=== PATIENT | female | born 1950 | race Caucasian/White ===

== ENCOUNTER → 2017-12-23 14:17 | Outpatient (CLI) | payer MEDICARE, OTHER, SELFPAY ==
--- NOTE | 2017-12-23 14:25 | HPBI_ITS ---
MAMMOGRAPHY - UNILATERAL SCREENING: RIGHT BREAST REASON FOR EXAM: Female, 67 years old. Routine annual screening examination (unilateral). PERTINENT HISTORY: Personal history of breast cancer. Prior left mastectomy and prior right excisional breast biopsy. TECHNIQUE: Digital unilateral breast hanna (3D mammographic acquisition) in the CC and MLO projections. 2-D mediolateral oblique (MLO) and craniocaudad (CC) views of both breasts were obtained. CAD: Full Field Digital Mammography with Computer Added Detection was performed. COMPARISON: Comparison is made with prior study dated December 11, 2016 and November 27, 2015. FINDINGS: Breast Composition: There are scattered areas of fibroglandular density. There are no dominant masses or suspicious calcifications. No other significant abnormalities are identified. There has been no significant change since the prior study. BI/UNILAT RT SCRN W/CAD IMPRESSION: Stable unilateral screening mammogram. Yearly follow-up mammogram recommended. (A) ASSESSMENT CATEGORY: BIRADS Category 1: Negative. A letter regarding these results will be sent to the patient by the facility within 30 days. Approximately 10% of breast cancers are not detected by mammography. A normal mammogram should not delay biopsy of a clinically suspicious abnormality. [id number] Electronically Signed: Lobo Chaves MD at 15:44 EST Tel [phone], Service support ,
--- NOTE | 2017-12-23 14:25 | HPBD_ITS ---
STUDY: DUAL ENERGY X-RAY ABSORPTIOMETRY / DXA REASON FOR EXAM: Female, 67 years old. The patient is postmenopausal. Loss of height. TECHNIQUE: Bone Mineral Density (BMD) measurements of lumbar spine and bilateral hips were obtained. COMPARISON: Comparison is made with prior study dated August 29, 2015. FINDINGS: Lumbar Spine (L1-L4): g/cm2 (1.107) / T-score (-0.5) / Z-score (1.2) Findings are suggestive of normal bone density with a low fracture risk. Left Femur Total: g/cm2 (1.003) / T-score (0.0) / Z-score (1.4) Left Femoral Neck: g/cm2 (0.853) / T-score (-1.3) / Z-score (0.4) Right Femur Total: g/cm2 (0.910) / T-score (-0.8) / Z-score (0.7) Right Femoral Neck: g/cm2 (0.835) / T-score (-1.5) / Z-score (0.2) The T-Scores on the most recent prior examination were: Lumbar Spine (L1-L4): There has been worsening of bone density since the previous examination. Left Femur Total: which represents an improvement of 5.8%. Right Femur Total: which represents a worsening of 2.6%. HPBD/Dexa Bone Density Study (HP) IMPRESSION: The patient is considered osteopenic as outlined below according to World [employer] Organization (WHO) criteria with a moderate fracture risk. There has been worsening of bone density since the previous examination. Reference Information: The T-score is the number of standard deviations above or below the standard which is normal for young adults at their peak bone mineral density. The World Health Organization (WHO) interprets the T-scores as follows: Above -1 Normal bone density Between -1 and -2.5 Osteopenia Equal to / or below -2.5 Osteoporosis As a practical clinical guideline, osteopenia may be graded as follows: Mild -1 through -1.5 Moderate -1.6 through -2.0 Severe -2.1 through -2.4 The Z-score is the number of standard deviations above or below age-matched controls. A Z-score of less than -1.5 would be considered abnormal. References: 1. NIH Osteoporosis and Related Bone Diseases http://www.osteo.org 2. International Society for Clinical Densitometry http://www.iscd.org 3. National Osteoporosis Foundation http://www.nof.org Electronically Signed: Lobo Chaves MD at 15:50 EST Tel [phone], Service support ,
== END ==
PROVIDERS: Family Provider Family Medicine; PCP Family Medicine; Visit Provider Family Medicine
DX: Z12.31 Encounter for screening mammogram for malignant neoplasm of breast (principal); M81.0 Age-related osteoporosis without current pathological fracture
CPT/HCPCS: 77061; 77067; 77080; G0279

== ENCOUNTER → 2018-01-08 15:43 | Outpatient (CLI) | payer MEDICARE, OTHER, SELFPAY ==
--- NOTE | 2018-01-08 15:43 | RAD_ITS ---
STUDY: X-RAY - CERVICAL SPINE REASON FOR EXAM: Female, 67 years old. Chronic neck pain TECHNIQUE: 3 view(s) of the cervical spine were obtained. COMPARISON: None FINDINGS: Normal anterior atlantoaxial articulation. Normal odontoid process. There is straightening of the normal cervical lordosis. There is multi-level endplate spondylosis. There is multi-level degenerative disc disease with multilevel disc space narrowing. The soft tissue structures are unremarkable. There is no demonstrated fracture of the cervical spine. RAD/Cerv Spine 2 or 3 Views IMPRESSION: No acute fracture or dislocation. Degenerative changes. Electronically Signed: Ruben Carlson MD at 16:07 EST , Service support ,
== END ==
PROVIDERS: Family Provider Family Medicine; PCP Family Medicine; Visit Provider Family Medicine
DX: M54.2 Cervicalgia (principal); M77.11 Lateral epicondylitis, right elbow
CPT/HCPCS: 72040; 97530

== ENCOUNTER 2018-01-12 12:30 | Outpatient (RCR) | payer MEDICARE, OTHER, SELFPAY ==
--- NOTE | 2017-11-28 14:13 | HP.PTEVAL_ITS ---
Patient's Visit Information LUIS MANUEL MAYA is a 67 year old F referred to Physical Therapy by MD SARINA Flores with a diagnosis of RIGHT ELBOW TENDONITIS. Date of Evaluation: 11/28/17 Physical Therapist: Lindsay Wolf Visit Plan Frequency: 2x /Week Duration: 4-6 Weeks Plan: RIGHT ELBOW US TO TENDER AREAS, POSTURE CORRECTION/STRENGTHENING, RIGHT ELBOW STM, CERVICAL US AND STM. RIGHT UE ROM, STRETCHING AND STRENGTHENING. 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 Disability: NO. Present symptoms: RIGHT ANTERIOR ELBOW. ELBOW LOCKS UP. PATIENT DENIES NECK, RIGHT SHOULDER, RIGHT FOREARM AND HAND SX'S. Present since: ABOUT 2 YEARS AGO. Pain Scale: WORST 8 /10, LEAST 2/10. Currently: 4/10. Commenced as a result of: NO APPARENT REASON. Symptoms at onset: SAME. Worse: RESTING ELBOW ON SOMETHING, USING HER ARM AND SLEEPING. Better: ADVIL, USING OTHER HAND TO UNLOCK ELBOW, RESTING IT. Disturbed sleep: YES. Previous history/Previous treatment: INJECTION BY DR. GABRIEL THAT HELPED FOR ABOUT A MONTH ONLY. NO SURGERY. Accidents: NO. Unexplained weight loss: NO. Imaging: RIGHT ELBOW X-RAY SHOWING ARTHRITIS RECENTLY. NO MRI. PMH: LUMBAR DDD, LEFT SHOULDER PAIN, OSTEOPOROSIS, BREAST CA 1992 AND 1997 TREATED WITH MASECTOMY AND RADIATION. HERNIA SX 3 YEARS AGO. LEFT ANKLE ARTHRITIS. LEFT KNEE MENISCUS SX. - Objective THIS PATIENT AMBULATES INDEP'LY INTO PT WITHOUT ANY GROSS DEVIATIONS NOTED. SHE HAS A LITTLE BIT OF TROUBLE LOCATING HER PAIN FOR ME STATING IT SEEMS TO BE HER WHOLE ELBOW AT TIMES AND AT NIGHT WHEN IT STARTS TO ACHE SHE HAS TO USE HER LEFT ARM TO LIFT HER RIGHT ONE. SHE IS RIGHT HAND DOMINANT. HER SITTING POSTURE IS POOR WITH FORWARD HEAD AND ROUNDED SHOULDERS. NO TORTICOLLIS. ACTIVE CORRECTION OF HER SITTING POSTURE HAS NO APPARENT EFFECT AT FIRST BUT PASSIVE POSTURE CORRECTION WITH LUMBAR SUPPORT ABOLISHES RIGHT ELBOW PAIN. CERVICAL MVMT LOSS: FELX - NIL, EXT - NAVEEN, RET - NAVEEN, PROTRACTION - NIL, REAL ROT - MOD, REAL SB - MOD. AFTER TESTING ONE REPETITION OF NECK ROM IN ALL PLANES PATIENT STARTED TO REPORT HER ARM WAS REALLY HURTING. NECK ROM TESTING ALSO PRODUCES REAL NECK PAIN AND PAIN THAT RADIATES DOWN FROM THE NECK INTO THE SHOULDER AND ALL THE WAY DOWN TO HER FOREARM. SHE HAS A LITTLE BIT OF TENDERNESS AT THE RIGHT LATERAL EPICONDYLE BUT EPICONDYLITIS TEST IS NEGATIVE AND SHE HAS GOOD RIGHT WRIST EXTENSOR STRENGTH. MMT: RIGHT SHOULDER FLEX AND ABD 4-/5, ELBOW FLEX 5/5, ELBOW EXT 5/5. LEFT SHOULDER FLEX AND ABD 4/5, ELBOW FLEX/EXT 5/5. 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 REAL UE LIGHT TOUCH SENSATION IS INTACT AND SYMMETRICAL. REAL UE ROM IS WFL BUT RIGHT SHOULER FLEX AND ABD ROM TESTING PROVOKES RIGHT NECK, SHOULDER AND ELBOW PAIN. - Goals Goal 1:: DECREASE C/O RIGHT UE PAIN Goal Time Frame: 4-6 Weeks Goal 2:: IMPROVE ADL AND SLEEP FUNCTION Goal Time Frame: 4-6 Weeks Goal 3:: INSTRUCT IN PROPHYLAXIS Goal Time Frame: 4-6 Weeks - Rehabilitation Potential Rehabilitation Potential: Fair - Anticipated Interventions Patient/Client Instruction: Educate patient on: Condition, Plan of Care, Risk Factors, Benefits of Fitness Program For the Purpose of:: To improve self management Therapeutic Exercise to Include: Strength training, Body mechanics, Postural training, Scapular Strength/Stabilization For the Purpose of:: To improve ability of physical actions for home/community/ work/leisure Manual Therapy Techniques to Include: Soft tissue mobilization Comment: NECK AND RIGHT UE For the Purpose of:: To decrease pain, To decrease swelling/inflammation, To increase ROM Cryotherapy (ice pack, ice massage): Yes Thermo therapy (hot pack): Yes Ultrasound (thermal/non thermal): Yes For the Purpose of:: To decrease pain, To decrease swelling/inflammation, To increase ROM Thank you for the opportunity to evaluate your patient. For Medicare and Medicare HMO plans, please review the plan of care and approve it. It will need to be FAXED BACK to us at [phone] for Medicare purposes. Please let me know if there are questions or concerns regarding this plan of care. Physician Signature: Date:
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
--- NOTE | 2018-01-12 13:09 | HP.PTDCSUM ---
HP - PT D/C Summary It has been my pleasure to treat LUIS MANUEL MAYA under orders from Nayla Fitzgerald MD, for the diagnosis of RIGHT ELBOW TENDONITIS for a total of 12 visit(s). Discharge Date: Please see the following information for a summary of their discharge status. - Subjective Subjective: PATIENT REPORTS SHE GOT A CALL FROM THE DOCTORS OFFICE AND WAS TOLD IT IS JUST ARTHRITIS IN HER NECK. STATES SHE WANTS AN MRI BECAUSE SHE WAS MISERABLE THIS WEEKEND TRAVELING. REPORTS THAT OVER-ALL SHE IS SO MUCH BETTER SINCE STARTING THERAPY BECAUSE SHE CAN SLEEP NOW AND GET RID OF THE PAIN WITH THE RIGHT ACTIVITY AND POSITION CHANGES WHERE SHE COULDN'T BEFORE BUT SHE WANTS TO BE ABLE TO TRAVEL, VOLUNTEER, SOCIALIZE AND GARDEN LIKE BEFORE WITHOUT THE PAIN. - Pain RIGHT ELBOW Pain Intensity (Out of 10): 0 NECK Pain Intensity (Out of 10): 0 - Overall Improvement % Improvement: 100 - Objective Objective/Function: UPON EXAM, THERE ARE NO CHANGES SINCE LAST RE-CHECK. PATIENT COMMUNICATES A GOOD UNDERSTANDING OF ALL INSTRUCTIONS GIVEN. ALTHOUGHT SHE CAN ABOLISH HER SX'S NOW WITH ACTIVITY MODIFICATIONS SHE CAN NOT TOLERATE FURTHER PROGRESSION OF POSTURAL EX'S OR MANUAL THERAPY. THE RIGHT UE SX'S ARE EASILY PROVOKED WITH THER EX AND MANUAL THERAPY. - Goals Goal 1:: DECREASE C/O RIGHT UE PAIN Goal Progress: Not Progressing Goal 2:: IMPROVE ADL AND SLEEP FUNCTION Goal Progress: Not Progressing Goal 3:: INSTRUCT IN PROPHYLAXIS Goal Progress: Not Progressing - Plan Plan: D/C DUE TO LACK OF FURTEHR PROGRESS. REFERRED PATIENT BACK TO DR. FITZGERALD FOR RE-ASSESSMENT. PATIENT IS AGREEABLE TO THIS PLAN. - D/C Information If there are questions or concerns regarding this patient's physical therapy, please feel free to call me at [phone]. Thank you for the referral of this patient. Sincerely, Lindsay Larson
== END 2018-01-12 19:00 | disposition home or self-care (01) ==
LOC: PT 12:30
PROVIDERS: Family Provider Family Medicine; PCP Family Medicine; Visit Provider Family Medicine
DX: M77.11 Lateral epicondylitis, right elbow (principal)
CPT/HCPCS: 97035; 97140; 97162; 97530

== ENCOUNTER → 2018-01-26 15:55 | Outpatient (CLI) | payer MEDICARE, OTHER, SELFPAY ==
--- NOTE | 2018-01-26 16:00 | RAD_ITS ---
STUDY: X-RAY CHEST REASON FOR EXAM: Female, 68 years old. Acute bronchitis. Cough. TECHNIQUE: Frontal and lateral views of the chest. COMPARISON: 12/09/2012. FINDINGS: The lungs are clear and expanded. There is no demonstrated pleural abnormality. Normal size heart. Normal mediastinum and stephenie. Normal visualized pulmonary arteries. Normal visualized aortic arch and descending thoracic aorta. Moderate hiatal hernia. Normal visualized thoracic spine. Normal visualized ribs, clavicles, and shoulders. There is no demonstrated abnormality of the visualized soft tissue structures of the upper abdomen. Surgical clips are seen related to the left breast. RAD/Chest PA and Lateral IMPRESSION: No acute chest disease. Moderate hiatal hernia. Electronically Signed: Ruben Carlson MD at 10:02 EST , Service support ,
== END ==
PROVIDERS: Family Provider Family Medicine; PCP Family Medicine; Visit Provider Family Medicine
DX: J20.9 Acute bronchitis, unspecified (principal)
CPT/HCPCS: 71046

== ENCOUNTER → 2018-09-01 10:00 | Outpatient (CLI) | payer MEDICARE, OTHER, SELFPAY ==
--- NOTE | 2018-09-01 10:02 | RAD_ITS ---
STUDY: X-RAY - RIGHT ELBOW REASON FOR EXAM: Female, 68 years old. Chronic pain from overuse. TECHNIQUE: 3 view(s) of the elbow. COMPARISON: November 21, 2017 FINDINGS: Normal visualized humerus, radius and ulna. Again noted is moderate arthrosis of the elbow joint with loss of articular cartilage and osteophyte formation. The soft tissue structures are unremarkable. 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 No acute pathology. Electronically Signed: Markus Ferguson MD at 13:29 EDT , Service support ,
--- NOTE | 2018-09-01 10:02 | RAD_ITS ---
STUDY: X-RAY - LEFT SHOULDER REASON FOR EXAM: Female, 68 years old. Chronic pain from overuse. TECHNIQUE: 3 view(s) of the shoulder. COMPARISON: None. FINDINGS: There is generalized osteopenia. There is mild arthrosis of the glenohumeral and acromioclavicular joints. Normal acromion. There is cystic change in the humeral head. There are clips in left axilla. Normal visualized pulmonary apex. RAD/Shoulder min 2 Views IMPRESSION: Osteopenia with mild arthrosis of the glenohumeral and acromioclavicular joints. No acute pathology. Electronically Signed: Markus Ferguson MD at 13:30 EDT , Service support ,
== END ==
PROVIDERS: Family Provider Family Medicine; PCP Family Medicine; Referring Provider Orthopaedic Surgery; Visit Provider Orthopaedic Surgery
DX: M25.512 Pain in left shoulder (principal); M25.521 Pain in right elbow
CPT/HCPCS: 73030; 73080

== ENCOUNTER 2018-09-28 12:00 | Outpatient (RCR) | payer MEDICARE, OTHER, SELFPAY ==
--- NOTE | 2018-09-08 10:57 | HP.PTEVAL_ITS ---
Patient's Visit Information LUIS MANUEL MAYA is a 68 year old F referred to Physical Therapy by Dottie Pérez DO with a diagnosis of L RTC syndrome. Date of Evaluation: 09/08/18 Physical Therapist: Shira Wolf - Visit Plan Frequency: 3x /Week Duration: 3 Weeks Plan: 3X/ week for 3 weeks for L shoulder AROM, PROM, stretching, strengthening, postural exercises with HEP and US PRN - Subjective Subjective: Pt reports that 3-4 weeks ago reached for seatbelt with L arm and it hurt down her arm. SHe got x-rays and an injection. She reports that it still aches. X-ray. Pt has had R elbow pain but she has had that for 3 years and already did PT and it did not do anything. SHe has no N&T. She has noticed a little bit of weakness and she has pain from the shoulder through elbow. Her elbow wakes her up at night even before this shoulder injury. She wakes up with shooting pain in the L shoulder at night and some times she has to pick arm up and move it with the other arm. She is R handed. She has had breast CA with masectomy on the L in 1997. - Pain L shoulder pain Pain Intensity (Out of 10): 3 L elbow pain Pain Intensity (Out of 10): 9 - Objective L shoulder: 145 flexion 115 abduction 30 degrees ER. R shoulder: Flexion/Abd WFL ER 40 degrees ER T8 IR. Palpation: Tender under the L acromion. L shld MMT: flexion 3+/5, abd 3+/5, ER/IR 4-/5. R shld MMT: flex 4- /5 and abd 4-/5, ER/IR 4/5. -HK on the L. + empty can on the L for pain and weakness - Goals Goal 1:: I HEP Goal Time Frame: 4-6 Weeks Goal 2:: Increase L shld flex/abd by 1/2 muscle grade to increase over all strength (to 4-/5) Goal Time Frame: 4-6 Weeks Goal 3:: Increase L shld flex and abld to 170 degrees elevation without pain Goal Time Frame: 4-6 Weeks - Rehabilitation Potential Rehabilitation Potential: Good - Anticipated Interventions Patient/Client Instruction: Educate patient on: Condition, Plan of Care For the Purpose of:: To decrease pain, To decrease swelling/inflammation, To increase ROM, To improve nutrient delivery to tissue, To improve muscle performance and motor function, To improve ability to perform ADL's, To increase tolerance to activity/condition/position, To improve performance and independence with ADL's Therapeutic Exercise to Include: Strength training, Postural training, Flexibilty training, Passive ROM, Active ROM, Scapular Strength/Stabilization For the Purpose of:: To decrease pain, To decrease swelling/inflammation, To improve nutrient delivery to tissue, To improve muscle performance and motor function, To improve ability to perform ADL's, To improve health of tissue, To decrease soft tissue restriction, To increase flexibility/ROM Manual Therapy Techniques to Include: Passive ROM For the Purpose of:: To increase ROM Ultrasound (thermal/non thermal): Yes For the Purpose of:: To decrease pain, To decrease swelling/inflammation, To improve nutrient delivery to tissue Thank you for the opportunity to evaluate your patient. For Medicare and Medicare HMO plans, please review the plan of care and approve it. It will need to be FAXED BACK to us at [phone] for Medicare purposes. Please let me know if there are questions or concerns regarding this plan of care. Physician Signature:___ Date:
--- NOTE | 2018-09-28 12:19 | HP.PTDCSUM_ITS ---
HP - PT D/C Summary It has been my pleasure to treat LUIS MANUEL MAYA under orders from Dottie Pérez DO, for the diagnosis of L RTC syndrome for a total of 9 visit(s). Discharge Date: 09/28/18 Please see the following information for a summary of their discharge status. - Subjective Subjective: Her L shoulder is feeling good. If she presses on it she might have a little pain but overall she is fine and back to all her activites. She can do her seatbelt etc. Pt feels that her bands are strong enough at this time and does not need any other. - Pain L shoulder pain Pain Intensity (Out of 10): 0 L elbow pain Pain Intensity (Out of 10): 0 R elbow pain Pain Intensity (Out of 10): 0 - Overall Improvement % Improvement: 95 - Objective Objective/Function: L shld AROM: 125 degrees abd, 147 degree flex, 44 degrees ER, and IR T8. L shld MMT: flex R 4/5, abd 4/5, ER and IR 4/5 on the R - Goals Goal 1:: I HEP Goal Progress: Goal Met Goal 2:: Increase L shld flex/abd by 1/2 muscle grade to increase over all stren gth (to 4-/5) Goal Progress: Goal Met Goal 3:: Increase L shld flex and abld to 170 degrees elevation without pain Goal Progress: Progressing - Plan Plan: DC PT. Pt to go back to physician for R elbow as PT was making it worse and she has 8/10 pain with it at times. - D/C Information Discharge Comments: DC PT to HEP and back to physician reassessment for her R elbow. If there are questions or concerns regarding this patient's physical therapy, please feel free to call me at [phone]. Thank you for the referral of this patient. Sincerely, Shira Wolf
== END 2018-09-28 19:00 | disposition home or self-care (01) ==
LOC: PT 12:00
PROVIDERS: Family Provider Family Medicine; PCP Family Medicine; Visit Provider Orthopaedic Surgery
DX: M75.102 Unspecified rotator cuff tear or rupture of left shoulder, not specified as traumatic (principal); M19.021 Primary osteoarthritis, right elbow
CPT/HCPCS: 97035; 97110; 97161; 97530

== ENCOUNTER → 2018-10-27 16:03 | Outpatient (CLI) | payer MEDICARE, OTHER, SELFPAY ==
--- NOTE | 2018-10-27 16:05 | MRI_ITS ---
STUDY: MRI RIGHT ELBOW REASON FOR EXAM: Medial pain for 3 years, no specific injury. TECHNIQUE: Standardized fat and water weighted pulse sequences were obtained in all 3 orthogonal planes. COMPARISON: Radiographs 09/01/2018. FINDINGS: There is mild arthrosis of the radio-capitellum articulation with small marginal osteophytes, subchondral cystic change of the capitellum and mild chondral loss of the radial head (T2 sagittal image 13). Normal radial collateral ligamentous complex. There is partial tear of the common extensor tendon (inversion recovery coronal image 12). There is arthrosis of the ulnotrochlear articulation with marginal osteophytes, subchondral cystic change and chondral thinning (T2 sagittal images 6-9). Normal ulnar collateral ligamentous complex. There is tendinosis of the common flexor tendon (inversion recovery coronal image 13) without discrete tendon tear. The cubital tunnel is normal, with a normal ulnar nerve. Normal biceps tendon and distal insertion. Normal lacertus fibrosis. Normal brachialis musculotendinous insertion. Normal triceps tendon and teno-osseous insertion. Normal olecranon process. The visualized distal humerus, proximal radius, and ulna are normal. There is a low-grade strain of the proximal flexor musculature (inversion recovery coronal images 13, 14). There is a small joint effusion (T2 axial image 17). MRI/Upper Ext Joint Only(Routine) IMPRESSION: Medial epicondylitis with tendinosis of the common flexor tendon. Partial tear of the common extensor tendon. 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 Low-grade strain of the proximal flexor musculature. Small joint effusion. Electronically Signed: Leobardo Jerez MD at 8:39 EST Tel , Service support ,
== END ==
PROVIDERS: Family Provider Family Medicine; PCP Family Medicine; Referring Provider Physician Assistant; Visit Provider Physician Assistant
DX: M25.521 Pain in right elbow (principal); M25.621 Stiffness of right elbow, not elsewhere classified
CPT/HCPCS: 73221

== ENCOUNTER → 2018-11-02 15:42 | Outpatient (CLI) | payer MEDICARE, OTHER, SELFPAY ==
--- NOTE | 2018-11-02 16:00 | RAD_ITS ---
STUDY: X-RAY - RIGHT HIP REASON FOR EXAM: Female, 68 years old. Hip pain TECHNIQUE: 2 views of the hip and a single image of the pelvis. COMPARISON: None. FINDINGS: There are mild degenerative changes of the right hip characterized by joint space narrowing and subchondral sclerosis. There are degenerative changes of the left hip noted as well. There are surgical clips projecting over the left inguinal region and lower abdomen. There are degenerative changes of the visualized lower lumbar spine. There are phleboliths present. There is a nonspecific bowel gas pattern. RAD/HIP, UNI W/ Pelvis 2-3 Views IMPRESSION: Degenerative changes. Electronically Signed: Tahs Brown MD at 8:27 EST Tel , Service support ,
--- NOTE | 2018-11-02 16:00 | RAD_ITS ---
STUDY: X-RAY - LUMBAR SPINE REASON FOR EXAM: Female, 68 years old. Chronic lower back pain. TECHNIQUE: 3 view(s) of the lumbar spine were obtained. COMPARISON: None FINDINGS: Normal lumbar lordosis. There is no substantial scoliosis. There is a normal alignment of the vertebrae. There is multilevel endplate spondylosis of the lumbar vertebrae. There is multi-level degenerative disc disease with multi-level disc space narrowing. The soft tissue structures are unremarkable. RAD/Lumbar Spine 2 or 3 Views IMPRESSION: Degenerative changes of the spine, as detailed above. Electronically Signed: Tash Brown MD at 8:24 EST Tel , Service support ,
--- OUTSIDE RECORDS SUMMARY | 2018-12-20 00:47 | XMS RPT_ITS ---
:1950 Author Organization OHIP Support Name Relationship Address Phone NELIA MAYA Unavailable [address] + [place] [address] CHELA PHILLIPNE Unavailable . + [place] [address] R Unavailable Unavailable Unavailable FRANCESCO NELIA Unavailable [address] + [place] [address] KENJI TERRI Unavailable . + [place] [address] R Unavailable Unavailable Unavailable NELIA MAYA Unavailable [address] + [place] [address] CHELA PHILLIPNE Unavailable . + [place] [address] R Unavailable Unavailable Unavailable NELIA MAYA Unavailable [address] + [place] [address] KENJI TERRI Unavailable . + [place] [address] R Unavailable Unavailable Unavailable NELIA MAYA Unavailable [address] + [place] [address] CHELA PHILILPNE Unavailable Unavailable + [place] [address] R Unavailable Unavailable Unavailable NELIA MAYA Unavailable [address] + [place] [address] KENJI TERRI Unavailable Unavailable + [place] [address] R Unavailable Unavailable Unavailable NELIA MAYA Unavailable [address] + [place] [address] KENJI TERRI Unavailable . + [place] [address] R Unavailable Unavailable Unavailable NELIA MAYA Unavailable [address] [phone] [place] [address] PHILLIP TERRI Unavailable . + [place] [address] R Unavailable Unavailable Unavailable NELIA MAYA Unavailable [address] [phone] [place] [address] PHILLIP TERRI Unavailable . + [place] [address] R Unavailable Unavailable Unavailable NELIA MAYA Unavailable [address] [phone] [place] [address] PHILLIP, TERRI Unavailable . + [place] [address] R Unavailable Unavailable Unavailable NELIA MAYA Unavailable [address] [phone] [place] [address] PHILLIPCHELANE Unavailable . + [place] [address] R Unavailable Unavailable Unavailable NELIA MAYA Unavailable [address] [phone] [place] [address] CHELA PHILLIPNE Unavailable . + [place] [address] R Unavailable Unavailable Unavailable Care Team Providers Name Role Phone Harper Kimble Attending Unavailable BasalHarper fuller Referring Unavailable Jolliff, Nayla Primary Care Unavailable Jolliff, Nayla Attending Unavailable Jolliff, Nayla Referring Unavailable Jolliff, Nayla Primary Care Unavailable Jolliff, Nayla Attending Unavailable Jolliff, Nayla S Referring Unavailable Jolliff, Nayla Primary Care Unavailable Jolliff, Nayla Attending Unavailable Jolliff, Nayla Referring Unavailable Jolliff, Nayla Primary Care Unavailable Wicho Deleon Attending Unavailable Jolliff, Nayla Referring Unavailable Jolliff, Nayla Primary Care Unavailable Nitish Voss Attending Unavailable VossNitish Referring Unavailable Jolliff, Nayla Primary Care Unavailable ChicorelliItae Attending Unavailable Jolliff, Nayla Referring Unavailable ChicorelliDottie Attending Unavailable ChicorelliDottie Referring Unavailable Jolliff, Nayla Primary Care Unavailable ChicorelliDottie Attending Unavailable Jolliff, Nyala Primary Care Unavailable WaytErnesto Attending Unavailable Jolliff, Nayla Referring Unavailable Wayt, Ernesto Attending Unavailable Wayt, Ernesto Referring Unavailable Jolliff, Nayla Primary Care Unavailable Wayt, Ernesto Attending Unavailable Jolliff, Nayla Referring Unavailable PROBLEMS PROBLEMS DATE TYPE CONDITION / CODE ATTENDING STATUS SOURCE 11/09/2018 Unknown M25.551 - Pain in Harper Kimble Active [place] right hip / Community M25.551(ICD-10) Hospital Repository 12/03/2018 Unknown M77.11 - Lateral Ernesto Levin Active [place] epicondylitis, [facility] right elbow / Hospital M77.11(ICD-10) Repository 12/03/2018 Unknown M25.521 - Pain in Ernesto Levin Active [place] right elbow / Community M25.521(ICD-10) Hospital Repository 10/08/2018 Unknown M75.102 - [facility], Active [place] Unspecified [facility] rotator cuff tear Hospital or rupture of Repository left shoulder, not specified as traumatic / M75.102(ICD-10) 09/01/2018 Unknown M25.512 - Pain in [place], Active [place] left shoulder / [facility] M25.512(ICD-10) Hospital Repository 01/26/2018 Unknown J20.9 - Acute Nitish Voss Active [place] bronchitis, [facility] unspecified / Hospital J20.9(ICD-10) Repository PROCEDURES PROCEDURES No Procedure Records FoundRESULTS RESULTS ORTHOPEDIC VISIT Observed: 12/01/2018 Status: F Source: [facility] REPORT 10:47 AM [facility] REPOSITORY [facility] [address] [place] [address] OFFICE VISIT Date of Service: 10/30/18 MR#: [id number] Acct: [id number] Name: LUIS MANUEL MAYA Jose Enrique Rep #: [id number] : 1950 Provider: KODY Levin Age/Sex: 68/F [place] [facility]: Signed Intake Intake Visit Reasons: RIGHT ELBOW Is patient in pain?: Yes Allergies acetaminophen [From Vicodin] Allergy (Verified 01/17/18 10:28) Other hydrocodone bitartrate [From Vicodin] Allergy (Verified 01/17/18 10:28) Other venlafaxine HCl [From Effexor] Allergy (Verified 01/17/18 10:28) Other Medications Docusate Sodium [Colace] 100 mg PO DAILY #20 cap 04/26/14 [Rx Confirmed 02/26/16] Ezetimibe [Zetia] 10 mg PO DAILY 04/26/14 [History Confirmed 02/26/16] Sertraline HCl [Zoloft] 100 mg PO DAILY 04/26/14 [History Confirmed 01/17/18] benzonatate 200 mg capsule 200 mg PO TID PRN #30 cap 01/17/18 [Rx Confirmed 01/17/18] calcium carbonate 500 mg calcium (1,250 mg) tablet 500 mg PO BID tab 01/17/18 [History Confirmed 01/17/18] PFSH Medical History Back pain (Acute) Hemorrhoids (Acute) History of cancer (Acute) Knee pain (Acute) Neck pain (Acute) Shoulder pain (Acute) Surgical History History of lumpectomy (Acute) History of mastectomy (Acute) Social History Smoking Status: Never smoker alcohol intake: never HPI RIGHT ELBOW: Details: LUIS MANUEL MAYA is a 68 year old F here today for MRI f/u of the right elbow. She states that her pain is greatest in extension and supination but hurts / aches all the time even at rest. Her pain is radiating into the tricep and forearm and all over the elbow. Denies numbness, tingling or other associated symptoms. She has had injections without relief and does not wish to continue that treatment, her recent MRI is here for review. Ortho Exam Right Elbow Swelling: No Contralateral Normal: Yes ROM: Yes Flexion 0-140, Extension 0, Supination 0-90 and Pronation 0-80 Test: No Valgus Stress Test, No Varus Stress Test, Yes TTP Medial Epicondyle, Yes TTP Lateral Epicondyle, No Pain w/ resist wrist ext, No Pain w/ resist wrist flex, No Thenar Atrophy, No Pain w/ resist 3rd dig ext, No Ulnar Nerve Subluxation Sensation: Radial: I, Ulnar: I, Median: I Motor: Elbow Extension: 5, Elbow Flexion: 5 ELBOW: Assessment AND Plan Problems 1. Right elbow pain M25.521 2. Lateral epicondylitis, right elbow M77.11 Plan Today in the office we reviewed patient's MRI findings of the right elbow. We discussed the anatomy and physiology of the elbow especially in relation to her MRI findings. At this time it really appears that patient has several possible causes of her pain in the elbow. She has had injections into the lateral elbow without relief and does not wish to have any more of these. We discussed findings of the common extensor tear as well as the medial epicondylitis. We also discussed the arthritis aspect noted on the MRI. At this point since injections into the lateral elbow are not helpful patient would like to try something different. I would recommend at this point that she receive an intra-articular elbow injection from in order to see if she has any pain relief from this injection as previous efforts for lateral epicondylitis have not helped her much. I would also like her to do some physical therapy for the elbow. She needs to continue to wear an elbow strap. She can also ice the elbow and use anti-inflammatories. We will see her back after she has injection into the elbow and at that time we will discuss other possible treatments which could include injections into the medial epicondyle. She can notify the office with any questions and can return sooner if she has any increasing pains, swelling, erythema, or any other changes to the elbow. All of patient's questions were answered to her satisfaction and patient agrees with plan at this time. This note was generated with [employer] dictation software. It may contain incorrect words, spelling, and punctuation that were not noted in checking the note before signing. Plan Detail Follow Up 6 Weeks Coding Level of Care Code Off vis,est,level 2 Diagnoses Right elbow pain M25.521 Lateral epicondylitis, right elbow M77.11 12/01/18 1047 <Electronically signed by Ernesto GATES> Date Ernesto GATES Cosigner Signature: Date (if applicable) CC: LUMBAR SPINE 2 OR 3 Observed: 11/02/2018 Status: F Source: [place]IAN[place] 4:00 PM [facility] REPOSITORY [facility] Imaging Services [facility] [place] [address] Lumbar Spine 2 or 3 Views MR#: [id number] Acct: [id number] Name: LUIS MANUEL MAYA Rep #: [id number] : 1950 F 68 From: Tash Brown MD PCP: Nayla Fitzgerald MD Status: REG CLI Study: Lumbar Spine 2 or 3 Views Date of Exam: 11/02/18 Exam# [id number] Ordering Dr: Harper Kimble MD STUDY: X-RAY - LUMBAR SPINE REASON FOR EXAM: Female, 68 years old. Chronic lower back pain. TECHNIQUE: 3 view(s) of the lumbar spine were obtained. COMPARISON: None FINDINGS: Normal lumbar lordosis. There is no substantial scoliosis. There is a normal alignment of the vertebrae. There is multilevel endplate spondylosis of the lumbar vertebrae. There is multi-level degenerative disc disease with multi-level disc space narrowing. The soft tissue structures are unremarkable. RAD/Lumbar Spine 2 or 3 Views IMPRESSION: Degenerative changes of the spine, as detailed above. Electronically Signed: Tash Brown MD at 8:24 EST Tel , Service support , CC: Nayla Fitzgerald MD; Harper Kimble MD Jetting Machine Operator: Signed HIP, UNI W/ PELVIS Observed: 11/02/2018 Status: F Source: [place] 2-3 VIEWS 4:00 PM [facility] REPOSITORY [facility] Imaging Services [address] [place] [address] HIP, UNI W/ Pelvis 2-3 Views MR#: [id number] Acct: [id number] Name: LUIS MANUEL MAYA Rep #: [id number] : 1950 F 68 From: Tash Brown MD PCP: Nayla Fitzgerald MD Status: REG CLI Study: HIP, UNI W/ Pelvis 2-3 Views Date of Exam: 11/02/18 Exam# [id number] Ordering Dr: Harper Kimble MD STUDY: X-RAY - RIGHT HIP REASON FOR EXAM: Female, 68 years old. Hip pain TECHNIQUE: 2 views of the hip and a single image of the pelvis. COMPARISON: None. FINDINGS: There are mild degenerative changes of the right hip characterized by joint space narrowing and subchondral sclerosis. There are degenerative changes of the left hip noted as well. There are surgical clips projecting over the left inguinal region and lower abdomen. There are degenerative changes of the visualized lower lumbar spine. There are phleboliths present. There is a nonspecific bowel gas pattern. RAD/HIP, UNI W/ Pelvis 2-3 Views IMPRESSION: Degenerative changes. Electronically Signed: Tash Brown MD at 8:27 EST Tel , Service support , CC: Nayla Fitzgerald MD; Harper Kimble MD Jetting Machine Operator: Signed UPPER EXT JOINT Observed: 10/27/2018 Status: F Source: WINK ONLY(ROUTINE) 4:05 PM [facility] REPOSITORY [facility] Imaging Services [address] [place] [address] Upper Ext Joint Only(Routine) MR#: [id number] Acct: [id number] Name: LUIS MANUEL MAYA Rep #: [id number] : 1950 F 68 From: Leobardo Jerez MD PCP: Nayla Fitzgerald MD Status: REG CLI Study: Upper Ext Joint Only(Routine) Date of Exam: 10/27/18 Exam# [id number] Ordering Dr: Ernesto Levin STUDY: MRI RIGHT ELBOW REASON FOR EXAM: Medial pain for 3 years, no specific injury. TECHNIQUE: Standardized fat and water weighted pulse sequences were obtained in all 3 orthogonal planes. COMPARISON: Radiographs 09/01/2018. FINDINGS: There is mild arthrosis of the radio-capitellum articulation with small marginal osteophytes, subchondral cystic change of the capitellum and mild chondral loss of the radial head (T2 sagittal image 13). Normal radial collateral ligamentous complex. There is partial tear of the common extensor tendon (inversion recovery coronal image 12). There is arthrosis of the ulnotrochlear articulation with marginal osteophytes, subchondral cystic change and chondral thinning (T2 sagittal images 6-9). Normal ulnar collateral ligamentous complex. There is tendinosis of the common flexor tendon (inversion recovery coronal image 13) without discrete tendon tear. The cubital tunnel is normal, with a normal ulnar nerve. Normal biceps tendon and distal insertion. Normal lacertus fibrosis. Normal brachialis musculotendinous insertion. Normal triceps tendon and teno-osseous insertion. Normal olecranon process. The visualized distal humerus, proximal radius, and ulna are normal. There is a low-grade strain of the proximal flexor musculature (inversion recovery coronal images 13, 14). There is a small joint effusion (T2 axial image 17). MRI/Upper Ext Joint Only(Routine) IMPRESSION: Medial epicondylitis with tendinosis of the common flexor tendon. Partial tear of the common extensor tendon. 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 Low-grade strain of the proximal flexor musculature. Small joint effusion. Electronically Signed: Leobardo Jerez MD at 8:39 EST Tel , Service support , CC: KODY Levin; Nayla Fitzgerald MD Jetting Machine Operator: Signed ORTHOPEDIC VISIT Observed: 10/14/2018 Status: F Source: [place] REPORT 8:42 AM [facility] Medicine [address] [place] [address] OFFICE VISIT Date of Service: 10/13/18 MR#: [id number] Acct: [id number] Name: LUIS MANUEL MAYA Rep #: [id number] : 1950 Provider: KODY Levin Age/Sex: 68/F Location[place] [facility] Status: Signed Intake Intake Visit Reasons: 6 WK FU BILATERAL ARM PAIN Allergies acetaminophen [From Vicodin] Allergy (Verified 01/17/18 10:28) Other hydrocodone bitartrate [From Vicodin] Allergy (Verified 01/17/18 10:28) Other venlafaxine HCl [From Effexor] Allergy (Verified 01/17/18 10:28) Other Medications Docusate Sodium [Colace] 100 mg PO DAILY #20 cap 04/26/14 [Rx Confirmed 02/26/16] Ezetimibe [Zetia] 10 mg PO DAILY 04/26/14 [History Confirmed 02/26/16] Sertraline HCl [Zoloft] 100 mg PO DAILY 04/26/14 [History Confirmed 01/17/18] benzonatate 200 mg capsule 200 mg PO TID PRN #30 cap 01/17/18 [Rx Confirmed 01/17/18] calcium carbonate 500 mg calcium (1,250 mg) tablet 500 mg PO BID tab 01/17/18 [History Confirmed 01/17/18] PFSH Medical History Back pain (Acute) Hemorrhoids (Acute) History of cancer (Acute) Knee pain (Acute) Neck pain (Acute) Shoulder pain (Acute) Surgical History History of lumpectomy (Acute) History of mastectomy (Acute) Social History Smoking Status: Never smoker alcohol intake: never HPI 6 WK FU BILATERAL ARM PAIN: Details: LUIS MANUEL MAYA is a 68 year old F here today for left shoulder and right elbow, she had pain relief of the left shoulder with the injection and PT but her right elbow continues to ache all the time and there were things in PT she could not complete with the right arm due to the elbow pain, all lifting was painful and anything pulling motions. Denies numbness, tingling or other associated symptoms. She does have xrays from the last visit but there are no further tests or imaging complete. Denies any injections. Ortho Exam Right Elbow Contralateral Normal: Yes ROM: Yes Flexion 0-140, Extension 0, Supination 0-90 and Pronation 0-80 Test: No Valgus Stress Test, No Varus Stress Test, Yes TTP Medial Epicondyle, No TTP Lateral Epicondyle, No Pain w/ resist wrist ext, No Pain w/ resist wrist flex, No Thenar Atrophy, No Pain w/ resist 3rd dig ext, No Ulnar Nerve Subluxation Sensation: Radial: I, Ulnar: I, Median: I Motor: Elbow Extension: 5, Elbow Flexion: 5 ELBOW: Exam today is a little different from previous exam. Today her tenderness is really localized to the medial epicondyle and adjacent medial ulnar groove. She has normal range of motion of the elbow and no pains with flexion, extension, pronation, or supination. She has maybe some minor discomfort with resisted pronation at the same time was not consistently re-created. Left Shoulder Testing: No Hawkin's, No Neer's, No Speed's, No TTP Biceps, Yes AROM-Forward Elevation 0-180, Yes AROM-External Rotation at side 0-60, No Drop Arm Internal Rotation: T12 SHOULDER: Patient has normal inspection of the left shoulder. She has normal range of motion and strength of the left shoulder at this time. She has no signs of impingement or localized tenderness. Assessment AND Plan Problems 1. Right elbow pain M25.521 Plan Today in the office patient has a normal inspection of the right elbow without any signs of generalized swelling or localized swelling. She has full range of motion of the elbow and no pains with regular motion. She has some slight inconsistent pains with resisted pronation. She does have some localized tenderness on the medial epicondyle and medial ulnar groove. She does not have any numbness or tingling or decrease in sensation of the hands. Patient has had pains in the elbow for over 3 years she states. She has had an injection which was not helpful as well as physical therapy which she states was not helpful either. At this time she does not wish to have another injection and therefore we are going to proceed with an MRI of the right elbow. 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 In the meantime patient can ice and I want her to stretch the forearm flexors which we discussed and I demonstrated for her. She is to notify the office sooner with any changes or worsening. Patient will follow-up in the office following the MRI to discuss findings. Coding Level of Care Code Off vis,est,level 3 Diagnoses Right elbow pain M25.521 10/14/18 0842 <Electronically signed by Ernesto GATES> Date Ernesto GATES Cosigner Signature: Date (if applicable) CC: PT D/C SUMMARY (1) Observed: 09/29/2018 Status: F Source: [place] 10:23 AM [facility] REPOSITORY [facility] 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 Discharge Date: 09/28/18 Please see the following information for a summary of their discharge status. - Subjective Subjective: Her L shoulder is feeling good. If she presses on it she might have a little pain but overall she is fine and back to all her activites. She can do her seatbelt etc. Pt feels that her bands are strong enough at this time and does not need any other. - Pain L shoulder pain Pain Intensity (Out of 10): 0 L elbow pain Pain Intensity (Out of 10): 0 R elbow pain Pain Intensity (Out of 10): 0 - Overall Improvement % Improvement: 95 - Objective Objective/Function: L shld AROM: 125 degrees abd, 147 degree flex, 44 degrees ER, and IR T8. L shld MMT: flex R 4/5, abd 4/5, ER and IR 4/5 on the R - Goals Goal 1:: I HEP Goal Progress: Goal Met Goal 2:: Increase L shld flex/abd by 1/2 muscle grade to increase over all strength (to 4-/5) Goal Progress: Goal Met Goal 3:: Increase L shld flex and abld to 170 degrees elevation without pain Goal Progress: Progressing - Plan Plan: DC PT. Pt to go back to physician for R elbow as PT was making it worse and she has 8/10 pain with it at times. - D/C Information Discharge Comments: DC PT to HEP and back to physician reassessment for her R elbow. If there are questions or concerns regarding this patient's physical therapy, please feel free to call me at [phone]. Thank you for the referral of this patient. Sincerely, Shira Wolf <Electronically signed by Shira Wolf MPT> 09/29/18 1023 CC: Nayla Fitzgerald MD; Dottie Pérez DO Signed INITAL EVALUATION (1) Observed: 09/08/2018 Status: F Source: WINK - PT 5:37 PM [facility] REPOSITORY [facility] [address] [place] [address] Fax REHABILITATION SERVICES INITIAL EVALUATION MR#: [id number] Acct: [id number] Name: LUIS MANUEL MAYA Rep #: [id number] : 1950 68 From: Shira [place]IV[place] Referring Dr.: Dottie Pérez DO Status: REG RCR Insurance: MEDICARE PART A B [employer] Patient's Visit Information LUIS MANUEL MAYA is a 68 year old F referred to Physical Therapy by Dottie Pérez DO with a diagnosis of L RTC syndrome. Date of Evaluation: 09/08/18 Physical Therapist: Shira Wolf - Visit Plan Frequency: 3x /Week Duration: 3 Weeks Plan: 3X/ week for 3 weeks for L shoulder AROM, PROM, stretching, strengthening, postural exercises with HEP and US PRN - Subjective Subjective: Pt reports that 3-4 weeks ago reached for seatbelt with L arm and it hurt down her arm. SHe got x-rays and an injection. She reports that it still aches. X-ray. Pt has had R elbow pain but she has had that for 3 years and already did PT and it did not do anything. SHe has no N AND T. She has noticed a little bit of weakness and she has pain from the shoulder through elbow. Her elbow wakes her up at night even before this shoulder injury. She wakes up with shooting pain in the L shoulder at night and some times she has to pick arm up and move it with the other arm. She is R handed. She has had breast CA with masectomy on the L in 1997. - Pain L shoulder pain Pain Intensity (Out of 10): 3 L elbow pain Pain Intensity (Out of 10): 9 - Objective L shoulder: 145 flexion 115 abduction 30 degrees ER. R shoulder: Flexion/Abd WFL ER 40 degrees ER T8 IR. Palpation: Tender under the L acromion. L shld MMT: flexion 3+/5, abd 3+/5, ER/IR 4-/5. R shld MMT: flex 4-/5 and abd 4-/5, ER/IR 4/5. -HK on the L. + empty can on the L for pain and weakness - Goals Goal 1:: I HEP Goal Time Frame: 4-6 Weeks Goal 2:: Increase L shld flex/abd by 1/2 muscle grade to increase over all strength (to 4-/5) Goal Time Frame: 4-6 Weeks Goal 3:: Increase L shld flex and abld to 170 degrees elevation without pain Goal Time Frame: 4-6 Weeks - Rehabilitation Potential Rehabilitation Potential: Good - Anticipated Interventions Patient/Client Instruction: Educate patient on: Condition, Plan of Care For the Purpose of:: To decrease pain, To decrease swelling/inflammation, To increase ROM, To improve nutrient delivery to tissue, To improve muscle performance and motor function, To improve ability to perform ADL's, To increase tolerance to activity/condition/position, To improve performance and independence with ADL's Therapeutic Exercise to Include: Strength training, Postural training, Flexibilty training, Passive ROM, Active ROM, Scapular Strength/Stabilization For the Purpose of:: To decrease pain, To decrease swelling/inflammation, To improve nutrient delivery to tissue, To improve muscle performance and motor function, To improve ability to perform ADL's, To improve health of tissue, To decrease soft tissue restriction, To increase flexibility/ROM Manual Therapy Techniques to Include: Passive ROM For the Purpose of:: To increase ROM Ultrasound (thermal/non thermal): Yes For the Purpose of:: To decrease pain, To decrease swelling/inflammation, To improve nutrient delivery to tissue Thank you for the opportunity to evaluate your patient. For Medicare and Medicare HMO plans, please review the plan of care and approve it. It will need to be FAXED BACK to us at [phone] for Medicare purposes. Please let me know if there are questions or concerns regarding this plan of care. Physician Signature: Date: <Electronically signed by Shira Wlof MPT> 09/08/18 1737 CC: Nayla Fitgzerald MD; Dottie Pérez DO Signed For Medicare only, by signing this I certify the plan of care. Physicians Signature Date ORTHOPEDIC VISIT Observed: 09/01/2018 Status: F Source: JASVIR REPORT 5:15 PM [facility] REPOSITORY [facility] [address] [place] [address] OFFICE VISIT Date of Service: 09/01/18 MR#: [id number] Acct: [id number] Name: LUIS MANUEL MAYA Jose Enrique Rep #: [id number] : 1950 Provider: Dottie Pérez DO Age/Sex: 68/F Location[place] [facility] [place] [place] Status: Signed Intake Intake Visit Reasons: BILAT ARMS Is patient in pain?: Yes Pain scale (1-10): 5 Allergies acetaminophen [From Vicodin] Allergy (Verified 01/17/18 10:28) Other hydrocodone bitartrate [From Vicodin] Allergy (Verified 01/17/18 10:28) Other venlafaxine HCl [From Effexor] Allergy (Verified 01/17/18 10:28) Other Medications Docusate Sodium [Colace] 100 mg PO DAILY #20 cap 04/26/14 [Rx Confirmed 02/26/16] Ezetimibe [Zetia] 10 mg PO DAILY 04/26/14 [History Confirmed 02/26/16] Sertraline HCl [Zoloft] 100 mg PO DAILY 04/26/14 [History Confirmed 01/17/18] benzonatate 200 mg capsule 200 mg PO TID PRN #30 cap 01/17/18 [Rx Confirmed 01/17/18] calcium carbonate 500 mg calcium (1,250 mg) tablet 500 mg PO BID tab 01/17/18 [History Confirmed 01/17/18] PFSH Medical History Back pain (Acute) Hemorrhoids (Acute) History of cancer (Acute) Knee pain (Acute) Neck pain (Acute) Shoulder pain (Acute) Surgical History History of lumpectomy (Acute) History of mastectomy (Acute) Social History Smoking Status: Never smoker alcohol intake: never HPI BILAT ARMS: Details: LUIS MANUEL MAYA is a 68 year old F here today referred by Dr Quintana for right elbow pain and left shoulder pain. She states her right elbow had been painful for years, she has tried PT several times with no relief. She has ctr on the right in 1974 and denies any related pain or symptoms today. Her left arm hurts as well but is associated with left shoulder motions like the seat belt, dressing and reaching out for things. Her pain in the left radiates into the biceps and forearm. Denies numbness, tingling or other associated symptoms. Her left breast was reconstructed after her mastectomy. Ortho Exam Right Elbow Swelling: No Skin/Wound: Yes CDI Contralateral Normal: No ROM: Yes Flexion 0-140, Extension 0, Supination 0-90 and Pronation 0-80 Test: No Thenar Atrophy Motor: Elbow Extension: 5, Elbow Flexion: 5, EPL: 5, FDP-2: 5, 1st Dorsal Interosseous: 5 ELBOW: negative hoffmans, painful ext and ttp radial head Left Shoulder Skin/Wound: Yes CDI Testing: Yes Hawkin's, Yes Neer's, Yes AROM-Forward Elevation 0-180, Yes AROM-External Rotation at side 0-60, Yes TTP Biceps, No Speed's, Yes empty can, No Sulcus Sign Internal Rotation: Tip of Scapula SHOULDER: crepitus, neg lift off but painful, minimal weakness in ER Office Procedures Ortho Injections Injections Yes Subacromial Injection Left Details: Obtained consent for injection. Under sterile conditions, injected the patients left subacromial injection with a 10cc cocktail of 8cc bupivacaine and 2cc kenalog. The patient tolerated the injection well without any noted complication. Patient should call our office if redness develops, pain worsens or if they have any concerns. Office Meds Kenalog Performing Provider: Dottie Pérez DO Administered by: Dottie Pérez DO on 09/01/18 10:33 Dose Route Admin Location Lot Number Expiration DateNDC Regional Sales Associate 80 mg Intra-Articularleft [id number] 10/24/19 2757-1754-77 BRISTOL MARINO l SQUIBB Assessment AND Plan 1. Rotator cuff syndrome of left shoulder M75.102 Plan xrays of right elbow show osteoarthritis, left shoulder show some ac osteoarthritis and on exam has a little bit of rotator cuff syndrome and impingement syndrome but no apparent weakness. In terms of the right elbow, patient has no radiating pain no pain with weightbearing she has pain over the elbow joint itself. It is not painful along the medial or lateral epicondyles more along the radial head. No numbness tingling fevers chills or other constitutional symptoms. May benefit from an intra-articular elbow injection but we will do a steroid injection in her left shoulder see if she improves with any therapy of her right elbow and if not the next visit we will offer her right elbow injection. All questions answered patient agreement with plan. Personally reviewed the patient's medical history, medications, surgeries and recent exams if available. X-rays were reviewed. There is no obvious fracture, dislocation, or lucency noted. Educated on the anatomy of the shoulder and etiology of her pain. On exam she has some RTC signs but decent strength, her treatment options are injection today with PT, if that fails we can order an MRI. Educated on the anatomy of the elbow and explained that she has an osteophyte noted at the radial head from an old injury or OA, denies any neck pain or radiating pain. Gave PT script for both. Follow up in 6 wks if needed or sooner if pain, swelling, numbness or associated symptoms, or concerns develop. All questions answered. Patient in agreement of plan. Orders Orders: Medications Discontinued: Kenalog (triamcinolone acetonide) Hwiqbuyc05 mg (2 mL) Intra-Articular ONCE 2 mL 0RF NS nued Reason: Office Medication has been Docu mented as given 2. Osteophyte, left elbow M25.722 3. 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 Osteoarthritis type: unspecified Additional Codes corporate communications intern.sub ([id number]) 09/01/18 1715 <Electronically signed by Dottie Pérez DO> Date Dottie Pérez DO Cosigner Signature: Date (if applicable) CC: Nalya Fitzgerald MD ELBOW MIN 3 VIEWS Observed: 09/01/2018 Status: F Source: WINK 10:02 AM [facility] REPOSITORY [facility] Imaging Services [address] [place] [address] Elbow min 3 Views MR#: [id number] Acct: [id number] Name: LUIS MANUEL MAYA Rep #: [id number] : 1950 F 68 From: Markus Ferguson MD PCP: Nayla Fitzgerald MD Status: REG CLI Study: Elbow min 3 Views Date of Exam: 09/01/18 Exam# [id number] Ordering Dr: Dottie Pérez DO STUDY: X-RAY - RIGHT ELBOW REASON FOR EXAM: Female, 68 years old. Chronic pain from overuse. TECHNIQUE: 3 view(s) of the elbow. COMPARISON: November 21, 2017 FINDINGS: Normal visualized humerus, radius and ulna. Again noted is moderate arthrosis of the elbow joint with loss of articular cartilage and osteophyte formation. The soft tissue structures are unremarkable. 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 No acute pathology. Electronically Signed: Markus Ferguson MD at 13:29 EDT , Service support , CC: Nayla Fitzgerald MD; Dottie Pérez DO Jetting Machine Operator: Signed SHOULDER MIN 2 VIEWS Observed: 09/01/2018 Status: F Source: WINK 10:02 AM [facility] REPOSITORY [facility] Imaging Services [address] [place] [address] Shoulder min 2 Views MR#: [id number] Acct: [id number] Name: LUIS MANUEL MAYA Rep #: [id number] : 1950 F 68 From: Markus Ferguson MD PCP: Nayla Fitzgerald MD Status: REG CLI Study: Shoulder min 2 Views Date of Exam: 09/01/18 Exam# [id number] Ordering Dr: Dottie Pérez DO STUDY: X-RAY - LEFT SHOULDER REASON FOR EXAM: Female, 68 years old. Chronic pain from overuse. TECHNIQUE: 3 view(s) of the shoulder. COMPARISON: None. FINDINGS: There is generalized osteopenia. There is mild arthrosis of the glenohumeral and acromioclavicular joints. Normal acromion. There is cystic change in the humeral head. There are clips in left axilla. Normal visualized pulmonary apex. RAD/Shoulder min 2 Views IMPRESSION: Osteopenia with mild arthrosis of the glenohumeral and acromioclavicular joints. No acute pathology. Electronically Signed: Markus Ferguson MD at 13:30 EDT , Service support , CC: Nayla Fitzgerald MD; Dottie Pérez DO Jetting Machine Operator: Signed CHEST PA AND LATERAL Observed: 01/26/2018 Status: F Source: WINK 3:58 PM [facility] REPOSITORY [facility] Imaging Services [address] [place] [address] Chest PA and Lateral MR#: [id number] Acct: [id number] Name: LUIS MANUEL MAYA Rep #: [id number] : 1950 F 68 From: Ruben Carlson MD PCP: Nayla Fitzgerald MD Status: REG CLI Study: Chest PA and Lateral Date of Exam: 01/26/18 Exam# [id number] Ordering Dr: Nitish Voss MD STUDY: X-RAY CHEST REASON FOR EXAM: Female, 68 years old. Acute bronchitis. Cough. TECHNIQUE: Frontal and lateral views of the chest. COMPARISON: 12/09/2012. FINDINGS: The lungs are clear and expanded. There is no demonstrated pleural abnormality. Normal size heart. Normal mediastinum and stephenie. Normal visualized pulmonary arteries. Normal visualized aortic arch and descending thoracic aorta. Moderate hiatal hernia. Normal visualized thoracic spine. Normal visualized ribs, clavicles, and shoulders. There is no demonstrated abnormality of the visualized soft tissue structures of the upper abdomen. Surgical clips are seen related to the left breast. RAD/Chest PA and Lateral IMPRESSION: No acute chest disease. Moderate hiatal hernia. Electronically Signed: Ruben Carlson MD at 10:02 EST , Service support , CC: Nayla Fitzgerald MD; Nitish Voss MD Jetting Machine Operator: Signed URGENT CARE VISIT Observed: 01/17/2018 Status: F Source: WINK REPORT 10:42 AM [facility] REPOSITORY [facility] [address] [place] [address] [address] [place] [address] OFFICE VISIT Date of Service: 01/17/18 MR#: [id number] Acct: [id number] Name: LUIS MANUEL MAYA Rep #: [id number] : 1950 Provider: KODY Deleon Age/Sex: 68/F Location: [facility] [place] Status: Signed Intake Vital Signs01/17/18 Height 5 ft 4 in 01/17/18 Weight: 191 lb 01/17/18 Body Mass Index (BMI) 32.8 Intake Visit Reasons: Cough Food Production Machine Operator Required: No Is patient in pain?: No Allergies acetaminophen [From Vicodin] Allergy (Verified 01/17/18 10:28) Other hydrocodone bitartrate [From Vicodin] Allergy (Verified 01/17/18 10:28) Other venlafaxine HCl [From Effexor] Allergy (Verified 01/17/18 10:28) Other Medications Docusate Sodium [Colace] 100 mg PO DAILY #20 cap 04/26/14 [Rx Confirmed 02/26/16] Ezetimibe [Zetia] 10 mg PO DAILY 04/26/14 [History Confirmed 02/26/16] Sertraline HCl [Zoloft] 100 mg PO DAILY 04/26/14 [History Confirmed 01/17/18] benzonatate 200 mg capsule 200 mg PO TID PRN #30 cap 01/17/18 [Rx Confirmed 01/17/18] calcium carbonate 500 mg calcium (1,250 mg) tablet 500 mg PO BID tab 01/17/18 [History Confirmed 01/17/18] prednisone 20 mg tablet 20 mg PO .COMPLEX 7 Days #10 tab 01/17/18 [Rx Confirmed 01/17/18] [facility] Medical History Back pain (Acute) Hemorrhoids (Acute) History of cancer (Acute) Knee pain (Acute) Neck pain (Acute) Shoulder pain (Acute) Surgical History History of lumpectomy (Acute) History of mastectomy (Acute) Social History Smoking Status: Never smoker alcohol intake: never HPI HPI Details: LUIS MANUEL MAYA, is a 68 F who presents to the office today for a 3 day history of worsening dry hacking cough. She also reports occasional chills and body aches and a low-grade fever. She is leaving to go out of town on 01/19/2018. ROS Const Constitutional: Positive for body ache, chills, fatigue, fever(s) and malaise Eyes Eyes: No change in vision ENT ENT: No ear pain, sore throat, nasal congestion or nasal discharge Resp Respiratory: Positive for cough and chest congestion Cardio Cardiology: No chest pain at rest or chest pain with exertion Gastro GI: No abdominal pain, diarrhea, vomiting or nausea/dyspepsia Musc Musculoskeletal: No back pain or abnormal walking Skin Skin: No rash or change in skin color Neuro Neurology: No confusion, abnormal walking or abnormal speech Psych Psychiatric: No confusion Endo Endocrine: Positive for fatigue Exam Const General: healthy appearing, no acute distress Orientation: oriented x3, oriented to person, oriented to place, oriented to time [facility] Head: normocephalic Ears: external ears normal, TM's normal bilaterally, EAC's normal Eyes General: appearance normal, both eyes and all related structures Conjunctivae: conjunctivae normal Sclera: sclerae normal Pupils: PERRL Neck Neck: no lymphadenopathy Thyroid: thyroid normal Chest Chest palpation AND inspection: normal inspection of the chest Resp Effort AND Inspection: cough, audible wheezes (faint end- expiratory in upper and middle lobes.) Cardio Rate: regular rate Rhythm: regular rhythm GI Inspection: normal to inspection Auscultation: normal bowel sounds Palpation: no hepatosplenomegaly, no splenomegaly, no masses Skin General: no pallor Rashes: no rashes Nails: no clubbing Neuro General: oriented x3, gait normal Extrem General: normal to inspection, no pedal edema, no calf tenderness, normal gait, no edema, no cyanosis, no clubbing, no calf tenderness bilaterally, no pedal edema Psych Mood: congruent mood Affect: normal affect Speech and Movement: speech and movement normal Assessment AND Plan Problems 1. Bronchitis J40 2. Acute viral syndrome B34.9 Plan Keep well-hydrated push fluids for the next 2-3 days. Continue ibuprofen for low-grade fevers. Return to the clinic if needed. Medications New: prednisone 20 mg PO 2 pills daily x 3 days, then 1 pill daily x 4 days; administer with f ood or milk 7 days Coding Level of Care Code Off vis,est,level 3 Diagnoses Bronchitis J40 Acute viral syndrome B34.9 01/17/18 1042 <Electronically signed by Wicho GATES> Date Wicho GATES Cosigner Signature: Date (if applicable) CC: PT D/C SUMMARY (1) Observed: 01/12/2018 Status: F Source: WINK 1:09 PM [facility] REPOSITORY [facility] [address] [place] [address] [address] [place], [place] [address] Fax REHABILITATION SERVICES DISCHARGE SUMMARY MR#: [id number] Acct: [id number] Name: LUIS MANUEL MAYA Rep #: [id number] : 1950 68 From: Lindsay Larson PT, Cert. MDT Referring Dr.: Nayla Fitzgerald MD Status: REG RCR Insurance: MEDICARE PART A B CO PGBA HP - PT D/C Summary It has been my pleasure to treat LUIS MANUEL MAYA under orders from Nayla Fitzgerald MD, for the diagnosis of RIGHT ELBOW TENDONITIS for a total of 12 visit(s). Discharge Date: Please see the following information for a summary of their discharge status. - Subjective Subjective: PATIENT REPORTS SHE GOT A CALL FROM THE DOCTORS OFFICE AND WAS TOLD IT IS JUST ARTHRITIS IN HER NECK. STATES SHE WANTS AN MRI BECAUSE SHE WAS MISERABLE THIS WEEKEND TRAVELING. REPORTS THAT OVER-ALL SHE IS SO MUCH BETTER SINCE STARTING THERAPY BECAUSE SHE CAN SLEEP NOW AND GET RID OF THE PAIN WITH THE RIGHT ACTIVITY AND POSITION CHANGES WHERE SHE COULDN'T BEFORE BUT SHE WANTS TO BE ABLE TO TRAVEL, VOLUNTEER, SOCIALIZE AND GARDEN LIKE BEFORE WITHOUT THE PAIN. - Pain RIGHT ELBOW Pain Intensity (Out of 10): 0 NECK Pain Intensity (Out of 10): 0 - Overall Improvement % Improvement: 100 - Objective Objective/Function: UPON EXAM, THERE ARE NO CHANGES SINCE LAST RE-CHECK. PATIENT COMMUNICATES A GOOD UNDERSTANDING OF ALL INSTRUCTIONS GIVEN. ALTHOUGHT SHE CAN ABOLISH HER SX'S NOW WITH ACTIVITY MODIFICATIONS SHE CAN NOT TOLERATE FURTHER PROGRESSION OF POSTURAL EX'S OR MANUAL THERAPY. THE RIGHT UE SX'S ARE EASILY PROVOKED WITH THER EX AND MANUAL THERAPY. - Goals Goal 1:: DECREASE C/O RIGHT UE PAIN Goal Progress: Not Progressing Goal 2:: IMPROVE ADL AND SLEEP FUNCTION Goal Progress: Not Progressing Goal 3:: INSTRUCT IN PROPHYLAXIS Goal Progress: Not Progressing - Plan Plan: D/C DUE TO LACK OF FURTEHR PROGRESS. REFERRED PATIENT BACK TO DR. FITZGERALD FOR RE-ASSESSMENT. PATIENT IS AGREEABLE TO THIS PLAN. - D/C Information If there are questions or concerns regarding this patient's physical therapy, please feel free to call me at [phone]. Thank you for the referral of this patient. Sincerely, Lindsay Larson <Electronically signed by Lindsay Larson PT, Cert. MDT> 01/12/18 1309 CC: Nayla Fitzgerald MD RICK Signed CERV SPINE 2 OR 3 Observed: 01/08/2018 Status: F Source: WINK VIEWS 3:44 PM [facility] REPOSITORY [facility] Imaging Services [address] [place] [address] Cerv Spine 2 or 3 Views MR#: [id number] Acct: [id number] Name: LUIS MANUEL MAYA Rep #: [id number] : 1950 F 67 From: Ruben Carlson MD PCP: Nayla Fitzgerald MD Status: REG CLI Study: Cerv Spine 2 or 3 Views Date of Exam: 01/08/18 Exam# [id number] Ordering Dr: Nayla Fitzgerald MD STUDY: X-RAY - CERVICAL SPINE REASON FOR EXAM: Female, 67 years old. Chronic neck pain TECHNIQUE: 3 view(s) of the cervical spine were obtained. COMPARISON: None FINDINGS: Normal anterior atlantoaxial articulation. Normal odontoid process. There is straightening of the normal cervical lordosis. There is multi-level endplate spondylosis. There is multi-level degenerative disc disease with multilevel disc space narrowing. The soft tissue structures are unremarkable. There is no demonstrated fracture of the cervical spine. RAD/Cerv Spine 2 or 3 Views IMPRESSION: No acute fracture or dislocation. Degenerative changes. Electronically Signed: Ruben Carlson MD at 16:07 EST , Service support , CC: Nayla Fitzgerald MD Jetting Machine Operator: Signed RE-EVALUATION - PT (1) Observed: 01/02/2018 Status: F Source: WINK 2:34 PM [facility] REPOSITORY [facility] [address] [place] [address]. [address] [place] [address] Fax REEVALUATION / MEDICARE RECERTIFICATION PHYSICAL THERAPY MR#: [id number] Acct: [id number] Name: LUIS MANUEL MAYA Rep #: [id number] : 1950 67 From: Lindsay Larson PT, Cert. MDT Referring Dr.: Nayla Fitzgerald MD Status: REG RCR Insurance: MEDICARE PART A B CO PG[employer] Nayla Fitzgerald MD, It has been my pleasure to treat LUIS MANUEL MAYA over the last 9 visits for RIGHT ELBOW TENDONITIS. Please see the progress note below for an update on the physical therapy plan of care! Subjective: PATIENT REPORTS SHE HAD A LOT OF STRESS DRIVING TO CLYDE DUE TO SNOW STORM BUT WAS ABLE TO POSTION HER HEAD TO RELIEVE ARM SX'S. A LITTLE ACHY IN NECK AND RIGHT UE NOW SINCE SCRUBBING BATHROOM BUT HASN'T HAD TO TAKE ANY IBUPROFEN FOR QUITE A WHILE. Objective/Function: AGAIN ABLE TO QUICKLY ABOLISH ALL SX'S IN SUPINE LYING WITH NEUTRAL SPINE. UNABLE TO TOLERATED GENTLE MANUAL TECHNIQUES OR POSTURAL STRENGTHEING WITHOUT PROVOKING RIGHT UE ACHING. HIGHLY IRRITABLE. THIS PT LEFT A MESSAGE FOR DR. FITZGERALD REGUARDING GREAT IMPROVEMENT WITH PT BUT NECK VERY SUSPECT AND TO QUESTION IF FURTHER CERVICAL TESTING MIGHT BE BENEFICIAL. PATIENT STATING SHE WANTS TO KNOW WHAT IS GOING ON IN HER NECK BECAUSE SHE IS STILL BOTHERED BY HER SX'S DAILY EVEN IF IT DOESN'T STOP HER FROM DOING THINGS AND SHE DID GET A FLARE UP A FEW WEEKS AGO THAT SHE PRETTY MUCH HAD TO STAY IN BED TO GET THROUGH. Plan Plan: CONT PER POC. Goals Goal 1:: DECREASE C/O RIGHT UE PAIN Goal Time Frame: 4-6 Weeks Goal Progress: Progressing Goal 2:: IMPROVE ADL AND SLEEP FUNCTION Goal Time Frame: 4-6 Weeks Goal Progress: Progressing Goal 3:: INSTRUCT IN PROPHYLAXIS Goal Time Frame: 4-6 Weeks Goal Progress: Progressing Anticipated Interventions Patient/Client Instruction: Educate patient on: Condition, Plan of Care, Risk Factors, Benefits of Fitness Program For the Purpose of:: To improve self management Therapeutic Exercise to Include: Strength training, Body mechanics, Postural training, Scapular Strength/Stabilization For the Purpose of:: To improve ability of physical actions for home/community/work/leisure Manual Therapy Techniques to Include: Soft tissue mobilization Comment: NECK AND RIGHT UE For the Purpose of:: To decrease pain, To decrease swelling/inflammation, To increase ROM Cryotherapy (ice pack, ice massage): Yes Thermo therapy (hot pack): Yes Ultrasound (thermal/non thermal): Yes For the Purpose of:: To decrease pain, To decrease swelling/inflammation, To increase ROM Please do not hesitate to contact me at [phone] by phone or if you have questions or concerns regarding this new plan of care! Sincerely, Lindsay Larson <Electronically signed by Lindsay Larson PT, Cert. MDT> 01/02/18 1699 CC: Nayla Fitzgerald MD RICK Signed For Medicare only, by signing this I certify the plan of care. Physicians Signature Date UNILAT RT SCRN Observed: 12/23/2017 Status: F Source: JASVIR W/CAD 2:26 PM [facility] REPOSITORY [facility] Imaging Services [address] [place] [address] UNILAT RT SCRN W/CAD MR#: [id number] Acct: [id number] Name: LUIS MANUEL MAYA Rep #: [id number] : 1950 F 67 From: Lobo Chaves MD PCP: Nayla Fitzgerald MD Status: REG CLI Study: UNILAT RT SCRN W/CAD Date of Exam: 12/23/17 Exam# [id number] Ordering Dr: Nayla Fitzgerald MD MAMMOGRAPHY - UNILATERAL SCREENING: RIGHT BREAST REASON FOR EXAM: Female, 67 years old. Routine annual screening examination (unilateral). PERTINENT HISTORY: Personal history of breast cancer. Prior left mastectomy and prior right excisional breast biopsy. TECHNIQUE: Digital unilateral breast hanna (3D mammographic acquisition) in the CC and MLO projections. 2-D mediolateral oblique (MLO) and craniocaudad (CC) views of both breasts were obtained. CAD: Full Field Digital Mammography with Computer Added Detection was performed. COMPARISON: Comparison is made with prior study dated December 11, 2016 and November 27, 2015. FINDINGS: Breast Composition: There are scattered areas of fibroglandular density. There are no dominant masses or suspicious calcifications. No other significant abnormalities are identified. There has been no significant change since the prior study. HPBI/UNILAT RT SCRN W/CAD IMPRESSION: Stable unilateral screening mammogram. Yearly follow-up mammogram recommended. (A) ASSESSMENT CATEGORY: BIRADS Category 1: Negative. A letter regarding these results will be sent to the patient by the facility within 30 days. Approximately 10% of breast cancers are not detected by mammography. A normal mammogram should not delay biopsy of a clinically suspicious abnormality. [id number] Electronically Signed: Lobo Chaves MD at 15:44 EST Tel [phone], Service support , CC: Nayla Fitzgerald MD Jetting Machine Operator: Signed DEXA BONE DENSITY Observed: 12/23/2017 Status: F Source: WINK STUDY () 2:26 PM [facility] REPOSITORY [facility] Imaging Services [address] [place] [address] Dexa Bone Density Study () MR#: [id number] Acct: [id number] Name: LUIS MANUEL MAYA Rep #: [id number] : 1950 F 67 From: Lobo Chaves MD PCP: Nayla Fitzgerald MD Status: REG CLI Study: Dexa Bone Density Study () Date of Exam: 12/23/17 Exam# [id number] Ordering Dr: Nayla Fitzgerald MD STUDY: DUAL ENERGY X-RAY ABSORPTIOMETRY / DXA REASON FOR EXAM: Female, 67 years old. The patient is postmenopausal. Loss of height. TECHNIQUE: Bone Mineral Density (BMD) measurements of lumbar spine and bilateral hips were obtained. COMPARISON: Comparison is made with prior study dated August 29, 2015. FINDINGS: Lumbar Spine (L1-L4): g/cm2 (1.107) / T-score (-0.5) / Z-score (1.2) Findings are suggestive of normal bone density with a low fracture risk. Left Femur Total: g/cm2 (1.003) / T-score (0.0) / Z-score (1.4) Left Femoral Neck: g/cm2 (0.853) / T-score (-1.3) / Z- score (0.4) Right Femur Total: g/cm2 (0.910) / T-score (-0.8) / Z- score (0.7) Right Femoral Neck: g/cm2 (0.835) / T-score (-1.5) / Z-score (0.2) The T-Scores on the most recent prior examination were: Lumbar Spine (L1-L4): There has been worsening of bone density since the previous examination. Left Femur Total: which represents an improvement of 5.8%. Right Femur Total: which represents a worsening of 2.6%. HPBD/Dexa Bone Density Study (HP) IMPRESSION: The patient is considered osteopenic as outlined below according to World [employer] Organization (WHO) criteria with a moderate fracture risk. There has been worsening of bone density since the previous examination. Reference Information: The T-score is the number of standard deviations above or below the standard which is normal for young adults at their peak bone mineral density. The World Health Organization (WHO) interprets the T-scores as follows: Above -1 Normal bone density Between -1 and -2.5 Osteopenia Equal to / or below -2.5 Osteoporosis As a practical clinical guideline, osteopenia may be graded as follows: Mild -1 through -1.5 Moderate -1.6 through -2.0 Severe -2.1 through -2.4 The Z-score is the number of standard deviations above or below age-matched controls. A Z-score of less than -1.5 would be considered abnormal. References: 1. NIH Osteoporosis and Related Bone Diseases http://www.osteo.org 2. International Society for Clinical Densitometry http://www.iscd.org 3. National Osteoporosis Foundation http://www.nof.org Electronically Signed: Lobo Chaves MD at 15:50 EST Tel [phone], Service support , CC: Nayla Fitzgerald MD Jetting Machine Operator: Signed ALLERGIES ALLERGIES DATE TYPE / CODE NAME / CODE REACTION SEVERITY SOURCE 01/17/2018 Drug hydrocodone Other Unknown Jasvir Allergy/416 bitartrate/[id number] [facility] [id number]([facility] 555(RXNO) [facility] ED CT) Repository 01/17/2018 Drug venlafaxine Other Unknown [place] Allergy/416 HCl/[id number](RXN [facility] 366389[facility] 01/17/2018 Drug acetaminophen/F006 Other Unknown [place] Allergy/416 143199(RXNORM) [facility] 786569([facility] ED [facility]) Repository ENCOUNTERS ENCOUNTERS ADMIT/DISCHARGE ACCOUNT ADMITTING ENCOUNTER LOCATION SOURCE NUMBER CLASS 11/02/2018 [id number] Ambulatory [place] Jasvir 0 [facility] ing:RAD Repository 10/30/2018/ [id number] Ambulatory BMSBuilding:B Jasvir 8 7 [place] Repository 10/27/2018 [id number] Ambulatory [place] Jasvir 3 [facility] ing:MRI Repository 10/13/2018/ [id number] Ambulatory BMSBuilding:B [place] 8 5 [place] Repository 09/28/2018/ [id number] Ambulatory Jasvir Jasvir 8 0 [facility] ing:PT Repository 09/01/2018 [id number] Ambulatory Jasvir [place] 6 [facility] ing:HPRAD Repository 09/01/2018/ [id number] Ambulatory BMSBuilding:B Jasvir 8 8 [facility] Repository 01/26/2018 [id number] Ambulatory Jasvir Jasvir 8 [facility] ing:RAD Repository 01/17/2018/ [id number] Ambulatory BMSBuilding:B [place] [address] [facility] Repository 01/12/2018/ [id number] Ambulatory [place] 8 6 [facility] ing:PT Repository 01/08/2018 [id number] Ambulatory Jasvir [place] 0 [facility] ing:RAD.FUTUR Repository E 12/23/2017 [id number] Ambulatory Jasvir Jasvir 4 [facility] ing:BD Repository PAYERS PAYERS ENCOUNTER GUARANTOR PAYER SUBSCRIBER SOURCE 11/02/2018 NELIA Veloz Primary LUIS MANUEL O Jasvir [id number] Insurance[facility] [id number] Number: Repository [address]Wza: 330 [id number] [phone] () Date:2018-11-02 11/02/2018 Secondary NELIA L Jasvir Insurance:[facility]: [facility] [id number] Hospital Number: Repository [id number] Date:5712-00-57[address] [address]VQ: 11/02/2018 Tertiary NOT GIVENUNK [place] Insurance:SELF PAY [facility] Hospital Number: Effective Repository Date:2018-11-02 10/30/2018 NELIA Veloz Primary LUIS MANUEL O [place] [id number] Insurance:[facility]ARE [facility] [id number] Number: Repository [address]Gvp: 330 [id number] [phone] () Date:2018-10-21 10/30/2018 Secondary NELIA Veloz Jasvir Insurance:[facility]: [facility] [id number] Hospital Number: Repository [id number] Date:7093-41-28HI [address] [address]PM: 10/30/2018 Tertiary NOT GIVENUNK Jasvir Insurance:SELF PAY [facility] Hospital Number: Effective Repository Date:2018-10-30 10/27/2018 NELIA Veloz Primary LUIS MANUEL O Jasvir [id number] Insurance:[facility]ARE [facility] [id number] Number: Repository [id number]: 330 [id number] [phone] () Date:2018-10-20 10/27/2018 Secondary NELIA Veloz [place] [facility] [id number] Hospital Number: Repository [id number] Date:7064-49-53LP [address], [place] [address]NN: 10/27/2018 Tertiary NOT GIVENUNK Jasvir Insurance:SELF PAY [facility] Number: Effective Repository Date:2018-10-20 10/13/2018 NELIA Veloz Primary LUIS MANUEL O Jasvir [id number] Insurance:MEDICARE [facility] [id number] [place] Number: Repository [id number]: 330 [id number] [phone] () Date:2018-09-01 10/13/2018 Secondary NELIA L Jasvir Insurance:[facility] [id number] Hospital Number: Repository [id number] Date:7477-43-13CR [address] [address]FU: 10/13/2018 Tertiary NOT GIVENUNK Jasvir Insurance:SELF PAY [facility] Number: Effective Repository Date:2018-10-13 09/28/2018 NELIA Veloz Primary LUIS MANUEL O [place] [id number] Insurance:MEDICARE [facility]ERDOB[facility] [id number][facility] [place] Number: Repository [id number]: 330 [id number] [phone] () Date:2018-09-01 09/28/2018 Secondary NELIA L [place] Insurance:[facility] [id number] Hospital Number: Repository [id number] Date:1284-59-05KC [address], [place] [address]FI: 09/28/2018 Tertiary NOT GIVENUNK Jasvir Insurance:SELF PAY [facility] Number: Effective Repository Date:2018-09-01 09/01/2018 NELIA Veloz Primary LUIS MANUEL [id number] Insurance:MEDICARE FARERDOB: Community [place] PART A [facility] [id number]'s Hospital [place] Number: Repository [address]Njs: 330 [id number] [phone] () Date:2018-09-01 09/01/2018 Secondary NELIA L [place] Insurance:[facility] Hospital[facility] [id number] Hospital Number: Repository [id number] Date:5737-04-64ZP [address] [address]KB: 09/01/2018 Tertiary NOT GIVENUNK Jasvir Insurance:SELF PAY [facility] Number: Effective Repository Date:2018-09-01 09/01/2018 NELIA Veloz Primary LUIS MANUEL [id number] Insurance:[facility] Community [place] PART A [facility] [id number]'s [facility] [place] Number: Repository [id number]: 330 [id number] [phone] () Date:2018-08-18 09/01/2018 Secondary NELIA L Jasvir [facility] [id number] Hospital Number: Repository [id number] Date:6246-51-79KN [address] [address]SI: 09/01/2018 Tertiary NOT GIVENUNK Jasvir Insurance:SELF PAY [facility] Hospital Number: Effective Repository Date:2018-09-01 01/26/2018 NELIA Veloz Primary LUIS MANUEL [id number] Insurance:[facility]ARE [facility] Community [place] PART A [facility] [id number]'s Hospital [place] Number: Repository [address]Ksx: 330 [id number] [phone] (HP) Date:2018-01-26 01/26/2018 Secondary NELIA Veloz Jasvir Insurance:S ABELERDOB: [facility] FOR LIFEPolicy [id number] Hospital Number: Repository [id number] Date:9381-83-05LT [address] [address]FS: 01/26/2018 Tertiary NOT GIVENUNK [place] Insurance:SELF PAY [facility] Hospital Number: Effective Repository Date:2018-01-26 01/17/2018 NELIA Veloz Primary LUIS MANUEL [id number] Insurance:MEDICARE FARERDOB: Community [place] PART A [facility] [id number] Number: Repository [address]Rsa: 330 [id number] [phone] () Date:2018-01-17 01/17/2018 Secondary NELIA Veloz [place] Insurance:S ABELERDOB: [facility] FOR LIFEPolicy [id number] Hospital Number: Repository [id number] Date:7529-36-81IQ [address], [place] [address]TR: 01/17/2018 Tertiary NOT GIVENUNK [place] Insurance:SELF PAY [facility] Hospital Number: Effective Repository Date:2018-01-17 01/12/2018 NELIA Veloz Primary LUIS MANUEL Tay [id number] Insurance:MEDICARE FARERDOB: Community [place] PART A olic [id number] Number: Repository [id number]: 330 [id number] [phone] () Date:2012-12-25 01/12/2018 Secondary NELIA Veloz [place]asvir [place] [facility] Community PGBAPolicy Number: [id number] Hospital [id number] Repository Date:5760-75-93OBREMRF F [facility] [address] [address]BJ: 01/12/2018 Tertiary NOT GIVENUNK [place] Insurance:SELF PAY [facility] Number: Effective Repository Date:2017-11-25 01/08/2018 NELIA Veloz Primary LUIS MANUEL [id number] Insurance:MEDICARE FARERDOB: Community [place] PART A olicy [id number] Number: Repository [id number]: 330 [id number] [phone] () Date:2018-01-07 01/08/2018 Secondary NELIA L Jasvir Insurance:WPS FARERDOB: Community FOR LIFEPolicy [id number] Hospital Number: Repository [id number] Date:2593-39-42NG [address] [place] [address]VD: 01/08/2018 Tertiary NOT GIVENUNK [place] Insurance:SELF PAY [facility] Hospital Number: Effective Repository Date:2018-01-08 12/23/2017 NELIA Veloz Primary LUIS MANUEL [id number] Insurance:MEDICARE FARERDOB: Community [place] PART A olic [id number]'s [facility] [place] Number: Repository [id number]: 330 [id number] [phone] () Date:2017-11-25 12/23/2017 Secondary NELIA L Jasvir [place] FARERDOB: Community PGBAPolicy Number: [id number] Hospital [id number] Repository Date:7432-63-86JAPXJGF [facility] [address] [address]ZZ: 12/23/2017 Tertiary NOT GIVENUNK Jasvir Insurance:SELF PAY [facility] Number: Effective Repository Date:2017-11-25
== END ==
PROVIDERS: Family Provider Family Medicine; PCP Family Medicine; Referring Provider Anesthesiology Pain Medicine; Visit Provider Anesthesiology Pain Medicine
DX: M25.551 Pain in right hip (principal); M54.5 Low back pain
CPT/HCPCS: 72100; 73502

== ENCOUNTER → 2019-01-15 11:52 | Outpatient (CLI) | payer MEDICARE, OTHER, SELFPAY ==
--- NOTE | 2019-01-15 12:01 | BI_ITS ---
MAMMOGRAPHY - UNILATERAL DIAGNOSTIC: RIGHT BREAST REASON FOR EXAM: Female, 69 years old. Prior left lumpectomy and excisional right breast biopsy. PERTINENT HISTORY: Personal history of breast cancer. TECHNIQUE: Digital unilateral breast hanna (3D mammographic acquisition) in the CC and MLO projections. 2-D mediolateral oblique (MLO) and craniocaudad (CC) views of both breasts were obtained. CAD: Full Field Digital Mammography with Computer Added Detection was performed. COMPARISON: Comparison is made with prior examination dated December 23, 2017 and December 11, 2016. FINDINGS: Breast Composition: There are scattered areas of fibroglandular density. There are no dominant masses or suspicious calcifications. No other significant abnormalities are identified. There has been no significant change since the prior study. BI/UNILAT RT SCRN W/CAD IMPRESSION: Stable unilateral diagnostic mammogram. One year follow-up mammogram recommended. (A) ASSESSMENT CATEGORY: BIRADS Category 1: Negative. A letter regarding these results will be sent to the patient by the facility within 30 days. Approximately 10% of breast cancers are not detected by mammography. A normal mammogram should not delay biopsy of a clinically suspicious abnormality. Electronically Signed: Lobo Chaves MD at 14:19 EST , Service support ,
--- NOTE | 2019-01-15 12:50 | MRI_ITS ---
STUDY: MRI LEFT ANKLE WITHOUT CONTRAST REASON FOR EXAM: Lateral ankle lump/pain for one year, no specific injury. TECHNIQUE: Standardized fat and water weighted pulse sequences were obtained in all 3 orthogonal planes. COMPARISON: Radiographs of the left foot 09/12/2014. FINDINGS: There is prominence of the subcutaneous fat at the lateral aspect of the ankle corresponding to the skin marker (T1 axial images 16-18) suggestive of a superficial nonencapsulated lipoma. There is a small lobulated ganglion cyst posterior to the posterior talofibular ligament (T2 axial images 14, 15) measuring 0.6 x 1.1 cm (AP x transverse). There is a small ganglion cyst dorsal to the distal talus (inversion recovery sagittal images 12, 13) measuring 0.5 cm in AP dimension. Normal posterior tibialis tendon. Normal flexor digitorum longus tendon. Normal flexor hallucis longus tendon. Normal peroneus longus and brevis tendons. Normal tibialis anterior tendon. Normal extensor hallucis longus tendon. Normal extensor digitorum longus tendons. Normal Achilles tendon and teno-osseous insertion. Normal plantar fascia. Normal plantar calcaneal tubercles. Normal intrinsic muscles of the rearfoot. Normal distal tibiofibular syndesmotic ligamentous complex. Normal lateral ligamentous complex. Normal subtalar ligaments and sinus tarsi. Normal deltoid ligamentous complexes. Normal plantar calcaneonavicular (spring) ligament. Normal tibiotalar articulation. Normal talar dome. Normal subtalar articulations. Normal talonavicular articulation. Normal calcaneocuboid articulation. There is arthrosis of the navicular-cuneiform articulations with chondral thinning and subchondral cystic change (inversion recovery sagittal images 5-11). There is mild arthrosis of the fourth tarsometatarsal joint with mild chondral thinning and subchondral cystic change of the distal cuboid (inversion recovery series 11 image 17). MRI/Lower Ext Joint Only (Routine) IMPRESSION: Prominence of the subcutaneous fat at the lateral aspect the ankle corresponding to the skin marker suggestive of a superficial nonencapsulated lipoma. 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 Small ganglion cyst posterior to the posterior talofibular ligament. Small ganglion cyst dorsal to the distal talus. Electronically Signed: Leobardo Jerez MD at 9:54 EST Tel , Service support ,
== END ==
PROVIDERS: Family Provider Family Medicine; PCP Family Medicine; Referring Provider Podiatrist; Visit Provider Podiatrist
DX: M25.579 Pain in unspecified ankle and joints of unspecified foot (principal); Z12.31 Encounter for screening mammogram for malignant neoplasm of breast; Z85.3 Personal history of malignant neoplasm of breast
CPT/HCPCS: 73721; 77061; 77067; G0279

== ENCOUNTER → 2019-02-11 12:45 | Outpatient (CLI) | payer MEDICARE, OTHER, SELFPAY ==
--- NOTE | 2019-02-11 12:47 | VDLE_ITS ---
Reason For Study: venous insufficiency RIGHT LEFT CFV is compressible, spontaneous, phasic, CFV is compressible, spontaneous, phasic, competent and demonstrates normal competent, and demonstrates normal augmentation. augmentation. FV is compressible, spontaneous, phasic, FV is compressible, spontaneous, phasic, competent and demonstrates normal competent and demonstrates normal augmentation. augmentation. POP V is compressible, spontaneous, phasic, POP V is compressible, spontaneous, phasic, competent and demonstrates normal competent and demonstrates normal augmentation. augmentation. T/P Trunk is compressible. T/P Trunk is compressible. PTV is compressible. PTV is compressible. RT PerV is compressible. LT PerV is compressible. S-F Junction is competent. S-F Junction is competent. GSV is competent. GSV is incompetent throughout for greater SSV is competent. than .5 seconds. GSV measures .491 x .472 cm. Procedure SSV is competent. Exam performed in department. The exam was diagnostic. Interpretation Summary Deep veins of the lower extremities are bilaterally patent and compressible segmentally. There is no evidence of deep vein thrombosis on either side. Valvular competence appears intact within the proximal deep venous systems bilaterally. The greater saphenous veins appear bilaterally patent and compressible segmentally. Sapheno-femoral junctions are bilaterally competent . The right greater saphenous vein appears segmentally competent. The left greater saphenous vein appears segmentally incompetent. Small saphenous veins are patent and competent bilaterally. Ordering Physician: Sanjay Waldrop Performed By: Terence Blake RVT
== END ==
PROVIDERS: Family Provider Family Medicine; PCP Family Medicine; Referring Provider Podiatrist; Visit Provider Podiatrist
DX: M79.605 Pain in left leg (principal); I87.2 Venous insufficiency (chronic) (peripheral); I82.402 Acute embolism and thrombosis of unspecified deep veins of left lower extremity
CPT/HCPCS: 93970

== ENCOUNTER 2019-04-14 09:30 | Outpatient (RCR) | payer MEDICARE, OTHER, SELFPAY ==
--- NOTE | 2019-03-31 15:30 | HP.PTEVAL_ITS ---
Patient's Visit Information LUIS MANUEL MAYA is a 69 year old F referred to Physical Therapy by Harper Kimble MD with a diagnosis of BACK AND LEG PAIN. Date of Evaluation: 03/31/19 Physical Therapist: Bin Mcgill PT, Cert MDT, OCS - Visit Plan Frequency: 3x /Week Duration: 3 Weeks Plan: INTERVENTIONS US/ESTIM/CP LATERAL HIP GREATER TROCNANTER,MANUAL THERAPY STM/STICK I TBAND,FLEXION,ROM HIP,PROGRESS TO STRENGTHENING - Subjective Findings: This 69 y/o female presentsto physical therapy with back and leg pain. Patient has had lateral hip to knee. Patient has had symptoms for 2 years which has progessively worse . Seen pain management for 2 epidural injections which didn'd help. Denies parathesia/tingling,otherwise ache in anterior thigh. Aggravating factors night, laying on hip,sitting. Alleviating factors walking,standing,bending. Patient coughing/sneezing -. Patient bowel/bladder good. Symptoms affects ADLS' and housworls tasks. Patient had x-rays -. Patient condition affects QOL. Patient had problems with left leg with artery did dopular and MRI. SOCAIL: . VOCACTION: retired - Pain Right Lower Extremity Pain Intensity (Out of 10): 4 Pain Intensity Range: 10 Comment: lateral hip - Objective POSTURE: mild foward posture. GAIT: ambulates with normal ricco. NEURO: denies parathesia/tingling,reflexes L3-4,L4-5,L5-S1 1/3. PALAPTION: very tender greater tronchentric ,I- T BAND. AROM: hip WNL. FLEXABLITY: hams min tight,piriformis min tight. MMT: quads/hams 4/5,hip flexion 4/5,hip abd 4- /5,ankle 4/5. LUMBAR ROM : flexion WFL,extension WFL,side glides WFL - Special Tests L/S Slump test left side: Negative L/S Slump test right side: Negative L/S Left Straight Leg Raise: Negative L/S Right Straight Leg Raise: Negative Lumbar Standing: Flexion - Mechanical Response: No effect Lumbar Standing: Flexion - Symptoms During Testing: No effect Lumbar Standing: Flexion - Symptoms After Testing: No effect Lumbar Standing: Extension - Mechanical Response: No effect Lumbar Standing: Extension - Symptoms During Testing: No effect Lumbar Standing: Extension - Symptoms After Testing: No effect Lumbar Standing: Right Side Glides - Mechanical Response: No effect Lumbar Standing: Right Side [place] - Symptoms During Testing: No effect Lumbar Standing: Right Side [place] - Symptoms After Testing: No effect Lumbar Standing: Left Side [place] - Mechanical Response: No effect Lumbar Standing: Left Side [place] - Symptoms During Testing: No effect Lumbar Standing: Left Side [place] - Symptoms After Testing: No effect Lumbar Lying: Flexion - Mechanical Response: No effect Lumbar Lying: Flexion - Symptoms During Testing: No effect Lumbar Lying: Flexion - Symptoms After Testing: No effect Lumbar Lying: Extension - Mechanical Response: No effect Lumbar Lying: Extension - Symptoms During Testing: No effect Lumbar Lying: Extension - Symptoms After Testing: No effect - Goals Goal 1:: Patient to be Independant with HEP Goal Time Frame: 4-6 Weeks Goal 2:: Patient to decrease tenderness lateral right hip in morder to sleep. Goal 3:: Patient decrease hip lateral hip by 50% or greater to improve function. Goal Time Frame: 4-6 Weeks Goal 4:: Patient improve back disablity score to 5 points to improve function. Goal Time Frame: 4-6 Weeks - Rehabilitation Potential Physical Therapy Diagnosis: This patient apears to have greater troncanter bursitus and I- T pain very tender,affects sleeping on right hip,lumbar ROM no effect . Rehabilitation Potential: Good - Anticipated Interventions Patient/Client Instruction: Educate patient on: Condition For the Purpose of:: To decrease pain, To increase ROM, To improve muscle performance and motor function, To improve ability to perform ADL's, To increase tolerance to activity/condition/position, To improve ability of physical actions for home/community/work/leisure, To improve health of tissue, To decrease soft tissue restriction, To increase flexibility/ROM, To reduce risk of recurrence Therapeutic Exercise to Include: Strength training, Flexibilty training, Passive ROM, Active ROM Comment: HIP For the Purpose of:: To decrease pain, To increase ROM, To improve nutrient delivery to tissue, To increase oxygenation perfusion, To increase tolerance to activity/condition/position, To improve ability of physical actions for home/community/work/leisure, To improve health of tissue, To decrease soft tissue restriction, To increase flexibility/ROM, To improve ability to perform tasks related to life management Manual Therapy Techniques to Include: Soft tissue mobilization Comment: STICK For the Purpose of:: To decrease pain, To decrease swelling/inflammation, To improve nutrient delivery to tissue, To increase oxygenation perfusion, To improve health of tissue, To decrease soft tissue restriction TENS: Yes IF ES: Yes Cryotherapy (ice pack, ice massage): Yes Thermo therapy (hot pack): Yes Ultrasound (thermal/non thermal): Yes For the Purpose of:: To decrease pain, To decrease swelling/inflammation, To increase ROM, To improve health of tissue, To decrease soft tissue restriction Thank you for the opportunity to evaluate your patient. For Medicare and Medicare HMO plans, please review the plan of care and approve it. It will need to be FAXED BACK to us at [phone] for Medicare purposes. For Medicare only, by signing this I certify the plan of care. Please let me know if there are questions or concerns regarding this plan of care. Physician Signature: Date:
--- NOTE | 2019-04-14 09:59 | HP.PTDCSUM ---
HP - PT D/C Summary It has been my pleasure to treat LUIS MANUEL MAYA under orders from Harper Kimble MD, for the diagnosis of BACK AND LEG PAIN for a total of 8 visit(s). Discharge Date: 04/14/19 Please see the following information for a summary of their discharge status. - Subjective Subjective: Doing alot better overall.. I know how to manage symptoms - Pain Right Lower Extremity Pain Intensity (Out of 10): 3 - Overall Improvement % Improvement: 80 - Objective Objective/Function: POSTURE: WFL. PALAPTION:I -T BAND. AROM: WFL. MMT: 4/5 HIP. IT BAND WFL - Goals Goal 1:: Patient to be Independant with HEP Goal Progress: Goal Met Goal 2:: Patient to decrease tenderness lateral right hip in morder to sleep. Goal Progress: Goal Met Goal 3:: Patient decrease hip lateral hip by 50% or greater to improve function. Goal Progress: Goal Met Goal 4:: Patient improve back disablity score to 5 points to improve function. Goal Progress: Goal Met - Plan Plan: D/C TO HEP - D/C Information Discharge Comments: HEP If there are questions or concerns regarding this patient's physical therapy, please feel free to call me at [phone]. Thank you for the referral of this patient. Sincerely, Bin Mcgill PT, Cert MDT, OCS
== END 2019-04-14 19:00 | disposition home or self-care (01) ==
LOC: PT 09:30
PROVIDERS: Family Provider Family Medicine; PCP Family Medicine; Referring Provider Anesthesiology Pain Medicine; Visit Provider Anesthesiology Pain Medicine
DX: M54.9 Dorsalgia, unspecified (principal); M79.606 Pain in leg, unspecified
CPT/HCPCS: 97035; 97140; 97162; 97530

== ENCOUNTER → 2019-07-05 08:46 | Outpatient (CLI) | payer MEDICARE, OTHER, SELFPAY ==
--- NOTE | 2019-07-05 08:48 | VDLE_ITS ---
Reason For Study: Varicose veins Procedure LEFT Exam performed in department. CFV is compressible, spontaneous, phasic, Patient was scanned in supine position competent, and demonstrates normal during reflux assessment. augmentation. FV is compressible, spontaneous, phasic, competent and demonstrates normal augmentation. POP V is compressible, spontaneous, phasic, competent and demonstrates normal augmentation. T/P Trunk is compressible. PTV is compressible. LT PerV is compressible. SFJ is competent and measures 0.63 x 0.64 cm. GSV above knee is occluded s/p glue ablation. GSV below knee is INCOMPETENT for greater than 0.5 seconds and measures 0.23 x 0.23 cm. SSV at junction is competent and measures 0.21 x 0.21 cm. Interpretation Summary 1. no DVT left leg nd succesful GSV evlt. Ordering Physician: Chay Hawk Referring Physician: Nayla Fitzgerald M.D. Performed By: Nimisha White RVT
== END ==
PROVIDERS: Family Provider Family Medicine; PCP Family Medicine; Referring Provider Surgery Vascular Surgery; Visit Provider Surgery Vascular Surgery
DX: I83.893 Varicose veins of bilateral lower extremities with other complications (principal)
CPT/HCPCS: 93971

== ENCOUNTER → 2019-08-16 | Outpatient (CLI) | payer MEDICARE, OTHER, SELFPAY ==
--- NOTE | 2019-08-16 09:05 | VDLE_ITS ---
Reason For Study: Varicose Veins Procedure LEFT Exam performed in department. CFV is compressible, spontaneous, phasic, competent, and demonstrates normal augmentation. FV is compressible, spontaneous, phasic, competent and demonstrates normal augmentation. POP V is compressible, spontaneous, phasic, competent and demonstrates normal augmentation. T/P Trunk is compressible. PTV is compressible. LT PerV is compressible. SFJ is competent and measures 0.55 x 0.64 cm. GSV is occluded throughout s/p EVLA. SSV at junction is competent and measures 0.15 x 0.17 cm. Interpretation Summary 1. Left no DVT 2. Successful laser ablation. Ordering Physician: Chay Hawk Referring Physician: Nayla Fitzgerald M.D. Performed By: Nimisha White RVT
== END | disposition home or self-care (01) ==
LOC: CVS 09:03
PROVIDERS: Family Provider Family Medicine; PCP Family Medicine; Referring Provider Surgery Vascular Surgery; Visit Provider Surgery Vascular Surgery
DX: I83.893 Varicose veins of bilateral lower extremities with other complications (principal)
CPT/HCPCS: 93970

== ENCOUNTER → 2020-01-27 | Outpatient (CLI) | payer MEDICARE, OTHER, SELFPAY ==
--- NOTE | 2020-01-27 09:03 | BI_ITS ---
MAMMOGRAPHY - UNILATERAL SCREENING: RIGHT BREAST REASON FOR EXAM: Female, 70 years old. Routine annual screening examination (unilateral). PERTINENT HISTORY: Personal history of breast cancer. Prior left mastectomy with a TRAM flap reconstruction. TECHNIQUE: Digital unilateral breast yennifer (3D mammographic acquisition) in the CC and MLO projections. 2-D mediolateral oblique (MLO) and craniocaudad (CC) views of both breasts were obtained. CAD: Full Field Digital Mammography with Computer Added Detection was performed. COMPARISON: Comparison is made with prior examination dated January 15, 2019 and December 23, 2017. FINDINGS: Breast Composition: There are scattered areas of fibroglandular density. There are no dominant masses or suspicious calcifications. No other significant abnormalities are identified. There has been no significant change since the prior study. BI/SCREEN MAMM (CAD) W/YENNIFER UNI R IMPRESSION: Stable unilateral screening mammogram. Yearly follow-up mammogram recommended. (A) ASSESSMENT CATEGORY: BIRADS Category 1: Negative. A letter regarding these results will be sent to the patient by the facility within 30 days. Approximately 10% of breast cancers are not detected by mammography. A normal mammogram should not delay biopsy of a clinically suspicious abnormality. [id number] Electronically Signed: Lobo Chaves, at 12:11 EST , Service support ,
--- NOTE | 2020-01-27 09:05 | BD_ITS ---
STUDY: DUAL ENERGY X-RAY ABSORPTIOMETRY / DXA REASON FOR EXAM: Female, 70 years old. Age of surgical gosia- 41. Pat is 62.75 and quot; a loss of 1.25 and quot; per pat. Takes a multi-vit. Exercises moderately. Mother and sister have osteo. Has been on fosamax for 3 years now. TECHNIQUE: Bone Mineral Density (BMD) measurements of lumbar spine and bilateral hips were obtained. COMPARISON: Comparison is made with prior study dated December 23, 2017. FINDINGS: Lumbar Spine (L1-L4): g/cm2 (1.117) / T-score (-0.4) / Z-score (1.3) Findings are suggestive of normal bone density with a low fracture risk. Left Femur Total: g/cm2 (0.949) / T-score (-0.5) / Z-score (1.1) Left Femoral Neck: g/cm2 (0.817) / T-score (-1.6) / Z-score (0.2) Right Femur Total: g/cm2 (0.924) / T-score (-0.7) / Z-score (0.9) Right Femoral Neck: g/cm2 (0.813) / T-score (-1.6) / Z-score (0.2) The T-Scores on the most recent prior examination were: Lumbar Spine (L1-L4): There has been improvement of bone density since the previous examination. Left Femur Total: which represents a worsening of 5.4%. Right Femur Total: which represents an improvement of 1.5%. BD/Dexa Bone Density Study IMPRESSION: The patient is considered osteopenic as outlined below according to World [employer] Organization (WHO) criteria with a moderate fracture risk. There has been improvement of bone density since the previous examination. Reference Information: The T-score is the number of standard deviations above or below the standard which is normal for young adults at their peak bone mineral density. The World Health Organization (WHO) interprets the T-scores as follows: Above -1 Normal bone density Between -1 and -2.5 Osteopenia Equal to / or below -2.5 Osteoporosis As a practical clinical guideline, osteopenia may be graded as follows: Mild -1 through -1.5 Moderate -1.6 through -2.0 Severe -2.1 through -2.4 The Z-score is the number of standard deviations above or below age-matched controls. A Z-score of less than -1.5 would be considered abnormal. References: 1. NIH Osteoporosis and Related Bone Diseases http://www.osteo.org 2. International Society for Clinical Densitometry http://www.iscd.org 3. National Osteoporosis Foundation http://www.nof.org Electronically Signed: Lobo Chaves, at 11:09 EST , Service support ,
== END | disposition home or self-care (01) ==
LOC: OPBD 09:00
PROVIDERS: PCP Family Medicine; Referring Provider Family Medicine; Visit Provider Family Medicine
DX: N95.9 Unspecified menopausal and perimenopausal disorder (principal); Z12.31 Encounter for screening mammogram for malignant neoplasm of breast; Z85.3 Personal history of malignant neoplasm of breast
CPT/HCPCS: 77063; 77067; 77080

== ENCOUNTER → 2020-01-28 | Outpatient (CLI) | payer MEDICARE, OTHER, SELFPAY ==
[2020-01-28 10:03] LABS: AST(SGOT) 15 U/L (15-37); Alanine Aminotransfer ALT/SGPT 18 U/L (13-56); Cholesterol 190 mg/dL (200); High Density Lipoprotein 38 mg/dL; Triglycerides 143 mg/dL; Very Low Density Lipoprotein 29 mg/dL (5-40)
[2020-01-28 11:04] LABS: Vitamin B12 380 pg/mL (211-911)
== END | disposition home or self-care (01) ==
LOC: LAB 07:46
PROVIDERS: PCP Family Medicine; Referring Provider Family Medicine; Visit Provider Family Medicine
DX: E78.5 Hyperlipidemia, unspecified (principal); F32.9 Major depressive disorder, single episode, unspecified
CPT/HCPCS: 36415; 80061; 82607; 84450; 84460

== ENCOUNTER → 2020-08-30 | Outpatient (CLI) | payer MEDICARE, OTHER, SELFPAY ==
--- NOTE | 2020-09-04 17:54 | STRESSREP ---
Stress Test Report Date: 08/30/2020 Procedure: Exercise tolerance test/imaging study Indications: Chest pain Consent: Per the patient Procedure: The patient exercised on a Lamine protocol for 3 minutes and 59 seconds achieving a peak heart rate of 157 bpm (106% predicted maximal heart rate) with a peak blood pressure 200/80 mmHg and a peak MET capacity of 5.7 METs. The baseline ECG demonstrated sinus rhythm. The peak exercise ECG demonstrated upsloping ST depressions in the inferior and lateral leads which is nonspecific. Patient also had occasional PVCs sometimes in the form of couplets during peak exercise and in the recovery. EKG during recovery revealed no significant ischemic ST-T changes. [There were no significant cardiac dysrhythmias pretest, during exercise, or recovery]. The functional capacity was considered decreased for age. There was [no complaint of chest discomfort during exercise or recovery]. The examination was discontinued secondary to leg discomfort and shortness of breath. Impression: 1. Technically adequate (percent predicted maximal heart rate greater than 85%) exercise tolerance test 2. Stress test is negative for exercise-induced EKG changes of ischemia 3. The test test is negative for exercise-induced chest pain 4. Functional capacity is decreased for age 5. Nuclear images pending Myocardial perfusion imaging study: Technique: The patient was injected with 11 mCi of technetium 99m Cardiolite and subsequently rest SPECT Cardiolite nuclear imaging was obtained in the horizontal long, vertical long, and short axis views. The patient exercised on a Lamine protocol. Please see above for details. The patient was injected with 34.3 mCi of technetium 99m Cardiolite and subsequently stress SPECT Cardiolite nuclear imaging was obtained in the horizontal long, vertical long, and short axis views. A gated Cardiolite study at peak stress was obtained. Interpretation: Rest and stress SPECT Cardiolite nuclear imaging status post realignment, normalization, and attenuation correction, demonstrates overall normal myocardial radioisotope uptake. The gated Cardiolite study demonstrates no significant regional wall motion abnormalities. The reported LVEF is greater than 70%. Impression: 1. There is no evidence of significant ischemia or infarction. 2. The gated Cardiolite study reports an LVEF of greater than 70%. This note was generated with [employer] software. It may contain incorrect words, spelling, and punctuation that were not noted in checking the note before signing.
== END | disposition home or self-care (01) ==
LOC: CVS 06:36
PROVIDERS: PCP Family Medicine; Referring Provider Family Medicine; Visit Provider Family Medicine
DX: R07.9 Chest pain, unspecified (principal)
CPT/HCPCS: 78452; 93017; A9500; A4216

== ENCOUNTER → 2020-11-21 16:52 | Outpatient (CLI) | payer MEDICARE, OTHER, SELFPAY ==
--- NOTE | 2020-11-21 16:58 | CT_ITS ---
STUDY: CT BRAIN WITHOUT CONTRAST REASON FOR EXAM: Female, 70 years old. HIT HEAD X 1 MONTH. NOW HAVING HEADACHES RADIATION DOSAGE (If Supplied By Facility): CTDIvol = ( 60.81 ) mGy, DLP = ( 998.67 ) mGycm TECHNIQUE: Transaxial CT imaging of the brain was performed without administration of intravenous contrast material. Individualized dose optimization techniques were used for this CT. COMPARISON: 04/26/2014 FINDINGS: Normal soft tissue structures. Normal calvarium. There is mild cerebral atrophy with widening of the extra-axial spaces and ventricular dilatation. There are areas of decreased attenuation within the white matter tracts of the supratentorial brain, consistent with microvascular disease changes. Normal basal ganglia and thalami. Normal brainstem. Normal cerebellum. There is no intracranial hemorrhage. There are no findings of an acute ischemic infarction. Normal visualized paranasal sinuses. CT/Brain/Head without Contrast IMPRESSION: Chronic involutional changes of the brain. Electronically Signed: Jackson Roa MD at 17:12 EST Tel , Service support ,
== END ==
PROVIDERS: PCP Family Medicine; Referring Provider Family Medicine; Visit Provider Family Medicine
DX: S09.90XA Unspecified injury of head, initial encounter (principal)
CPT/HCPCS: 70450

== ENCOUNTER 2021-01-29 09:00 | Outpatient (RCR) | payer MEDICARE, OTHER, SELFPAY ==
--- NOTE | 2021-01-15 11:29 | HP.OTEVAL ---
Patient's Visit Information LUIS MANUEL MAYA is a 71 year old F, referred to Occupational Therapy by Dr. Dottie Pérez DO, with a diagnosis of Right elbow OA and epicondylitis. Date of Evaluation: 01/15/21 Occupational Therapist: Yoselin Pollack, CIARAR/Roselia, CHT - Subjective This 71 year old female was seen for OT eval with dx of right elbow OA and right elbow epicondylitis. Pt was scheduled for 01/08/21 but rescheduled for today 01/15/[address] Pérez 01/16/21. pt states she has had elbow discomfort for about 4 years. pt states she had two shots in her elbow with her pain mtg Dr. pt states she went to ortho. and they rec'd RA dr and OT services. Pt states her dr. at the arthritis clinic did not feel they could help her- so she is opting for ortho to assist with her pain and comfort to gain her ind. with ADLs and IADLs. pt states she enjoys reading, and gardening. 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 States she does all the house work, cooking, yard work and driving as her is lossing his vision. 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 with ADL and IADLs Goal:: pt will demo full elbow ext/flex without report of pain greater than 1/10 by d/c Goal:: pt will report the ability to sleep through the night with elbow padding to prevent elbow flex while sleeping in 3 weeks. Goal:: pt will demo understanding of joint protection for OA- and medial and lateral epic. precautions to limit stress on elbow during ADls and IADLs by d/c - Rehabilitation General Assessment: pt demo with trigger points on right medial/lateral points of elbow- pt has pain with prolonged elbow flex and this limits her ind. with ADls and IADLs at this time. Pt would benefit from skilled OT services 1-2x week for 4 weeks - to ed. pt on joint protection, protection and support of medial/lateral componets of the elbow- initiate isometric of shoulder and eccentric ex of wrist/forearm. Rehabilitation Potential: Good - Anticipated Interventions A/AAROM/PROM, Strengthening, Triggerpoint Release, Modalities, Orthoses, Joint Protection/Energy Conservation, Ergonomic Education - Visit Plan Frequency: 1-2x /Week Duration: 6 Weeks TEXT: Thank you for the opportunity to evaluate your patient. For Medicare and Medicare HMO plans, please review the plan of care and approve it. It will need to be FAXED BACK to us at [phone] for Medicare purposes. Please let me know if there are questions or concerns regarding this plan of care. Physician Signature: Date:
--- NOTE | 2021-05-02 11:58 | HP.OTDCSUM ---
It has been my pleasure to treat LUIS MANUEL MAYA under orders from Dr. Dottie Pérez, , for the diagnosis of Right elbow OA and epicondylitis for a total of 3 visit(s). Please see the following information for a summary of their discharge status. Objective/Function: pt demo full elbow ROM pt given HEP for isometric shoulder and elbow-. pt given information on joining the [employer] program-. pt to try HEP for 4 weeks and if pt does not have issue will D/C from OT Patient Goals: Decrease Pain, Decrease Swelling/Stiffness, Use Hand/Wrist/Arm Normally Again, Sleep Better, Be More Independent in ADLS Goal:: pt will demo a increase in right [facility] strength to 25# or greater to increase pts ind. with ADL and IADLs Goal:: pt will demo full elbow ext/flex without report of pain greater than 1/10 by d/c Goal:: pt will report the ability to sleep through the night with elbow padding to prevent elbow flex while sleeping in 3 weeks. Goal:: pt will demo understanding of joint protection for OA- and medial and lateral epic. precautions to limit stress on elbow during ADls and IADLs by d/c Plan: pt given HEP for isometric shoulder and elbow-. pt given information on joining the [employer] program-. pt to try HEP for 4 weeks and if pt does not have issue will D/C from OT If there are questions or concerns regarding this patient's occupational therapy, please fell free to call me at [phone]. Thank you for the referral of this patient. Sincerely, Yoselin Pollack, OTR/L, CHT
== END 2021-01-29 19:00 | disposition home or self-care (01) ==
LOC: OT 09:00
PROVIDERS: PCP Family Medicine; Referring Provider Orthopaedic Surgery; Visit Provider Orthopaedic Surgery
DX: M19.021 Primary osteoarthritis, right elbow (principal)
CPT/HCPCS: 97035; 97140; 97166; 97530

== ENCOUNTER → 2021-02-06 13:10 | Outpatient (CLI) | payer MEDICARE, OTHER, SELFPAY ==
[2021-01-16 10:08] VITALS: BMI 31.7
--- NOTE | 2021-02-06 13:15 | BI_ITS ---
MAMMOGRAPHY - UNILATERAL SCREENING: RIGHT BREAST REASON FOR EXAM: Female, 71 years old. Routine annual screening examination (unilateral). PERTINENT HISTORY: Personal history of breast cancer. Prior left mastectomy. Remote right excisional breast biopsy. TECHNIQUE: Digital unilateral breast yennifer (3D mammographic acquisition) in the CC and MLO projections. 2-D mediolateral oblique (MLO) and craniocaudad (CC) views of both breasts were obtained. CAD: Full Field Digital Mammography with Computer Added Detection was performed. COMPARISON: Comparison is made with prior examination dated 01/27/2020 and 01/15/2019. FINDINGS: Breast Composition: There are scattered areas of fibroglandular density. There are no dominant masses or suspicious calcifications. No other significant abnormalities are identified. There has been no significant change since the prior study. BI/SCREEN MAMM (CAD) W/YENNIFER UNI R IMPRESSION: Stable unilateral screening mammogram. Yearly follow-up mammogram recommended. (A) ASSESSMENT CATEGORY: BIRADS Category 1: Negative. A letter regarding these results will be sent to the patient by the facility within 30 days. Approximately 10% of breast cancers are not detected by mammography. A normal mammogram should not delay biopsy of a clinically suspicious abnormality. [id number] Electronically Signed: Lobo Chaves MD at 14:18 EDT , Service support ,
== END ==
PROVIDERS: PCP Family Medicine; Referring Provider Family Medicine; Visit Provider Family Medicine
DX: Z12.31 Encounter for screening mammogram for malignant neoplasm of breast (principal)
CPT/HCPCS: 77063; 77067

== ENCOUNTER → 2021-06-28 17:46 | Outpatient (CLI) | payer MEDICARE, OTHER, SELFPAY ==
[2021-04-27 14:06] VITALS: BMI 31.7
--- NOTE | 2021-06-28 18:15 | MRI_ITS ---
STUDY: MRI LEFT ANKLE WITHOUT CONTRAST REASON FOR EXAM: Female, 71 years old. LEFT ankle sprain, OA TECHNIQUE: Standardized fat and water weighted pulse sequences were obtained in all 3 orthogonal planes. COMPARISON: Left ankle x-ray dated APRIL 27, 2021 FINDINGS: Mild degenerative narrowing, intraosseous cystic change, and spurring in the navicular cuneiform articulation as well as the second and third TMT articulations. Mild degenerative changes also present at the talonavicular articulation dorsally. Diffuse reactive/degenerative edema is present across the navicular bone. A tiny ankle joint effusion is present. No visualized fracture or osteochondral defect. Normal subcutis adipose space. Normal posterior tibialis tendon. Normal flexor digitorum longus tendon. Normal flexor hallucis longus tendon. Normal peroneus longus and brevis tendons. Normal tibialis anterior tendon. Normal extensor hallucis longus tendon. Normal extensor digitorum longus tendons. Normal Achilles tendon and teno-osseous insertion. Normal plantar fascia. Normal plantar calcaneal tubercles. Normal intrinsic muscles of the rearfoot. Normal distal tibiofibular syndesmotic ligamentous complex. Normal lateral ligamentous complex. Normal subtalar ligaments and sinus tarsi. Normal deltoid ligamentous complexes. Normal plantar calcaneonavicular (spring) ligament. Normal tibiotalar articulation. Normal talar dome. Normal subtalar articulations. Normal calcaneocuboid articulation. MRI/Lower Ext Joint Only (Routine) IMPRESSION: 1. Mild degenerative narrowing, intraosseous cystic change, and spurring in the navicular cuneiform articulation as well as the second and third TMT articulations. 2. Mild degenerative changes also present at the talonavicular articulation dorsally. 3. Diffuse reactive/degenerative edema is present across the navicular bone. 4. A tiny ankle joint effusion is present. 5. No visualized fracture or osteochondral defect. Electronically Signed: Chi Serrano MD at 22:31 EDT , Service support ,
== END ==
PROVIDERS: PCP Family Medicine; Referring Provider Podiatrist; Visit Provider Podiatrist
DX: M19.072 Primary osteoarthritis, left ankle and foot (principal); S93.402A Sprain of unspecified ligament of left ankle, initial encounter
CPT/HCPCS: 73721

== ENCOUNTER → 2021-07-27 11:00 | Outpatient (CLI) | payer MEDICARE, OTHER, SELFPAY ==
[2021-07-27 15:25] LABS: Cholesterol 191 mg/dL (200); High Density Lipoprotein 43 mg/dL; T4 Total, Thyroxin 8.7 ug/dL (4.8-13.9); Thyroid Stim Hormone (TSH) 2.15 uIU/mL (0.358-3.74); Triglycerides 177 mg/dL; Very Low Density Lipoprotein 35 mg/dL (5-40)
== END ==
PROVIDERS: PCP Family Medicine; Referring Provider Family Medicine; Visit Provider Family Medicine
DX: E78.5 Hyperlipidemia, unspecified (principal); R22.1 Localized swelling, mass and lump, neck
CPT/HCPCS: 36415; 80061; 84436; 84443

== ENCOUNTER → 2021-08-03 12:24 | Outpatient (CLI) | payer MEDICARE, OTHER, SELFPAY ==
--- NOTE | 2021-08-03 12:26 | US_ITS ---
STUDY: THYROID ULTRASOUND REASON FOR EXAM: Female, 71 years old. Dysphagia TECHNIQUE: Ultrasound evaluation of the thyroid was performed with real-time and static jones-scale imaging. COMPARISON: None. FINDINGS: RIGHT LOBE: The right lobe of the thyroid gland measures 4.6 x 2.0 x 1.2 cm. There is a homogeneous echotexture. There is a solid 0.5 cm nodule LEFT LOBE: The left lobe of the thyroid gland measures 4.6 x 1.7 x 1.8 cm. There is a homogeneous echotexture. There is a 1.6 x 1.1 x 1.1 cm solid nodule in the upper pole and a 0.5 x 0.4 x 0.3 cm cyst in the lower pole. ISTHMUS: The isthmus measures 4 mm. The regional lymph nodes are normal. US/Thyroid IMPRESSION: Bilateral solid thyroid nodules. Since there are no previous studies available for comparison, and sonography cannot distinguish between benign and aggressive nodules, further evaluation with thyroid uptake study is recommended. If a nodule should demonstrate suspicious uptake characteristics, biopsy would be recommended. If not, six-month follow-up ultrasound would be recommended to ensure stability Electronically Signed: Taj Delgado MD at 13:35 EDT , Service support ,
== END ==
PROVIDERS: PCP Family Medicine; Visit Provider Family Medicine
DX: R22.1 Localized swelling, mass and lump, neck (principal)
CPT/HCPCS: 76536

== ENCOUNTER → 2021-08-22 09:43 | Outpatient (CLI) | payer MEDICARE, OTHER, SELFPAY ==
--- NOTE | 2021-08-22 09:45 | NM_ITS ---
CLINICAL: 71-year-old female with reported history of thyroid nodularity. I-123 THYROID UPTAKE and SCAN COMPARISON: Thyroid ultrasound report 08/03/2021 FINDINGS: The patient was administered a 300 uCi I-123 capsule by mouth. The 4-hour I-123 radioactive iodine thyroidal uptake was calculated to be 15.6 % (normal 5 to 25 %). The 24-hour I-123 radioactive iodine thyroidal uptake was calculated to be 39.8 % (normal 5 to 40 %). The I-123 thyroid scan demonstrates homogeneous radiopharmaceutical concentration throughout both lobes of a U-shaped thyroid gland. There are no colloidal parenchymal hypofunctioning-cold nodules noted in either lobe of the thyroid gland. NM/Thyroid Uptake Single or Mult IMPRESSION: 1. NORMAL 4- and UPPER LIMITS OF NORMAL 24-hour I-123 radioactive iodine thyroidal uptakes. Correlation with in vitro thyroid function studies may be of benefit if not previously obtained. 2. 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 No hypofunctioning nodules are encountered on inspection of the thyroid parenchyma. Electronically Signed: Jackson Louise DO at 22:26 EDT Tel , Service support ,
== END ==
PROVIDERS: PCP Family Medicine; Referring Provider Family Medicine; Visit Provider Family Medicine
DX: R22.1 Localized swelling, mass and lump, neck (principal)
CPT/HCPCS: 78012; A9516

== ENCOUNTER 2022-02-07 16:52 | Outpatient (CLI) | payer MEDICARE, OTHER, SELFPAY ==
--- NOTE | 2022-02-07 16:56 | CT_ITS ---
INDICATION: right anterior neck mass EXAMINATION: CT NECK WITH CONTRAST - CT Soft Tissue Neck W/ Contrast Injection TECHNIQUE: Helically acquired images were obtained of the neck following IV contrast. A radiation dose optimization technique was used for this scan. IV Contrast dosage and agent: 100 mL of ISOVUE 300 COMPARISON: Thyroid ultrasound from 08/03/2021 FINDINGS: NASOPHARYNX: Unremarkable. SUPRAHYOID NECK: Unremarkable oropharynx, oral cavity, parapharyngeal space, and retropharyngeal space. INFRAHYOID NECK: Unremarkable larynx, hypopharynx, and supraglottis. THYROID: There is a 1.4 cm left thyroid nodule which corresponds with the nodule seen on prior ultrasound from 08/03/2021. Otherwise, the thyroid gland is unremarkable. SALIVARY GLANDS: Unremarkable. LYMPH NODES: No cervical or supraclavicular lymphadenopathy. VASCULAR STRUCTURES: Unremarkable. VISUALIZED PORTIONS OF THE ORBITS, PARANASAL SINUSES, MASTOID AIR CELLS AND SKULL BASE: Unremarkable. SOFT TISSUES: There is a BB in the right lower anterolateral neck marking area of clinical concern. There is no underlying mass or abnormal enhancement. There are no masses, abnormal enhancement, or fluid collections throughout the neck soft tissues. BONES: Limited assessment of fine osseous detail due to contrast enhanced protocol. Multilevel degenerative changes of the cervical spine. No destructive osseous lesions. THORACIC INLET: Clear lung apices. CT/Soft Tissue Neck WITH Contrast IMPRESSION: 1. No masses, abnormal enhancement, or fluid collections. 2. 1.4 cm left thyroid nodule corresponding to the nodule seen on prior ultrasound from 08/03/2021. Follow-up per recommendation from prior ultrasound recommended. Electronically Signed: Juni Ferris, at 8:30 EDT ,
== END 2022-02-07 23:59 | disposition home or self-care (01) ==
LOC: CT 16:55
PROVIDERS: PCP Family Medicine; Referring Provider Family Medicine; Visit Provider Family Medicine
DX: R22.1 Localized swelling, mass and lump, neck (principal)
CPT/HCPCS: 70491; Q9967; A4216

== ENCOUNTER 2022-02-21 12:38 | Outpatient (CLI) | payer MEDICARE, OTHER, SELFPAY ==
--- NOTE | 2022-02-21 12:40 | BI_ITS ---
MAMMOGRAPHY - UNILATERAL SCREENING: RIGHT BREAST REASON FOR EXAM: Female, 72 years old. Routine annual screening examination (unilateral). PERTINENT HISTORY: Personal history of breast cancer. Prior left mastectomy. Remote right excisional breast biopsy. TECHNIQUE: Digital unilateral breast yennifer (3D mammographic acquisition) in the CC and MLO projections. 2-D mediolateral oblique (MLO) and craniocaudad (CC) views of both breasts were obtained. CAD: Full Field Digital Mammography with Computer Added Detection was performed. COMPARISON: Comparison is made with prior study dated 02/06/2021 and 01/27/2020. FINDINGS: Breast Composition: There are scattered areas of fibroglandular density. There are no dominant masses or suspicious calcifications. No other significant abnormalities are identified. There has been no significant change since the prior study. BI/SCREEN MAMM (CAD) W/YENNIFER UNI R IMPRESSION: Stable unilateral screening mammogram. Yearly follow-up mammogram recommended. (A) ASSESSMENT CATEGORY: BIRADS Category 1: Negative. A letter regarding these results will be sent to the patient by the facility within 30 days. Approximately 10% of breast cancers are not detected by mammography. A normal mammogram should not delay biopsy of a clinically suspicious abnormality. [id number] Electronically Signed: Lobo Chaves MD at 14:10 EDT ,
--- NOTE | 2022-02-21 12:44 | BD_ITS ---
STUDY: DUAL ENERGY X-RAY ABSORPTIOMETRY / DXA REASON FOR EXAM: Female, 72 years old. [id number]. The patient is postmenopausal. TECHNIQUE: Bone Mineral Density (BMD) measurements of lumbar spine and bilateral hips were obtained. COMPARISON: Comparison is made with prior study dated 01/27/2020 and 12/23/2017. FINDINGS: Lumbar Spine (L1-L4): g/cm2 (0.996) / T-score (0.2) / Z-score (2.4) Findings are suggestive of normal bone density with a low fracture risk. Left Femur Total: g/cm2 (0.826) / T-score (-1.0) / Z-score (0.8) Left Femoral Neck: g/cm2 (0.706) / T-score (-1.3) / Z-score (0.7) Right Femur Total: g/cm2 (0.817) / T-score (-1.0) / Z-score (0.7) Right Femoral Neck: g/cm2 (0.673) / T-score (-1.6) / Z-score (0.4) The T-Scores on the most recent prior examination were: Lumbar Spine (L1-L4): There has been improvement of bone density since the previous examination. Left Femur Total: which represents a worsening of 6.7%. Right Femur Total: which represents a worsening of 5%. BD/Dexa Bone Density Study IMPRESSION: The patient is considered osteopenic as outlined below according to World [employer] Organization (WHO) criteria with a moderate fracture risk. There has been worsening of bone density since the previous examination. Reference Information: The T-score is the number of standard deviations above or below the standard which is normal for young adults at their peak bone mineral density. The World Health Organization (WHO) interprets the T-scores as follows: Above -1 Normal bone density Between -1 and -2.5 Osteopenia Equal to / or below -2.5 Osteoporosis As a practical clinical guideline, osteopenia may be graded as follows: Mild -1 through -1.5 Moderate -1.6 through -2.0 Severe -2.1 through -2.4 The Z-score is the number of standard deviations above or below age-matched controls. A Z-score of less than -1.5 would be considered abnormal. References: 1. NIH Osteoporosis and Related Bone Diseases www osteo.org 2. International Society for Clinical Densitometry www iscd.org 3. National Osteoporosis Foundation www nof.org Electronically Signed: Lobo Chaves MD at 10:35 EDT ,
== END 2022-02-21 23:59 | disposition home or self-care (01) ==
LOC: OPBD 12:39
PROVIDERS: PCP Family Medicine; Visit Provider Family Medicine
DX: Z12.31 Encounter for screening mammogram for malignant neoplasm of breast (principal); Z78.0 Asymptomatic menopausal state; N95.9 Unspecified menopausal and perimenopausal disorder
CPT/HCPCS: 77063; 77067; 77080

== ENCOUNTER 2022-09-25 15:30 | Outpatient (RCR) | payer MEDICARE, OTHER, SELFPAY ==
--- NOTE | 2022-08-27 13:47 | HP.PTEVAL ---
Patient's Visit Information LUIS MANUEL MAYA is a 72 year old F referred to Physical Therapy by FABRICIO Lopez with a diagnosis of unilateral primary OA R knee. Date of Evaluation: 08/27/22 Physical Therapist: CHARLINE Johnson - Visit Plan Frequency: 2x /Week Duration: 2 Months Plan: 2X/ week for 8 weeks for R knee AROM - Subjective Pt woke up 2 weeks ago and her knee was painful and could not walk or bend it. She went in to the Dr and the x-rays showed arthritis. She said it was severe arthritis. They gave her a brace and it helps her out a lot and she can not go without it. It hurts up and down the stairs and has to go one at a time. Getting in and out of the car hurts. Walking increases her pain and she has to go slow and use her brace. Getting in bed she can not put any pressure on her knee. She is taking meloxicam and only been on it for 2 weeks and no improvement yet. She has not been doing any exercises. She ices 4X a day and it helps. It aches a lot just sitting here or pressure from the chair on the back of the knee. Pt reports that her knee hurts on the lateral side on the R. - Pain R knee pain Pain Intensity (Out of 10): 8 - Objective Gait: walks with a R knee brace on with decrease stance time on the R LE and decrease knee flexion. R knee AROM: -1 degree from full extension, R knee flex 103. L knee AROM: full extension ROM, L knee flex 120. Sit to stand: increase pain and needs to use her arms to get herself up to standing and then pulls leg back underneath her. LE MMT: R hip flex 8.5# and L hip flex 11.4#. R knee 15.1 and L knee ext 22.6#. R knee flex 8.6# and L knee flex 12#. R hip abd 5.9# and L hip abd 12.2#. Bridge: full AROM. Girth measurements: R 46 joint line and L 46.2 - Balance/Special Test Scores Lower Extremity Functional Score: 28 - Goals Goal 1:: I HEP Goal Time Frame: 6-8 Weeks Goal 2:: Be able to walk with less of an antalgic gait. Goal Time Frame: 6-8 Weeks Goal 3:: Increase R knee strength (At the time of the eval: R hip flex 8.5# and L hip flex 11.4#. R knee 15.1 and L knee ext 22.6#. R knee flex 8.6# and L knee flex 12#. R hip abd 5.9# and L hip abd 12.2#) Goal Time Frame: 6-8 Weeks Goal 4:: Increase R knee AROM to equal that of the L (at time of the eval L knee AROM 0-120) Goal Time Frame: 6-8 Weeks Goal 5:: Decrease R knee pain to 3/10 or less with gait and ADL's Goal Time Frame: 6-8 Weeks - Rehabilitation Potential Rehabilitation Potential: Good - Anticipated Interventions Patient/Client Instruction: Educate patient on: Condition, Plan of Care For the Purpose of:: To decrease pain, To increase ROM, To improve nutrient delivery to tissue, To improve muscle performance and motor function, To improve ability to perform ADL's, To increase tolerance to activity/condition/position, To improve performance and independence with ADL's, To decrease level of supervision to perform tasks, To improve ability of physical actions for home/community/work/leisure, To improve gait and locomotor functions, To improve health of tissue, To decrease soft tissue restriction, To increase flexibility/ROM Therapeutic Exercise to Include: Strength training, Balance training, Flexibilty training, Gait and locomotor training, Neuromotor development, Passive ROM, Active ROM For the Purpose of:: To decrease pain, To decrease swelling/inflammation, To increase ROM, To improve nutrient delivery to tissue, To improve muscle performance and motor function, To improve ability to perform ADL's, To increase tolerance to activity/condition/position, To improve performance and independence with ADL's, To decrease level of supervision to perform tasks, To improve ability of physical actions for home/community/work/leisure, To improve gait and locomotor functions, To improve health of tissue, To decrease soft tissue restriction, To increase flexibility/ROM Functional Training to Include: Gait training For the Purpose of:: To improve gait and locomotor functions IF ES: Yes Cryotherapy (ice pack, ice massage): Yes Ultrasound (thermal/non thermal): Yes For the Purpose of:: To decrease pain, To decrease swelling/inflammation, To increase ROM, To improve nutrient delivery to tissue Thank you for the opportunity to evaluate your patient. For Medicare and Medicare HMO plans, please review the plan of care and approve it. It will need to be FAXED BACK to us at [phone] for Medicare purposes. For Medicare only, by signing this I certify the plan of care. Please let me know if there are questions or concerns regarding this plan of care. Physician Signature: Date:
--- NOTE | 2022-09-25 16:23 | HP.PTDCSUM ---
It has been my pleasure to treat LUIS MANUEL MAYA referred by FABRICIO Lopez, with the diagnosis of unilateral primary OA R knee for a total of 9 visit(s). Discharge Date: 09/25/22 Please see the following information for a summary of their discharge status. Subjective: Pt reports that she woke up this morning ok but by the time she walks down the stairs and does a few things she is in pain again. She is still wearing her brace. When she sits with her leg in extension it locks up on her. Her R knee also still keeps giving out on her. She does her exercises and it gives temp relief. It is hard to get off the toilet, drive, and go up and down the stairs. Pt reports that all the things that she wants to do, she can't do and wants to go back to the Dr. R knee pain Pain Intensity (Out of 10): 5 % Improvement: 50 Objective/Function: R hip flex 13.7# and L hip flex 14.9#. R knee ext 16.4# and L knee ext 22.6#. R knee flex 15# and L knee flex 14.6#. R hip abd 5.9# and L hip abd 12.2#). R knee AROM -1 to 120 degrees R knee flex Goal 1:: I HEP Goal Progress: Goal Met Goal 2:: Be able to walk with less of an antalgic gait. Goal Progress: Progressing Goal 3:: Increase R knee strength (At the time of the eval: R hip flex 8.5# and L hip flex 11.4#. R knee 15.1 and L knee ext 22.6#. R knee flex 8.6# and L knee flex 12#. R hip abd 5.9# and L hip abd 12.2#) Goal Progress: Goal Met Goal 4:: Increase R knee AROM to equal that of the L (at time of the eval L knee AROM 0-120) Goal Progress: Goal Met Goal 5:: Decrease R knee pain to 3/10 or less with gait and ADL's Goal Progress: Not Progressing Plan: DC PT to HEP and back to Dr. Pt's ROM has improved as well as strength but her pain and function has not improved to acceptable limits. Discharge Comments: DC PT to HEP If there are questions or concerns regarding this patient's physical therapy, please feel free to call me at [phone]. Thank you for the referral of this patient. Sincerely, Shira Wolf, MPT Balance/Gait/Functional tests - Balance/Special Test Scores Lower Extremity Functional Score: 35
== END 2022-09-25 19:00 | disposition home or self-care (01) ==
LOC: PT 15:30
PROVIDERS: PCP Family Medicine; Referring Provider Nurse Practitioner; Visit Provider Nurse Practitioner
DX: M17.11 Unilateral primary osteoarthritis, right knee (principal)
CPT/HCPCS: 97110; 97161; 97530

== ENCOUNTER → 2022-11-04 | Outpatient (CLI) | payer MEDICARE, OTHER, SELFPAY ==
[2022-11-04 13:25] LABS: AST(SGOT) 13 U/L (15-37); Alanine Aminotransfer ALT/SGPT 18 U/L (13-56); Cholesterol 196 mg/dL (200); High Density Lipoprotein 50 mg/dL; Triglycerides 114 mg/dL; Very Low Density Lipoprotein 23 mg/dL (5-40)
== END | disposition home or self-care (01) ==
PROVIDERS: PCP Family Medicine; Referring Provider Family Medicine; Visit Provider Family Medicine
DX: E78.5 Hyperlipidemia, unspecified (principal)
CPT/HCPCS: 36415; 80061; 84450; 84460

== ENCOUNTER → 2022-12-16 | Outpatient (CLI) | payer MEDICARE, OTHER, SELFPAY ==
--- NOTE | 2022-12-16 14:20 | MRI_ITS ---
STUDY: MRI RIGHT KNEE REASON FOR EXAM: Female, 72 years old. Pain. TECHNIQUE: Standardized fat and water weighted pulse sequences were obtained in all 3 orthogonal planes. COMPARISON: None. FINDINGS: There is partial tear of the posterior horn of the medial meniscus adjacent to the meniscal root, series 7 image 12/32. There is diffuse, less than 50% thickness articular cartilage loss of the medial femorotibial compartment. There is mild osteoarthritic spur formation of the medial knee compartment. Normal medial collateral ligamentous complex (MCL). Normal distal semimembranosus, gracilis and semitendinosus tendons. There is lateral meniscus tear of the anterior horn and body, series 7 images 15/32 through 20/32. There is diffuse, greater than 50% thickness articular cartilage loss of the lateral femorotibial compartment. There is mild osteoarthritic spur formation of the lateral knee compartment. There is reactive marrow edema of the lateral femoral condyle and tibial plateau. Normal proximal tibiofibular articulation. Normal lateral collateral (fibular) ligament. There is moderate tenosynovitis of the popliteus tendon sheath with moderate synovial fluid. Normal biceps femoris tendon. Normal anterior cruciate ligament (ACL). Normal posterior cruciate ligament (PCL). Normal congruent patellofemoral articulation. Normal hyaline cartilage of the patellofemoral compartment. Normal medial and lateral patellar retinaculum. Normal quadriceps tendon. Normal patellar tendon. Normal Hoffa''s fat pad. There is a moderate volume joint effusion. The soft tissues are unremarkable. The otherwise visualized osseous structures are unremarkable. MRI/Lower Ext Joint Only (Routine) IMPRESSION: Medial meniscus tear. Lateral meniscus tear. Degenerative change. Stress or insufficiency fractures of the lateral femoral condyle and tibial plateau. Joint effusion. Electronically Signed: Roshan Funes MD at 19:46 EST ,
== END | disposition home or self-care (01) ==
PROVIDERS: PCP Family Medicine; Referring Provider Physician Assistant; Visit Provider Physician Assistant
DX: M23.91 Unspecified internal derangement of right knee (principal)
CPT/HCPCS: 73721

== ENCOUNTER 2023-02-04 05:58 | Day surgery (SDC) | payer MEDICARE, OTHER, SELFPAY ==
[2023-02-04] VITALS (8 sets, daily range): BP systolic 127–175; BP diastolic 68–109; PULSE 82–91; RESP 16–18; TEMP 36.4–37.1; O2SAT 94–100; BMI 31.0
[2023-02-04] MEDS: Lactated Ringers 1,000 ML 15 ML IV (06:44)
--- NOTE | 2023-02-04 07:08 | PCM.HP.BLA ---
History and Physical Date of Admission: 02/04/23 [facility] [facility] [address] [place] [address] OFFICE VISIT Date of Service:? 12/25/22 MR#: [id number] Acct: [id number] Name:LUIS MANUEL CLEARY Rep #: [id number] : 1950 ? ? Provider: Dr. Raj Clay, DO Age/Sex:? 72/F ? ? Location: [facility] Status: Signed Intake Intake Visit Reasons:?RIGHT KNEE Allergies acetaminophen [From Vicodin] Allergy (Verified 11/14/22 14:45) Otherhydrocodone bitartrate [From Vicodin] Allergy (Verified 11/14/22 14:45) Othervenlafaxine HCl [From Effexor] Allergy (Verified 11/14/22 14:45) Other Medications ezetimibe 10 mg tablet 10 mg PO DAILY 04/26/14 [History Confirmed 12/25/22] sertraline 100 mg tablet 100 mg PO DAILY 04/26/14 [History Confirmed 12/25/22] alendronate 70 mg tablet 70 mg PO QWEEK 01/16/21 [History Confirmed 12/25/22] meloxicam 15 mg tablet 15 mg PO DAILY pain #30 tabs 08/19/22 [Rx Confirmed 12/25/22] PFSH Medical History? Back pain Hemorrhoids History of cancer Knee pain Localized osteoarthritis of right knee Neck pain Shoulder pain SOB (shortness of breath) Umbilical hernia Surgical History? History of lumpectomy History of mastectomy Social History? Smoking Status:? Never smoker alcohol intake:? never HPI RIGHT KNEE Details: Parts of this documentation were recorded by a scribe, this documentation accurately reflects the service provided and the decisions made by me, Dr. Raj Clay, DO 12/25/22 0826. LUIS MANUEL MAYA is a 72 year old F here today for? right knee pain. F/U after going over MRI with Ernesto Levin. She states that she has had this pain for about 4 months. She was icing and using Tylenol at home and then completed PT without relief. She states that she has pain over the posterior lateral knee and medial knee pain. She states that the knee wants to give out on her and she doesn't trust her knee. She did have a steroid injection which was helpful for 2 weeks then the pain returned. Scared that the knee will give out and this is affecting her qualitity of life. Ortho Exam General General: Yes no acute distress Neurologic: Yes alert and Yes oriented x3 Psychologic: Yes reasonable and appropriate Right Knee Skin/Wound: No erythema, No ecchymosis and No swelling Homans Sign: No Knee ROM: No ROM-Extension -20 to 0 (lacking 18) and No ROM-Flexion 0-140 (95) Examination: Yes Med jt line tenderness, Yes Lat jt line tenderness, Yes Radha's Test and No TTP Pes Anserine Stability: NML: Anterior Drawer, NML: Posterior Drawer, NML: Valgus 30 and NML: Varus 30 Patella Translation: 1 KNEE: no pitting edema positive medial and lateral drew Left Knee Patella Translation: 1 Head: Normocephalic Atraumatic Chest: symmetrical rise, non-labored breathing, no audible wheeze Abdomen: no guarding, non-rigid Supplemental Info 12/16/2022 MRI right knee: Partial tear posterior horn medial meniscus adjacent to the root.? Diffuse less than 50% cartilage loss medial compartment with spur formation, lateral meniscus tear of the anterior horn and body diffuse greater than 50% cartilage loss of the lateral compartment.? Reactive marrow edema lateral femoral condyle and lateral tibial plateau, moderate joint effusion degenerative appearance to ACL 08/19/2022 x-ray right knee: Mild medial joint space narrowing and bone spurs lateral tilt and subluxation of the patella with mild arthrosis of the lateral patellofemoral compartment Coding Level of Care Code Off vis,est,level 3 Diagnoses Localized osteoarthritis of right knee? M17.11 Tear of medial meniscus of right knee, current? S83.241A Tear of lateral meniscus of right knee? S83.281A Assessment and Plan Assessment and Plan (1) Localized osteoarthritis of right knee: ?Status:?Acute (2) Tear of medial meniscus of right knee, current: ?Status:?Acute (3) Tear of lateral meniscus of right knee: ?Status:?Acute Plan Patient educated that she has medial and lateral meniscus tearing and she also has arthritis of the right knee greater the 50% cartilage loss of the lateral compartment. Treatment options are right knee arthroscopy for partial meniscectomy but she could still have pain from the arthritis after the scope or the other surgical intervention would be a right TKA. Other non-surgical treatment options are do nothing or PT or bracing or steroid injection. Reviewed the pre-operative plans with the patient. Risks and benefits of the procedure were fully explained, including but not limited to infection, neurovascular injury, continued pain, arthritis, stiffness, need for further surgery, re-injury, DVT, PE, general risks of anesthesia, and loss of limb or life. The patient understands all the risks and does wish to proceed with written consent for a right knee arthroscopy partial medial and partial lateral meniscectomy, chondroplasty, surgery as indicated. She understands that there is a good chance she will have continued pain d/t the arthritis after the knee scope and if so we can trial lubricant injections and further bracing.? Follow up 2 weeks post op or sooner if pain, swelling, numbness or associated symptoms, or concerns develop.? All questions answered. Patient in agreement of plan. 12/25/22 1402 <Electronically signed by Raj Clay DO> Date Raj Clay DO I have examined the patient and the H&P has been reviewed. There are no clinical changes since date of exam.
[2023-02-04] MEDS: Cefazolin 2 GM in 0.9% Normal Saline 100 ML IV (07:47)
[2023-02-04] MEDS: MethylPREDNISolone Acetate 80 MG/ML Vial (07:47)
[2023-02-04] MEDS: Epinephrine (1 mg/ml) 1 MG/ML VIAL (07:50)
[2023-02-04] MEDS: Lidocaine 1% /Epi 1:100 (20ml) 20 ML Vial (07:53)
--- NOTE | 2023-02-04 08:12 | OP.PCM_ITS ---
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 Risk benefits and alternatives of the procedure were reviewed including risk of bleeding infection nerve artery tissue damage need for further surgery continued pain and expected postoperative course. Procedure: The patient was met in the preoperative holding area. The operative extremity was identified by both patient and physician and family and marked. Patient was brought back to the operating room on a wheeled cart and transferred to the operating table in the supine position. Anesthesia was started. A well- padded tourniquet was placed on the operative extremity. A lower extremity leg taylor was secured to the operative extremity. The contralateral extremity was well-padded and the end of the bed was flexed to 90 degrees. The patient was prepped and draped in the usual sterile fashion. A timeout was called to ensure the proper patient, procedure, and extremity were being contemplated. 0.5% Marcaine with epinephrine was injected into the planned incisional areas under the skin only. An Esmarch was used to exsanguinate the extremity and the tourniquet was inflated. An 11 blade scalpel was used to make a stab incision in the anterior lateral portal. The arthroscope was inserted into the intercondylar notch and inflow and outflow tubes were attached. Arthroscopic visualization began. The medial compartment was entered. An 18-gauge spinal needle was used to establish the placement for anterior medial portal. An 11 blade scalpel was used to make a stab incision. Blunt probe was inserted followed by a meniscal probe. There is noted to be degenerative changes of the medial meniscus and some partial tearing of the posterior horn and root of the medial meniscus which was debrided with a shaver the medial compartment did have grade 3 diffuse chondromalacia no loose bodies the ACL was found to be intact. The lateral compartment was entered complex tearing of the anterior horn and body of the lateral meniscus extensively full-thickness. With the use of arthroscopic biting instruments and kristin and ArthroCare wand a partial lateral meniscectomy was performed. There was also noted to be grade 3 appr oaching grade IV chondromalacia throughout the lateral compartment with areas of grade 4 of the lateral femoral condyle the arthroscope was switched to the medial portal to complete the procedure. The medial and lateral gutters were inspected and were free of loose bodies. The patellofemoral joint was inspected and was free of cartilage pathology. There was good patellar tracking. The knee was thoroughly irrigated and drained. An intra-articular injection with 5 cc 0.5% Marcaine plain and 40 mg of Depo-Medrol was injected intra-articularly. The arthroscope was removed the portals were closed with 3-0 nylon arthroscopic stitches. Followed by Xeroform 4 x 4's ABDs web roll and an Mukul wrap. The tourniquet was let down and the drapes were removed. All counts were correct. The patient was brought back to the PACU in stable condition.
--- NOTE | 2023-02-04 08:15 | DCINST_ITS ---
Discharge Instructions Diet Discharge Diet: No restrictions Dressing / Incision Call your doctor if you observe: Shortness of breath and Chest pain Additional Dressing/Incision Instructions:: Ice and elevate next 72 hours .keep dressing on clean and dry for 48 hours then may remove begin showering daily but do not submerge in tub or pool. After shower may apply Band-Aids . Encourage knee range of motion weightbearing as tolerated, use crutches until confident in knee then may discontinue. No strenuous activity. When not ambulating keep iced and elevated next 72 hours. Do not mix pain medication with recreational drugs or alcohol only take as prescribed can be addictive and abusive, call with any questions or concerns. Follow Up Care Please Follow Up With: Raj Clay DO When: 2 weeks Test Results: Test results from this visit will be discussed in further detail at your follow- up appointment, if applicable. Discharge Plan Admission Primary Reason for Your Visit: Right knee arthroscopy Attending Provider: Raj Clay Primary Care Provider: Nayla Fitzgerald Discharge Orders/Prescriptions Prescriptions: New oxycodone 5 mg tablet 5 - 10 mg PO Q4H PRN (Reason: pain) 4 Days Qty: 25 0RF Rx Instructions: Only take as needed can be addictive constipating and can make you dizzy. No Action alendronate 70 mg tablet 70 mg PO MO sertraline 100 MG tablet 100 mg PO QHS ezetimibe 10 MG tablet 10 mg PO QHS biotin 500 mcg Capsule 1 mg PO DAILY cholecalciferol (vitamin D3) [Vitamin D3] 25 mcg (1,000 unit) Capsule 25 mcg PO DAILY Taniya-C 1,000-200 mg Tablet Extended Release 1 tab PO DAILY Probiotic 3 billion cell Capsule 3,000 mmu cells PO DAILY Rx Instructions: administer with a meal Referrals / Follow Up: Nayla Fitzgerald MD [Primary Care Provider] - Disposition Disposition (needs filled in before D/C Order can be placed): Home, Self Care
--- NOTE | 2023-02-04 08:45 | PCM.OP.BLANK ---
Operative Report Insert postop knee scope Insert postop knee scope Insert postop knee Insert postop knee
--- NOTE | 2023-02-04 10:19 | SUR.PHASEII ---
PT REFUSED CRUTCHES, PT HAS A WALKER AND WILL USE THAT INSTEAD.
== END 2023-02-04 10:20 | disposition home or self-care (01) ==
LOC: SDC 05:59 → AC 05:59
PROVIDERS: PCP Family Medicine; Visit Provider Orthopaedic Surgery
PROC: (CPT 29870; principal; 2023-02-04 07:10)
DX: S83.271A Complex tear of lateral meniscus, current injury, right knee, initial encounter (principal); S83.241A Other tear of medial meniscus, current injury, right knee, initial encounter; X58.XXXA Exposure to other specified factors, initial encounter; M17.11 Unilateral primary osteoarthritis, right knee; Z79.1 Long term (current) use of non-steroidal anti-inflammatories (NSAID)
CPT/HCPCS: 29880; 01400; J7120; J2405

== ENCOUNTER → 2023-02-25 | Outpatient (CLI) | payer MEDICARE, OTHER, SELFPAY ==
--- NOTE | 2023-02-25 11:57 | BI_ITS ---
MAMMOGRAPHY - UNILATERAL SCREENING: RIGHT BREAST REASON FOR EXAM: Female, 73 years old. Routine annual screening examination (unilateral). PERTINENT HISTORY: Personal history of breast cancer. Prior left mastectomy. Remote right excisional breast biopsy. TECHNIQUE: Digital unilateral breast yennifer (3D mammographic acquisition) in the CC and MLO projections. 2-D mediolateral oblique (MLO) and craniocaudad (CC) views of both breasts were obtained. CAD: Full Field Digital Mammography with Computer Added Detection was performed. COMPARISON: Comparison is made with prior examination February 21, 2022 and February 06, 2021. FINDINGS: Breast Composition: There are scattered areas of fibroglandular density. There are no dominant masses or suspicious calcifications. No other significant abnormalities are identified. There has been no significant change since the prior study. BI/SCREEN MAMM (CAD) W/YENNIFER UNI R IMPRESSION: Stable unilateral screening mammogram. Yearly follow-up mammogram recommended. (A) ASSESSMENT CATEGORY: BIRADS Category 1: Negative. A letter regarding these results will be sent to the patient by the facility within 30 days. Approximately 10% of breast cancers are not detected by mammography. A normal mammogram should not delay biopsy of a clinically suspicious abnormality. [id number] Electronically Signed: Lobo Chaves MD at 12:33 EDT ,
== END | disposition home or self-care (01) ==
LOC: OPBI 11:55
PROVIDERS: PCP Family Medicine; Referring Provider Family Medicine; Visit Provider Family Medicine
DX: Z12.31 Encounter for screening mammogram for malignant neoplasm of breast (principal)
CPT/HCPCS: 77063; 77067

== ENCOUNTER → 2023-05-05 | Outpatient (CLI) | payer MEDICARE, OTHER, SELFPAY ==
[2023-05-05 12:27] LABS: Erythrocyte Sedimentation Rate 13 mm/hr (0-30)
[2023-05-05 12:31] LABS: Absolute Lymphocyte Count 1.37 X10^3/uL (0.83-4.51); Absolute Neutrophil Count 2.7 X10^3/uL (2.0-7.7); Basophil# 0.04 X10^3/uL; Basophil% 0.8 % (0-1); Eosinophil# 0.07 X10^3/uL; Eosinophils% 1.5 % (0-5); Hematocrit 42.3 % (37-47); Hemoglobin 13.6 g/dL (12.0-15.0); Lymphocyte # 1.37 X10^3/ul (0.83-4.51); Lymphocyte % 29.1 % (19-41); Mean Corp Hgb Conc 32.2 g/dL (32-36); Mean Corpuscular Volume 90.2 fL (81-99); Mean Platelet Vol. 10.4 fl (6.2-12.0); Monocyte# 0.52 X10^3/uL; NRBC Flagged by Analyzer 0 % (0-5); Neutrophil % 57.4 % (47-70); Platelet Count 211 K/mm3 (150-450); RBC Distribution Width CV 14.1 % (11.6-14.6); RBC Distribution Width SD 46.4 fl (35.1-43.9); Red Blood Count 4.69 M/mm3 (4.2-5.4); White Blood Count 4.7 K/mm3 (4.4-11.0)
[2023-05-05 13:02] LABS: ALB/GLOB Ratio 0.9 RATIO (0.9-2.4); AST(SGOT) 20 U/L (15-37); Alanine Aminotransfer ALT/SGPT 22 U/L (13-56); Albumin, Serum 3.3 g/dL (3.2-5.0); Alkaline Phosphatase 65 U/L (45-117); Anion Gap 4 (5-15); BUN 17 mg/dL (7-18); BUN/Creat Ratio 18.8 RATIO (10-20); Calcium,Total 8.7 mg/dL (8.5-10.1); Chloride 112 mmol/L (98-107); EST Glomerular Filtration Rate 64 mL/min (>60); Est Glom Filt Rate - Afr Amer 78 mL/min (>60); Globulin 3.8 g/dL (2.2-4.2); Glucose 107 mg/dL (74-106); Potassium 3.6 mmol/L (3.5-5.1); Protein, Total 7.1 g/dL (6.4-8.2); Sodium Level 143 mmol/L (136-145); Thyroid Stim Hormone (TSH) 1.71 uIU/mL (0.358-3.74)
== END | disposition home or self-care (01) ==
LOC: MTLAB 09:49
PROVIDERS: PCP Family Medicine; Referring Provider Family Medicine; Visit Provider Family Medicine
DX: R53.81 Other malaise (principal); R53.83 Other fatigue
CPT/HCPCS: 36415; 80053; 84443; 85025; 85652

== ENCOUNTER 2023-06-24 07:40 | Day surgery (SDC) | payer MEDICARE, OTHER, SELFPAY ==
[2023-06-24] VITALS (7 sets, daily range): BP systolic 80–136; BP diastolic 42–81; PULSE 80–108; RESP 16–18; TEMP 36.2–37.1; O2SAT 94–97; BMI 30.8
--- NOTE | 2023-06-24 07:51 | HP.PCM_ITS ---
History and Physical Date of Admission: 06/24/23 Visit Reasons: POSITIVE COLOGUARD Chief Complaint: positivie cologuard Is patient in pain?: No Allergies hydrocodone bitartrate [From Vicodin] Allergy (Verified 06/06/23 09:30) HEAD IN A VICEvenlafaxine HCl [From Effexor] Allergy (Verified 06/06/23 09:30) DIFFICULTY BREATHINGopsite tape Allergy (Mild, Uncoded 06/06/23 09:30) Rash Medications ezetimibe 10 mg tablet 10 mg PO QHS 04/26/14 [History Confirmed 06/06/23] sertraline 100 mg tablet 100 mg PO QHS 04/26/14 [History Confirmed 06/06/23] alendronate 70 mg tablet 70 mg PO MO 01/16/21 [History Confirmed 06/06/23] ascorbate calcium-bioflavonoid ER 1,000 mg-200 mg tab,extended release 1 tab PO DAILY 01/28/23 [History Confirmed 06/06/23] biotin 500 mcg capsule 1 mg PO DAILY 01/28/23 [History Confirmed 06/06/23] cholecalciferol (vitamin D3) 25 mcg (1,000 unit) capsule (Vitamin D3) 25 mcg PO DAILY 01/28/23 [History Confirmed 06/06/23] lactobacillus combination no.4 3 billion cell capsule (Probiotic) 3,000 mmu cells PO DAILY 01/28/23 [History Confirmed 06/06/23] oxycodone 5 mg tablet 5 - 10 mg (1 - 2 x 5 mg) PO Q4H PRN pain 4 days #25 tabs 02/04/23 [Rx Confirmed 06/06/23] meloxicam 15 mg tablet 15 mg PO DAILY pain #30 tabs 06/05/23 [Rx Confirmed 06/06/23] PFSH Medical History Anemia Arthritis Back pain Bladder disease Cancer Depression Hemorrhoids History of cancer History of edema History of pain when walking History of stress test Knee pain Localized osteoarthritis of right knee Non-smoker Shoulder pain Wears glasses Surgical History History of lumpectomy History of mastectomy History of root canal procedure Hx of appendectomy Hx of breast reconstruction Hx of colonoscopy Hx of umbilical hernia repair Social History Smoking Status: Never smoker alcohol intake: never HPI HPI HPI: 73-year-old female is being referred by Dr. Nayla Fitzgerald for surgical consultation regarding a positive Cologuard test of May 09, 2023. A written copy of my surgical consult recommendations will be returned to her. As of May 05, 2023 white blood cell count was 4.7 with a hemoglobin of 13.6 and hematocrit of 42.3 with a platelet count of 211,000. BUN is 17 and creatinine 0.9. Recently she was walking her dog causing a injury to the right knee with a fall. She states she is following up with orthopedics. Last colonoscopy was 2012. She denies any personal history of colon polyps. However she does say that she has her younger sister had colon cancer. She has not noticed any bright red blood per rectum or melena. No abdominal pain. She denies any previous history of peptic ulcer disease. No unexpected weight loss. She is not on any anticoagulants. She thinks she does have some hemorrhoidal disease. ROS General General: Yes fatigue and breast cancer; No weight change, appetite, colon cancer or weakness HEENT HEENT: No difficulty swallowing, eye injury, eye surgery, swollen glands or hoarseness Endo Endocrine: No thyroid disease, diabetes mellitus, thyroid cancer, Hair loss, heat intolerance or cold intolerance Skin Skin: No rash or changing moles Musc Musculoskeletal: Yes back problems and arthritis; No rheumatoid arthritis, gout or joint pain Cardio Cardiovascular: No murmur, pacemaker, heart disease, atrial fibrillation, high blood pressure, heart attack, heart stent, palpitations, shortness of breat with exertion or chest pain Psych Psychiatric: Yes depression and anxiety; No hearing voices Resp Respiratory: No shortness of breath, Yes sleep apnea, No cough, No COPD, No ast hma, No emphysema and No wheezing Gastro Gastrointestinal: No abdominal pain, No nausea or vomiting, No diarrhea, No constipation, No blood in stool, No acid reflux, Yes hemorrhoids, No ulcers, No gallbladder problem and No black,tarry stools Ric Hematologic: No blood thinners, No blood disorders, No bleeding, No anemia and No blood clots Neuro Neurologic: No system reviewed and no additional complaints, except as documented, No as per HPI, No abnormal gait, No abnormal hearing, No abnormal movements, No abnormal speech, No behavioral changes, No burning sensations, No confusion, No convulsions, No disequilibrium, No dizziness, No localized weakness, No frequent falls, No headache(s), No lack of coordination, No loss of vision, No memory loss, No numbness, No other visual disturbances, No radicular pain, No restless legs, No sensory deficit, No syncope, No tingling, No tremor(s), No weakness and No other Exam Const General: cooperative, comfortable and no acute distress Nutritional Appearance: overweight HENMT Head: normal to inspection Eyes General: appearance normal, both eyes and all related structures Neck Neck: normal visual inspection Chest Chest palpation & inspection: normal inspection of the chest Resp Effort & Inspection: normal respiratory effort Auscultation: clear to auscultation bilaterally Cardio Rate: regular rate Rhythm: regular rhythm GI Inspection: normal to inspection Palpation: soft and no hepatosplenomegaly Musc Cervical Spine: normal cervical lordosis Skin General: no rashes or lesions noted Neuro General: patient alert, patient awake and patient oriented x3 Extrem Other: Knee brace on the right knee. Minimal none pitting swelling bilateral extremities. Psych Appearance: grossly normal Assessment and Plan Assessment and Plan (1) Positive colorectal cancer screening using Cologuard test: Status: Acute Plan: Patient with a direct family member sister who had colon cancer. Cologuard positive. Previous colonoscopy 2012. I propose for her a combined esophagogastroduodenoscopy with possible biopsy and colonoscopy with possible biopsy or polypectomy as indicated. She is aware of the technique, benefit, risk, alternatives. She has had an opportunity to ask and have questions answered. We will schedule and proceed at her discretion. I appreciate the opportunity of assisting with her surgical care. Copy: Dr. Nayla Wilde M.D., F.A.C.S. I have examined the patient and the H&P has been reviewed. There are no clinical changes since date of exam. Jose Roberto Wilde M.D., F.A.C.S.
[2023-06-24] MEDS: Lactated Ringers 1,000 ML 15 ML IV (08:01)
--- NOTE | 2023-06-24 08:45 | EGD_PTH ---
PATIENT: LUIS MANUEL MAYA LOC: EN U#:[id number] AGE/SX: 73/F ROOM: RE06/24/[address]: Dr. Jose Roberto Wilde MD : 1950 BED: DIS: 06/24/2023 SPEC #: [id number] RECD: 06/24/23 13:34 STATUS: IRVIN GUTIERREZ #: [id number] KYLIE: 06/24/23 08:[address]: Jose Roberto Wilde DEPT: SURGICAL PATHOLOGY RECD BY: Radha Raymond ENTERED: 06/25/23 09:22 SP TYPE: EGD BIOPSY OT DR: Dr. Nayla Fitzgerald MD Tissues: A - Gastric mucous membrane B - Gastric mucous membrane C - Esophagus, NOS Procedures: Special Stain Group II Surgery Specimen Level IV Alcian Blue/PAS (control) HEADER OPERATION: Colonoscopy, EGD, biopsy PRE-OP DIAGNOSIS: Positive Cologuard test TISSUE SUBMITTED: A - Antrum biopsy for histo and H. pylori, B - Gastric body polyp biopsy, C - Distal esophagus biopsy MICROSCOPIC DIAGNOSIS A. Gastric antrum, biopsy: Mild chronic gastritis. See comment. B. Gastric body polyp, biopsy: Consistent with fundic gland polyp. C. Distal esophagus, biopsy: Gastroesophageal junctional mucosa with mild chronic inflammation. Focal changes of reflux. No evidence of goblet cell metaplasia. See comment. AM:dayo 06/26/2023 COMMENT A. The results of immunohistochemistry for Helicobacter pylori will be reported separately ([id number]). C. Alcian blue/PAS stain with matched control supports the above diagnosis. MICROSCOPIC DESCRIPTION Slides are reviewed. GROSS DESCRIPTION A - Received in fixative is one container labeled with the patient's name and designated gastric antrum. The specimen consists of one irregular fragment of light casiano soft tissue that measures 0.5 x 0.3 x 0.1 cm. The specimen is totally submitted in one cassette. B - Received in fixative is one container labeled with the patient's name and designated gastric body. The specimen consists of one irregular fragment of light casiano soft tissue that measures 0.5 x 0.5 x 0.1 cm. The specimen is totally submitted in one cassette. C - Received in fixative is one container labeled with the patient's name and designated distal esophagus. The specimen consists of one irregular fragment of light casiano soft tissue that measures 0.5 x 0.3 x 0.1 cm. The specimen is totally submitted in one cassette. / AM:dayo 06/25/2023 TC:3 CPT: 74547 x3, 88192
--- NOTE | 2023-06-24 08:45 | IMM_PTH ---
PATIENT: LUIS MANUEL MAYA LOC: EN U#:[id number] AGE/SX: 73/F ROOM: RE06/24/[address]: Dr. Jose Roberto Wilde MD : 1950 BED: DIS: 06/24/2023 SPEC #: [id number] RECD: 06/25/23 10:22 STATUS: IRVIN RESandrita #: [id number] KYLIE: 06/24/23 08:[address]: Jose Roberto Wilde DEPT: IMMUNOHISTOCHEMISTRY RECD BY: Elli Knox ENTERED: 06/25/23 10:23 SP TYPE: IMMUNO OTHR DR: Dr. Nayla Fitzgerald MD Tissues: A - Stomach, NOS Procedures: H Pylori (initial) PHYSICIAN & INSTITUTION [place] [id number] SPECIMEN INFORMATION: Tissue Source: A - Antrum Clinical Info: Positive Cologuard test Specimen Number: [id number] CPT code: 22257 METHODOLOGY: Deparaffinized sections of prefer/formalin-fixed tissue or PAP/DQ stained slides are incubated with monoclonal/polyclonal antibodies/oligonucleotide probes. Localization is made via biotin free immunoperoxidase method. Appropriate controls are performed and reacted as expected. Results on target cell population are indicated in the following table: RESULTS: ANTIBODY / CLONE RESULT Block A H Pylori (polyclonal) negative These tests were developed and their performance characteristics determined by [facility]. They may not have been cleared or approved by the U.S. Food and Drug Administration. The FDA has determined that such clearance or approval is not necessary. The above immunohistochemical/dualISH markers are ordered and reviewed by the Pathologist. INTERPRETATION: A. Antrum, biopsy: Negative for Helicobacter pylori organisms. AM:dayo 06/26/2023
--- NOTE | 2023-06-24 10:54 | OP.EGD_ITS ---
Patient Name: Maddie Colon Procedure Date: 06/24/2023 9:39 AM Date of : 1950 Age: 73 Procedure: Upper GI endoscopy Indications: Cologuard positive Providers: Jose Roberto Wilde MD Medicines: See the Anesthesia note for documentation of the administered medications Complications: No immediate complications. Procedure: Pre-Anesthesia Assessment: - Prior to the procedure, a History and Physical was performed, and patient medications and allergies were reviewed. The patient's tolerance of previous anesthesia was also reviewed. The risks and benefits of the procedure and the sedation options and risks were discussed with the patient. All questions were answered, and informed consent was obtained. Prior Anticoagulants: The patient has taken no previous anticoagulant or antiplatelet agents. ASA Grade Assessment: II - A patient with mild systemic disease. After reviewing the risks and benefits, the patient was deemed in satisfactory condition to undergo the procedure. After obtaining informed consent, the endoscope was passed under direct vision. Throughout the procedure, the patient's blood pressure, pulse, and oxygen saturations were monitored continuously. The Colonoscope was introduced through the mouth, and advanced to the second part of duodenum. The upper GI endoscopy was performed with moderate difficulty due to abnormal anatomy. The patient tolerated the procedure well. Scope In: 10:25:31 AM Scope Out: 10:33:41 AM Total Procedure Duration Time 0 hours 8 minutes 10 seconds Findings: Esophagitis with no bleeding was found 34 cm from the incisors. Biopsies were taken with a cold forceps for histology. A large hiatal hernia was present. Multiple sessile polyps with no bleeding and no stigmata of recent bleeding were found in the gastric body. The polyp was removed with a cold biopsy forceps. Resection and retrieval were complete. A medium-sized, submucosal mass with no bleeding and no stigmata of recent bleeding was found in the gastric body. Diffuse mild inflammation characterized by erythema was found in the gastric antrum. Biopsies were taken with a cold forceps for histology. Coffee ground fluid was found in the stomach. The examined duodenum was normal. Impression: - Reflux esophagitis. Biopsied. - Large hiatal hernia. - Multiple gastric polyps. Resected and retrieved. 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 - Acute chronic gastritis. Biopsied. - Coffee ground gastric fluid. - Normal examined duodenum. Recommendation: - Discharge patient to home. - Resume previous diet. - Continue present medications. - Return to my office in 1 week. Large hiatal hernia with coffee-ground material likely the source of the positive Cologuard. Submucosal mass of undetermined etiology. Easily a third of the stomach significant in the chest. This item would be mid stomach but is being drawn up toward the hiatal hernia. Procedure Code(s): --- Professional --- 42772, Esophagogastroduodenoscopy, flexible, transoral; with biopsy, single or multiple Diagnosis Code(s): --- Professional --- K21.0, Gastro-esophageal reflux disease with esophagitis K44.9, Diaphragmatic hernia without obstruction or gangrene K31.7, Polyp of stomach and duodenum D49.0, Neoplasm of unspecified behavior of digestive system K29.00, Acute gastritis without bleeding K29.50, Unspecified chronic gastritis without bleeding CPT copyright 2017 [employer]. All rights reserved. The codes documented in this report are preliminary and upon professional fee coder review may be revised to meet current compliance requirements. Jose Roberto Wilde MD 06/24/2023 10:54:03 AM This report has been signed electronically. Number of Addenda: 0 Note Initiated On: 06/24/2023 9:39 AM
--- NOTE | 2023-06-24 10:54 | OP.CCLET_ITS ---
06/24/2023 Nayla Fitzgerald [address] [place] [address] Re : Upper GI endoscopy procedure for Maddie [facility] Dear Dr. Fitzgerald This procedure was performed on Saturday, June 24, 2023. My impressions and recommendations are as follows: Impressions : - Reflux esophagitis. Biopsied. - Large hiatal hernia. - Multiple gastric polyps. Resected and retrieved. 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 - Acute chronic gastritis. Biopsied. - Coffee ground gastric fluid. - Normal examined duodenum. Recommendations : - Discharge patient to home. - Resume previous diet. - Continue present medications. - Return to my office in 1 week. Large hiatal hernia with coffee-ground material likely the source of the positive Cologuard. Submucosal mass of undetermined etiology. Easily a third of the stomach significant in the chest. This item would be mid stomach but is being drawn up toward the hiatal hernia. My findings are described in the full procedure note, which is enclosed. If I can be of further assistance, please feel free to contact me at Doctor phone number(s): Work: . Sincerely, Jose Roberto Wilde MD 06/24/2023 10:54:03 AM This report has been signed electronically.
--- NOTE | 2023-06-24 10:59 | OP.CCLET_ITS ---
06/24/2023 Nayla Fitzgerald [address] [place] [address] Re : Colonoscopy procedure for [facility] Dear Dr. Fitzgerald This procedure was performed on Saturday, June 24, 2023. My impressions and recommendations are as follows: Impressions : - Non-thrombosed external hemorrhoids, non-thrombosed internal hemorrhoids and internal hemorrhoids that prolapse with straining, but require manual replacement into the anal canal (Grade III) found on digital rectal exam. - Diverticulosis in the sigmoid colon and in the descending colon. - The examination was otherwise normal. - No specimens collected. Recommendations : - Discharge patient to home. - Resume previous diet. - Continue present medications. - Repeat colonoscopy in 10 years for screening purposes. My findings are described in the full procedure note, which is enclosed. If I can be of further assistance, please feel free to contact me at Doctor phone number(s): Work: . Sincerely, Jose Roberto Wilde MD 06/24/2023 10:58:36 AM This report has been signed electronically.
--- NOTE | 2023-06-24 10:59 | OP.COLON_ITS ---
Patient Name: Maddie Colon Procedure Date: 06/24/2023 10:33 AM Date of : 1950 Age: 73 Procedure: Colonoscopy Indications: Cologuard positive Providers: Jose Roberto Wilde MD Medicines: See the Anesthesia note for documentation of the administered medications Patient Profile: Last Colonoscopy: 2012. Complications: No immediate complications. Procedure: Pre-Anesthesia Assessment: - Prior to the procedure, a History and Physical was performed, and patient medications and allergies were reviewed. The patient's tolerance of previous anesthesia was also reviewed. The risks and benefits of the procedure and the sedation options and risks were discussed with the patient. All questions were answered, and informed consent was obtained. Prior Anticoagulants: The patient has taken no previous anticoagulant or antiplatelet agents. ASA Grade Assessment: II - A patient with mild systemic disease. After reviewing the risks and benefits, the patient was deemed in satisfactory condition to undergo the procedure. After I obtained informed consent, the scope was passed under direct vision. Throughout the procedure, the patient's blood pressure, pulse, and oxygen saturations were monitored continuously. The Colonoscope was introduced through the anus and advanced to the cecum, identified by appendiceal orifice and ileocecal valve. The colonoscopy was performed without difficulty. The patient tolerated the procedure well. The quality of the bowel preparation was good. The ileocecal valve was photographed. Scope In: 10:34:51 AM Scope Withdrawal Time 0 hours 6 minutes 10 seconds Scope Out: 10:44:35 AM Total Procedure Duration Time 0 hours 9 minutes 44 seconds Findings: The digital rectal exam findings include non-thrombosed external hemorrhoids, non-thrombosed internal hemorrhoids and internal hemorrhoids that prolapse with straining, but require manual replacement into the anal canal (Grade III). Multiple diverticula were found in the sigmoid colon and descending colon. The exam was otherwise without abnormality. Impression: - Non-thrombosed external hemorrhoids, non-thrombosed internal hemorrhoids and internal hemorrhoids that prolapse with straining, but require manual replacement into the anal canal (Grade III) found on digital rectal exam. - Diverticulosis in the sigmoid colon and in the descending colon. - The examination was otherwise normal. - No specimens collected. Recommendation: - Discharge patient to home. - Resume previous diet. - Continue present medications. - Repeat colonoscopy in 10 years for screening purposes. Procedure Code(s): --- Professional --- 59490, Colonoscopy, flexible; diagnostic, including collection of specimen(s) by brushing or washing, when performed (separate procedure) Diagnosis Code(s): --- Professional --- K64.2, Third degree hemorrhoids K64.4, Residual hemorrhoidal skin tags K57.30, Diverticulosis of large intestine without perforation or abscess without bleeding CPT copyright 2017 [employer]. All rights reserved. The codes documented in this report are preliminary and upon trade show coordinator review may be revised to meet current compliance requirements. Jose Roberto Wilde MD 06/24/2023 10:58:36 AM This report has been signed electronically. Number of Addenda: 0 Note Initiated On: 06/24/2023 10:33 AM
--- NOTE | 2023-06-24 11:27 | NURSING ---
patient order for catscan by dr. matos. will begin drinking po contrast. daughter at side and given update on patient's plan of care.
--- NOTE | 2023-06-24 14:00 | CT_ITS ---
STUDY: CT Abdomen And Pelvis W/ Contrast Injection 06/24/2023 2:41 PM REASON FOR EXAM: Female, 73 years old. Abdominal pain GASTRIC WALL TUMOR Individualized dose optimization techniques were used for this CT. COMPARISON: None. TECHNIQUE: CT Abdomen And Pelvis W/ Contrast Injection Oral and amp; IV Gastrografin and amp; 100mL Isovue-300 FINDINGS: There are atherosclerotic calcifications of visualized coronary arteries. The visualized portions of the heart are within normal limits. Normal liver. Normal gallbladder and extrahepatic biliary system. Normal spleen. Normal pancreas. Normal bilateral adrenal glands. No acute findings of the right kidney. No acute findings of the left kidney. There is a large hiatal hernia composed mostly of the stomach. Focal wall thickening of the antrum of stomach. This can suggest a gastritis. Normal small intestine. There are multiple colonic diverticula consistent with diverticulosis. There is non-visualization of the appendix. There are calcifications of the abdominal aorta. This is consistent for atherosclerotic disease. There is NO abdominal aortic aneurysm. Vascular workup can be obtained based on clinical correlation. Normal inferior vena cava. Subcentimeter mesenteric lymph nodes. Normal urinary bladder. There is absence of the uterus consistent with a prior hysterectomy. Normal abdominal wall. Normal osseous structures. CT/Abdomen/Pelvis WITH Contrast IMPRESSION: (NOT LISTED IN ORDER OF SIGNIFICANCE) There is a large hiatal hernia composed mostly of the stomach. Focal wall thickening of the antrum of stomach. This can suggest a gastritis or the patients know gastric wall tumor. There is a portion of the stomach that is off the field of view and cannot be evaluated. There are multiple colonic diverticula consistent with diverticulosis. Other findings as above. Electronically Signed: Davi Mcintosh MD at 14:46 EDT ,
--- NOTE | 2023-06-24 14:06 | SUR.PHASEII ---
patient ordered for catscan; drank contrast without any issues and up to catscan
[2023-06-24 14:17] LABS: CREATININE FINGERSTICK < 0.9 mg/dL (0.55-1.02); EGFR FINGERSTICK > 60.0000 mL/min (>60)
== END 2023-06-24 14:30 | disposition home or self-care (01) ==
LOC: EN 07:42 → AC 07:44
PROVIDERS: PCP Family Medicine; Referring Provider Family Medicine; Visit Provider Surgery
PROC: 0DJD8ZZ Inspection of Lower Intestinal Tract, Via Natural or Artificial Opening Endoscopic (ICD-10-PCS; CPT 45378; principal; 2023-06-24 08:40)
DX: Z12.11 Encounter for screening for malignant neoplasm of colon (principal); K57.30 Diverticulosis of large intestine without perforation or abscess without bleeding; K21.00 Gastro-esophageal reflux disease with esophagitis, without bleeding; K64.4 Residual hemorrhoidal skin tags; K44.9 Diaphragmatic hernia without obstruction or gangrene; Z80.0 Family history of malignant neoplasm of digestive organs; K31.7 Polyp of stomach and duodenum; K29.00 Acute gastritis without bleeding; K64.2 Third degree hemorrhoids; D49.0 Neoplasm of unspecified behavior of digestive system; K29.50 Unspecified chronic gastritis without bleeding
CPT/HCPCS: 43239; 45378; 74177; 88305; 88313; 88342; J7120; Q9967; A4216; J2405

== ENCOUNTER → 2023-07-08 | Outpatient (CLI) | payer MEDICARE, OTHER, SELFPAY ==
--- NOTE | 2023-07-08 16:34 | CT_ITS ---
EXAM: CT CHEST AND ABDOMEN WITH INTRAVENOUS CONTRAST CLINICAL INDICATION: stomach and hiatal hernia TECHNIQUE: Helically acquired images were obtained of the chest and abdomen with intravenous contrast. This CT exam was performed using one or more of the following dose reduction techniques: automated exposure control, adjustment of the mA and/or kV according to patient size, and/or use of iterative reconstruction technique. CONTRAST: IV 100mL Isovue-370 RADIATION DOSE: CTDIvol = 17.41 mGy, DLP = 1054.46 mGy-cm. COMPARISON: Abdomen and pelvis CT June 24, 2023 showing a large hiatal hernia. FINDINGS: CHEST: LUNGS AND PLEURAL SPACES: There is a left lower lobe nodule of 7.5 mm x 7.4 mm x 7 mm with slightly irregular margins, at least one slightly spiculated margin. This abuts the major fissure but has mildly irregular shape, nonspecific. Also medial right lower lobe nodule of 4.2 mm x 6 mm x 6 mm. Another subtle posterior right upper lobe nodule measuring 4.4 mm x 6 mm x 4.4 mm. No confluent infiltrates or effusions. No pneumothorax. HEART: Mild calcification in left anterior descending coronary artery. No intracardiac filling defect. Left ventricular wall and septal hypertrophy and mildly prominent left atrium. Heart size is normal. No pericardial effusion. MEDIASTINUM: Large hiatal hernia but it is minimally distended with gas, not obviously obstructed. There is minimal gas in the esophagus. No obvious gastric mass, it is not well distended. There is an adjacent lymph node between the hiatal hernia and the aorta measuring 8 mm x 1 cm, nonspecific. THYROID: Unremarkable. No thyroid lesions. Left para-aortic lymph node of 9 mm x 1.7 cm, similar to recent prior exam. ABDOMEN: LIVER: Hepatomegaly, versus prominent Nomi''s lobe, the right lobe is 19.4 cm craniocaudal. GALLBLADDER AND BILE DUCTS: Tiny presumed stone gallbladder, also seen retrospectively on prior exam. No significant gallbladder distention or inflammation. No intra- or extrahepatic biliary ductal dilation. PANCREAS: Unremarkable. No focal cystic or solid mass. SPLEEN: Unremarkable. Normal size without focal cystic or solid mass. ADRENALS: Unremarkable. No nodules. KIDNEYS AND URETERS: Unremarkable. Normal renal size and position. No hydronephrosis. STOMACH AND BOWEL: Large hiatal hernia. Incomplete distention of the stomach. Apparent at least partial volvulus, configuration suggests that the greater curvature is superior. Fat density 2.9 cm x 1.7 cm structure within or along the posterior dependent wall of the antrum may be due to intramural lipoma or intraluminal contents. INTRAPERITONEAL SPACE: Unremarkable. No ascites or other fluid collection. No free air. CHEST and ABDOMEN: BONES/JOINTS: Multilevel degenerative spine changes, marked disc space narrowing and endplate sclerosis and mild spondylosis at L2-3 through L5-S1. No evidence of a significant degree of spinal stenosis. No suspicious lytic or blastic abnormality. SOFT TISSUES: Unremarkable. No discrete abdominal wall hernia. VASCULATURE: Mildly ectatic infrarenal aorta, maximum diameter roughly 2.5 cm. No evidence of PE or aortic aneurysm or dissection. LYMPH NODES: Mild mesenteric adenopathy, uncertain chronicity. CT/CT Chest AND Abd W/ Contrast IMPRESSION: 1. At least 3 pulmonary nodules. 7.5 mm left lower lobe nodule. 6 mm right lower lobe nodule. 6 mm right upper lobe pulmonary nodule. These are not included on the recent CT of the abdomen and pelvis June 24, 2023 or on prior exams provided. Correlate with any older exams available and with any known primary malignancy. RECOMMENDATIONS: Fleischner Society Guidelines (MacMahon, et al. Radiology 2017; 284(1):228-43) suggest the following. For low-risk patients recommend follow-up chest CT at 3-6 months. If unchanged consider an additional follow-up CT at 18-24 months. For high-risk patients initial follow-up chest CT at 3-6 months and if unchanged, 18-24 months. 2. Cholelithiasis. 3. Large hiatal hernia. No evidence of significant gastric obstruction but there is suspicion of least partial volvulus with the greater curvature superiorly positioned. Ovoid dependent fat density structure at the posterior dependent gastric antrum, this area was not included on prior exam. Uncertain whether this is in the lumen or in the wall. Consider endoscopy if it is thought to be indicated. An upper GI fluoroscopic study, or possibly repeat exam with oral contrast distending the stomach could be considered if thought to be indicated. 4. Question of mild wall thickening of some of the jejunal loops, not convincing. 5. Stable mildly prominent left periaortic retroperitoneal lymph node. Electronically Signed: Anette Morel MD at 6:53 EDT ,
== END | disposition home or self-care (01) ==
LOC: CT 16:33
PROVIDERS: PCP Family Medicine; Referring Provider Surgery; Visit Provider Surgery
DX: R93.5 Abnormal findings on diagnostic imaging of other abdominal regions, including retroperitoneum (principal)
CPT/HCPCS: 71260; 74160; Q9967; A4216

== ENCOUNTER → 2023-10-29 | Outpatient (CLI) | payer MEDICARE, OTHER, SELFPAY ==
--- NOTE | 2023-10-29 10:24 | STE_ITS ---
Reason For Study: Pre-Op; Dyspnea Stress Results Protocol: Dobutamine Stress Echo Maximum Predicted HR: 145 bpm Target HR: 123 bpm % Maximum Predicted HR: 92 % DurationHeart Rate Stage (mm:ss) (bpm) BP Comment Baseline 76 156/89No Chest Pain DSE 10 MCG 4:00 100 139/74No Chest Pain DSE 20 MCG 2:59 134 105/67No Chest Pain; Slight Headache Recovery 92 141/78No Chest Pain Stress Duration: 6:59 mm:ss Maximum Stress HR: 134 bpm METS: 1 Baseline Echocardiogram Findings The left ventricular ejection fraction is 70 %. Moderate to severe LV concentric hypertrophy. Normal systolic function. Stress Echo Wall motion Data Resting WM Intermediate WM Stress WM Resting Wall Motion Wall Motion Int. Wall Motion Stress No regional wall motion All segments Hyperkinetic. All segments Hyperkinetic. abnormalities noted. EKG Data Sinus rhythm with nonspecific ST changes. Nondiagnostic stress ECG secondary to baseline abnormalities. Doppler Measurements & Calculations TR max aby: 228.2 cm/sec TR max P.8 mmHg ECHO/Stress Test Echo w/o Contrast Interpretation Summary The left ventricular ejection fraction is 70 %. Moderate to severe LV concentric hypertrophy Nondiagnostic stress ECG secondary to baseline abnormalities. Normal hyperdynamic response to dobutamine infusion at low and peak doses. No dobutamine stress echo evidence of ischemia. Ordering Physician: Amirah Preston Referring Physician: Amirah Preston Performed By: Marianne Craft, SILVIA, RVT
== END | disposition home or self-care (01) ==
LOC: CVS 10:22
PROVIDERS: PCP Family Medicine
DX: R06.09 Other forms of dyspnea (principal); K44.9 Diaphragmatic hernia without obstruction or gangrene
CPT/HCPCS: 93017; 93350; J7040; A4216

== ENCOUNTER 2023-11-20 09:07 | Emergency (ER) | payer MEDICARE, OTHER, SELFPAY ==
[2023-11-20 09:08] VITALS: BP 147/100; PULSE 100; RESP 14; TEMP 36.8; O2SAT 100; BMI 29.8
--- NOTE | 2023-11-20 09:21 | CT_ITS ---
EXAM: CT ABDOMEN AND PELVIS WITH INTRAVENOUS CONTRAST CLINICAL INDICATION: post Ronen pain TECHNIQUE: Helically acquired images were obtained of the abdomen and pelvis with intravenous contrast. This CT exam was performed using one or more of the following dose reduction techniques: automated exposure control, adjustment of the mA and/or kV according to patient size, and/or use of iterative reconstruction technique. CONTRAST: IV 100mL Isovue-300 COMPARISON: PET CT scan 08/05/2023, CT Abdomen Pelvis dated 07/08/2023 FINDINGS: LOWER THORAX: Interval fundoplication with reduction of the large hiatal hernia. ABDOMEN: LIVER: Normal. Homogeneous. No focal mass. PANCREAS: Normal. No focal cystic or solid mass. SPLEEN: Normal. Normal size without focal cystic or solid mass. ADRENALS: Normal. No nodules. KIDNEYS AND URETERS: Normal. Normal renal size and position. No hydronephrosis. STOMACH AND BOWEL: Diverticulosis of the colon noted without evidence of acute diverticulitis. PELVIS: APPENDIX: Surgical clips at the base of the cecum consistent with appendectomy. BLADDER: Normal. REPRODUCTIVE: Uterus is absent. ABDOMEN and PELVIS: INTRAPERITONEAL SPACE: Normal. No ascites or other fluid collection. No free air. BONES/JOINTS: Prominent degenerative changes are noted within the spine. SOFT TISSUES: Edematous changes of the subcutaneous tissues noted consistent with recent laparoscopic surgery. No discrete abdominal or pelvic wall hernia. VASCULATURE: Aorta is quite tortuous and mildly ectatic. LYMPH NODES: Normal. No enlarged lymph nodes. CT/Abdomen/Pelvis W IV Cont ONLY IMPRESSION: 1. Satisfactory postoperative changes of laparoscopic fundoplication. 2. Diverticulosis coli. Electronically Signed: Mauri Moser MD at 11:22 EST ,
--- NOTE | 2023-11-20 09:23 | EX.ED.DYSGE1 ---
HPI History of Present Illness Chief Complaint: Nausea/Vomiting Informant: patient and family Narrative Narrative: Patient's presents with some abdominal pain and intermittent nausea. This patient had a Ronen fundoplication 13 days ago at [facility]. She was told that two thirds of her stomach was up in her chest cavity. They also found a tumor on the stomach and did a wedge resection. 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 She was drinking fluids in the hospital but no bowel movement. She went home. With prune juice and MiraLAX she was moving her bowels. She was drinking fluids and then has been slowly increasing her diet. Yesterday morning she had oatmeal. After that she got some nausea and almost vomited. She was told that she should not vomit after the surgery but she was also not given any antiemetics at discharge. She had gone to the emergency department yesterday but decided to go home as she improved and the wait was long. This morning she had part of a banana, peanut butter and Gatorade and is doing well. But she still occasionally gets soreness in her abdomen especially if she is up walking for a while. She was referred in here for evaluation and possible imaging. She has never had any fever at any time. She is not short of breath and not having chest pain. When she takes a deep breath she can feel discomfort in her abdomen though. [facility] Medical History Anemia Arthritis Back pain Bladder disease Breast cancer Cancer Depression Hemorrhoids History of cancer History of edema History of pain when walking History of stress test Knee pain Localized osteoarthritis of right knee Non-smoker Shoulder pain Wears glasses Home Medications ezetimibe 10 mg tablet 10 mg PO QHS 04/26/14 [History Last Taken 02/03/23] sertraline 100 mg tablet 100 mg PO QHS 04/26/14 [History Last Taken 02/03/23] alendronate 70 mg tablet 70 mg PO MO 01/16/21 [History Last Taken 02/03/23] ascorbate calcium-bioflavonoid ER 1,000 mg-200 mg tab,extended release 1 tab PO DAILY 01/28/23 [History Last Taken 02/03/23] biotin 500 mcg capsule 1 mg PO DAILY 01/28/23 [History Last Taken 02/03/23] cholecalciferol (vitamin D3) 25 mcg (1,000 unit) capsule (Vitamin D3) 25 mcg PO DAILY 01/28/23 [History Last Taken 02/03/23] lactobacillus combination no.4 3 billion cell capsule (Probiotic) 3,000 mmu cells PO DAILY 01/28/23 [History Last Taken 02/03/23] meloxicam 15 mg tablet 15 mg PO DAILY pain #30 tabs 06/05/23 [Rx Last Taken Unknown] ondansetron 4 mg disintegrating tablet 4 mg PO Q8H PRN PRN Nausea #10 tabs 11/20/23 [Rx Last Taken Unknown] Allergy/AdvReac Type Severity Reaction Status Date / Time adhesive tape Allergy Rash Verified 11/20/23 09:08 hydrocodone bitartrate Allergy HEAD IN A Verified 11/20/23 09:08 [From Vicodin] VICE venlafaxine HCl Allergy DIFFICULTY Verified 11/20/23 09:08 [From Effexor] BREATHING Surgical History History of lateral meniscus repair of right knee History of lumpectomy History of mastectomy History of root canal procedure Hx of appendectomy Hx of breast reconstruction Hx of colonoscopy Hx of umbilical hernia repair Social History Smoking Status: Never smoker alcohol intake: never ROS ROS ED ROS Narrative A complete review of systems was performed and is negative except as documented in the history of present illness. Some specific details below. Constitutional: No recent fevers or chills at any time. ENT: No difficulty swallowing. No swelling. No pain. Also see history of present illness. CV: No chest pain or palpitations. Respiratory: No dyspnea. No hemoptysis. No difficulty taking breaths. GI: Please see history of present illness. : No frequency dysuria or hematuria. Musculoskeletal: No recent trauma. No pains. Skin: No rash. Nondiaphoretic. Neuro: No weakness or numbness. Endocrine: No polyuria or polydipsia. EXAM Physical Exam Narrative Exam Narrative: CONSTITUTIONAL: Patient is nontoxic in appearance. The patient looks comfortable. HEENT: No notable trauma. Mucous membranes still look moist. No sinus tenderness. No indication of pain with swallowing. EYES: No conjunctival injection. No proptosis. CARDIOVASCULAR: Regular rate. Regular rhythm. No notable murmur. No JVD. RESPIRATORY: No respiratory distress. Breathing is unlabored. No wheezes. No rhonchi. No rales. No pain with a deep breath. GASTROINTESTINAL: Not distended. Bowel sounds are normal. Her multiple port sites are all very well-healed. They still have glue over them. None of them are red or tender. None are swollen. No herniation there. Her abdomen really is not tender. Overall it is a relatively benign exam especially since she is 13 days post surgery. GENITOURINARY: No tenderness over the bladder. No CVA tenderness. MUSCULOSKELETAL: Atraumatic. NEUROLOGICAL: Patient is alert and appropriate. No focal deficit noted. SKIN: No noted rashes. No diaphoresis. No icterus. PSYCHIATRIC: Patient is calm. Mood is appropriate. Const Vital Signs: 11/20/23 09:08 Temperature 98.2 F Temperature Source Temporal Pulse Rate 100 Respiratory Rate 14 Blood Pressure 147/100 H Blood Pressure Mean 115 Pulse Ox 100 Oxygen Delivery Method Room Air MDM MDM MDM Narrative Medical decision making narrative: My independent interpretation of her CT scan of her abdomen with contrast shows no acute process final reading is satisfactory postoperative change. They do note diverticulosis but no diverticulitis. Patient CBC is overall normal. Patient's electrolytes show no marked abnormalities. Glucose is minimally up at 130. Patient's liver function test are normal. Patient is rechecked. She is comfortable. She has an appointment for follow-up on Friday. I will have our radiology department push her images through so they can look at these. We will get her home with prescription for Zofran if she ends up needing that. Lab Data Attestation: I reviewed the patient's lab results. Labs: Laboratory Results - last 24 hr 11/20/23 10:00 WBC 5.6 RBC 5.25 Hgb 14.9 Hct 46.2 MCV 88.0 MCH 28.4 MCHC 32.3 RDW Std Deviation 44.4 H RDW Coeff of Meri 13.9 Plt Count 278 MPV 10.4 Immature Gran % (Auto) 0.400 Neut % (Auto) 58.0 Lymph % (Auto) 27.0 [place] % (Auto) 9.4 Eos % (Auto) 3.4 Baso % (Auto) 1.8 H Absolute Neuts (auto) 3.2 Absolute Lymphs (auto) 1.50 Nucleated RBC % 0 Sodium 142 Potassium 3.8 Chloride 108 H Carbon Dioxide 29.0 Anion Gap 5 BUN 10 Creatinine 0.92 Estim Creat Clear Calc 45.62 Est GFR (MDRD) Af Amer 77 Est GFR (MDRD) Non-Af 63 BUN/Creatinine Ratio 10.9 Glucose 130 H Calcium 9.6 Total Bilirubin 0.40 AST 15 ALT 16 Alkaline Phosphatase 68 Total Protein 7.7 Albumin 3.3 Globulin 4.4 H Albumin/Globulin Ratio 0.8 L Radiography Diagnostic Testing: Clinical Impression(s) from Imaging Studies Abdomen/Pelvis CT 11/20/23 09:21 IMPRESSION: 1. Satisfactory postoperative changes of laparoscopic fundoplication. 2. Diverticulosis coli. Electronically Signed: Mauri Moser MD at 11:22 EST , Discharge Plan Triage Chief Complaint: Nausea/Vomiting ED Provider: Jigar Willis Dx/Rx/DC Orders Clinical Impression: History of Ronen fundoplication, Postoperative abdominal pain, Nausea Instructions: ED Abdominal Pain Unkn Cause Fem Prescriptions: New ondansetron [ondansetron] 4 mg tablet,disintegrating 4 mg PO Q8H PRN PRN (Reason: Nausea) Qty: 10 0RF No Action alendronate 70 mg tablet 70 mg PO MO meloxicam 15 mg tablet 15 mg PO DAILY Qty: 30 0RF sertraline 100 MG tablet 100 mg PO QHS ezetimibe 10 MG tablet 10 mg PO QHS biotin 500 mcg Capsule 1 mg PO DAILY cholecalciferol (vitamin D3) [Vitamin D3] 25 mcg (1,000 unit) Capsule 25 mcg PO DAILY Taniya-C 1,000-200 mg Tablet Extended Release 1 tab PO DAILY Probiotic 3 billion cell Capsule 3,000 mmu cells PO DAILY Rx Instructions: administer with a meal Primary Care Provider: Nayla Fitzgerald Referrals: Nayla Fitzgerald MD [Primary Care Provider] - Activity Restrictions/Additional Instructions: Follow-up with your surgeon as scheduled on Friday Disposition Disposition: Home, Self Care
--- OUTSIDE RECORDS SUMMARY | 2023-11-20 09:45 | XMS RPT_ITS | CCD ---
Author Name Unknown Address [address] [place] [address] Organization [facility] Care Team Providers Care Junior Net Developer Name Role Phone Unavailable Primary Care Provider Unavailsue López MD, Nayla Strange Primary Care Provider NAYLA LÓPEZ Primary Care Unavailable SELF, SELF Referring Unavailable VELIA DIAMOND Attending Unavailable RENE, NAYLA S Primary Care Unavailable VELIA DIAMOND Attending Unavailable VELIA DIAMOND Referring Unavailable VELIA DIAMOND Referring Unavailable RENE, NAYLA S Primary Care Unavailable VELIA DIAMOND Attending Unavailable VELIA DIAMOND Admitting Unavailable JOLLIFF, NAYLA S Primary Care Unavailable JOLLIFF, NAYLA S Referring Unavailable VELIA DIAMOND Attending Unavailable RENE, NAYLA S Primary Care Unavailable SELF, SELF Referring Unavailable VELIA DIAMOND Attending Unavailable Allergies Allergy Classification Reported Allergen(s) Allergy Type Date of Onset Reaction(s) Facility (3 sources) Acetaminophen Drug Allergy 3 [facility] (4 sources) HYDROcodone Drug Allergy 3 [facility] (4 sources) venlafaxine Drug Allergy 3 Shortness of Breath [facility] (4 sources) Wound Dressing Adhesive Propensity to adverse reactions to drug 3 [facility] (3 sources) Erythromycin Drug Allergy 3 [facility] Medications Current Medications Medication Drug Class(es) Dates Sig (Normalized) Sig (Original) alendronic acid 70 mg oral tablet (4 sources) Bisphosphonate alendronate 70 M G tablet Take 1 tablet by mouth every 7 days. 0 Active ALPRAZolam 0.25 mg oral tablet (1 source) Benzodiazepine take 1 tablet by mouth once ALPRAZolam 0.25 MG tablet Take 1 tablet by mouth. Per pt report 0 Active docusate sodium 100 mg oral capsule (2 sources) Start: 11-07-2023 End: 11-09-2023 take 1 capsule by mouth twice daily Docusate 100 MG capsule Take 1 capsule by mouth 2 times daily. 0 11/08/2023 Active meloxicam 15 mg oral tablet (4 sources) Nonsteroidal Anti-inflammatory Drug take 0.5 tablet by mouth once daily Meloxicam 15 MG tablet Take 0.5 tablets by mouth daily. 0 Active sennosides, detention 17.2 mg oral tablet (2 sources) Start: 11-08-2023 take 1 tablet by mouth every twelve hours Senna 17.2 MG tablet Take 1 tablet by mouth every 12 hours. 0 11/08/2023 Active Completed/Discontinued Medications Medication Drug Class(es) Dates Sig (Normalized) Sig (Original) acetaminophen 325 mg oral tablet (2 sources) Start: 11-07-2023 End: 11-09-2023 take 1 tablet by mouth every six hours 650 mg, Oral, EVERY 6 HOURS NON-STANDARD, First dose on Fri11/07/23 at 1700, Until Discontinued Maximum dose of acetaminophen is 4000 mg from all sources in 24 hours. Post-op/Post-Proc Problems Active Problems Problem Classification Problem Date Documented Date Episodic/Chronic Abdominal hernia (9 sources) Gastroesophageal reflux disease with hiatal hernia; Translations: [Diaphragmatic hernia without obstruction or gangrene] Onset: 10-23-2023 08-25-2023 Episodic Administrative/socia l admission (2 sources) Patient encounter status; Translations: [Counseling, unspecified] Onset: 10-23-2023 Resolved: 11-09-2023 11-09-2023 Episodic Anxiety disorders (2 sources) Anxiety; Translations: [Anxiety disorder, unspecified] Onset: 11-08-2023 11-09-2023 Chronic Cancer of breast (1 source) History of malignant neoplasm of breast; Translations: [Personal history of malignant neoplasm of breast] Onset: 10-23-2023 11-08-2023 Episodic Disorders of lipid metabolism (2 sources) Hyperlipidemia; Translations: [Hyperlipidemia, unspecified] Onset: 10-23-2023 11-09-2023 Chronic Esophageal disorders (3 sources) Gastroesophageal reflux disease without esophagitis; Translations: [Gastro-esophageal reflux disease without esophagitis] Onset: 10-13-2023 10-13-2023 Chronic Gastritis and duodenitis (8 sources) Bile-induced gastritis; Translations: [Other gastritis without bleeding] Onset: 09-30-2023 09-30-2023 Episodic Mood disorders (2 sources) Depressive disorder; Translations: [Depression] Onset: 10-23-2023 11-09-2023 Chronic Nonspecific chest pain (1 source) Chest pain; Translations: [Other chest pain] 08-25-2023 Episodic Osteoarthritis (2 sources) Arthritis; Translations: [Unspecified osteoarthritis, unspecified site] Onset: 10-23-2023 11-09-2023 Chronic Osteoporosis (1 source) Osteoporosis; Translations: [Age-related osteoporosis without current pathological fracture] Onset: 10-23-2023 11-08-2023 Chronic Other circulatory disease (2 sources) Elevated blood-pressure reading without diagnosis of hypertension; Translations: [Elevated blood-pressure reading, without diagnosis of hypertension] Onset: 11-08-2023 11-09-2023 Episodic Other disorders of stomach and duodenum (2 sources) Mass of stomach; Translations: [Other diseases of stomach and duodenum] Onset: 11-07-2023 11-09-2023 Episodic Other lower respiratory disease (2 sources) Multiple nodules of lung; Translations: [Other nonspecific abnormal finding of lung field] Onset: 10-23-2023 11-09-2023 Episodic Other nervous system disorders (3 sources) Acute postoperative pain; Translations: [Other acute postprocedural pain] Onset: 10-23-2023 11-09-2023 Episodic Other nervous system disorders (2 sources) Other acute postprocedural pain; Translations: [Other acute postprocedural pain] Onset: 11-07-2023 Episodic Other nutritional; endocrine; and metabolic disorders (5 sources) Obese class I; Translations: [Obesity, unspecified] Onset: 09-30-2023 09-30-2023 Chronic Residual codes; unclassified (2 sources) At risk of deep vein thrombosis; Translations: [Other specified personal risk factors, not elsewhere classified] Onset: 10-23-2023 Resolved: 11-09-2023 11-09-2023 Episodic Residual codes; unclassified (2 sources) Other specified health status; Translations: [Other specified health status] Onset: 10-23-2023 Episodic Past or Other Problems Problem Classification Problem Date Documented Date Episodic/Chronic Mood disorders (4 sources) Mood disorders Onset: 09-30-2023 09-30-2023 Other nervous system disorders (1 source) Postoperative pain ; Translations: [Other acute postprocedural pain] Onset: 11-07-2023 Resolved: 11-08-2023 11-08-2023 Episodic Results Test Name Value Interpretation Reference Range Facil ity Vital Signs Date Time Vital Sign Value Performing Clinician Faci lity 11-09-2023 07:45-0500 Body temperature 98.4 [degF] Velia Diamond MD Work Phone: [facility] 11-09-2023 07:45-0500 Diastolic blood pressure 68 mm[Hg] Velia Diamond MD Work Phone: [facility] 11-09-2023 07:45-0500 Heart rate 102 /min Velia Diamond MD Work Phone: [facility] 11-09-2023 07:45-0500 Respiratory rate 20 /min Velia Diamond MD Work Phone: [facility] 11-09-2023 07:45-0500 SaO2% (BldA) [Mass fraction] 91 % Velia Diamond MD Work Phone: [facility] 11-09-2023 07:45-0500 Systolic blood pressure 153 mm[Hg] Velia Diamond MD Work Phone: [facility] 11-09-2023 03:26-0500 Body mass index (BMI) [Ratio] 31.22 kg/m2 Velia Diamond MD Work Phone: [facility] 11-09-2023 03:26-0500 Body weight 82.51 kg Velia Diamond MD Work Phone: [facility] 10-13-2023 09:20-0500 Body height 162.6 cm Velia Diamond MD Work Phone: [facility] 10-13-2023 09:20-0500 Diastolic blood pressure 91 mm[Hg] Velia Diamond MD Work Phone: [facility] 10-13-2023 09:20-0500 Heart rate 88 /min Velia Diamond MD Work Phone: [facility] 10-13-2023 09:20-0500 SaO2% (BldA) [Mass fraction] 96 % Velia Diamond MD Work Phone: [facility] 10-13-2023 09:20-0500 Systolic blood pressure 175 mm[Hg] Velia Diamond MD Work Phone: [facility] 09-30-2023 09:45-0500 Body height 162.6 cm Velia Diamond MD Work Phone: [facility] 09-30-2023 09:45-0500 Body mass index (BMI) [Ratio] 30.85 kg/m2 Velia Diamond MD Work Phone: [facility] 09-30-2023 09:45-0500 Body temperature 98.2 [degF] Velia Diamond MD Work Phone: [facility] 09-30-2023 09:45-0500 Body weight 81.51 kg Velia Diamond MD Work Phone: [facility] 09-30-2023 09:45-0500 Diastolic blood pressure 103 mm[Hg] Velia Diamond MD Work Phone: [facility] Encounters Encounter Date Encounter Type Care Provider Facility Start: 11-07-2023 End: 11-09-2023 Evaluation and management of inpatient VELIA Kelley:KETAN Start: 11-07-2023 End: 11-09-2023 Evaluation and management of inpatient Velia Diamond MD Work Phone: [phone] Procedures Date Procedure Procedure Detail Performing Clinician Start: 11-09-2023 Radiologic exam ches t single view Felisha Roselia Clyde ZARATEN-COTTON PICKER Work Phone: Start: 11-09-2023 Assay of magnesium Gabr ielle G Luis PAC Work Phone: Start: 11-09-2023 CBC AND ELECTRONIC DIFF Karen G Luis PAC Work Phone: Start: 11-09-2023 Complete blood count with white cell differential, automated Karen G Luis PAC Work Phone: Start: 11-08-2023 Radiologic exam ches t single view Karen G Luis PAC Work Phone: Start: 11-08-2023 ABORH TYPE RECONFIRMATION Reese Galloway MD Work Phone: Start: 11-08-2023 Assay of magnesium Gabr ielle G Luis PAC Work Phone: Start: 11-08-2023 CBC AND ELECTRONIC DIFF Karen G Luis PAC Work Phone: Start: 11-08-2023 Complete blood count with white cell differential, automated Karen G Luis PAC Work Phone: Start: 11-07-2023 Radiologic exam ches t single view Karen G Luis PAC Work Phone: Start: 11-07-2023 CONTINUOUS CARDIAC MONITORING STRIP Other Other Start: 11-07-2023 End: 11-07-2023 Antibody screen Velia Diamond MD Work Phone: Plan of Treatment Date Care Activity Detail Author Start: 05-09-2032 DTaP/Tdap/Td Vaccines (3 - Td or Tdap) DTaP/Tdap/Td Vaccines (3 - Td or Tdap) [facility] Start: 05-09-2032 Tetanus vaccination TETANUS [facility] Start: 06-24-2024 Screening for malignant neoplasm of colon COLORECTAL CANCER SCREENING DISCUSSION [facility] Start: 11-25-2023 End: 11-25-2023 Patient encounter procedure 11/25/2023 12:15 PM EST Office Visit Division of Thoracic Surgery at [facility] [address] [place] [address] Vleia Diamond MD [address] [place] [address] Division of Thoracic Surgery at [facility] Start: 11-08-2023 End: 11-07-2024 XR Chest PA and Lateral XR CHEST PA AND LATERAL 2 VIEWS Imaging Routine Paraesophageal hernia Expected: 11/08/2023, Expires: 11/07/[address] [facility] Immunizations Immunization Date Immunization Notes Care Provider Fa cility 09-16-2022 influenza, seasonal, injectable Caryl Augustin MD MPH Work Phone: [facility] Work Phone: 09-16-2022 influenza virus vacc ine, unspecified formulation Caryl Augustin MD MPH Work Phone: [facility] Work Phone: 05-09-2022 tetanus toxoid, redu leann diphtheria toxoid, and acellular pertussis vaccine, adsorbed Caryl Augustin MD MPH Work Phone: [facility] Work Phone: 04-24-2022 tetanus toxoid, redu leann diphtheria toxoid, and acellular pertussis vaccine, adsorbed Caryl Augustin MD MPH Work Phone: [facility] 10-04-2021 influenza, seasonal, injectable, preservative free Caryl Augustin MD MPH Work Phone: [facility] Work Phone: 09-08-2020 influenza, injectabl e, quadrivalent, preservative free Caryl Augustin MD MPH Work Phone: [facility] Work Phone: 09-03-2019 pneumococcal polysaccharide vaccine, 23 valgallito Augustin MD MPH Work Phone: [facility] Work Phone: 09-25-2018 influenza, injectabl e, quadrivalent, contains preservative Caryl Augustin MD MPH Work Phone: [facility] Work Phone: 09-24-2017 influenza, seasonal, injectable Caryl Augustin MD MPH Work Phone: [facility] Work Phone: 11-15-2015 influenza, seasonal, injectable Caryl Augustin MD MPH Work Phone: [facility] Work Phone: 11-15-2015 pneumococcal conjuga te vaccine, 13 valgallito Augustin MD MPH Work Phone: [facility] Work Phone: 10-18-2014 influenza, seasonal, injectable, preservative free Caryl Augustin MD MPH Work Phone: [facility] Work Phone: 11-26-2010 hepatitis B vaccine, adult dosage Caryl Augustin MD MPH Work Phone: [facility] Work Phone: 07-20-2010 hepatitis B vaccine, adult dosage Caryl Augustin MD MPH Work Phone: [facility] Work Phone: 05-09-2010 hepatitis B vaccine, adult dosage Caryl Augustin MD MPH Work Phone: [facility] Work Phone: Payers Date Payer Category Payer [employer] ([employer] and others) [id number] 2023 Medicare MEDICARE MEDICAR E A AND B [id number] 2023-Present [address] [place] [address] [id number] 2023 Medicare [id number] 2023 [employer] ( and others) [id number] 1948 Unknown [id number] 1948 Unknown [id number] 1948 Unknown [id number] 1948 Unknown [id number] 1950 Unknown [id number] Social History Date Type Detail [facility] Work Phone: Start: 1950 Sex Assigned At Not on file [facility] Work Phone: Start: 09-30-2023 End: 10-13-2023 Gender identity Not on file [facility] Work Phone: Start: 09-28-2023 Tobacco smoking stat [facility] Never smoked tobacco [facility] Start: 09-28-2023 Tobacco use and exposure Smokeless tobacco non-user [facility] Start: 09-30-2023 End: 10-13-2023 Alcohol intake Lifetime non-drinker (finding) [facility] Start: 09-30-2023 End: 10-13-2023 History of Social function [facility] Adolescent depressio n screening assessment 5 [facility] Clinical Notes 08-25-2023 to 11-09-2023 Plan of Care - Stacy Mares RN - 11/09/2023 11:17 AM ESTPlan of Care - Stacy Mares RN - 11/09/2023 11:17 AM ESTNursing Notes - Renay Eldridge RN - 11/08/2023 10:31 AM ESTDischarge Instructions Note Date & Type Note Facility 11-09-2023 Plan of care note Patient is being discharged home. All discharge paperwork( AVS & prescriptions) were reviewed with the patient by Stacy RN. The patient and family denied questions/concerns. All personal belongings are with patient and family. Peripheral IV removed. Patient left unit via wheelchair without incident. Problem: Patient Care Overview Goal: Plan of Care Review Outcome: Adequate for Discharge Goal: Individualization & Mutuality Outcome: Adequate for Discharge Goal: Discharge Needs Assessment Outcome: Adequate for Discharge Goal: Interdisciplinary Rounds/Family Conf Outcome: Adequate for Discharge [facility] 11-09-2023 Miscellaneous Notes Patient is being discharged home. All discharge paperwork( AVS & prescriptions) were reviewed with the patient by Stacy TEMPLETON. The patient and family denied questions/concerns. All personal belongings are with patient and family. Peripheral IV removed. Patient left unit via wheelchair without incident. Problem: Patient Care Overview Goal: Plan of Care Review Outcome: Adequate for Discharge Goal: Individualization & Mutuality Outcome: Adequate for Discharge Goal: Discharge Needs Assessment Outcome: Adequate for Discharge Goal: Interdisciplinary Rounds/Family Conf Outcome: Adequate for Discharge 11/08/23 1029 Referral Information Arrived From clinic Final Discharge Planning Discharge Disposition Home Services at Discharge Outpatient clinical services (ie: lab draws, transfusions, injectables) CM/SW AVS Portion Completed Yes Name For Handoff Dr. Diamond Phone For Handoff See Care Team Plan Plan Plan for patient to be discharged to home today Patient/Family In Agreement With Plan yes Ketan Inpatient PCRM Discharge Note Patient discussed in medical rounds for discharge to home today. PCRM met with the patient/family/spouse to discuss final discharge plan. Services for Discharge Patient will be discharged with OP follow up Consults with Final Discharge Recommendations N/A Lines/Tubes/Drains/Wounds/Supplies Patient will not discharge home with any lines. Medications No barriers anticipated in obtaining discharge medications. No prior authorizations anticipated. Reconciliation of medications to be completed by the medical team. No issues with medications. Durable Medical Equipment N/A Choice Was Patient Choice Provided: N/A Transportation Transportation will be provided by her family. Education Discharge education provided by the medical team and updated in the After Visit Summary. Follow Up(s) Any follow up requested by the medical team arranged. Appointments in the After Visit Summary. What's Next What's Next NOV 25 2023 Established Patient Visit with Velia Diamond MD Friday 12:15 PM Division of Thoracic Surgery at [facility] [address] [address] Follow up with Imaging Jesse Friday arrive for your walk in chest x-ray 30 min before your appt with Dr. Diamond [address] [id number] Was Ambulatory PCRM added to the Care Team? No- Handoff criteria not met Was a handoff made to an Ambulatory PCRM? No The PCRM has updated the patient's nurse regarding the final discharge plan. Risk of Readmission: 4.1 Category Reference: Low: 0% - 5% Medium - Low: 5.1% - 10% Medium - High: 10.1% - 16% High: 16.1% - 100% Readmission Risk Interventions Documented: Yes No other discharge needs have been identified at this time. This plan was developed in collaboration with the patient and caregiver/preferred decision maker. Patient and family are in agreement with final discharge plan. Please refer to AVS and medical record for additional information. Patient instructed to call with questions. PCRM will continue to follow with medical team for any additional discharge planning needs. Kecia OMALLEY,RN,PCRM [phone] If any changes to this individualized plan of care during evening and weekend hours and assistance is needed, please page the parts consultant PCRM at [phone]. 11/08/23 1022 Referral Information Arrived From home or self-care Readmission Information Was patient readmitted within 30 Days? No Information Source Information Source patient Outpatient Providers Outpatient Providers Updated In [facility] Yes Contact Information Supercharger Mechanic/SW Added to Care Team Yes This Extras Casting Director is Primary Supercharger Mechanic/SW No Supercharger Mechanic Name Mahogany Prajapati Supercharger Mechanic's Phone Number [phone] Social Work Contact Name See Care Team Living Environment Lives With grandchild(akanksha);spouse (Patient lives with her and granddaughter) Living Arrangements house (Ranch style home with 2 [address]) Provides Primary Care For no one Primary Care Provided By self Support System Immediate family Able to Return to Prior Arrangements no Functional Status Patient's Functional Status Prior To This Admission? Independent Are There Status Changes This Admission? No Changes Observed Since Admission? No Changes Observed Concerns With Patient Being Able To Care For Themselves At Discharge? Has Assistance (Friend, Family, Skilled Provider) Who Is Patient's Primary Contact For Discharge Planning, Education And Care For Discharge? Patient's family Can Support Person Meet The Care Needs Of The Patient? Yes Employment/Financial Employed? Retired Employment/Financial Concerns no Source Of Income social security Financial Concerns none Insurance Medical Insurance Verified Yes Prescription Coverage Yes Pharmacy updated in [facility] Yes Initial Discharge Planning Home Care Services (DRAW HAND) No Home Therapies (DRAW HAND) None DME (DRAW HAND) None Medical Supplies (DRAW HAND) None Patient Goal for Discharge Return home with assistance from family and friends Anticipated discharge disposition Home Anticipated Services at Discharge Outpatient follow up;Outpatient clinical services (ie: lab draws, transfusions, injectables) Anticipated Changes Related to Illness none Current Discharge Risk high risk diagnoses (i.e., CHF, Stroke, DM, chronic pain, abdominal pain, nausea and vomiting) Transportation Available family or friend will provide Discharge Planning Comments Patient will plan on returning home at discharge Home Care Services (DRAW HAND) Additional Home Care Services (DRAW HAND) no Assessment/Concerns to be Addressed Concerns To Be Addressed no discharge needs identified;denies needs/concerns at this time PCRM Initial Assessment Met with Maddie to complete the initial assessment. Explained role and function of PCRM in multidisciplinary team. Contact number provided for questions. Demographic information reviewed with patient/family and confirmed as correct. Reason for Admission: Paraesophageal hernia Estimated length of stay: Patient will plan on discharging today Advanced directives Patient has Advanced Directives on file Lines/Drains/Tubes Patient has peripheral lines in place. Initial PCR Discharge Planning Patient will plan on returning home at discharge. Final plan will be determined closer to discharge, pending therapy and medical team recommendations. Patient/family verbalized understanding and agreement with the plan of care. Patient/family have no questions at this time. PCR will continue to follow patient with multidisciplinary team for ongoing assessment of needs and for discharge planning. Medical team updated. Kecia OMALLEY RN,[facility] [phone] Thoracic Surgery Operative Report Date: 11/07/2023 Preoperative Diagnosis: Paraesophageal Hernia Gastric tumor Postoperative Diagnosis: 1. Paraesophageal Hernia 2. Gastric tumor Procedures Performed: 1. Esophagogastroduodenoscopy 2. Robotic-assisted Laparoscopic Paraesophageal Hernia Repair 3. Laparoscopic Ronen Fundoplication 4. Gastric wedge resection Intraoperative Findings: - Extensive intraperitoneal adhesions from a prior TRAM flap and ventral hernia repair. - Large type III paraesophageal hernia - Intramural nodule in the body of the stomach at the lesser curvature wedged, resulted lipoma on frozen pathology. Surgeon: Velia Diamond M.D. Assistants: Jhoana Jules MD; Karen Smith PA-C Anesthesia Type: General Anesthesia. Estimated Blood Loss: Minimal. Specimens: 1. Gastric wedge 2. Hernia Sac Drains: None. Complications: None. Disposition: The patient tolerated the operation well. She was extubated and transported the postanesthesia care unit in stable condition. Indication for the procedure: Ms. Colon is a 73 year old woman who presented with post prandial chest pressure and was found to have a large type III paraesophageal hernia. She was also found to have an ill-defined gastric intramural nodule on endoscopy. She presents today for hernia repair and fundoplication as well as resection of the gastric tumor. Risks and benefits were discussed with the patient, who agreed to proceed. Description of the operation: Ms. Colon was brought to the [facility] main operating room. The patient was transported to the operating room bed. She received 2 g of IV Ancef for antimicrobial prophylaxis. Compression boots were placed the lower extremities for DVT prophylaxis. The patient was intubated with a single-lumen endotracheal tube by the anesthesia team and general anesthesia was initiated. The abdomen was prepped and draped in the standard sterile surgical fashion. After a timeout, we then placed a 12 mm left supraumbilical incision. The anterior fascia was incised and Veress needle was used to establish pneumoperitoneum. A 12mm airseal port was introduced. We wee unable to gain access due to omental adhesions. Therefore a 8 mm visiport was placed in the left upper quadrant and a 5 mm port lateral using the 5 mm laparoscope. The first 30 minutes were spent taking down the peritoneal adhesions to the abdominal wall using the ligasure. A large hiatal hernia was identified. We then placed a four 8 mm robotic ports bilaterally in the upper abdomen. The liver retractor was placed under direct vision. We began the operation by reducing stomach into the abdominal cavity using atraumatic graspers. The stomach was partly stuck in the large hiatal hernia cavity due to adhesions. We then reduced the hernia sac and started circumferentially dissecting the sac from the mediastinum, bluntly, and by dividing bridging bands. Once the hernia sac was dissected off the right and left justin, leaving a peritoneal on the justin intact. The fundus was mobilized around the greater curvature. The short gastrics were divided using the Vessel sealer. The left justin was dissected and the herna sac . Once the hernia sac was completely dissected, it was then excised from the edge of the gastroesophageal junction. The hernia sac was removed from the 12 mm airseal port and sent for permanent histology.The mediastinal esophagus was then mobilized to allow for tension free intraabdominal position of the stomach approximately 3 cm of intra-abdominal esophagus. We then excised the hernia sac with the bipolar cautery. We turned our attention to the gastric tumor, the gastroscope was introduced. The tumor was intramural and located in the gastric body along the lesser curvature. The tumor extent was marked by external compression and correlated to the endoscopy visualization. We then divided the vasculature from the area of the tumor at the lesser curvature with a vessel sealer. The left and right gastric arteries with proximal and distal arcade were preserved. We then performed a gastric wedge resection incorporating the tumor using three serial applications of the black load stapler. The staple line was well vascularized and bleeding. A running 2-0 Strattifix suture was used to imbricate the staple line for hemostasis. The attention was turned back to the hiatal hernia defect, which measures aroximately 7 cm in width. The defect was repaired by approximating the right and left justin posteriorly using a total six #0 silk sutures. Sutures were tied intracorporeally. Attention was pain not to narrow the hiatus. A 58 Jordanian bougie was then placed in the esophagus. The fundus was wrapped posterior to the esophagus and gastroesophageal junction. A 360 degree fundoplication was performed and secured with four interrupted 2-0 silk sutures. The middle two sutures incorporated the esophagus. An endoscopy was performed to inspect the esophageal mucosa. The esophageal mucosa was intact and there was no evidence of mucosal injury. The gastroscope was easily advanced through the GE junction without difficulty. The gastric mucosa within the fundus, body, and antrum were within normal limits. The pylorus was patent and the first portion of the duodenum was within normal limits. The gastroscope was then removed. We then checked for hemostasis and there was no evidence of bleeding. The Andrea-Harinder laparoscopic port closure device was used to place a #0 Vicryl sutures to close the 12 mm incisions. The pneumoperitoneum was evacuated. The 5 mm endoscopic incision was closed with running 2-0 Vicryl sutures. The subcutaneous layers were closed with with a running 2-0 Vicryl suture. Dermabond was applied. The sponge and instrument counts were correct x2. I was present for the entire procedure and participated in the entire procedure. The patient was extubated and transported to the post anesthesia care unit. There were no intraoperative complications Velia Diamond MD 1145 - Patient arrives in [facility] PACU from OR via gurney with side rails up x2 with HOB >30 degrees, accompanied by Anesthesiologist: Amanda Rea MD Carpenter Assistant Assisting: Sheri Delacruz MD Student Anesthesiologist Payloader Machine Operator: Nazario Valle. Patient placed on monitors, VSS. Report received from anesthesia. Patient assessed, see assessment. Patient to go med-surg per team. No labs, CXR ordered to be done in PACU. Okay to give Dilaudid with allergy per anesthesia team. 1307 - Paged ADRIÁN Smith to please clear CXR. 1317 - CXR cleared per Luis SAMPSON. 1407 - Updated family via phone. 1410 - MD Álvaro at bedside. Will sign patient out. Okay to remove a line per MD and per thoracic team. 163 - Patient's daughter at the bedside. 2027 - Report called and given to YOKASTA Armijo. All questions/concerns answered and addressed. 2029 - [facility] Patient transported via gurney with side rails up x2 with HOB>30 degrees to room 1827 by this RN and Porfirio, [id number] ARMOR CREWMAN. Family called to patient's bedside. documented in this encounter [facility] 11-08-2023 Nurse Note 11/08/23 1029 Referral Information Arrived From clinic Final Discharge Planning Discharge Disposition Home Services at Discharge Outpatient clinical services (ie: lab draws, transfusions, injectables) CM/SW AVS Portion Completed Yes Name For Handoff Dr. Diamond Phone For Handoff See Care Team Plan Plan Plan for patient to be discharged to home today Patient/Family In Agreement With Plan yes [facility] Inpatient PCRM Discharge Note Patient discussed in medical rounds for discharge to home today. PCRM met with the patient/family/spouse to discuss final discharge plan. Services for Discharge Patient will be discharged with OP follow up Consults with Final Discharge Recommendations N/A Lines/Tubes/Drains/Wounds/Supplies Patient will not discharge home with any lines. Medications No barriers anticipated in obtaining discharge medications. No prior authorizations anticipated. Reconciliation of medications to be completed by the medical team. No issues with medications. Durable Medical Equipment N/A Choice Was Patient Choice Provided: N/A Transportation Transportation will be provided by her family. Education Discharge education provided by the medical team and updated in the After Visit Summary. Follow Up(s) Any follow up requested by the medical team arranged. Appointments in the After Visit Summary. What's Next What's Next NOV 25 2023 Established Patient Visit with Velia Diamond MD Friday 12:15 PM Division of Thoracic Surgery at [facility] [address] Floor [facility] [address] Follow up with Imaging Friday arrive for your walk in chest x-ray 30 min before your appt with Dr. Diamond [address] [facility] 2nd Floor [facility] [address] Was Ambulatory PCRM added to the Care Team? No- Handoff criteria not met Was a handoff made to an Ambulatory PCRM? No The PCRM has updated the patient's nurse regarding the final discharge plan. Risk of Readmission: 4.1 Category Reference: Low: 0% - 5% Medium - Low: 5.1% - 10% Medium - High: 10.1% - 16% High: 16.1% - 100% Readmission Risk Interventions Documented: Yes No other discharge needs have been identified at this time. This plan was developed in collaboration with the patient and caregiver/preferred decision maker. Patient and family are in agreement with final discharge plan. Please refer to AVS and medical record for additional information. Patient instructed to call with questions. PCRM will continue to follow with medical team for any additional discharge planning needs. Kecia OMALLEY,RN,PCR [phone] If any changes to this individualized plan of care during evening and weekend hours and assistance is needed, please page the parts consultant PCRM at [phone]. [facility] 11-08-2023 Nurse Note 11/08/23 1022 Referral Information Arrived From home or self-care Readmission Information Was patient readmitted within 30 Days? No Information Source Information Source patient Outpatient Providers Outpatient Providers Updated In [facility] Yes Contact Information Supercharger Mechanic/SW Added to Care Team Yes This Extras Casting Director is Primary Supercharger Mechanic/SW No Supercharger Mechanic Name Mahogany VarelaSharda Supercharger Mechanic's Phone Number [phone] Social Work Contact Name See Care Team Living Environment Lives With grandchild(akanksha);spouse (Patient lives with her and granddaughter) Living Arrangements house (Ranch style home with 2 [address]AB[address]) Provides Primary Care For no one Primary Care Provided By self Support System Immediate family Able to Return to Prior Arrangements no Functional Status Patient's Functional Status Prior To This Admission? Independent Are There Status Changes This Admission? No Changes Observed Since Admission? No Changes Observed Concerns With Patient Being Able To Care For Themselves At Discharge? Has Assistance (Friend, Family, Skilled Provider) Who Is Patient's Primary Contact For Discharge Planning, Education And Care For Discharge? Patient's family Can Support Person Meet The Care Needs Of The Patient? Yes Employment/Financial Employed? Retired Employment/Financial Concerns no Source Of Income social security Financial Concerns none Insurance Medical Insurance Verified Yes Prescription Coverage Yes Pharmacy updated in [facility]HIS Yes Initial Discharge Planning Home Care Services (DRAW HAND) No Home Therapies (DRAW HAND) None DME (DRAW HAND) None Medical Supplies (DRAW HAND) None Patient Goal for Discharge Return home with assistance from family and friends Anticipated discharge disposition Home Anticipated Services at Discharge Outpatient follow up;Outpatient clinical services (ie: lab draws, transfusions, injectables) Anticipated Changes Related to Illness none Current Discharge Risk high risk diagnoses (i.e., CHF, Stroke, DM, chronic pain, abdominal pain, nausea and vomiting) Transportation Available family or friend will provide Discharge Planning Comments Patient will plan on returning home at discharge Home Care Services (DRAW HAND) Additional Home Care Services (DRAW HAND) no Assessment/Concerns to be Addressed Concerns To Be Addressed no discharge needs identified;denies needs/concerns at this time PCRM Initial Assessment Met with Maddie to complete the initial assessment. Explained role and function of PCRM in multidisciplinary team. Contact number provided for questions. Demographic information reviewed with patient/family and confirmed as correct. Reason for Admission: Paraesophageal hernia Estimated length of stay: Patient will plan on discharging today Advanced directives Patient has Advanced Directives on file Lines/Drains/Tubes Patient has peripheral lines in place. Initial [facility] Discharge Planning Patient will plan on returning home at discharge. Final plan will be determined closer to discharge, pending therapy and medical team recommendations. Patient/family verbalized understanding and agreement with the plan of care. Patient/family have no questions at this time. PCRM will continue to follow patient with multidisciplinary team for ongoing assessment of needs and for discharge planning. Medical team updated. Kecia OMALLEYRN,[facility] [phone] [facility] 11-07-2023 Hospital Discharge instructions Mahogany Butler RN - 11/07/2023 2:33 PM EST Images from the original note were not included. Your Supercharger Mechanic (PCRM) has arranged your appointments for follow up based on your preference of where you would like to continue your care. If you are unable to attend appointments that have been arranged for you, it is your responsibility to call to reschedule at least 48 hours prior to the appointment date. Your After Visit Summary (AVS) has provided you with instructions for your discharge. It is your responsibility to ask questions if you have any. Please contact your medical care team at the numbers listed if you should have any additional questions. IMPORTANT: Automated Post Discharge Call Patient Information As part of your care, we will call you at the primary number we have on file, the day after you are discharged at 9:30 a.m. to check on you. Please expect a two-minute automated telephone call from the hospital. This call will come from [phone]. If you are unable to answer or do not receive the automated call, please call [phone] to complete this important evaluation. By answering the phone evaluation, a [facility] nurse will be notified if you have any questions or concerns and call you back. If you have an immediate medical need call your doctor s office, or if you have a medical emergency call 911. Mahogany Aldridge APRN-COTTON PICKER - 11/07/2023 2:33 PM EST -Stop taking any supplements or vitamins until seen in the office Medication Administration -Soften or crush tablets and mix in liquid before taking for easier swallowing -Do not crush tablets that have a warning that states: DO NOT CRUSH PAIN MEDICATION: -A prescription for pain medicine will be sent home with you. Do not drive while taking prescription pain medicine. Eat when taking pain medicines to avoid nausea. Watch for constipation. Eat plenty of fruits, vegetables, juices, and drink 6 to 8 glasses of water each day. -Take a stool softener twice a day as long as you remain on pain medicine. If you do not have a bowel movement within 5 days of your surgery, please take milk of magnesia. If you do not have a bowel movement within 12 hours of milk of magnesia, call the office. -you can take acetaminophen (Tylenol) and ibuprofen (Advil, Motrin) in addition to your prescription pain medication if you have no other contraindications to those medications. Use these medications to help you need less narcotic pain medication. -you can start to wean yourself off the narcotic pain medication as soon as you feel comfortable by taking a smaller dose and/or increasing the number of hours in between doses. E Butler RN - 11/07/2023 2:33 PM EST ACTIVITY: - No driving until you are seen in the office for your post operative visit - Do not lift anything heavier than 5 lbs for 6 weeks - No strenuous activity for 6 weeks. - Numbness and tingling in the chest on the surgical side is normal. This may take 6 to 12 months to improve. ANA Villagomez - 11/08/2023 9:03 AM EST FULL LIQUID DIET FOR 5 DAYS THEN ADVANCE TO SOFT DIET UNTIL SEEN YOU SEE DR DIAMOND IN THE OFFICE E Butler RN - 11/07/2023 2:33 PM EST CALL THE DOCTOR IF YOU EXPERIENCE: UNRELIEVED PAIN: - Increased or unrelieved pain SIGNS OF WOUND INFECTION: - Increase in pain in or around wound. - Change in the amount of drainage. - Change in the color of drainage. - Change in the odor of drainage. - Warmth in the tissues around the wound. - Red streaks on the skin near the wound. - Fever (temperature greater than 101.5 degrees F) - Incision separates or opens up CHEST PAIN OR RESPIRATORY CHANGES: - Chest pain or shortness of breath - Shortness of breath that gets worse - Cough that gets worse - Coughing up blood FEVER/CHILLS/FLU-LIKE SYMPTOMS: Temperature greater than 101.5 degrees F and/or chills. - Signs of cold or flu. NAUSEA OR VOMITING -Inability to take fluids for greater than 24 hours. SIGNS OF DEEP VEIN THROMBOSIS (DVT): DVT = Deep Vein Thrombus, or Blood Clot -Any Tender, Swollen, or Reddened Areas From Your Groin To Your Heels -Numbness or Tingling In Groin or Calf -The Skin on Your Leg Looks Pale or Blue Or It Feels Cold To Touch -Numbness or Tingling In Groin or Calf -Any Shortness of Breath -Chest Pain -Fever or Chills Thoracic Surgery Contact Information: Clinical questions, 24 hours a day, 7 days a week: [phone] Outpatient Supercharger Mechanic: Mihir Ruiz [phone] Outpatient Virtual Classroom Manager: Gosia oGmez [phone] Inpatient Supercharger Mechanic: Mahogany Butler [phone] Inpatient Virtual Classroom Manager: Lyla Briones [phone] ANA Hanna - 11/07/2023 2:33 PM EST YOU MAY SHOWER NO TUB BATHS: -Do not take tub bath, go swimming or use a hot tub until instructed by your doctor. INCISION CARE: -Please clean it daily with mild soap and water. -Keep it dry and open to air -Notify us of any increasing redness, pus-like discharge or seperation of the incision. -Do not let the shower stream hit the incision directly. - Numbness and tingling in the chest on the surgical side is normal. This may take 6 to 12 months to improve. The following attachments cannot be sent through Care Everywhere.Incentive Spirometer ([facility]) (Egyptian)Pain Post-Surgery: Acute (Egyptian)Full Liquid Diet After Esophagectomy (Benjamin Steward) (Egyptian)Soft Diet After Esophagectomy (Benjamin Steward) (Egyptian)documented in this encounter [facility] 11-07-2023 Surgery Postoperative evaluation and management note Thoracic Surgery Operative Report Date: 11/07/2023 Preoperative Diagnosis: Paraesophageal Hernia Gastric tumor Postoperative Diagnosis: 1. Paraesophageal Hernia 2. Gastric tumor Procedures Performed: 1. Esophagogastroduodenoscopy 2. Robotic-assisted Laparoscopic Paraesophageal Hernia Repair 3. Laparoscopic Ronen Fundoplication 4. Gastric wedge resection Intraoperative Findings: - Extensive intraperitoneal adhesions from a prior TRAM flap and ventral hernia repair. - Large type III paraesophageal hernia - Intramural nodule in the body of the stomach at the lesser curvature wedged, resulted lipoma on frozen pathology. Surgeon: Velia Diamond M.D. Assistants: Jhoana Jules MD; Karen Smith PA-C Anesthesia Type: General Anesthesia. Estimated Blood Loss: Minimal. Specimens: 1. Gastric wedge 2. Hernia Sac Drains: None. Complications: None. Disposition: The patient tolerated the operation well. She was extubated and transported the postanesthesia care unit in stable condition. Indication for the procedure: Ms. Colon is a 73 year old woman who presented with post prandial chest pressure and was found to have a large type III paraesophageal hernia. She was also found to have an ill-defined gastric intramural nodule on endoscopy. She presents today for hernia repair and fundoplication as well as resection of the gastric tumor. Risks and benefits were discussed with the patient, who agreed to proceed. Description of the operation: Ms. Colon was brought to the [facility] main operating room. The patient was transported to the operating room bed. She received 2 g of IV Ancef for antimicrobial prophylaxis. Compression boots were placed the lower extremities for DVT prophylaxis. The patient was intubated with a single-lumen endotracheal tube by the anesthesia team and general anesthesia was initiated. The abdomen was prepped and draped in the standard sterile surgical fashion. After a timeout, we then placed a 12 mm left supraumbilical incision. The anterior fascia was incised and Veress needle was used to establish pneumoperitoneum. A 12mm airseal port was introduced. We wee unable to gain access due to omental adhesions. Therefore a 8 mm visiport was placed in the left upper quadrant and a 5 mm port lateral using the 5 mm laparoscope. The first 30 minutes were spent taking down the peritoneal adhesions to the abdominal wall using the ligasure. A large hiatal hernia was identified. We then placed a four 8 mm robotic ports bilaterally in the upper abdomen. The liver retractor was placed under direct vision. We began the operation by reducing stomach into the abdominal cavity using atraumatic graspers. The stomach was partly stuck in the large hiatal hernia cavity due to adhesions. We then reduced the hernia sac and started circumferentially dissecting the sac from the mediastinum, bluntly, and by dividing bridging bands. Once the hernia sac was dissected off the right and left justin, leaving a peritoneal on the justin intact. The fundus was mobilized around the greater curvature. The short gastrics were divided using the Vessel sealer. The left justin was dissected and the herna sac . Once the hernia sac was completely dissected, it was then excised from the edge of the gastroesophageal junction. The hernia sac was removed from the 12 mm airseal port and sent for permanent histology.The mediastinal esophagus was then mobilized to allow for tension free intraabdominal position of the stomach approximately 3 cm of intra-abdominal esophagus. We then excised the hernia sac with the bipolar cautery. We turned our attention to the gastric tumor, the gastroscope was introduced. The tumor was intramural and located in the gastric body along the lesser curvature. The tumor extent was marked by external compression and correlated to the endoscopy visualization. We then divided the vasculature from the area of the tumor at the lesser curvature with a vessel sealer. The left and right gastric arteries with proximal and distal arcade were preserved. We then performed a gastric wedge resection incorporating the tumor using three serial applications of the black load stapler. The staple line was well vascularized and bleeding. A running 2-0 Strattifix suture was used to imbricate the staple line for hemostasis. The attention was turned back to the hiatal hernia defect, which measures aroximately 7 cm in width. The defect was repaired by approximating the right and left justin posteriorly using a total six #0 silk sutures. Sutures were tied intracorporeally. Attention was pain not to narrow the hiatus. A 58 Jordanian bougie was then placed in the esophagus. The fundus was wrapped posterior to the esophagus and gastroesophageal junction. A 360 degree fundoplication was performed and secured with four interrupted 2-0 silk sutures. The middle two sutures incorporated the esophagus. An endoscopy was performed to inspect the esophageal mucosa. The esophageal mucosa was intact and there was no evidence of mucosal injury. The gastroscope was easily advanced through the GE junction without difficulty. The gastric mucosa within the fundus, body, and antrum were within normal limits. The pylorus was patent and the first portion of the duodenum was within normal limits. The gastroscope was then removed. We then checked for hemostasis and there was no evidence of bleeding. The Andrea-Harinder laparoscopic port closure device was used to place a #0 Vicryl sutures to close the 12 mm incisions. The pneumoperitoneum was evacuated. The 5 mm endoscopic incision was closed with running 2-0 Vicryl sutures. The subcutaneous layers were closed with with a running 2-0 Vicryl suture. Dermabond was applied. The sponge and instrument counts were correct x2. I was present for the entire procedure and participated in the entire procedure. The patient was extubated and transported to the post anesthesia care unit. There were no intraoperative complications Velia Diamond MD [facility] Work Phone: 11-07-2023 Nurse Note 1145 - [facility] with side rails up x2 with HOB >30 degrees, accompanied by Anesthesiologist: Amanda Rea MD Carpenter Assistant Assisting: Sheri Delacruz MD Student Anesthesiologist Payloader Machine Operator: Nazario Valle. Patient placed on monitors, VSS. Report received from anesthesia. Patient assessed, see assessment. Patient to go med-surg per team. No labs, CXR ordered to be done in PACU. Okay to give Dilaudid with allergy per anesthesia team. 1307 - Paged ADRIÁN Smith to please clear CXR. 1317 - CXR cleared per Luis SAMPSON. 1407 - Updated family via phone. 1410 - MD Álvaro at bedside. Will sign patient out. Okay to remove a line per MD and per thoracic team. 1633 - Patient's daughter at the bedside. 2027 - Report called and given to YOKASTA Armijo. All questions/concerns answered and addressed. 2029 - [facility] Patient transported via gurney with side rails up x2 with HOB>30 degrees to room 1827 by this RN and Porfirio, [id number] ARMOR CREWMAN. Family called to patient's bedside. [facility] 11-07-2023 Nurse Surgical operation note Patient denies hx of chemo and had radiation 1997. Patient denies metal or foreign objects in body. Patient denies hx of seizure or stroke. [facility] 11-07-2023 Nurse Note Patient denies hx of chemo and had radiation 1997. Patient denies metal or foreign objects in body. Patient denies hx of seizure or stroke. documented in this encounter [facility] 10-13-2023 History of Present illness Narrative Procedure explained and all questions answered. Verbal Consent Obtained followed by verbal time out. After confirmation of potential allergies, a topical analgesic of 2% Lidocaine gel was used to numb the nares followed by trans-nasal insertion of a High Resolution Manometry Catheter. Pressure bands of both the UES and LES were observed on the color contour. Patient instructed to take a deep breath to verify placement of catheter; diaphragmatic pinch noted on inspiration. Patient was assisted to supine position and catheter stabilization by taping to the nares. Patient was encouraged to relax while acclimating to the catheter for approximately 5 minutes. A 30 second baseline pressure was obtained to identify the UES and LES followed by a series of wet swallows both supine and upright, using 5 ml of room temperature normal saline and three rapid swallow episodes to assess esophageal motility and bolus transit. At the conclusion of the procedure the catheter was removed.Patient tolerated the procedure well. documented in this encounter [facility] 09-30-2023 History of Present illness Narrative Ms. Maddie Colon is a 73-year-old female with history of breast cancer who presents for evaluation of a large paraesophageal hernia. The patient had problems with vomiting and regurgitation, had adjusted her diet resulting in weight loss but improvement of her symptoms. She was found to have a large type [address]nia on her CT scan, did an endoscopy that also showed some coffee-ground material in the stomach and had a positive occult stool test that is likely a result of the hernia. She on the endoscopy was also found to have a submucosal nodule or lesion, but on review of her scan, there is no anatomic correlation within her stomach that could represent a fold. Overall, she is a good candidate for surgical repair of the symptomatic type 3 paraesophageal hernia. We discussed the risks and benefits of a laparoscopic robotic-assisted approach and fundoplication. Requested manometry prior to surgery and a stress test will be reviewed that was completed earlier this year but was reportedly negative. All questions were answered, and the patient signed the informed consent in the office today. (DOC:[id number]) Patient provided with pre-operative educational bag consisting of CHG soap, incentive spirometer, and patient education. Discharge folder provided consisting of use of CHG, how to use incentive spirometer, pain management, and managing opioid induced constipation. Patient verbalized understanding and denies any further questions. JOCScreening Do you experience shortness of breath walking two flights of stairs? yes Do you have trouble breathing when you lie flat? no Have you had a heart attack, blood clot, stroke, or cardiac stent in the past 3 months? no Do you have a pacemaker or implantable defibrillator? no a. If not, has one been recommended? no Are you diabetic? no a. If so, is your blood sugar over 300 three or more days per week? no b. Have you had your A1C checked? no c. If so, is it over 8? no Have you previously had anesthesia? yes a. If so, were you told that there was trouble placing a breathing tube? no Yes to any of the above questions? Yes: [facility] [place] Required No: [facility] Approved documented in this encounter [facility] 09-30-2023 History and physical note History and Physical Patient: Maddie Colon Date: 09/30/2023 9:44 AM Attending Physician: Velia Diamond MD Chief Complaint: No chief complaint on file. HPI: Maddie Colon is a 73 y.o. female with a PMH of left modified radical mastectomy with TRAM flap, laparoscopic appendectomy, and a left inguinal hernia repair. She was referred to undergo a colonoscopy and EGD in the setting of a positive Cologuard. Her tests were largely unremarkable except for a large hiatal hernia thought to be attributing to her test for which she was referred to be assessed. She reports some GI upset and discomfort that stopped 6 months ago. She reported it would get worse with some foods and when she adjusted her diet, her symptoms resolved. She does report weight loss over the past few months but partially attributes it to changing her diet to avoid her GI symptoms. She did report having a burger last week and felt like something was against her chest. CT scan showed a large hiatal hernia and 3 subcentimetric pulmonary nodules (7.5 mm left lower lobe, medial right lower lobe nodle [id number] and posterior tight upper lobe nodule measure 4.4x6x4.4mm. They were non-FDG avid on PET scan done on 08/05/13 EGD from 06/24/23 confirmed the large hiatal hernia seen on CT. There was also reflux esophagitis that was biopsied along multiple gastric polyps. She has a submucosal mass of undetermined etiology in the gastric body. She also had coffee-ground material which are attributed to be the cause of her positive Cologuard. Her Hpyori was negative. To note, she had a colonoscopy done on 06/24/23 that showed diverticulosis in the sigmoid colon and in the descending colon and external hemorrhoids but otherwise unremarkable,. Past Medical/Surgical History Past Medical History: Diagnosis Date Anemia Arthritis Cancer of breast Depression History of abdominal hernia Hyperlipidemia Lateral meniscus tear Lung nodules Mass of stomach Past Surgical History: Procedure Laterality Date APPENDECTOMY BREAST LUMPECTOMY COLONOSCOPY DIAGNOSTIC HERNIA REPAIR MASTECTOMY MENISCECTOMY Right RECONSTRUCTION BREAST Oncology History No history exists. She is not on home oxygen She does not have a history of stroke. She does not have any residual deficits. Family History No family history on file. Social History Social History Tobacco Use Smoking status: Never Smokeless tobacco: Never Substance Use Topics Alcohol use: Never She does not have a history of daily use of narcotics for >30 days prior to this visit Medications Current Outpatient Medications Medication Sig alendronate 70 MG tablet Take 1 tablet by mouth every 7 days. Bioflavonoid Products (BUBBA-C PO) Take by mouth daily. Biotin 1 MG capsule Take by mouth daily. Ezetimibe 10 MG tablet Take 1 tablet by mouth daily. Meloxicam 15 MG tablet Take 0.5 tablets by mouth daily. oxyCODONE 5 MG tablet Take 1-2 tablets by mouth every 4 hours as needed. Sertraline 100 MG tablet Take 1 tablet by mouth daily. VITAMIN D, CHOLECALCIFEROL, PO Take by mouth. She is not on chronic immunosuppressive therapy/corticosteroids >10 days at the time of this visit She is not on chronic anticoagulation >10 days at the time of this visit Allergies/Immunizations Allergies: Venlafaxine, Acetaminophen, Hydrocodone, and Wound dressing adhesive Immunizations: Immunization History Administered Date(s) Administered [id number] COVID-19 monovalent vaccine, mRNA, Moderna, 50 mcg/0.25 mL booster 11/29/2020, 12/27/2020, 11/07/2021 Review of Systems At the time of the visit patient reports no symptoms. All other systems queried and are negative. OBJECTIVE: Physical Exam There were no vitals taken for this visit. on 09/30/23 Constitutional: she is alert, oriented, well-developed, well-nourished, and in no acute distress. HEENT: Oropharynx is clear and moist. Extraocular motions are normal. Neck: Neck supple. No tracheal deviation present. No thyromegaly present. Cardiovascular: Normal rate and regular rhythm. No murmur heard. Pulmonary/Chest: Breathing non-labored. Lung sounds normal without wheezes or rales. She exhibits no crepitus. Abdomen: Abdomen soft, non-tender, non-distended. Bowel sounds present in all four quadrants. Musculoskeletal: She exhibits no edema. Lymphadenopathy: She has no cervical adenopathy. Neurological: She is alert and oriented. Skin: No rash noted. Imaging/Procedures/Results Review: Personal review completed of: CT chest and an abdomen with contrast (07/08/23) EXAM: CT CHEST AND ABDOMEN WITH INTRAVENOUS CONTRAST CLINICAL INDICATION: stomach and hiatal hernia TECHNIQUE: Helically acquired images were obtained of the chest and abdomen with intravenous contrast. This CT exam was performed using one or more of the following dose reduction techniques: automated exposure control, adjustment of the mA and/or kV according to patient size, and/or use of iterative reconstruction technique. CONTRAST: IV 100mL Isovue-370 RADIATION DOSE: CTDIvol = 17.41 mGy, DLP = 1054.46 mGy-cm. COMPARISON: Abdomen and pelvis CT June 24, 2023 showing a large hiatal hernia. FINDINGS: CHEST: LUNGS AND PLEURAL SPACES: There is a left lower lobe nodule of 7.5 mm x 7.4 mm x 7 mm with slightly irregular margins, at least one slightly spiculated margin. This abuts the major fissure but has mildly irregular shape, nonspecific. Also medial right lower lobe nodule of 4.2 mm x 6 mm x 6 mm. Another subtle posterior right upper lobe nodule measuring 4.4 mm x 6 mm x 4.4 mm. No confluent infiltrates or effusions. No pneumothorax. HEART: Mild calcification in left anterior descending coronary artery. No intracardiac filling defect. Left ventricular wall and septal hypertrophy and mildly prominent left atrium. Heart size is normal. No pericardial effusion. MEDIASTINUM: Large hiatal hernia but it is minimally distended with gas, not obviously obstructed. There is minimal gas in the esophagus. No obvious gastric mass, it is not well distended. There is an adjacent lymph node between the hiatal hernia and the aorta measuring 8 mm x 1 cm, nonspecific. THYROID: Unremarkable. No thyroid lesions. Left para-aortic lymph node of 9 mm x 1.7 cm, similar to recent prior exam. ABDOMEN: LIVER: Hepatomegaly, versus prominent Nomi''s lobe, the right lobe is 19.4 cm craniocaudal. GALLBLADDER AND BILE DUCTS: Tiny presumed stone gallbladder, also seen retrospectively on prior exam. No significant gallbladder distention or inflammation. No intra- or extrahepatic biliary ductal dilation. PANCREAS: Unremarkable. No focal cystic or solid mass. SPLEEN: Unremarkable. Normal size without focal cystic or solid mass. ADRENALS: Unremarkable. No nodules. KIDNEYS AND URETERS: Unremarkable. Normal renal size and position. No hydronephrosis. STOMACH AND BOWEL: Large hiatal hernia. Incomplete distention of the stomach. Apparent at least partial volvulus, configuration suggests that the greater curvature is superior. Fat density 2.9 cm x 1.7 cm structure within or along the posterior dependent wall of the antrum may be due to intramural lipoma or intraluminal contents. INTRAPERITONEAL SPACE: Unremarkable. No ascites or other fluid collection. No free air. CHEST and ABDOMEN: BONES/JOINTS: Multilevel degenerative spine changes, marked disc space narrowing and endplate sclerosis and mild spondylosis at L2-3 through L5-S1. No evidence of a significant degree of spinal stenosis. No suspicious lytic or blastic abnormality. SOFT TISSUES: Unremarkable. No discrete abdominal wall hernia. VASCULATURE: Mildly ectatic infrarenal aorta, maximum diameter roughly 2.5 cm. No evidence of PE or aortic aneurysm or dissection. LYMPH NODES: Mild mesenteric adenopathy, uncertain chronicity. CT/CT Chest AND Abd W/ Contrast IMPRESSION: 1. At least 3 pulmonary nodules. 7.5 mm left lower lobe nodule. 6 mm right lower lobe nodule. 6 mm right upper lobe pulmonary nodule. These are not included on the recent CT of the abdomen and pelvis June 24, 2023 or on prior exams provided. Correlate with any older exams available and with any known primary malignancy. RECOMMENDATIONS: Fleischner Society Guidelines (MacMahon, et al. Radiology 2017; 284(1):228-43) suggest the following. For low-risk patients recommend follow-up chest CT at 3-6 months. If unchanged consider an additional follow-up CT at 18-24 months. For high-risk patients initial follow-up chest CT at 3-6 months and if unchanged, 18-24 months. 2. Cholelithiasis. 3. Large hiatal hernia. No evidence of significant gastric obstruction but there is suspicion of least partial volvulus with the greater curvature superiorly positioned. Ovoid dependent fat density structure at the posterior dependent gastric antrum, this area was not included on prior exam. Uncertain whether this is in the lumen or in the wall. Consider endoscopy if it is thought to be indicated. An upper GI fluoroscopic stud (more content not included)... ASSESSMENT/PLAN: Maddie Colon is a 73 y.o. female with an incidentally found hiatal hernia found on an EGD in the setting of a positive Cologuard workup (colonoscopy was negative). In the EGD report she is also noted to have a submucosal mass that is not seen on CT and was not biopsied at the time. She appears to be symptomatic but manages her symptoms with dietary modifications. Plan is for a robotic hiatal hernia repair. Prior to that, she will need a manometry. Her subcentimetric pulmonary nodules will require only repeat follow-up but no interventions at this time. The patient was seen and plan of care was discussed with Velia Diamond MD. Alvaro Panda MD #[id number] Associated attestation - Velia Diamond MD - 10/13/2023 1:27 PM EST Thoracic Surgery Attending I saw and independently examined the patient. I agree with the history of present illness, past medical history, family history, social history, medication list, and allergies as listed. Independent review of labs and radiographs, as well as review medical records, confirm the findings noted below, I agree with the assessment and plan as noted below. I have reviewed the note and made edits as neccessary. Please see the separate progress note for my impression. The plan was developed mutually at the time of the clinic visit. The resident and I have spoken with the patient and provided written and verbal instructions for the patient. The residents note has been reviewed and I agree with the assessment and plan. Follow-up arrangements were made prior to the patient being discharged from the clinic. Velia Diamond MD [facility] 09-30-2023 History and physical note History and Physical Patient: Maddie Colon Date: 09/30/2023 9:44 AM Attending Physician: Velia Diamond MD Chief Complaint: No chief complaint on file. HPI: Maddie Colon is a 73 y.o. female with a PMH of left modified radical mastectomy with TRAM flap, laparoscopic appendectomy, and a left inguinal hernia repair. She was referred to undergo a colonoscopy and EGD in the setting of a positive Cologuard. Her tests were largely unremarkable except for a large hiatal hernia thought to be attributing to her test for which she was referred to be assessed. She reports some GI upset and discomfort that stopped 6 months ago. She reported it would get worse with some foods and when she adjusted her diet, her symptoms resolved. She does report weight loss over the past few months but partially attributes it to changing her diet to avoid her GI symptoms. She did report having a burger last week and felt like something was against her chest. CT scan showed a large hiatal hernia and 3 subcentimetric pulmonary nodules (7.5 mm left lower lobe, medial right lower lobe nodle 4.6u0d7ko and posterior tight upper lobe nodule measure 4.4x6x4.4mm. They were non-FDG avid on PET scan done on 08/05/13 EGD from 06/24/23 confirmed the large hiatal hernia seen on CT. There was also reflux esophagitis that was biopsied along multiple gastric polyps. She has a submucosal mass of undetermined etiology in the gastric body. She also had coffee-ground material which are attributed to be the cause of her positive Cologuard. Her Hpyori was negative. To note, she had a colonoscopy done on 06/24/23 that showed diverticulosis in the sigmoid colon and in the descending colon and external hemorrhoids but otherwise unremarkable,. Past Medical/Surgical History Past Medical History: Diagnosis Date Anemia Arthritis Cancer of breast Depression History of abdominal hernia Hyperlipidemia Lateral meniscus tear Lung nodules Mass of stomach Past Surgical History: Procedure Laterality Date APPENDECTOMY BREAST LUMPECTOMY COLONOSCOPY DIAGNOSTIC HERNIA REPAIR MASTECTOMY MENISCECTOMY Right RECONSTRUCTION BREAST Oncology History No history exists. She is not on home oxygen She does not have a history of stroke. She does not have any residual deficits. Family History No family history on file. Social History Social History Tobacco Use Smoking status: Never Smokeless tobacco: Never Substance Use Topics Alcohol use: Never She does not have a history of daily use of narcotics for >30 days prior to this visit Medications Current Outpatient Medications Medication Sig alendronate 70 MG tablet Take 1 tablet by mouth every 7 days. Bioflavonoid Products (BUBBA-C PO) Take by mouth daily. Biotin 1 MG capsule Take by mouth daily. Ezetimibe 10 MG tablet Take 1 tablet by mouth daily. Meloxicam 15 MG tablet Take 0.5 tablets by mouth daily. oxyCODONE 5 MG tablet Take 1-2 tablets by mouth every 4 hours as needed. Sertraline 100 MG tablet Take 1 tablet by mouth daily. VITAMIN D, CHOLECALCIFEROL, PO Take by mouth. She is not on chronic immunosuppressive therapy/corticosteroids >10 days at the time of this visit She is not on chronic anticoagulation >10 days at the time of this visit Allergies/Immunizations Allergies: Venlafaxine, Acetaminophen, Hydrocodone, and Wound dressing adhesive Immunizations: Immunization History Administered Date(s) Administered [id number] COVID-19 monovalent vaccine, mRNA, Moderna, 50 mcg/0.25 mL booster 11/29/2020, 12/27/2020, 11/07/2021 Review of Systems At the time of the visit patient reports no symptoms. All other systems queried and are negative. OBJECTIVE: Physical Exam There were no vitals taken for this visit. on 09/30/23 Constitutional: she is alert, oriented, well-developed, well-nourished, and in no acute distress. HEENT: Oropharynx is clear and moist. Extraocular motions are normal. Neck: Neck supple. No tracheal deviation present. No thyromegaly present. Cardiovascular: Normal rate and regular rhythm. No murmur heard. Pulmonary/Chest: Breathing non-labored. Lung sounds normal without wheezes or rales. She exhibits no crepitus. Abdomen: Abdomen soft, non-tender, non-distended. Bowel sounds present in all four quadrants. Musculoskeletal: She exhibits no edema. Lymphadenopathy: She has no cervical adenopathy. Neurological: She is alert and oriented. Skin: No rash noted. Imaging/Procedures/Results Review: Personal review completed of: CT chest and an abdomen with contrast (07/08/23) EXAM: CT CHEST AND ABDOMEN WITH INTRAVENOUS CONTRAST CLINICAL INDICATION: stomach and hiatal hernia TECHNIQUE: Helically acquired images were obtained of the chest and abdomen with intravenous contrast. This CT exam was performed using one or more of the following dose reduction techniques: automated exposure control, adjustment of the mA and/or kV according to patient size, and/or use of iterative reconstruction technique. CONTRAST: IV 100mL Isovue-370 RADIATION DOSE: CTDIvol = 17.41 mGy, DLP = 1054.46 mGy-cm. COMPARISON: Abdomen and pelvis CT June 24, 2023 showing a large hiatal hernia. FINDINGS: CHEST: LUNGS AND PLEURAL SPACES: There is a left lower lobe nodule of 7.5 mm x 7.4 mm x 7 mm with slightly irregular margins, at least one slightly spiculated margin. This abuts the major fissure but has mildly irregular shape, nonspecific. Also medial right lower lobe nodule of 4.2 mm x 6 mm x 6 mm. Another subtle posterior right upper lobe nodule measuring 4.4 mm x 6 mm x 4.4 mm. No confluent infiltrates or effusions. No pneumothorax. HEART: Mild calcification in left anterior descending coronary artery. No intracardiac filling defect. Left ventricular wall and septal hypertrophy and mildly prominent left atrium. Heart size is normal. No pericardial effusion. MEDIASTINUM: Large hiatal hernia but it is minimally distended with gas, not obviously obstructed. There is minimal gas in the esophagus. No obvious gastric mass, it is not well distended. There is an adjacent lymph node between the hiatal hernia and the aorta measuring 8 mm x 1 cm, nonspecific. THYROID: Unremarkable. No thyroid lesions. Left para-aortic lymph node of 9 mm x 1.7 cm, similar to recent prior exam. ABDOMEN: LIVER: Hepatomegaly, versus prominent Nomi''s lobe, the right lobe is 19.4 cm craniocaudal. GALLBLADDER AND BILE DUCTS: Tiny presumed stone gallbladder, also seen retrospectively on prior exam. No significant gallbladder distention or inflammation. No intra- or extrahepatic biliary ductal dilation. PANCREAS: Unremarkable. No focal cystic or solid mass. SPLEEN: Unremarkable. Normal size without focal cystic or solid mass. ADRENALS: Unremarkable. No nodules. KIDNEYS AND URETERS: Unremarkable. Normal renal size and position. No hydronephrosis. STOMACH AND BOWEL: Large hiatal hernia. Incomplete distention of the stomach. Apparent at least partial volvulus, configuration suggests that the greater curvature is superior. Fat density 2.9 cm x 1.7 cm structure within or along the posterior dependent wall of the antrum may be due to intramural lipoma or intraluminal contents. INTRAPERITONEAL SPACE: Unremarkable. No ascites or other fluid collection. No free air. CHEST and ABDOMEN: BONES/JOINTS: Multilevel degenerative spine changes, marked disc space narrowing and endplate sclerosis and mild spondylosis at L2-3 through L5-S1. No evidence of a significant degree of spinal stenosis. No suspicious lytic or blastic abnormality. SOFT TISSUES: Unremarkable. No discrete abdominal wall hernia. VASCULATURE: Mildly ectatic infrarenal aorta, maximum diameter roughly 2.5 cm. No evidence of PE or aortic aneurysm or dissection. LYMPH NODES: Mild mesenteric adenopathy, uncertain chronicity. CT/CT Chest AND Abd W/ Contrast IMPRESSION: 1. At least 3 pulmonary nodules. 7.5 mm left lower lobe nodule. 6 mm right lower lobe nodule. 6 mm right upper lobe pulmonary nodule. These are not included on the recent CT of the abdomen and pelvis June 24, 2023 or on prior exams provided. Correlate with any older exams available and with any known primary malignancy. RECOMMENDATIONS: Fleischner Society Guidelines (MacMahon, et al. Radiology 2017; 284(1):228-43) suggest the following. For low-risk patients recommend follow-up chest CT at 3-6 months. If unchanged consider an additional follow-up CT at 18-24 months. For high-risk patients initial follow-up chest CT at 3-6 months and if unchanged, 18-24 months. 2. Cholelithiasis. 3. Large hiatal hernia. No evidence of significant gastric obstruction but there is suspicion of least partial volvulus with the greater curvature superiorly positioned. Ovoid dependent fat density structure at the posterior dependent gastric antrum, this area was not included on prior exam. Uncertain whether this is in the lumen or in the wall. Consider endoscopy if it is thought to be indicated. An upper GI fluoroscopic stud (more content not included)... ASSESSMENT/PLAN: Maddie Colon is a 73 y.o. female with an incidentally found hiatal hernia found on an EGD in the setting of a positive Cologuard workup (colonoscopy was negative). In the EGD report she is also noted to have a submucosal mass that is not seen on CT and was not biopsied at the time. She appears to be symptomatic but manages her symptoms with dietary modifications. Plan is for a robotic hiatal hernia repair. Prior to that, she will need a manometry. Her subcentimetric pulmonary nodules will require only repeat follow-up but no interventions at this time. The patient was seen and plan of care was discussed with Velia Diamond MD. Alvaro Panda MD #[id number] Associated attestation - Velia Diamond MD - 10/13/2023 1:27 PM EST Thoracic Surgery Attending I saw and independently examined the patient. I agree with the history of present illness, past medical history, family history, social history, medication list, and allergies as listed. Independent review of labs and radiographs, as well as review medical records, confirm the findings noted below, I agree with the assessment and plan as noted below. I have reviewed the note and made edits as neccessary. Please see the separate progress note for my impression. The plan was developed mutually at the time of the clinic visit. The resident and I have spoken with the patient and provided written and verbal instructions for the patient. The residents note has been reviewed and I agree with the assessment and plan. Follow-up arrangements were made prior to the patient being discharged from the clinic. Velia Diamond MD documented in this encounter [facility] 09-30-2023 Instructions Savannah Du RN - 09/30/2023 10:00 AM EST Patient Medication Instructions: Here is a list of your current medications we have on file: Current Outpatient Medications Medication Sig alendronate 70 MG tablet Take 1 tablet by mouth every 7 days. Bioflavonoid Products (BUBBA-C PO) Take by mouth daily. Biotin 1 MG capsule Take by mouth daily. Ezetimibe 10 MG tablet Take 1 tablet by mouth daily. Meloxicam 15 MG tablet Take 0.5 tablets by mouth daily. Multiple Vitamin (MULTIVITAMIN ADULT PO) Take by mouth. Probiotic Product (PROBIOTIC PO) Take by mouth. Sertraline 100 MG tablet Take 1 tablet by mouth daily. VITAMIN D, CHOLECALCIFEROL, PO Take by mouth. oxyCODONE 5 MG tablet Take 1-2 tablets by mouth every 4 hours as needed. (Patient not taking: Reported on 09/30/2023) -STOP taking ALL vitamins and herbal medications (including fish oil, [place]-3, garlic, glucosamine-chondroitin, gingko, ginseng, tumeric, multivitamins) 2 weeks before surgery. -STOP taking NSAIDS (including but not limited to ibuprofen, Advil, Motrin, naproxen, Aleve) 7 days before surgery. -STOP taking Ozempic, Wegovy, or Mounjaro 7 days before surgery. -STOP taking blood thinners dabigatran (Pradaxa) or prasugrel (Effient) 7 days before surgery. -STOP taking blood thinners clopidogrel (Plavix), ticagrelor (Brilinta), or warfarin (Coumadin) 5 days before surgery. -STOP taking blood thinners apixaban (Eliquis) or rivaroxaban (Xarelto) 3 days before surgery. -STOP taking dapagliflozin (Farxiga), empagliflozin (Jardiance), Ozempic, or Trulicity 3 days before surgery. -STOP taking metformin, lisinopril, losartan, valsartan, amlodipine two days before surgery. Do not take any of your other medications on the morning of surgery. -If you use inhalers, it is ok to use them as prescribed the morning of surgery. The following attachments cannot be sent through Care Everywhere.Esophageal Manometry ([facility]) (E[place]ian)documented in this encounter [facility] 08-25-2023 History of Present illness Narrative Subjective Date: 08/21/2023 Time: 10:32 AM Name: Maddie Colon This is a 73 y.o. female with a hiatal hernia. She had a scope 6 weeks ago but did not have any pain or anything. Has not had an endoscope for [address] Adkins did upper and lower scopes. She has a history of breast cancer. She notes very limited heartburn or reflux. If bad uses something carbonated. No regurg, no dysphagia, lots of pain in chest and thinks having a heart attack. Then feels some nausea and chest pain and pressure that is relieved with carbonation. She is eating smaller meals. Never has n/v. Feels like a lot of saliva. No abd pain. Moves bowels normally. No bloating. Scope done in [place]. Never had an esophagram. She has not seen a electrical and instrument engineer. Had a stress test 6 months ago that was normal Recently had PET scan. Cut out greasy and spicy foods She notes some ongoing weight loss and has lost 7 lbs in past 6 weeks Had knee surgery, breast surgery with mastectomy and reconstruction Pmh: breast cancer, chest pain PMH: Breast CA PSH: Knee surgery, breast surgery Family history: sister with colon cancer, no history of hernias FAMILY HISTORY: Colon cancer SOCIAL HISTORY: Denies alcohol and tobacco MEDICATIONS: Prior to Admission Medications: Medication Documentation Review Audit Prior to Admission medications have not yet been reviewed Zoloft 100, zetia 10, phosamax 10 mg ALLERGIES: Erythromycin and effoxor REVIEW OF SYSTEMS: GENERAL: Negative for malaise, significant weight loss and fever HEAD: Negative for headache, swelling. NECK: Negative for lumps, goiter, pain and significant neck swelling RESPIRATORY: Negative for cough, wheezing or shortness of breath. CARDIOVASCULAR: Negative for chest pain, leg swelling or palpitations. GI: Negative for abdominal discomfort, blood in stools or black stools or change in bowel habits : No history of dysuria, frequency or incontinence MUSCULOSKELETAL: Negative for joint pain or swelling, back pain or muscle pain. SKIN: Negative for lesions, rash, and itching. PSYCH: Negative for sleep disturbance, mood disorder and recent psychosocial stressors. ENDOCRINE: Negative for cold or heat intolerance, polyuria, polydipsia and goiter. Objective PHYSICAL EXAM: There were no vitals taken for this visit. General appearance: obese, NAD Neuro: AOx3 Head: EOMI; no swelling or lesions of scalp or face ENT: no lumps or lymphadenopathy, thyroid normal to palpation; oropharynx clear, no swelling or erythema Skin: warm, no erythema or rashes Lungs: clear to percussion and auscultation Heart: regular rhythm and S1, S2 normal Abdomen: soft, non-tender, no masses, no organomegaly Extremities: Normal exam of the extremities. No swelling or pain. Psych: no hurried speech, no flight of ideas, normal affect Prior studies: CT chest with large hiatal hiatal hernia, suggestion of submucosal lipoma in gastric wall near the antrum Egd with submucosal mass and large hiatal hernia IMPRESSION: Maddie Colon is a 73 y.o. female with a bmi of 31 and comes in with symptoms of chest pressure and new hiatal hernia diagnosed on recent endoscopy.. Cardiac workup normal. Notes from prior studies reviewed. We will need to get the disk for her CT and also get the egd pictures. I will do an esophagram. We will get the esophagram and have her send the films on disk. We will get a manometry study. We will do at . Will have her follow up after the studies. She has ongoing weight loss and we will need to intervene sooner rather than later. We discussed HH repair with partial fundoplication at length. She understands the risks and benefits of the procedure. We reviewed the procedeure and recovery. All quesitons were answered. We will have one more visit before surgeyr and will have cardiac clearance. Assessment/Plan PLAN: Get the esophagram Bring the esophagram and ct on a disk Get the manometry We will plan for surgery We will get cardiac/medical clearance at home. Use a protein drink daily to keep your nutrition up. 45 minutes were spent with patient including history, physical exam, and education. documented in this encounter [facility] Work Phone: 08-25-2023 Miscellaneous Notes Addended by: GABE PIERRE on: 08/25/2023 11:35 AM Modules accepted: Orders documented in this encounter [facility] Work Phone: 08-25-2023 Note Addended by: GABE PIERRE on: 08/25/2023 11:35 AM Modules accepted: Orders [facility] Work Phone: documented in this encounter [facility] Work Phone: Evaluation note* Diagnosis Hiatal hernia Diaphragmatic hernia without mention of obstruction or gangrene Reflux gastritis Other specified gastritis without mention of hemorrhage Gastritis without bleeding, unspecified chronicity, unspecified gastritis type Hiatal hernia Diaphragmatic hernia without mention of obstruction or gangrene [facility] Diagnosis Hiatal hernia- Primary Diaphragmatic hernia without mention of obstruction or gangrene Gastritis without bleeding, unspecified chronicity, unspecified gastritis type Reflux gastritis Other specified gastritis without mention of hemorrhage Hiatal hernia Diaphragmatic hernia without mention of obstruction or gangrene [facility] Diagnosis Gastroesophageal reflux disease without esophagitis- Primary Esophageal reflux Hiatal hernia Diaphragmatic hernia without mention of obstruction or gangrene [facility] Diagnosis Paraesophageal hernia- Primary Diaphragmatic hernia without mention of obstruction or gangrene Paraesophageal hernia Diaphragmatic hernia without mention of obstruction or gangrene Hiatal hernia Diaphragmatic hernia without mention of obstruction or gangrene Acute post-operative pain Acute post-operative pain Health education/counseling Counseling NOS At moderate risk for deep venous thrombosis Arthritis Arthropathy, unspecified, site unspecified Depression Depressive disorder, not elsewhere classified Obesity (BMI 30.0-34.9) Obesity, unspecified Hyperlipidemia Other and unspecified hyperlipidemia Pulmonary nodules Other nonspecific abnormal finding of lung field Gastric nodule Other specified disorder of stomach and duodenum Elevated BP without diagnosis of hypertension Anxiety Anxiety state, unspecified [facility] Unlisted Procedure Code (Routine) - New Request Specialty Diagnoses / Procedures Referred By Contac t Referred To Contact Procedures PLATELET MONITORING PER PROTOCOL Karen Smith, PAC [address] [place] [address] Referral ID Status Reason Start Date Expiration Date V isits Requested Visits Authorized [id number] New Request 11/07/2023 12/01/2024 1 1 * Unlisted Procedure Code (Routine) - New Request Specialty Diagnoses / Procedures Referred By Contac t Referred To Contact Procedures DVT/VTE RISK ASSESSMENT Karen Smith, PAC [address] [place] [address] Referral ID Status Reason Start Date Expiration Date V isits Requested Visits Authorized [id number] New Request 11/07/2023 12/01/[address] [facility] Reason for Referral Specialty Diagnoses / Procedures Referred By Contact Referred To Contact Gastroenterology Diagnoses Hiatal hernia with GERD Procedures EGD WY ESOPHAGOGASTRODUODENOSCOPY TRANSORAL DIAGNOSTIC WY EGD TRANSORAL BIOPSY SINGLE/[place] [address] [facility] [address] Referral ID Status Reason Start Date Expiration Date V isits Requested Visits Authorized [id number] Pending Review 08/25/2023 02/21/2024 1 1 Specialty Diagnoses / Procedures Referred By Contac t Referred To Contact Radiology Diagnoses Hiatal hernia with GERD [place] [id number] [address] [facility] [place] [address] Referral ID Status Reason Start Date Expiration Date Visits Requested Visits Authorized [id number] Pending Review Perform Procedure 08/25/2023 02/21/2024 1 1 Specialty Diagnoses / Procedures Referred By Contac t Referred To Contact Diagnoses Hiatal hernia Procedures MANOMETRY ESOPHAGEAL WY ESOPHAGEAL MOTILITY STUDY W/INTERP&RPT Velia Diamond MD [address] [place] [address] Referral ID Status Reason Start Date Expiration Date V isits Requested Visits Authorized [id number] Pending Review 09/30/2023 10/24/2024 1 1 Advance Directives No Advanced Directives Records FoundDocuments on File Type Date Recorded Patient Environmental Protection Officer Expl anation HealthCare Power of Pipe Supervisor 09/10/2023 Documents on File Type Date Recorded Patient Environmental Protection Officer Expl anation HealthCare Power of Pipe Supervisor 09/10/2023 Latest Code Status on File Code Status Date Activated Date Inactivated Comments Full Code 11/07/2023 9:12 PM Code Status History Code Status Date Activated Date Inactivated Comments Full Code 11/07/2023 6:03 AM 11/07/2023 8:53 PM Summary Purpose Family History No Family History Records Found Additional Source Comments Reason for Visit (unrecogniz ed section and content) Reason Comments New Patient No pain. SOB with mo derate exertion. A dry cough at night. Specialty Diagnoses / Procedures Referred By Contac t Referred To Contact Diagnoses Hiatal hernia Procedures MANOMETRY ESOPHAGEAL WY ESOPHAGEAL MOTILITY STUDY W/INTERP&RPT Velia Diamond MD [address] [place] [address] Referral ID Status Reason Start Date Expiration Date V isits Requested Visits Authorized [id number] Pending Review 09/30/2023 10/24/2024 1 1 Specialty Diagnoses / Procedures Referred By Alma shepherd Referred To Contact Diagnoses Hiatal hernia Hiatal hernia [K44.9] Procedures WY LAP, REPAIR PARAESOPHAGEAL HERNIA, INCL FUNDOPLASTY W/ MESH WY ESOPHAGOGASTRODUODENOSCOPY TRANSORAL DIAGNOSTIC REPAIR HERNIA PARAESOPHAGEAL ROBOTIC W/ MESH EGD DIAGNOSTIC Velia Diamond MD [address] [place] [address] [facility] [address] [place] [address] Referral ID Status Reason Start Date Expiration Date Visits Re quested Visits Authorized [id number] 1 1 Care Teams (unrecognized sec tion and content) Junior Net Developer Relationship Specialty Start Date End Date Nayla López MD [address] [place] [phone] PCP - General Family Medicine 09/30/23 Junior Net Developer Relationship Specialty Start Date End Date Nayla López MD [address] [place] [phone] PCP - General Family Medicine 09/30/23 Junior Net Developer Relationship Specialty Start Date End Date Nayla López MD [address] [place] [phone] PCP - General Family Medicine 09/30/23 Scheduled Active and Recently Administ ered Medications (unrecognized section and content) Continuous Medication Order 11/07/2023 11/08/2023 11/09/2023 dextrose 5% and sodium chloride 0.45% 1,000 ml with potassium chloride 20 mEq premix IV solution (CANCELED) Intravenous, at 75 mL/hr, CONTINUOUS, Starting on Fri11/07/23 at 1230, Until 11/08/23 at 0816, May convert to saline well when patient is tolerating oral diet., Post-op/Post-Proc 1415 ($$New Bag$$ - Provider: Rebekah Lopez RN)1606 (Paused - Provider: Aleksander Castillo RN)1618 (Restarted - Provider: Aleksander Castillo RN)1757 (Paused - Provider: Aleksander Castillo RN)1800 (Restarted - Provider: Aleksander Castillo RN)2317 (Stopped - Provider: Aleksander Castillo RN) 0441 ($$New Bag$$ - Provider: Aleksander Castillo RN)0442 (Rate/Dose Verify - Provider: Aleksander Castillo RN)0534 (Rate/Dose Verify - Provider: Aleksander Castillo RN)0833 (Stopped - Provider: Leticia Vasquez RN) Lactated ringers IV solution (CANCELED) Intravenous, at 75 mL/hr, CONTINUOUS, Starting on Fri11/07/23 at 0615, Until Fri11/07/23 at 2053, Pre-op/Pre-Proc 0639 ($$New Bag$$ - Provider: Cassie Artis RN)0917 (Stopped - Provider: Sheri Delacruz MD) PRN Medication Order 11/07/2023 11/08/2023 11/09/2023 Biotene Dry Mouth lozenge 1 lozenge 1 lozenge, Mouth/Throat, NEEDED, Starting on Fri11/07/23 at 2112, Until Fri11/09/23 at 1330, Dry Mouth 2240 (Given - Provider: Aleksander Castillo RN) 0658 (Given - Provider: Aleksander Castillo RN) BUPivacaine-EPINEPHrin e (MARCAINE;SENSORCAINE W/ EPI) 0.25% -[id number] injection (CANCELED) NEEDED, Starting on Fri11/07/23 at 0830, Until Fri11/07/23 at 1139, Intra-op/Intra-Proc 0830 (Given - Provider: Velia Diamond MD)0850 (Given - Provider: Velia Diamond MD) hydrALAZINE (APRESOLINE) injection 5 mg 5 mg, Intravenous, EVERY 6 HOURS NEEDED, Starting on 11/08/23 at 2016, Until 11/09/23 at 1330, SBP > 160 mmHg 0015 (Given - Provider: Aleksander Castillo RN)0608 (Given - Provider: Aleksander Castillo RN) HYDROmorphone (DILAUDID) injection 0.5 mg (CANCELED) 0.5 mg, Intravenous, EVERY 10 MINUTES NEEDED, 8 doses, Starting on Fri11/07/23 at 1127, Until Fri11/07/23 at 2053, Moderate Pain, Severe Pain, May give a total of 4mg in PACU., Recovery 1154 (Given - Provider: Rebekah Lopez RN)1210 (Given - Provider: Rebekah Lopez RN)1234 (Given - Provider: Rebekah Lopez RN)1329 (Given - Provider: Rebekah Lopez RN) hydrOXYzine HCl (ATARAX) tablet 25 mg 25 mg, Oral, 3 TIMES DAILY NEEDED, Starting on 11/08/23 at 2025, Until Fri11/09/23 at 1330, Anxiety 2040 (Given - Provider: Aleksander Castillo RN) Ondansetron 4mg/2ml (ZOFRAN) injection 4 mg 4 mg, Intravenous, EVERY 6 HOURS NEEDED, Starting on 11/08/23 at 1048, Until Fri11/09/23 at 1330, Nausea / Vomiting 1054 (Given - Provider: Leticia Vasquez RN) Prochlorperazine (COMPAZINE) injection 5 mg (COMPLETED) 5 mg, Intravenous, EVERY 1 HOUR NEEDED, 2 doses, Starting on Fri11/07/23 at 1127, Until Discontinued, Nausea / Vomiting, FIRST Line antiemetic, Do not administer within 6 hours of intra-operative dose. For IV route: dilute dose with 10mL normal saline and give by slow IV push at a rate of 5mg/min. Maximum of 40mg/day., Recovery 1313 (Given - Provider: Rebekah Lopez RN)1614 (Given - Provider: Carmen Ortega RN) traMADol (ULTRAM) tablet 50 mg (CANCELED) 50 mg, Oral, EVERY 6 HOURS NEEDED, Starting on Fri11/07/23 at 2111, Until 11/08/23 at 0902, Moderate Pain, Severe Pain, Post-op/Post-Proc 2148 (Given - Provider: Aleksander Castillo, RN) 0353 (Given - Provider: Aleksander Castillo RN) traMADol (ULTRAM) tablet 50 mg 50 mg, Oral, EVERY 4 HOURS NEEDED, Starting on 11/08/23 at 0915, Until 11/09/23 at 1330, Moderate Pain, Severe Pain, Post-op/Post-Proc 1015 (Given - Provider: Leticia Vasquez RN) INFORMATION SOURCE (unrecogn ized section and content) FOR RECORDS PERTAINING TO PATIENTS WHO ARE OR HAVE BEEN ENROLLED IN A CHEMICAL DEPENDENCY/SUBSTANCEABUSE PROGRAM, SOME INFORMATION MAY BE OMITTED. This clinical summary was aggregated from multiple sources. Caution should be exercised in using it in the provision of clinical care. This summary normalizes information from multiple sources, and as a consequence, information in this document may materially change the coding, format and clinical context of patient data. In addition, data may be omitted in some cases. CLINICAL DECISIONS SHOULD BE BASED ON THE PRIMARY CLINICAL RECORDS. [employer] provides no warranty or guarantee of the accuracy or completeness of information in this document.
[2023-11-20] MEDS: 0.9% Normal Saline (1000mL) 500 ML 1000 ML IV (09:46)
[2023-11-20] MEDS: Ondansetron 4 MG/2 ML Vial IV (09:47)
[2023-11-20 10:10] LABS: Absolute Neutrophil Count 3.2 X10^3/uL (2.0-7.7); Basophil% 1.8 % (0-1); Eosinophil# 0.19 X10^3/uL; Eosinophils% 3.4 % (0-5); Hematocrit 46.2 % (37-47); Hemoglobin 14.9 g/dL (12.0-15.0); Mean Corp Hgb Conc 32.3 g/dL (32-36); Mean Corpuscular Hgb 28.4 pg (27.0-32.0); Mean Platelet Vol. 10.4 fl (6.2-12.0); Monocyte# 0.52 X10^3/uL; Monocyte% 9.4 % (0-10); NRBC Flagged by Analyzer 0 % (0-5); Neutrophil # 3.23 X10^3/uL (2.7-7.7); Platelet Count 278 K/mm3 (150-450); RBC Distribution Width CV 13.9 % (11.6-14.6); RBC Distribution Width SD 44.4 fl (35.1-43.9); Red Blood Count 5.25 M/mm3 (4.2-5.4); White Blood Count 5.6 K/mm3 (4.4-11.0)
[2023-11-20 10:25] LABS: ALB/GLOB Ratio 0.8 RATIO (0.9-2.4); AST(SGOT) 15 U/L (15-37); Alanine Aminotransfer ALT/SGPT 16 U/L (13-56); Albumin, Serum 3.3 g/dL (3.2-5.0); Alkaline Phosphatase 68 U/L (45-117); Anion Gap 5 (5-15); BUN 10 mg/dL (7-18); BUN/Creat Ratio 10.9 RATIO (10-20); Calcium,Total 9.6 mg/dL (8.5-10.1); Chloride 108 mmol/L (98-107); Creatinine, Serum 0.92 mg/dL (0.55-1.02); EST Glomerular Filtration Rate 63 mL/min (>60); Est Glom Filt Rate - Afr Amer 77 mL/min (>60); Estimated Creatinine Clearance 45.62 ml/min; Globulin 4.4 g/dL (2.2-4.2); Glucose 130 mg/dL (74-106); Potassium 3.8 mmol/L (3.5-5.1); Protein, Total 7.7 g/dL (6.4-8.2); Sodium Level 142 mmol/L (136-145)
== END 2023-11-20 11:52 | disposition home or self-care (01) ==
PROVIDERS: Emergency Provider Emergency Medicine; PCP Family Medicine; Visit Provider Emergency Medicine
DX: G89.18 Other acute postprocedural pain (principal); Z98.890 Other specified postprocedural states; R11.2 Nausea with vomiting, unspecified; K57.90 Diverticulosis of intestine, part unspecified, without perforation or abscess without bleeding; R10.9 Unspecified abdominal pain
CPT/HCPCS: 74177; 80053; 85025; 96361; 96374; 99283; J7030; Q9967; A4216; J2405

== ENCOUNTER → 2024-02-27 | Outpatient (CLI) | payer MEDICARE, OTHER, SELFPAY ==
--- NOTE | 2024-02-27 13:02 | BI_ITS ---
MAMMOGRAPHY - UNILATERAL SCREENING: RIGHT BREAST REASON FOR EXAM: Female, 74 years old. Routine annual screening examination (unilateral). PERTINENT HISTORY: Personal history of breast cancer. Prior left mastectomy. TECHNIQUE: Digital unilateral breast yennifer (3D mammographic acquisition) in the CC and MLO projections. 2-D mediolateral oblique (MLO) and craniocaudad (CC) views of both breasts were obtained. CAD: Full Field Digital Mammography with Computer Added Detection was performed. COMPARISON: Comparison is made with prior study dated February 25, 2023 and February 21, 2022. FINDINGS: Breast Composition: There are scattered areas of fibroglandular density. There are no dominant masses or suspicious calcifications. No other significant abnormalities are identified. There has been no significant change since the prior study. BI/SCREEN MAMM (CAD) W/YENNIFER UNI R IMPRESSION: Stable unilateral screening mammogram. Yearly follow-up mammogram recommended. (A) ASSESSMENT CATEGORY: BIRADS Category 1: Negative. A letter regarding these results will be sent to the patient by the facility within 30 days. Approximately 10% of breast cancers are not detected by mammography. A normal mammogram should not delay biopsy of a clinically suspicious abnormality. [id number] Electronically Signed: Lobo Chaves MD at 14:03 EDT ,
== END | disposition home or self-care (01) ==
LOC: OPBI 13:02
PROVIDERS: PCP Family Medicine; Referring Provider Family Medicine; Visit Provider Family Medicine
DX: Z12.31 Encounter for screening mammogram for malignant neoplasm of breast (principal); Z85.3 Personal history of malignant neoplasm of breast
CPT/HCPCS: 77063; 77067

== ENCOUNTER → 2024-03-19 | Outpatient (CLI) | payer MEDICARE, OTHER, SELFPAY ==
[2024-03-19 15:20] LABS: Absolute Neutrophil Count 2.8 X10^3/uL (2.0-7.7); Basophil# 0.04 X10^3/uL; Basophil% 0.8 % (0-1); Eosinophil# 0.09 X10^3/uL; Eosinophils% 1.7 % (0-5); Hematocrit 40.6 % (37-47); Hemoglobin 13.5 g/dL (12.0-15.0); Lymphocyte % 34.2 % (19-41); Mean Corp Hgb Conc 33.3 g/dL (32-36); Mean Corpuscular Hgb 29.5 pg (27.0-32.0); Mean Corpuscular Volume 88.6 fL (81-99); Mean Platelet Vol. 10.8 fl (6.2-12.0); Monocyte# 0.52 X10^3/uL; Monocyte% 9.9 % (0-10); NRBC Flagged by Analyzer 0 % (0-5); Neutrophil # 2.81 X10^3/uL (2.7-7.7); Neutrophil % 53.4 % (47-70); Platelet Count 202 K/mm3 (150-450); RBC Distribution Width CV 14.1 % (11.6-14.6); RBC Distribution Width SD 45.4 fl (35.1-43.9); Red Blood Count 4.58 M/mm3 (4.2-5.4); White Blood Count 5.3 K/mm3 (4.4-11.0)
[2024-03-19 15:51] LABS: AST(SGOT) 15 U/L (15-37); Alanine Aminotransfer ALT/SGPT 16 U/L (13-56); Albumin, Serum 3.5 g/dL (3.2-5.0); Alkaline Phosphatase 62 U/L (45-117); Anion Gap 4 (5-15); BUN 24 mg/dL (7-18); BUN/Creat Ratio 26.1 RATIO (10-20); Calcium,Total 9.5 mg/dL (8.5-10.1); Chloride 110 mmol/L (98-107); Creatinine, Serum 0.92 mg/dL (0.55-1.02); EST Glomerular Filtration Rate 63 mL/min (>60); Est Glom Filt Rate - Afr Amer 76 mL/min (>60); Globulin 3.5 g/dL (2.2-4.2); Glucose 103 mg/dL (74-106); Potassium 3.8 mmol/L (3.5-5.1); Sodium Level 141 mmol/L (136-145); Thyroid Stim Hormone (TSH) 1.02 uIU/mL (0.358-3.74)
[2024-03-19 16:14] LABS: Erythrocyte Sedimentation Rate 11 mm/hr (0-30)
== END | disposition home or self-care (01) ==
LOC: MFPLAB 14:24
PROVIDERS: PCP Family Medicine; Visit Provider Family Medicine
DX: R53.81 Other malaise (principal)
CPT/HCPCS: 36415; 80053; 84443; 85025; 85652

== ENCOUNTER → 2024-04-30 | Outpatient (CLI) | payer MEDICARE, OTHER, SELFPAY | END | disposition home or self-care (01) | LOC: PSN 13:42 | PROVIDERS: PCP Family Medicine; Referring Provider Internal Medicine Cardiovascular Disease; Visit Provider Internal Medicine Cardiovascular Disease | DX: R00.2 Palpitations (principal) | CPT/HCPCS: 93225; 93226 ==

== ENCOUNTER → 2024-06-03 | Outpatient (CLI) | payer MEDICARE, OTHER, SELFPAY | END | disposition home or self-care (01) | LOC: PSN 10:49 | PROVIDERS: PCP Family Medicine; Referring Provider Internal Medicine Cardiovascular Disease; Visit Provider Internal Medicine Cardiovascular Disease | DX: I47.10 Supraventricular tachycardia, unspecified (principal) | CPT/HCPCS: 93225; 93226 ==

== ENCOUNTER → 2024-07-08 | Outpatient (CLI) | payer MEDICARE, OTHER, SELFPAY ==
[2024-07-08 12:32] LABS: AST(SGOT) 12 U/L (15-37); Alanine Aminotransfer ALT/SGPT 19 U/L (13-56); Cholesterol 158 mg/dL (200); High Density Lipoprotein 46 mg/dL; Magnesium 2.2 mg/dL (1.6-2.6); Triglycerides 100 mg/dL; Very Low Density Lipoprotein 20 mg/dL (5-40)
== END | disposition home or self-care (01) ==
LOC: LAB 10:59
PROVIDERS: PCP Family Medicine; Referring Provider Family Medicine; Visit Provider Family Medicine
DX: K21.9 Gastro-esophageal reflux disease without esophagitis (principal); E78.5 Hyperlipidemia, unspecified
CPT/HCPCS: 36415; 80061; 83735; 84450; 84460

== ENCOUNTER → 2024-08-09 | Outpatient (CLI) | payer MEDICARE, OTHER, SELFPAY ==
--- NOTE | 2024-08-09 08:10 | CT_ITS ---
EXAM: CT CHEST WITH INTRAVENOUS CONTRAST CLINICAL INDICATION: Long-term lung nodule. History of breast carcinoma. TECHNIQUE: Helically acquired images were obtained of the chest with intravenous contrast. This CT exam was performed using one or more of the following dose reduction techniques: automated exposure control, adjustment of the mA and/or kV according to patient size, and/or use of iterative reconstruction technique. CONTRAST: IV 100mL Isovue-370 RADIATION DOSE: CTDIvol = 29.16 mGy, DLP = 352.81 mGy-cm COMPARISON: CT chest and abdomen with contrast 07/08/2023. FINDINGS: LUNGS AND PLEURAL SPACES: Noncalcified and indeterminate subpleural nodule in the superior segment of the left lower lobe abutting the posterior aspect the major fissure measures 0.9 cm in the axial projection, previously 0.8 cm. In the coronal projection, the pulmonary nodule measures 0.8 cm, previously 0.75 cm. In the sagittal section, the nodule measures 0.8 cm, previously 0.70 cm. 6 mm noncalcified and indeterminate pulmonary nodule in the medial aspect of the posterior segment of the right lower lobe (series 4, images 68; series 602, image 74; series 601, image 147). This was previously 5 mm. No pneumothorax. HEART: Cardiomegaly. Prominent calcified plaques along the LAD branch of the left coronary artery. Normal pericardium. MEDIASTINUM: Unremarkable. No mediastinal or hilar adenopathy. Esophagus is unremarkable. No hiatal hernia. THYROID: Unremarkable. No thyroid lesions. BONES/JOINTS: Mild old central compression fracture with minimal anterior wedging of the upper T12 vertebral body. This was present previously and is unchanged. No suspicious lytic or blastic lesions. VASCULATURE: Noncalcified plaques along the descending thoracic aorta. No thoracic aortic aneurysm or dissection. Less than optimal contrast enhancement of the pulmonary arteries. No suspicious pulmonary thromboemboli. No obvious central pulmonary embolism although this study was not performed with the pulmonary embolism protocol. CT/Chest WITH Contrast IMPRESSION: 1. Noncalcified and indeterminate subpleural nodule in the superior segment of the left lower lobe abutting the major fissure measures 9 mm, previously 8 mm. This pulmonary nodule was not FDG avid on whole-body PET CT fusion scan of 11/12/2023. Considering the history of breast carcinoma and 1 mm increase in size, follow-up whole-body PET CT CT scan will be very helpful for further evaluation. 2. Noncalcified and indeterminate pulmonary nodule in the medial aspect of the posterior segment of the right lower lobe measures 6 mm, previously 5 mm. This was not FDG avid on PET/CT fusion scan of 04/04/2023. Follow-up PET/CT fusion scan will be very helpful. 3. No other suspicious pulmonary nodules or infiltrates. Electronically Signed: Reyes Templeton MD at 8:58 EDT ,
[2024-08-09 08:50] LABS: CREATININE FINGERSTICK < 1.0 mg/dL (0.55-1.02); EGFR FINGERSTICK > 60.0000 mL/min (>60)
== END | disposition home or self-care (01) ==
LOC: CT 08:08
PROVIDERS: PCP Family Medicine; Referring Provider Internal Medicine Medical Oncology; Visit Provider Internal Medicine Medical Oncology
DX: Z01.812 Encounter for preprocedural laboratory examination (principal); I10 Essential (primary) hypertension; R91.1 Solitary pulmonary nodule; Z85.3 Personal history of malignant neoplasm of breast
CPT/HCPCS: 71260; Q9967

== ENCOUNTER → 2024-11-10 | Outpatient (CLI) | payer MEDICARE, OTHER, SELFPAY ==
[2024-11-10 14:51] LABS: Anion Gap 4 (5-15); BUN 21 mg/dL (7-18); BUN/Creat Ratio 23.2 RATIO (10-20); Calcium,Total 9.5 mg/dL (8.5-10.1); Chloride 108 mmol/L (98-107); EST Glomerular Filtration Rate 64 mL/min (>60); Est Glom Filt Rate - Afr Amer 78 mL/min (>60); Glucose 120 mg/dL (74-106); Potassium 3.6 mmol/L (3.5-5.1); Sodium Level 141 mmol/L (136-145)
[2024-11-10 21:04] LABS: BNP,B-Type NATRIURETIC PEPTIDE 505.3 pg/mL (0-100)
== END | disposition home or self-care (01) ==
LOC: LAB 13:51
PROVIDERS: PCP Family Medicine; Referring Provider Nurse Practitioner Family; Visit Provider Nurse Practitioner Family
DX: R06.09 Other forms of dyspnea (principal); R00.2 Palpitations
CPT/HCPCS: 36415; 80048; 83880

== ENCOUNTER 2025-01-26 15:30 | Outpatient (RCR) | payer MEDICARE, OTHER, SELFPAY ==
--- NOTE | 2024-12-23 16:23 | HP.PTEVAL ---
Patient's Visit Information Visit Information Visit Information: LUIS MANUEL MAYA is a 74 year old F referred to Physical Therapy by Dr. Raj Clay DO with a diagnosis of R knee OA. Date of Evaluation: 12/23/24 Physical Therapist: Lucho Beltran, DPT, OCS, CSCS Visit Plan Frequency: 2x /Week Duration: 4-6 Weeks Plan: 2x/week for 4-6 weeks for 1. MH and rollout and stretch to R quad and ITB and HS, progress to home itb and quad stretches 2. leg pull manual 3. strengthening R hip and knee NWB to HEP then WB to tolerance to HEP. Pt to consider pool if this not helpful. IE HEP: HS stretch supine 30 5x daily and LAQ throughout day as well as activtiy modification for OA Subjective Subjective: R knee yrs of trouble, had surgery 2 yrs ago and did Ok, Fell last summer tripping on dog leash wrapped around legs and worse since. R knee hurts anterolaterally. Hurts to be on it and climb steps. Can lock if she straightens it. Gives out on her sometime buckling on steps requiring rail for safety. Sleep is OK.Rolling on it can hurt. Dr. Elder said bone on bone OA and injection series which she started last week. Surgery is an option. Not employed. Basic ADLs all I, hard time bending to put shoe on and bending to put pants on,. Hobbies: reading gardening, sewing. gardening was tough last fall, uses kneeler and but hard time getting up off floor. Regular exercises no. Pain R knee: Pain Intensity (Out of 10): 0 Pain Intensity Range: 0 and 8 Comment: steps wrose, working in house worse. Objective Objective: Walks with R antalgia into clinic I with good balance. Transition out of and into chair I with UE. Bed trasnfeer I. Steps reciprocal but pain R knee ascending and requires rails for stability and safety. AROM R knee0-115, L knee 0-120, pain on R qith quad set and end range knee flexion lateral posterior. SLR is able with pain on R. hip and ankle AROM WFL B but HS mod tight at -35 90/90 B, quad mod tight and ITB mod tight B. reflexes 2/3 patella and achilles B Seensation LE WNL to gross light touch B LE. strength is 3+ R knee ext with pain and 3+ flexion with pain, L is 4-. Hip strength abd and ext 3 B, flexion 3+ B. ankle 4 B. - varus and valgus, + R bounce home and patellar grind. Balance/Special Test Scores Functional Gait Assessment Score: 27 % Disability: 10.0000 Lower Extremity Functional Score: 40 Goals Goal 1:: I appropriate managemnet of knee OA with stretches and strengthening. Goal Time Frame: 4-6 Weeks Goal 2:: Walk without antalgia into and out of PT. Goal Time Frame: 4-6 Weeks Goal 3:: steps reciprocally without hesitation or pain up and down. Goal Time Frame: 4-6 Weeks Goal 4:: LEFS 50 Goal Time Frame: 4-6 Weeks Goal 5:: get off floor without hesitation or pain Goal Time Frame: 4-6 Weeks Rehabilitation Potential Physical Therapy Diagnosis: weakness adn stiffness R LE with pain limiting comfortable funciton Rehabilitation Potential: Fair Anticipated Interventions Patient/Client Instruction: Educate patient on: Condition and Plan of Care For the Purpose of:: To decrease pain, To increase ROM, To improve nutrient delivery to tissue, To increase tolerance to activity/condition/position, To improve ability of physical actions for home/community/work/leisure and To improve gait and locomotor functions Therapeutic Exercise to Include: Strength training, Postural training, Flexibilty training, Passive ROM and Active ROM For the Purpose of:: To decrease pain, To increase ROM, To improve nutrient delivery to tissue, To improve muscle performance and motor function, To increase tolerance to activity/condition/position, To improve ability of physical actions for home/community/work/leisure and To improve gait and locomotor functions Manual Therapy Techniques to Include: Mobilization and Soft tissue mobilization For the Purpose of:: To decrease pain, To increase ROM, To improve nutrient delivery to tissue, To improve muscle performance and motor function and To increase tolerance to activity/condition/position Thermo therapy (hot pack): Yes For the Purpose of:: To increase ROM and To improve nutrient delivery to tissue Text: Thank you for the opportunity to evaluate your patient. For Medicare and Medicare HMO plans, please review the plan of care and approve it. It will need to be FAXED BACK to us at [phone] for Medicare purposes. For Medicare only, by signing this I certify the plan of care. Please let me know if there are questions or concerns regarding this plan of care. Physician Signature: Date:
--- NOTE | 2025-01-26 16:13 | HP.PTDCSUM ---
Discharge Summary D/C summary: It has been my pleasure to treat LUIS MANUEL MAYA referred by Dr. Raj Clay DO, with the diagnosis of R knee OA for a total of 9 visit(s). Discharge Date: 01/26/25 Please see the following information for a summary of their discharge status. Subjective Subjective: gETTING BETTER. The pain is mostly in am and exrcises loosen them up. using vibrator at home and it feels good the rest of the day. HEP SLR and strength and walking daily 30minutes. Activities are pretty normal, Takes time on steps with laundry. Nothing scheulded with doctor. Pain R knee: Pain Intensity (Out of 10): 0 Overall Improvement % Improvement: 90 Objective Objective/Function: Walking near normal but avoids ext at heel strike B, no antalgia today. Steps reciprocal with one rail without hesitation or pain today. Pt happy with progress and willing to continue via HEP Goals Goal 1:: I appropriate managemnet of knee OA with stretches and strengthening. Goal Progress: Goal Met Goal 2:: Walk without antalgia into and out of PT. Goal Progress: Goal Met Goal 3:: steps reciprocally without hesitation or pain up and down. Goal Progress: Goal Met Goal 4:: LEFS 50 Goal Progress: Goal Met Goal 5:: get off floor without hesitation or pain Goal Progress: Goal Met Plan Plan: d/c to HEP D/C Information Discharge Comments: No scheudleed f/u with doctor. d/c sentence: If there are questions or concerns regarding this patient's physical therapy, please feel free to call me at [phone]. Thank you for the referral of this patient. Sincerely, Lucho Beltran, DPT, OCS, CSCS Balance/Gait/Functional tests Balance/Special Test Scores Functional Gait Assessment Score: 27 % Disability: 10.0000 Lower Extremity Functional Score: 55 Improvement % Improvement: 90
== END 2025-01-26 19:00 | disposition home or self-care (01) ==
LOC: PT 15:30
PROVIDERS: PCP Family Medicine; Referring Provider Orthopaedic Surgery; Visit Provider Orthopaedic Surgery
DX: M17.11 Unilateral primary osteoarthritis, right knee (principal)
CPT/HCPCS: 97110; 97140; 97161; 97530

== ENCOUNTER → 2025-03-02 | Outpatient (CLI) | payer MEDICARE, OTHER, SELFPAY ==
--- NOTE | 2025-03-02 12:22 | BI_ITS ---
EXAM: SCREEN MAMM (CAD) W/YENNIFER UNI R 03/02/2025 CLINICAL HISTORY: F, Age 75 y/o , SCREENING FOR MAMMOGRAM TECHNIQUE: Right screening digital breast tomosynthesis with 2D and 3D images. Computer aided detection. COMPARISON: Prior exam(s) dated 02/27/2024, 02/25/2023, 02/21/2022. FINDINGS: TISSUE DENSITY: The breast tissue is composed of scattered area of fibroglandular density. Right Breast Mammographic Findings: No significant masses, calcifications or other abnormalities are identified. BI/SCREEN MAMM (CAD) W/YENNIFER UNI R IMPRESSION: Right Breast: BIRADS 1 NEGATIVE. OVERALL FINAL ASSESSMENT: BIRADS 1 NEGATIVE. RECOMMENDATION: Routine annual follow-up in 1 Year A letter with findings and recommendations will be mailed to the patient. Reading Location: [facility]
== END | disposition home or self-care (01) ==
LOC: OPBI 12:21
PROVIDERS: PCP Family Medicine; Referring Provider Family Medicine; Visit Provider Family Medicine
DX: Z12.31 Encounter for screening mammogram for malignant neoplasm of breast (principal)
CPT/HCPCS: 77063; 77067

== ENCOUNTER → 2025-06-24 | Outpatient (CLI) | payer MEDICARE, OTHER, SELFPAY ==
[2025-06-24 09:08] LABS: Hematocrit 42.7 % (37-47); Hemoglobin 14.6 g/dL (12.0-15.0); Immature Granulocytes Count 0.000 X10^3/uL (0.0-0.0); Mean Corp Hgb Conc 34.2 g/dL (32-36); Mean Corpuscular Volume 87.3 fL (81-99); Mean Platelet Vol. 10.2 fl (6.2-12.0); NRBC Flagged by Analyzer 0 % (0-5); Platelet Count 222 K/mm3 (150-450); RBC Distribution Width CV 13.5 % (11.6-14.6); RBC Distribution Width SD 43.3 fl (35.1-43.9); Red Blood Count 4.89 M/mm3 (4.2-5.4); White Blood Count 4.4 K/mm3 (4.4-11.0)
[2025-06-24 10:17] LABS: AST(SGOT) 19 U/L (<=31); Alanine Aminotransfer ALT/SGPT 9 U/L (<=34); Albumin, Serum 3.9 g/dL (3.4-4.8); Alkaline Phosphatase 65 U/L (35-104); Anion Gap 14 (5-15); BUN 15 mg/dL (4-19); BUN/Creat Ratio 15.1 RATIO (10-20); Bilirubin, Direct 0.22 mg/dL (0.00-0.30); Calcium,Total 9.6 mg/dL (7.6-11.0); Carbon Dioxide 22.3 mmol/L (21.0-32.0); Chloride 104 mmol/L (98-108); Cholesterol 208 mg/dL (<=200); Globulin 3.6 g/dL (2.2-4.2); Glucose 111 mg/dL (70-99); Low Density Lipoprotein Calc. 140 mg/dL; Potassium 3.9 mmol/L (3.3-5.1); Triglycerides 131 mg/dL; Very Low Density Lipoprotein 26 mg/dL (5-40); Vitamin D,25 Hydroxy 37.5 ng/mL (30-100); cholesterol:hdl ratio screen 4.92
[2025-06-24 11:06] LABS: Pro- Brain NATRIURETIC PEPTIDE 2026 pg/mL (<=1800)
== END | disposition home or self-care (01) ==
PROVIDERS: Nurse Practitioner Family; PCP Family Medicine; Referring Provider Nurse Practitioner Gerontology; Visit Provider Nurse Practitioner Gerontology
DX: R06.09 Other forms of dyspnea (principal); I47.10 Supraventricular tachycardia, unspecified; R00.2 Palpitations; R53.83 Other fatigue; E78.5 Hyperlipidemia, unspecified; E55.9 Vitamin D deficiency, unspecified
CPT/HCPCS: 36415; 80048; 80061; 80076; 82306; 83880; 84443; 85025

== ENCOUNTER 2025-07-11 12:45 | Inpatient (IN) | payer MEDICARE, OTHER, SELFPAY ==
[2025-07-11] VITALS (31 sets, daily range): BP systolic 132–189; BP diastolic 67–95; PULSE 62–99; RESP 16–26; TEMP 36.8–37.3; O2SAT 83–99; BMI 29.0; BMI 29.2
--- NOTE | 2025-07-11 13:32 | EKG12_ITS ---
Test Reason : Blood Pressure : */* mmHG Vent. Rate : 81 BPM Atrial Rate : 81 BPM P-R Int : 130 ms QRS Dur : 78 ms QT Int : 392 ms P-R-T Axes : 24 2 -50 degrees QTcB Int : 455 ms Normal sinus rhythm ST & T wave abnormality, consider inferolateral ischemia Abnormal ECG Confirmed by ADRI BEDOLLA, ZAID ([id number]), newspaper copy editor GALO POTTER ([id number]) on 07/12/2025 8:48:13 AM Referred By: Confirmed By: ZAID RUSH MD
--- NOTE | 2025-07-11 14:05 | RAD_ITS ---
PROCEDURE: CHEST PA AND LATERAL 07/11/2025 REASON FOR EXAM: CHEST PAIN TECHNIQUE: CHEST PA AND LATERAL COMPARISON: None FINDINGS: Hardware: EKG electrodes are seen. Heart: Mild cardiomegaly. Mediastinum: Unremarkable Lungs: Large right pleural effusion with right basilar infiltration and/or atelectasis. Fluid is seen within the right major fissure. Bones: Loss of height of a lower dorsal vertebrae. Degenerative osteoarthritis of both shoulder joints. RAD/Chest PA and Lateral IMPRESSION: There is a large right pleural effusion with underlying infiltration and/or ate lectasis with small amount of fluid in the right major fissure. Reading Location: [id number]
[2025-07-11 14:18] LABS: Hematocrit 43.1 % (37-47); Hemoglobin 14.3 g/dL (12.0-15.0); Immature Granulocytes Count 0.010 X10^3/uL (0.0-0.0); Mean Corp Hgb Conc 33.2 g/dL (32-36); Mean Corpuscular Volume 88.5 fL (81-99); Mean Platelet Vol. 10.5 fl (6.2-12.0); NRBC Flagged by Analyzer 0 % (0-5); Platelet Count 216 K/mm3 (150-450); RBC Distribution Width CV 13.6 % (11.6-14.6); RBC Distribution Width SD 44.2 fl (35.1-43.9); Red Blood Count 4.87 M/mm3 (4.2-5.4); White Blood Count 5.3 K/mm3 (4.4-11.0)
[2025-07-11 14:34] LABS: Troponin T High Sensitivity 18 ng/L (<=14)
[2025-07-11 15:51] LABS: Anion Gap 14 (5-15); BUN 20 mg/dL (4-19); BUN/Creat Ratio 22.0 RATIO (10-20); Calcium,Total 9.4 mg/dL (7.6-11.0); Carbon Dioxide 22.1 mmol/L (21.0-32.0); Chloride 107 mmol/L (98-108); Estimated Creatinine Clearance 51.32 ml/min (50-250); Glucose 127 mg/dL (70-99); Potassium 3.7 mmol/L (3.3-5.1); Pro- Brain NATRIURETIC PEPTIDE 2463 pg/mL (<=1800)
--- NOTE | 2025-07-11 16:02 | ED.VIS.DYS ---
HPI History of Present Illness Chief Complaint: Shortness of Breath Narrative Narrative: Patient is a 75-year-old female presenting to the emergency department for worsening shortness of breath with exertion and chest tightness that just started Friday. Patient has a past medical history as below. Patient states that the shortness of breath and chest pain improves at rest but worsen with any exertion. She denies fever, chills, cough, lower extremity edema. Denies any diaphoresis, nausea or vomiting. PFSH PFS Medical History Shortness of breath Atrial fibrillation Other obesity due to excess calories Periodic limb movement disorder Insomnia Abscess of upper back excluding scapular region Foot pain Pelvic pain in female Elevated blood-pressure reading, without diagnosis of hypertension Other fatigue Ganglion and cyst of synovium, tendon, and bursa Other enthesopathy of knee Dysphagia, unspecified Tinea corporis Pain in joint involving lower leg Pain in joint Seborrheic dermatitis, unspecified Subjective muscle weakness Rotator cuff (capsule) sprain Pain in left shoulder Tingling of right upper extremity Lateral epicondylitis Synovitis and tenosynovitis, unspecified Hypertrophic toenail Osteopenia Elbow pain, right Cervicalgia Acute bronchitis with bronchospasm Unspecified visual disturbance Lumps on the skin Cellulitis and abscess of unspecified site Bilateral arm pain Osteoporosis Sleep apnea in adult Headache, unspecified Unspecified injury of head, initial encounter Degenerative disc disease, lumbar Osteoarthritis Mass of thyroid region Breast cancer Wears glasses Cancer Depression Arthritis Bladder disease Anemia Non-smoker History of pain when walking History of edema History of stress test Localized osteoarthritis of right knee Back pain Knee pain Shoulder pain Hemorrhoids History of cancer Home Medications ?Medication ?Instructions ?Recorded ?Last Taken ?Type cholecalciferol (vitamin D3) 25 25 mcg PO DAILY 01/28/23 02/03/23 History mcg (1,000 unit) capsule (Vitamin D3) lactobacillus combination no.4 3 3,000 mmu cells PO DAILY 01/28/23 02/03/23 History billion cell capsule (Probiotic) ondansetron 4 mg disintegrating 4 mg PO Q8H PRN PRN Nausea #10 tabs 11/20/23 Unknown Rx tablet acetaminophen 650 mg 650 mg PO HS PRN 12/08/23 Unknown History tablet,extended release multivitamin 1 tab PO DAILY 12/08/23 Unknown History sertraline 100 mg tablet 150 mg PO QHS 12/08/23 Unknown History cyanocobalamin (vitamin B-12) 1,000 mcg PO QDAY 11/10/24 Unknown History 1,000 mcg tablet magnesium oxide 250 mg PO QDAY 11/10/24 Unknown History spironolactone 25 mg tablet 25 mg PO DAILY #30 tabs 11/12/24 Unknown Rx metoprolol tartrate 50 mg tablet 50 mg PO BID #60 tabs 04/12/25 Unknown Rx furosemide 40 mg tablet (Lasix) 40 mg PO QAM #5 tabs 06/24/25 Unknown Rx Allergy/AdvReac Type Severity Reaction Status Date / Time adhesive tape Allergy Rash Verified 07/11/25 12:46 hydrocodone bitartrate (From Allergy HEAD IN A Verified 07/11/25 12:46 Vicodin) VICE venlafaxine HCl (From Allergy DIFFICULTY Verified 07/11/25 12:46 Effexor) BREATHING erythromycin base AdvReac Mild Other Verified 07/11/25 12:46 Sulfa (Sulfonamide AdvReac Mild Rash Verified 07/11/25 12:46 Antibiotics) Family History Sister Hypertension Father Heart disease Black lung Surgical History History of carpal tunnel surgery of right wrist History of partial hysterectomy History of mastectomy, total History of lateral meniscus repair of right knee History of root canal procedure Hx of colonoscopy Hx of appendectomy Hx of umbilical hernia repair Hx of breast reconstruction History of mastectomy History of lumpectomy Social History Smoking Status: Never smoker alcohol intake: never substance use type: does not use caffeine: Yes ROS ROS ED ROS Narrative see HPI EXAM Physical Exam Narrative Exam Narrative: Vital signs: Reviewed General: Alert and oriented. No acute distress HEENT: Head is normocephalic and atraumatic, sinuses nontender, pupils equal round and reactive. Nares are patent. Oropharynx and throat exams normal. Neck: Supple without lymphadenopathy nontender Cardiovascular: Regular rate and rhythm, no murmurs. No rubs or gallops. Normal S1 and S2 Respiratory: Decreased lung sounds in right lower lung field. Otherwise clear to auscultation bilaterally. No wheezes, rales, rhonchi Abdominal: Soft and nontender. Normal bowel sounds. No guarding or rebound. Nonsurgical abdomen Extremities: 1+ pitting edema bilaterally. No tenderness. No bruising. Normal range of motion. Normal sensation. Skin: No rash or redness. Neurological: Cranial nerves II through XII are grossly intact. Normal strength and sensation. Normal cerebellar function The rest of the physical exam is unremarkable Const Vital Signs: 07/11/25 12:45 07/11/25 12:46 07/11/25 12:53 Temperature 98.5 F Temperature Source Oral Pulse Rate 99 96 Respiratory Rate 22 H 25 H Respiratory Effort Normal Non-Labored Respiratory Depth Normal Respiratory Pattern Normal Blood Pressure 152/80 H Blood Pressure Mean 104 Pulse Ox 93 Oxygen Delivery Method Room Air Room Air 07/11/25 13:00 07/11/25 13:15 07/11/25 13:30 Temperature Temperature Source Pulse Rate 92 92 88 Respiratory Rate 25 H 26 H 26 H Respiratory Effort Respiratory Depth Respiratory Pattern Blood Pressure 154/83 H 146/76 H 157/81 H Blood Pressure Mean 102 97 104 Pulse Ox 95 94 Oxygen Delivery Method 07/11/25 13:45 07/11/25 13:49 07/11/25 13:50 Temperature Temperature Source Pulse Rate 81 66 Respiratory Rate 25 H 17 Respiratory Effort Respiratory Depth Respiratory Pattern Blood Pressure 155/76 H 132/67 H Blood Pressure Mean 100 88 Pulse Ox 92 98 98 Oxygen Delivery Method Room Air Room Air 07/11/25 14:00 07/11/25 14:00 07/11/25 14:00 Temperature Temperature Source Pulse Rate 74 Respiratory Rate 24 H Respiratory Effort Respiratory Depth Respiratory Pattern Blood Pressure 156/74 H 156/74 H 156/74 H Blood Pressure Mean 99 99 99 Pulse Ox 94 Oxygen Delivery Method 07/11/25 14:15 07/11/25 14:30 07/11/25 14:45 Temperature Temperature Source Pulse Rate 77 74 75 Respiratory Rate 22 H 21 H 23 H Respiratory Effort Respiratory Depth Respiratory Pattern Blood Pressure 177/73 H 176/83 H 165/83 H Blood Pressure Mean 102 105 107 Pulse Ox 83 94 94 Oxygen Delivery Method 07/11/25 15:00 07/11/25 15:15 07/11/25 15:30 Temperature Temperature Source Pulse Rate 72 70 66 Respiratory Rate 17 17 24 H Respiratory Effort Respiratory Depth Respiratory Pattern Blood Pressure 157/92 H 164/88 H 174/82 H Blood Pressure Mean 112 106 106 Pulse Ox 94 99 90 Oxygen Delivery Method 07/11/25 15:45 07/11/25 16:00 Temperature Temperature Source Pulse Rate 69 65 Respiratory Rate 26 H 18 Respiratory Effort Respiratory Depth Respiratory Pattern Blood Pressure 161/87 H 176/92 H Blood Pressure Mean 100 112 Pulse Ox 94 94 Oxygen Delivery Method MDM MDM MDM Narrative Medical decision making narrative: Patient is a 75-year-old female presenting to the emergency department for chest tightness with shortness of breath. Patient was seen and examined. Vitals are stable. Patient resting bed comfortably no acute distress. EKG shows normal sinus rhythm. There is ST depression in V4 through V6 which is present on prior EKG however worsened here now. CBC with no leukocytosis and a normal hemoglobin. BMP with no significant abnormalities. Troponin initially elevated 18, will continue to trend. BNP elevated at 2463, appears baseline for her. CXR shows a large right pleural effusion with underlying infiltration and/or atelectasis. Patients description of the pain worsening is concerning for cardiac cause along with the elevated troponin and EKG changes. Will require admission. 324 mg aspirin given. Did speak with Dr. Moy who will cath tomorrow. Recommended starting heparin drip as well. Admitted to hospitalist Dr. Fan for further management. Clinical impression: exertional angina pleural effusion elevated troponin History & Record Review Discussion w/independent historian: Patient and Family Lab Data Attestation: I reviewed the patient's lab results. Labs: Laboratory Results - last 24 hr 07/11/25 14:00 WBC 5.3 RBC 4.87 Hgb 14.3 Hct 43.1 MCV 88.5 MCH 29.4 MCHC 33.2 RDW Std Deviation 44.2 H RDW Coeff of Meri 13.6 Plt Count 216 MPV 10.5 Immature Gran % (Auto) 0.200 Neut % (Auto) 67.0 Lymph % (Auto) 21.4 [place] % (Auto) 8.6 Eos % (Auto) 1.9 Baso % (Auto) 0.9 Absolute Neuts (auto) 3.6 Absolute Lymphs (auto) 1.14 Nucleated RBC % 0 Sodium 144 Potassium 3.7 Chloride 107 Carbon Dioxide 22.1 Anion Gap 14 BUN 20 H Creatinine 0.92 Estim Creat Clear Calc 51.32 Est GFR (MDRD) Non-Af 64 BUN/Creatinine Ratio 22.0 H Glucose 127 H Calcium 9.4 Troponin T High Sens 18 H NT pro BNP II 2463 H Radiography Diagnostic Testing: Clinical Impression(s) from Imaging Studies Chest X-Ray 07/11/25 14:05 IMPRESSION: There is a large right pleural effusion with underlying infiltration and/or atelectasis with small amount of fluid in the right major fissure. Reading Location: [id number] Discharge Plan Triage Chief Complaint: Shortness of Breath ED Provider: Yovana Henderson Dx/Rx/DC Orders Prescriptions: No Action multivitamin Tablet 1 tab PO DAILY acetaminophen 650 mg tablet extended release 650 mg PO HS PRN cyanocobalamin (vitamin B-12) 1,000 mcg tablet 1,000 mcg PO QDAY magnesium oxide 250 mg magnesium tablet 250 mg PO QDAY sertraline 100 mg tablet 150 mg PO QHS cholecalciferol (vitamin D3) [Vitamin D3] 25 mcg (1,000 unit) Capsule 25 mcg PO DAILY Probiotic 3 billion cell Capsule 3,000 mmu cells PO DAILY Rx Instructions: administer with a meal ondansetron [ondansetron] 4 mg tablet,disintegrating 4 mg PO Q8H PRN PRN (Reason: Nausea) Qty: 10 0RF spironolactone 25 mg tablet 25 mg PO DAILY Qty: 30 11RF metoprolol tartrate 50 mg tablet 50 mg PO BID Qty: 60 11RF furosemide [Lasix] 40 mg tablet 40 mg PO QAM Qty: 5 0RF Primary Care Provider: Shy Del Valle Referrals: Shy Del Valle MD [Primary Care Provider] - Print Language: Pashto
[2025-07-11 17:10] LABS: Troponin T High Sens 2 HR 13 ng/L (<=14)
--- NOTE | 2025-07-11 17:45 | CON.PCM.CA_ITS ---
Assessment & Plan Assessment/Plan (1) Chest tightness: PLAN: She does present with chest tightness which is concerning with EKG changes. Her cardiac enzymes are however normal despite the fact that she has had chest discomfort for 2 weeks or so. My recommendation be for us to proceed with a left heart catheterization. However she does have a significant right pleural effusion and I am concerned about starting her on heparin until she has had a thoracentesis at least. I have discussed this with the hospitalist and the plan will be to proceed with a left heart catheterization after we do have some information about her right pleural effusion. An echocardiogram will also be performed to assess her ventricular function. She has not had any rest angina and therefore I do not feel inclined to start her on intravenous heparin at this time. (2) Shortness of breath: PLAN: She presents for shortness of breath and has a large right pleural effusion as well as fluid in her minor fissure. Will obtain an echocardiogram to assess her ventricular function and we have discussed scheduling her for a thoracentesis fairly urgently in the morning before we proceed with any cardiac procedures. Depending on the results of the above or the outcome of the above further recommendations will be made. Thank you for allowing me to participate in the care of your patient. Please don't hesitate to call if any issues arise. HPI Consult Data Date of Consult: 07/11/25 HPI Narrative HPI Narrative: LUIS MANUEL MAYA, is a 75 F who presents to the emergency room this evening with a 2-week history of chest discomfort. She describes this as a pressure-like sensation in her chest which occurs with exertion and goes away with rest. She denies any dizziness or diaphoresis near syncope or syncope she says that she had a previous history of atrial fibrillation as well as hypertension. She has been compliant with her medications. She apparently was recently seen in the office and was put on spironolactone for apparent pleural effusion. She has not had any rest chest discomfort. In the emergency room on this visit she was noted to have an elevated blood pressure and lateral ST depression. Cardiology was called for further evaluation and management. She previously had a dobutamine stress echocardiogram in 2022 with no evidence of ischemia. She also was noted to have moderate to severe concentric low ventricle hypertrophy on her echocardiogram. FORMERLY [facility], [facility] Medical History Shortness of breath Atrial fibrillation Other obesity due to excess calories Periodic limb movement disorder Insomnia Abscess of upper back excluding scapular region Foot pain Pelvic pain in female Elevated blood-pressure reading, without diagnosis of hypertension Other fatigue Ganglion and cyst of synovium, tendon, and bursa Other enthesopathy of knee Dysphagia, unspecified Tinea corporis Pain in joint involving lower leg Pain in joint Seborrheic dermatitis, unspecified Subjective muscle weakness Rotator cuff (capsule) sprain Pain in left shoulder Tingling of right upper extremity Lateral epicondylitis Synovitis and tenosynovitis, unspecified Hypertrophic toenail Osteopenia Elbow pain, right Cervicalgia Acute bronchitis with bronchospasm Unspecified visual disturbance Lumps on the skin Cellulitis and abscess of unspecified site Bilateral arm pain Osteoporosis Sleep apnea in adult Headache, unspecified Unspecified injury of head, initial encounter Degenerative disc disease, lumbar Osteoarthritis Mass of thyroid region Breast cancer Wears glasses Cancer Depression Arthritis Bladder disease Anemia Non-smoker History of pain when walking History of edema History of stress test Localized osteoarthritis of right knee Back pain Knee pain Shoulder pain Hemorrhoids History of cancer Home Medications ?Medication ?Instructions ?Recorded ?Last Taken ?Type cholecalciferol (vitamin D3) 25 25 mcg PO DAILY 02/03/23 History mcg (1,000 unit) capsule (Vitamin D3) lactobacillus combination no.4 3 3,000 mmu cells PO DA LUIS CARLOS 01/28/23 02/03/23 History billion cell capsule (Probiotic) ondansetron 4 mg disintegrating 4 mg PO Q8H PRN PRN Na usea #10 tabs 11/20/23 Unknown Rx tablet acetaminophen 650 mg 650 mg PO HS PRN fever or pa in 12/08/23 Unknown History tablet,extended release sertraline 100 mg tablet 150 mg PO QHS 12/08/23 Unkno wn History cyanocobalamin (vitamin B-12) 1,000 mcg PO QDAY Unknown History 1,000 mcg tablet spironolactone 25 mg tablet 25 mg PO DAILY #30 tabs Unknown Rx metoprolol tartrate 50 mg tablet 50 mg PO BID #60 tabs 04/12/25 Unknown Rx Allergy/AdvReac Type Severity Reaction Status Date / Time adhesive tape Allergy Rash Verified 07/11/25 12:46 hydrocodone bitartrate (From Allergy HEAD IN A Verified 07/11/25 12:46 Vicodin) VICE venlafaxine HCl (From Allergy DIFFICULTY Verified 07/11/25 12:46 Effexor) BREATHING erythromycin base AdvReac Mild Other Verified 07/11/25 12:46 Sulfa (Sulfonamide AdvReac Mild Rash Verified 07/11/25 12:46 Antibiotics) Family History Sister Hypertension Father Heart disease Black lung Surgical History History of carpal tunnel surgery of right wrist History of partial hysterectomy History of mastectomy, total History of lateral meniscus repair of right knee History of root canal procedure Hx of colonoscopy Hx of appendectomy Hx of umbilical hernia repair Hx of breast reconstruction History of mastectomy History of lumpectomy Social History Smoking Status: Never smoker alcohol intake: never substance use type: does not use caffeine: Yes ROS Constitutional Constitutional: Denies fever(s) or weight loss Eyes Eyes: Reports systems reviewed and no addt'l complaints, except as documented ENT HEENT: Reports systems reviewed and no addt'l complaints, except as documented Cardiovascular Cardiovascular: Reports chest pain with activity and dyspnea on exertion; Denies chest pain at rest, dyspnea at rest, edema, palpitations or paroxysmal nocturnal dyspnea Respiratory/Chest Respiratory/Chest: Reports dyspnea on exertion and shortness of breath with exertion; Denies productive cough or shortness of breath at rest Gastrointestinal Gastrointestinal: Denies change in bowel habits, nausea, vomiting or weight changes Genitourinary Genitourinary: Denies difficulty urinating Musculoskeletal Musculoskeletal: Denies joint stiffness or muscle weakness Integumentary Integumentary: Denies lesions Neurologic Neurologic: Denies dizziness or syncope Psychiatric Psychiatric: Denies anxiety Endocrine Endocrinology: Denies excessive sweating or fatigue Hematologic/Lymphatic Hematologic/Lymphatic: Denies anemia Allergic/Immunologic Allergic/Immunologic: Denies seasonal rhinorrhea Physical Exam Const alert, oriented x3 and no apparent distress General Appearance: cooperative HEENT hearing grossly normal bilaterally Head and Scalp: atraumatic Eyes EOMs intact bilaterally Neck General: normal visual inspection Chest inspection of chest normal and palpation of chest normal Resp normal respiratory effort Auscultation: clear to auscultation bilaterally Cardio regular rate, regular rhythm, S1 normal heart sound and S2 normal heart sound Jugular Venous Distention: JVD GI normal to inspection, nondistended, normoactive bowel sounds Extremity normal capillary refill and no pedal edema Peripheral Pulses: Yes pulses 2+ throughout and femoral pulses present Skin no rashes or lesions noted Neuro oriented x3 and CN's II-XII intact bilaterally Psych Appearance: grossly normal and appropriate Objective Data Vital Signs: Vital Signs Temp Pulse Resp BP Pulse Ox O2 Del Method 98.5 F 79 20 H 170/88 H 94 Room Air 07/11/25 12:46 07/11/25 17:00 07/11/25 17:00 07/11/25 17:00 07/11/25 17:00 07/11/25 13:50 Oxygen Delivery Method Room Air Weight: 169 lb Body Mass Index (BMI) 29.0 Lab / Micro Data 07/11/25 14:00 07/11/25 14:00 Labs: Laboratory Results - last 24 hr 07/11/25 14:00: WBC 5.3, RBC 4.87, Hgb 14.3, Hct 43.1, MCV 88.5, MCH 29.4, MCHC 33.2, RDW Std Deviation 44.2 H, RDW Coeff of Meri 13.6, Plt Count 216, MPV 10.5, Immature Gran % (Auto) 0.200, Neut % (Auto) 67.0, Lymph % (Auto) 21.4, [place] % (Auto) 8.6, Eos % (Auto) 1.9, Baso % (Auto) 0.9, Absolute Neuts (auto) 3.6, Absolute Lymphs (auto) 1.14, Nucleated RBC % 0, Sodium 144, Potassium 3.7, Chloride 107, Carbon Dioxide 22.1, Anion Gap 14, BUN 20 H, Creatinine 0.92, Estim Creat Clear Calc 51.32, Est GFR (MDRD) Non-Af 64, BUN/Creatinine Ratio 22.0 H, Glucose 127 H, Calcium 9.4, Troponin T High Sens 18 H, NT pro BNP II 2463 H 07/11/25 16:23: Troponin T Hi Sens 2 Hr 13 Cardiology Labs/Tests 07/11/25 14:00: WBC 5.3, RBC 4.87, Hgb 14.3, Hct 43.1, MCV 88.5, MCH 29.4, MCHC 33.2, Plt Count 216, MPV 10.5, Immature Gran % (Auto) 0.200, Neut % (Auto) 67.0, Lymph % (Auto) 21.4, [place] % (Auto) 8.6, Eos % (Auto) 1.9, Baso % (Auto) 0.9, Absolute Neuts (auto) 3.6, Nucleated RBC % 0, Sodium 144, Potassium 3.7, Chloride 107, Carbon Dioxide 22.1, Anion Gap 14, BUN 20 H, Creatinine 0.92, Est GFR (MDRD) Non-Af 64, BUN/Creatinine Ratio 22.0 H, Glucose 127 H, Calcium 9.4 Rhythm: EKG: Sinus rhythm with 1 to [address] depression ECHO: Stress Test: Cardiac Cath: PCI: CT Surgery: Holter monitor: EPS: PPM: CXR: Chest CT Scan: Radiography Diagnostic Testing: Radiology Impression Chest X-Ray 07/11/25 14:05 IMPRESSION: There is a large right pleural effusion with underlying infiltration and/or atelectasis with small amount of fluid in the right major fissure. Reading Location: [id number] Risk Score for UA/STEMI Assesmment (YES = 1) Risk Stratification Applicable: Yes Age > or = 65: Yes > or = 3 CAD risk factors (HTN, Hypercholesterolemia, Diabetes, family hx, current smoker): No Known CAD (Stenosis > or = 50%): No ASA used in past 7 days: Yes Severe angina (> or = 2 episodes in 24 hrs): Yes EKG ST change > or = 0.5mm: Yes Positive cardiac markers: No Score AMANDA Risk Score of mortality/ recurrent ischemic event over the next 14 days: 4 = 19.9% - Intermediate
--- NOTE | 2025-07-11 17:46 | PCM.HP.STD ---
HPI - General General Date of Admission: 07/11/25 Date of Service: 07/11/25 Chief Complaint: Chest pain and shortness of breath HPI Narrative LUIS MANUEL MAYA, is a 75-year-old female with a history of depression and PACs presented to [facility] ED 07/11/2025 for shortness of breath with exertion and chest tightness that started on Friday. CP and SOB worse w/ exertion and improves w/ rest. No n/v, no cough or LE edema. In the ED temp 98.5 heart rate 99 and blood pressure 152/80, respiratory rate 22 and pulse ox 93% on room air. Chest x-ray large right pleural effusion with underlying infiltration and/or atelectasis with small amount of fluid in right major fissure. Troponin 18. CBC unremarkable, BMP with a BUN of 20 and a creatinine 0.92, proBNP 2400. Given patient's chest pain and shortness of breath worse on exertion and better at rest with concerning history cardiology was contacted and recommended heparin drip and heart cath in the a.m. Hospitalist contacted for admission. Patient evaluated at bedside. She reports 2 days of increased shortness of breath and chest pain on exertion better with rest that has been consistent, reports some weight loss and denies any increase swelling in lower extremities, has had a little bit of a dry cough but nothing productive and no fevers. No other new or acute complaints. [facility] Medical History Shortness of breath Atrial fibrillation Other obesity due to excess calories Periodic limb movement disorder Insomnia Abscess of upper back excluding scapular region Foot pain Pelvic pain in female Elevated blood-pressure reading, without diagnosis of hypertension Other fatigue Ganglion and cyst of synovium, tendon, and bursa Other enthesopathy of knee Dysphagia, unspecified Tinea corporis Pain in joint involving lower leg Pain in joint Seborrheic dermatitis, unspecified Subjective muscle weakness Rotator cuff (capsule) sprain Pain in left shoulder Tingling of right upper extremity Lateral epicondylitis Synovitis and tenosynovitis, unspecified Hypertrophic toenail Osteopenia Elbow pain, right Cervicalgia Acute bronchitis with bronchospasm Unspecified visual disturbance Lumps on the skin Cellulitis and abscess of unspecified site Bilateral arm pain Osteoporosis Sleep apnea in adult Headache, unspecified Unspecified injury of head, initial encounter Degenerative disc disease, lumbar Osteoarthritis Mass of thyroid region Breast cancer Wears glasses Cancer Depression Arthritis Bladder disease Anemia Non-smoker History of pain when walking History of edema History of stress test Localized osteoarthritis of right knee Back pain Knee pain Shoulder pain Hemorrhoids History of cancer Home Medications ?Medication ?Instructions ?Recorded ?Last Taken ?Type cholecalciferol (vitamin D3) 25 25 mcg PO DAILY 01/28/23 02/03/23 History mcg (1,000 unit) capsule (Vitamin D3) lactobacillus combination no.4 3 3,000 mmu cells PO DAILY 01/28/23 02/03/23 History billion cell capsule (Probiotic) ondansetron 4 mg disintegrating 4 mg PO Q8H PRN PRN Nausea #10 tabs 11/20/23 Unknown Rx tablet acetaminophen 650 mg 650 mg PO HS PRN fever or pain 12/08/23 Unknown History tablet,extended release sertraline 100 mg tablet 150 mg PO QHS 12/08/23 Unknown History cyanocobalamin (vitamin B-12) 1,000 mcg PO QDAY 11/10/24 Unknown History 1,000 mcg tablet spironolactone 25 mg tablet 25 mg PO DAILY #30 tabs 11/12/24 Unknown Rx metoprolol tartrate 50 mg tablet 50 mg PO BID #60 tabs 04/12/25 Unknown Rx Allergy/AdvReac Type Severity Reaction Status Date / Time adhesive tape Allergy Rash Verified 07/11/25 12:46 hydrocodone bitartrate (From Allergy HEAD IN A Verified 07/11/25 12:46 Vicodin) VICE venlafaxine HCl (From Allergy DIFFICULTY Verified 07/11/25 12:46 Effexor) BREATHING erythromycin base AdvReac Mild Other Verified 07/11/25 12:46 Sulfa (Sulfonamide AdvReac Mild Rash Verified 07/11/25 12:46 Antibiotics) Family History Sister Hypertension Father Heart disease Black lung Surgical History History of carpal tunnel surgery of right wrist History of partial hysterectomy History of mastectomy, total History of lateral meniscus repair of right knee History of root canal procedure Hx of colonoscopy Hx of appendectomy Hx of umbilical hernia repair Hx of breast reconstruction History of mastectomy History of lumpectomy Social History Smoking Status: Never smoker alcohol intake: never substance use type: does not use caffeine: Yes ROS ROS Narrative General: Denies fever/chills HENT: Denies headache, denies stuffy nose, denies sore throat EYES: Denies changes in vision Resp: Dry cough, shortness of breath on exertion cardiac: Substernal chest pressure on exertion GI: Denies abdominal pain, denies changes in bowel, denies nausea/vomiting : Denies changes in urination Extremity: Denies swelling MSK: Denies weakness Neuro: Denies any numbness/tingling Heme: Denies any bleeding or bruising Skin: Denies rashes Psychiatric: No complaints voiced Vital Signs Vital Signs Vital Signs: 07/11/25 12:45 07/11/25 12:46 07/11/25 12:53 Temperature 98.5 F Temperature Source Oral Pulse Rate 99 96 Respiratory Rate 22 H 25 H Respiratory Effort Normal Non-Labored Respiratory Depth Normal Respiratory Pattern Normal Blood Pressure 152/80 H Blood Pressure Mean 104 Pulse Ox 93 Oxygen Delivery Method Room Air Room Air 07/11/25 13:00 07/11/25 13:15 07/11/25 13:30 Temperature Temperature Source Pulse Rate 92 92 88 Respiratory Rate 25 H 26 H 26 H Respiratory Effort Respiratory Depth Respiratory Pattern Blood Pressure 154/83 H 146/76 H 157/81 H Blood Pressure Mean 102 97 104 Pulse Ox 95 94 Oxygen Delivery Method 07/11/25 13:45 07/11/25 13:49 07/11/25 13:50 Temperature Temperature Source Pulse Rate 81 66 Respiratory Rate 25 H 17 Respiratory Effort Respiratory Depth Respiratory Pattern Blood Pressure 155/76 H 132/67 H Blood Pressure Mean 100 88 Pulse Ox 92 98 98 Oxygen Delivery Method Room Air Room Air 07/11/25 14:00 07/11/25 14:00 07/11/25 14:00 Temperature Temperature Source Pulse Rate 74 Respiratory Rate 24 H Respiratory Effort Respiratory Depth Respiratory Pattern Blood Pressure 156/74 H 156/74 H 156/74 H Blood Pressure Mean 99 99 99 Pulse Ox 94 Oxygen Delivery Method 07/11/25 14:15 07/11/25 14:30 07/11/25 14:45 Temperature Temperature Source Pulse Rate 77 74 75 Respiratory Rate 22 H 21 H 23 H Respiratory Effort Respiratory Depth Respiratory Pattern Blood Pressure 177/73 H 176/83 H 165/83 H Blood Pressure Mean 102 105 107 Pulse Ox 83 94 94 Oxygen Delivery Method 07/11/25 15:00 07/11/25 15:15 07/11/25 15:30 Temperature Temperature Source Pulse Rate 72 70 66 Respiratory Rate 17 17 24 H Respiratory Effort Respiratory Depth Respiratory Pattern Blood Pressure 157/92 H 164/88 H 174/82 H Blood Pressure Mean 112 106 106 Pulse Ox 94 99 90 Oxygen Delivery Method 07/11/25 15:45 07/11/25 16:00 07/11/25 17:00 Temperature Temperature Source Pulse Rate 69 65 79 Respiratory Rate 26 H 18 20 H Respiratory Effort Respiratory Depth Respiratory Pattern Blood Pressure 161/87 H 176/92 H 170/88 H Blood Pressure Mean 100 112 115 Pulse Ox 94 94 94 Oxygen Delivery Method Weight Weight: 76.657 kg Body Mass Index (BMI) 29.0 Physical Exam Narrative General: Alert, oriented, no apparent distress HEENT: Atraumatic, normocephalic Eyes: Anicteric, normal conjunctiva, extraocular movements grossly intact Neck: Supple Respiratory: Lung sounds diminished on right Cardiovascular: Regular rate and rhythm GI: Soft, nontender, nondistended Extremities: Some peripheral edema with no pitting Musculoskeletal: Moving all extremities Neuro: No overt focal neurological deficits Skin: No rashes appreciated Psych: Cooperative Results Lab / Micro Data 07/11/25 14:00 07/11/25 14:00 Labs: Laboratory Results - last 24 hr 07/11/25 14:00: WBC 5.3, RBC 4.87, Hgb 14.3, Hct 43.1, MCV 88.5, MCH 29.4, MCHC 33.2, RDW Std Deviation 44.2 H, RDW Coeff of Meri 13.6, Plt Count 216, MPV 10.5, Immature Gran % (Auto) 0.200, Neut % (Auto) 67.0, Lymph % (Auto) 21.4, [place] % (Auto) 8.6, Eos % (Auto) 1.9, Baso % (Auto) 0.9, Absolute Neuts (auto) 3.6, Absolute Lymphs (auto) 1.14, Nucleated RBC % 0, Sodium 144, Potassium 3.7, Chloride 107, Carbon Dioxide 22.1, Anion Gap 14, BUN 20 H, Creatinine 0.92, Estim Creat Clear Calc 51.32, Est GFR (MDRD) Non-Af 64, BUN/Creatinine Ratio 22.0 H, Glucose 127 H, Calcium 9.4, Troponin T High Sens 18 H, NT pro BNP II 2463 H 07/11/25 16:23: Troponin T Hi Sens 2 Hr 13 Imaging Radiology Impression Chest X-Ray 07/11/25 14:05 IMPRESSION: There is a large right pleural effusion with underlying infiltration and/or atelectasis with small amount of fluid in the right major fissure. Reading Location: [id number] Assessment & Plan Assessment/Plan (1) Chest tightness: PLAN: Plan # Chest pain - EKG with new ST depressions V4 through V6 - Initial troponin of 18 with repeat of 13 however patient with concerning symptoms, discussed with cardiology and it was felt that patient would benefit from heart cath -Given below she is not started on heparin drip, additionally troponins normalized and she was not having active chest pain at that time -Admit to telemetry -Cardiac consultation -N.p.o. at midnight -Continue beta-daija, add lisinopril -Statin, aspirin -Echocardiogram # Increased shortness of breath on exertion and right-sided pleural effusion - Chest x-ray with a new right sided pleural effusion that was not demonstrated on most recent imaging in 2023 - BNP 2400 but patient denies any weight gain or increased swelling in lower extremities and this value is similar to earlier in the month - Pleural effusion may be due to heart failure but cannot say definitively - Will order thoracentesis for the a.m. prior to heart cath in the afternoon - Will order echocardiogram -Patient saturating well on room air, will hold off on diuresis until further information available - Daily weights - I's and O's #Hypertension - Continue beta-daija, discussed with cardiology and will add lisinopril #Depression/anxiety -Continue home medications # History of PACs - Patient has history of PVCs and shortness of breath on exertion so she is on metoprolol, - Will continue home beta-daija #DVT ppx: SCDs Corry Fan MD Time spent in the patient's overall evaluation,decision-making process, review of diagnostic data, adjustment of management, discussion with other providers, nursing nursing and ancillary staff involved in patient's care documentation, 80 Minutes Charges/Coding Visit Charges Inpatient E&M: 37367 Init Hosp L3
--- NOTE | 2025-07-11 17:59 | ECHOCS_ITS ---
Reason For Study Reason For Study: Chest Pain Procedure This was a 2D Doppler, Color Flow transthoracic echocardiogram. Contrast injection was performed. Exam performed portable in patient room. Left Ventricle Normal LV size. Severe concentric left ventricular hypertrophy. Left ventricular systolic function is normal. The left ventricular ejection fraction is 70 %. Stage 1 diastolic dysfunction. No regional wall motion abnormalities noted. Right Ventricle Normal RV size. Normal systolic function. Atria Normal left atrium. Normal right atrium. Mitral Valve There is moderate mitral annular calcification. Mild (1+) eccentric mitral valve insufficiency. Tricuspid Valve Normal tricuspid valve. Mild (1+) tricuspid valve insufficiency. Pulmonary artery systolic pressure is 42 mmHg. Aortic Valve Trisinus/trileaflet aortic valve. Mild (1+) eccentric aortic valve insufficiency. Pulmonic Valve Normal pulmonic valve. Great Vessels Normal aortic root. The pulmonary artery is normal size. Inferior vena cava collapse with respiration. Pericardium/Pleural No pericardial effusion. Medication Diluted definity 1.5ml given slow IV push to enhance endocardial definition. MMode/2D Measurements & Calculations LVIDd: 3.8 cm IVSd: 1.9 cm Ao root diam: 3.5 cm LVIDs: 2.3 cm LVPWd: 1.5 cm RVDd: 3.7 cm FS: 41.3 % LAV(MOD-bp): 57.9 ml LVAd ap4: 31.5 cm2 SV(MOD-sp4): 61.4 ml LAV(MOD-bp) Indexed: 31.9 ml/m2 LVLd ap4: 7.9 cm SI(MOD-sp4): 33.8 ml/m2 LAV(MOD-sp2): 60.2 ml EDV(MOD-sp4): 104.4 ml LAV(MOD-sp4): 56.5 ml EDV(sp4-el): 106.1 ml LVAs ap4: 17.9 cm2 LVLs ap4: 6.3 cm ESV(MOD-sp4): 43.0 ml ESV(sp4-el): 43.4 ml EF(MOD-sp4): 58.8 % EF(sp4-el): 59.1 % SV(sp4-el): 62.6 ml LA A4 area: 20.1 cm2 LA dimension(2D): 4.2 cm RA A4 area: 15.9 cm2 TAPSE: 2.3 cm Time Measurements MV dec time: 0.25 sec Doppler Measurements & Calculations MV E max alber: 56.8 cm/sec Lat Peak E' Alber: 7.1 cm/sec Med Peak E' Alber: 4.6 cm/sec MV A max alber: 100.6 cm/sec E/E' lat: 8.0 E/E' med: 12.3 MV E/A: 0.56 MV V2 max: 101.4 cm/sec MV P1/2t max alber: 64.7 cm/sec Ao V2 max: 142.1 cm/sec MV max P.1 mmHg MV P1/2t: 79.4 msec Ao max P.1 mmHg MV V2 mean: 45.8 cm/sec MV dec slope: 238.6 cm/sec2 Ao V2 mean: 98.7 cm/sec MV mean P.0 mmHg MVA(P1/2t): 2.8 cm2 Ao mean P.3 mmHg MV V2 VTI: 26.7 cm Ao V2 VTI: 31.7 cm AV (velocity ratio): 1.0 AI max alber: 516.1 cm/sec LV V1 max: 155.0 cm/sec TR max alber: 308.2 cm/sec AI max P.6 mmHg LV V1 max P.6 mmHg TR max P.0 mmHg AI dec slope: 313.4 cm/sec2 LV V1 mean P.6 mmHg AI P1/2t: 482.4 msec LV V1 mean: 99.8 cm/sec LV V1 VTI: 32.2 cm ECHO/Echo Complete W/ Contrast Interpretation Summary Normal LV size. Left ventricular systolic function is normal. The left ventricular ejection fraction is 70 %. Severe concentric left ventricular hypertrophy. Stage 1 diastolic dysfunction. Contrast injection was performed. Ordering Physician: Kali Moy Performed By: Noble Powell RCS
[2025-07-11 19:39] LABS: Prothrombin Time (Protime)PT. 14.7 SECONDS (11.7-14.9)
[2025-07-11 19:40] LABS: Partial Thromboplast Time 26.8 Seconds (24.1-36.2)
[2025-07-11 19:54] LABS: Troponin T High Sens 4 HR 15 ng/L (<=14)
[2025-07-11] MEDS: MELATONIN 3 MG TABLET 10 MG PO (21:16)
[2025-07-11] MEDS: 0.9% Normal Saline (1000mL) 1,000 ML 15 ML IV (21:17)
[2025-07-12] VITALS (18 sets, daily range): BP systolic 115–195; BP diastolic 54–148; PULSE 61–77; RESP 16–23; TEMP 36.3–36.7; O2SAT 91–95; BMI 29.9
[2025-07-12] MEDS: 0.9% Saline Lock 10 ML Syringe IV (04:15)
--- NOTE | 2025-07-12 04:51 | EKG12_ITS ---
Test Reason : cp Blood Pressure : */* mmHG Vent. Rate : 71 BPM Atrial Rate : 71 BPM P-R Int : 132 ms QRS Dur : 82 ms QT Int : 436 ms P-R-T Axes : 30 5 -79 degrees QTcB Int : 473 ms Normal sinus rhythm [address] & T wave abnormality, consider inferior ischemia ST & T wave abnormality, consider anterior ischemia Prolonged QT Abnormal ECG When compared with ECG of 11-Jul-2025 21:41, MANUAL COMPARISON REQUIRED DATA IS UNCONFIRMED Confirmed by ADRI BEDOLLA, ZAID ([id number]), legal editor GALO POTTER ([id number]) on 07/12/2025 8:51:22 AM Referred By: Confirmed By: ZAID RUSH MD
[2025-07-12 04:53] LABS: Hematocrit 43.8 % (37-47); Hemoglobin 14.6 g/dL (12.0-15.0); Immature Granulocytes Count 0.010 X10^3/uL (0.0-0.0); Mean Corp Hgb Conc 33.3 g/dL (32-36); Mean Corpuscular Volume 87.8 fL (81-99); Mean Platelet Vol. 10.1 fl (6.2-12.0); NRBC Flagged by Analyzer 0 % (0-5); Platelet Count 216 K/mm3 (150-450); RBC Distribution Width CV 13.4 % (11.6-14.6); RBC Distribution Width SD 43.3 fl (35.1-43.9); Red Blood Count 4.99 M/mm3 (4.2-5.4); White Blood Count 6.1 K/mm3 (4.4-11.0)
[2025-07-12 05:48] LABS: Anion Gap 13 (5-15); BUN 16 mg/dL (4-19); BUN/Creat Ratio 21.0 RATIO (10-20); Calcium,Total 9.4 mg/dL (7.6-11.0); Carbon Dioxide 21.9 mmol/L (21.0-32.0); Chloride 107 mmol/L (98-108); Estimated Creatinine Clearance 57.72 ml/min (50-250); Glucose 123 mg/dL (70-99); LDH 230 U/L (84-246); Potassium 3.9 mmol/L (3.3-5.1)
--- NOTE | 2025-07-12 06:00 | US_ITS ---
PROCEDURE: THORACENTESIS W US 07/12/2025 REASON FOR EXAM: NEW R SIDED PLEURAL EFFUSION, SOB, CHEST PAIN TECHNIQUE: Right THORACENTESIS W US FINDINGS: Procedure: Following informed consent, and do some standard sterile technique, an ultrasound-guided right diagnostic and therapeutic thoracentesis was performed. 2% lidocaine local anesthesia was followed by placement of a 5 [place] catheter into the right pleural fluid collection. Approximately 1250 mL red tinged translucent fluid was successfully removed. No complication was encountered, in the patient left the department in good condition, without significant complaint. US/Thoracentesis W US IMPRESSION: Successful diagnostic and therapeutic ultrasound-guided right thoracentesis. L aboratory results pending. Reading Location: [place] [address]
[2025-07-12] MEDS: Aspirin E.C. 81 MG Tablet PO (06:13)
[2025-07-12] MEDS: Lidocaine 2% (20 ml mdv) 20 ML Vial INFILT (10:29)
--- NOTE | 2025-07-12 10:30 | FLU_PTH ---
PATIENT: LUIS MANUEL MAYA LOC: [facility] U#:[id number] AGE/SX: 75/F ROOM: [facility] RE07/11/[address]: Dr. Wicho Villar DO : 1950 BED: 1 DIS: 07/13/2025 SPEC #: [id number] RECD: 07/12/25 10:51 STATUS: IRVIN REQ #: [id number] KYLIE: 07/12/25 10:[address]: Wicho Villar DEPT: CYTOLOGY RECD BY: Dwight Ribera ENTERED: 07/12/25 13:27 SP TYPE: Fluid OTHR DR: MD Dr. Kali Torrez MD Dr. Paige Pierce, MD Tissues: A - Pleural fluid, NOS Procedures: Special Stain Group II Surgery Specimen Level IV Cytospin Fluid HEADER OPERATION: Thoracentesis - right chest PRE-OP DIAGNOSIS: Pleural effusion TISSUE SUBMITTED: A- Thoracentesis fluid for cytology DIAGNOSIS CYTOLOGY A. Right pleural effusion, thoracentesis (cytospin, cellblock): - Atypical cells of undetermined significance. - Few atypical small cells noted in the cellblock. CYTOLOGY STUDY Slides are reviewed. CYTOLOGY GROSS A. Received is 100 ml of red-cloudy fluid labeled with the patient's name and and designated per the requisition as Thoracentesis fluid. Submitted for cytology and cell block preparation. Mr 07/12/2025 CPT: 26814,13289
[2025-07-12 12:24] LABS: Glucose, Body Fluid 128 mg/dL (Not Establ.)
[2025-07-12 13:06] LABS: ACT Activated Clotting Time 250 sec (74-137)
--- NOTE | 2025-07-12 13:12 | CL.D_ITS ---
Patient Name: LUIS MANUEL MAYA Study Date: 07/12/2025 Performing: Kali Moy MD Ht: 63 inches 160.02 cm : 1950 Wt: 168.87 lbs 76.6 kg Age: 75 Gender: female BSA: 1.8 PROCEDURE(S) PERFORMED DC02-(10618)LHC/COR DC11-(43824)AO ROOT ANGIO WITH HEART CATH IC10-(10081)FFR, CORONARY OR GRAFT, INITIAL VESSEL CLINICAL PROFILE AND INDICATIONS Indications: Suspected CAD Heart Failure: None Stress/Imaging Stress/Image Study Performed: No CAD Presentations: Symptom unlikely to be ischemic. CONCLUSIONS Moderate coronary artery disease noted in the left anterior descending artery mild to moderate noted in the right coronary artery and tortuous vessel noted in the circumflex artery. Mild aortic regurgitation. RECOMMENDATIONS Medical therapy DESCRIPTION OF PROCEDURE The patient arrived to the procedure lab. The risks and benefits of the procedure as well as a full description of our services here and current unavailability of surgical backup were fully explained to the patient and/or their significant other prior to the catheterization. The Timeout was completed, verifying the correct patient and procedure. The patient's procedural site was prepped and draped in the usual fashion. Local anesthetic was given subcutaneously to right radial region with Lidocaine 2%. Using a modified Seldinger technique, Right Coronary Artery selective angiography was then performed in multiple views using a 5 Fr. 4.0 [place] catheter. Left Coronary Artery selective angiography was performed in multiple views using a 5 Fr. [place] catheter. Left Coronary Artery selective angiography was performed in multiple views using a 5 Fr. JL4 catheter. Ascending (root) aorta selective angiography was then performed in single view. Ascending (root) aorta selective angiography was then performed in single view.The arterial sheath was pulled and a TR Band was applied for hemostasis w/ 9ml air CORONARY ANGIOGRAPHY DOMINANCE: Right Dominant LEFT HEART ASSESSMENT Left Ventricular Ejection Fraction: by Echo 65 % Normal LV wall motion Normal Left Ventricular systolic function LEFT MAIN: Angiographically normal LEFT ANTERIOR DESCENDING ARTERY: Medium size vessel with calcification noted in the proximal and mid region with 60% long stenosis noted involving the first diagonal branch. The rest of the vessel appears to be moderate disease. CIRCUMFLEX ARTERY: Tortuous vessel with no significant atherosclerotic plaquing or stenosis present. RIGHT CORONARY ARTERY: Dominant right coronary artery with focal 40% proximal to mid stenosis present vessel bifurcates to posterior descending artery and posterolateral vessel. VALVE FINDINGS: Aortic Valve Insufficiency: Grade 1 AORTIC ROOT: Dilated COMPLICATIONS No Complications PROCEDURE MEDICATIONS Fentanyl 50 mcg IV Versed 1 mg IV Versed 1 mg IV Oxygen: 2 L/min via nasal cannula Heparin 5000 unit(s) IV 07/12/2025 12:39:51 SUMMARY OF HEMODYNAMIC DATA Time AIR REST ECG 11:54:26 Art 113/60 (77) 12:08:07 AO 137/76 (104) SA 12:21:13 AO 143/83 (110) 12:26:03 AO 156/74 (106) 12:44:45 AO 136/72 (100) 12:50:15 AO 162/82 (116) 12:54:59 AO 160/82 (116) 12:55:17 AIR REST 13:11:51 Signed By Kali Moy MD On 07/12/2025 13:11:58 Kali Moy MD
[2025-07-12 14:19] LABS: Cytology, Body Fluid / CSF SEE PATHOLOGY REPORT
[2025-07-12 16:49] LABS: Body Fluid Mononuclear WBC # 0.836 10^3/uL; Body Fluid Mononuclear WBC % 96.6 %; Body Fluid Polynuclear WBC # 0.029 10^3/uL; Body Fluid Polynuclear WBC % 3.4 %; Red Cell Count/Body Fluid 0.044 10^6/ul; White Blood Count/Body Fluid 0.865 10^3/uL
[2025-07-12 17:08] LABS: Auto B Fluid Analyzer BKGD Ct COUNTS W/IN LIMITS (W/IN LIMITS)
[2025-07-12 17:09] LABS: Appearance/Body Fluid TURBID; Body Fluid QC Type(s) BF1Q; Color/Body Fluid RED; Source- Body Fluid THORACENTESIS
--- NOTE | 2025-07-12 18:21 | PN.HOSP_ITS ---
Reason for Visit Chief Complaint: Chest pain and shortness of breath Subjective Subjective Patient was seen and examined today, she underwent a cardiac catheterization that did not show any occlusive coronary disease. I talked briefly with cardiology today and placed the patient on Lasix for presumed congestive heart failure. Echocardiogram today showed mild pulmonary hypertension and a normal EF. There was no significant valvular heart disease. Patient had a thoracentesis today with removal of 1250 mL of red-tinged fluid. Objective Data Objective Data Vital Signs: Vital Signs Temp Pulse Resp BP Pulse Ox O2 Del Method 97.6 F L 66 23 H 188/72 H 95 Room Air 07/12/25 13:45 07/12/25 17:15 07/12/25 17:15 07/12/25 17:15 07/12/25 17:15 07/12/25 17:15 Oxygen Delivery Method Room Air Weight: 76.6 kg Body Mass Index (BMI) 29.9 Intake & Output: Intake and Output for Last 24 Hours 07/10/25 07/11/25 07/12/25 23:59 23:59 23:59 Intake Total 510.25 / 510.25 Output Total 1250 / 1250 Balance -739.75 / -739.75 Lab / Micro Data 07/12/25 04:45 07/12/25 04:45 Labs: Laboratory Results - last 24 hr 07/11/25 17:59: PT Cancelled, INR Cancelled, APTT Cancelled 07/11/25 18:58: PT 14.7, INR 1.1, APTT 26.8, Troponin T Hi Sens 4Hr 15 H 07/12/25 04:45: WBC 6.1, RBC 4.99, Hgb 14.6, Hct 43.8, MCV 87.8, MCH 29.3, MCHC 33.3, RDW Std Deviation 43.3, RDW Coeff of Meri 13.4, Plt Count 216, MPV 10.1, Immature Gran % (Auto) 0.200, Neut % (Auto) 62.7, Lymph % (Auto) 22.9, Plumas % (Auto) 10.9 H, Eos % (Auto) 2.0, Baso % (Auto) 1.3 H, Absolute Neuts (auto) 3.8, Absolute Lymphs (auto) 1.39, Nucleated RBC % 0, Sodium 141, Potassium 3.9, Chloride 107, Carbon Dioxide 21.9, Anion Gap 13, BUN 16, Creatinine 0.77, Estim Creat Clear Calc 57.72, Est GFR (MDRD) Non-Af 79, BUN/Creatinine Ratio 21.0 H, G lucose 123 H, Calcium 9.4, Lactate Dehydrogenase 230, TSH 3.320 07/12/25 10:34: Fluid WBC 0.865, Fluid RBC 0.044, Fluid Tot Cell Count 0.878 H, Fld Polynuclear WBCs # 0.029, Fld Polynuclear WBCs % 3.4, Fluid Mononuclear WBCs 0.836, Fld Mononuclear WBCs % 96.6, Fluid Glucose 128, Fluid Total Protein 3.8, Fluid LDH 152 07/12/25 11:45: Activated Clotting Time 250 H Micro: Microbiology 07/12/25 10:34 Fluid - Thoracentesis Fluid Gram Stain - Final Radiography Diagnostic Testing: Radiology Impression Echocardiogram 07/11/25 17:59 Interpretation Summary Normal LV size. Left ventricular systolic function is normal. The left ventricular ejection fraction is 70 %. Severe concentric left ventricular hypertrophy. Stage 1 diastolic dysfunction. Contrast injection was performed. Ordering Physician: Kali Moy Performed By: Noble Powell [facility] Thoracentesis Ultrasound 07/12/25 06:00 IMPRESSION: Successful diagnostic and therapeutic ultrasound-guided right thoracentesis. Laboratory results pending. Reading Location: [place] [address] Physical Exam Const alert, oriented x3, no apparent distress and healthy appearing General Appearance: cooperative, well kempt and well developed Orientation / Consciousness: awake, oriented to person, oriented to place and oriented to time HEENT normocephalic, head/scalp atraumatic and moist oral mucous membranes Eyes PERRL, EOMs intact bilaterally and conjunctivae normal Neck supple, no JVD, thyroid normal and no carotid bruits General: trachea midline Resp normal respiratory effort, no retractions, no use of accessory muscles and clear to auscultation bilaterally Auscultation: Negative for rales, rhonchi or wheezes Cardio regular rate, regular rhythm, S1 normal heart sound, S2 normal heart sound, no murmurs, no rub and no gallops GI normal to inspection, nondistended, normoactive bowel sounds, soft to palpation, non-tender and non-distended Extremity no clubbing, cyanosis or edema Skin no rashes or lesions noted General Skin Exam: no breakdown Neuro oriented x3, CN's II-XII intact bilaterally, moves all extremities, no focal motor deficits and no sensory deficits noted Sensorium / Orientation: awake and alert Speech: speech normal Psych affect normal Assessment & Plan Assessment/Plan (1) Chest tightness: PLAN: Plan 1. Acute congestive heart failure with preserved ejection fraction-patient was placed on oral Lasix she will be reevaluated tomorrow #2 right pleural effusion-etiology unclear but could be secondary to congestive heart failure, I will obtain a serum protein tomorrow, it appears that the fluid that was removed today is a transudate #3 nonocclusive coronary disease-complicates care, management, recovery, and prognosis #4 chronic depression-patient is on Zoloft Total clinical time spent by myself addressing the patient's medical issues, reviewing all of her data, and collaborating with patient's care team: 35-minute Charges/Coding Visit Charges Inpatient E&M: 46335 Subs Hosp L2
[2025-07-12] MEDS: MELATONIN 3 MG TABLET 10 MG PO (20:30)
[2025-07-12] MEDS: Potassium Chloride Oral Tablet 20 MEQ PO (20:30)
[2025-07-13 03:45] VITALS: BP 152/73; PULSE 62; RESP 16; TEMP 36.8; O2SAT 94
[2025-07-13 05:49] VITALS: BMI 29.2
[2025-07-13 06:24] LABS: Anion Gap 13 (5-15); BUN 19 mg/dL (4-19); BUN/Creat Ratio 19.3 RATIO (10-20); Calcium,Total 9.5 mg/dL (7.6-11.0); Carbon Dioxide 23.3 mmol/L (21.0-32.0); Chloride 106 mmol/L (98-108); Estimated Creatinine Clearance 46.88 ml/min (50-250); Glucose 111 mg/dL (70-99); Potassium 4.5 mmol/L (3.3-5.1)
[2025-07-13 07:00] VITALS: PULSE 60
[2025-07-13 08:42] VITALS: BP 158/87; PULSE 67; RESP 16; TEMP 36.3; O2SAT 95
[2025-07-13 08:47] VITALS: PULSE 67
[2025-07-13] MEDS: Potassium Chloride Oral Tablet 20 MEQ PO (08:47)
[2025-07-13] MEDS: Aspirin E.C. 81 MG Tablet PO (08:47)
[2025-07-13 09:38] LABS: Pathologist Comment/Body Fluid Reviewed
--- NOTE | 2025-07-13 12:43 | PCIREPORT_ITS ---
PCI Cardiac Cath Report PCI Report: PCI Report Attending Physician: Gena Batista M.D. After discussion with Dr. Moy, decision was made to proceed with IFR interrogation of the patient's moderate LAD lesion, in concordance with guidelines and best practices. The patient was already prepped, draped, and adequate vascular access was o btained. The pigtail catheter was exchanged over a wire for a 6Fr EBU 3.5 Guide catheter. This was seated in the left coronary ostium, and an IFR wire was advanced and normalized. The wire was then advanced into the LAD, and several IFR measurements were taken. Majority were 0.90 and 0.91, and pullback confirmed a diffuse gradient with no drift. The decision was made to defer PCI at this time. Wire was removed, final angiography showed AMANDA 3 flow, no perforations or dissections. Catheter was removed, TR band placed, patient taken to cath holding in stable condition. Findings: LAD: large caliber vessel that gives rise to multiple diagonal branches, courses along anterior interventricular groove. The LAD has a 60% tubular lesion in the proximal portion. IFr of 0.90 and 0.91. Recommendations: 1) Aggressive risk factor modification including smoking cessation (if applicable), aggressive lipid lowering therapy, daily ASA 81mg, and blood pressure control 2) Uptitration of anti-anginal therapy as tolerated 3) If patient remains symptomatic despite adequate anti-anginal therapy, it is reasonable to consider PCI at that time.
--- NOTE | 2025-07-13 13:20 | PCM.DC ---
Discharge Instructions DC O2, CPAP, BIPAP needs Home O2 Discharge instructions: No Dressing / Incision Discharge Activity: Return to Normal Activity Weight Bearing Status: Full weight bearing Follow Up Care Test Results: Test results from this visit will be discussed in further detail at your follow-up appointment, if applicable. Discharge Plan Admission Admit Date/Time: 07/11/25 17:46 Primary Reason for Your Visit: Congestive heart failure, right pleural effusion Attending Provider: Wicho Villar Primary Care Provider: Shy Del Valle Consulting Providers: Kali Moy; Corry Fan Discharge Orders/Prescriptions Prescriptions: New furosemide 40 mg Tablet 40 mg PO DAILY Qty: 30 0RF atorvastatin 40 mg Tablet 40 mg PO QHS Qty: 30 0RF potassium chloride 20 mEq Tablet,Er Particles/Crystals 20 meq PO DAILYCM Qty: 30 0RF aspirin 81 mg Tablet,Delayed Release (Dr/Ec) 81 mg PO BREAKFAST Qty: 0 0RF lisinopril 5 mg Tablet 5 mg PO DAILY Qty: 30 0RF Continued acetaminophen 650 mg tablet extended release 650 mg PO HS PRN (Reason: fever or pain) cyanocobalamin (vitamin B-12) 1,000 mcg tablet 1,000 mcg PO QDAY sertraline 100 mg tablet 150 mg PO QHS cholecalciferol (vitamin D3) [Vitamin D3] 25 mcg (1,000 unit) Capsule 25 mcg PO DAILY Probiotic 3 billion cell Capsule 3,000 mmu cells PO DAILY Rx Instructions: administer with a meal ondansetron 4 mg tablet,disintegrating 4 mg PO Q8H PRN PRN (Reason: Nausea) Qty: 10 0RF metoprolol tartrate 50 mg tablet 50 mg PO BID Qty: 60 11RF Discontinued spironolactone 25 mg tablet 25 mg PO DAILY Qty: 30 11RF Referrals / Follow Up: Shy Del Valle MD [Primary Care Provider] - Within 2 Weeks Maday Lobo NP, [employer] [Non-Staff -Ordering Privileges] - See Referral Note (In 3 weeks) Disposition Disposition (needs filled in before D/C Order can be placed): Home, Self Care
--- NOTE | 2025-07-13 13:37 | PCM.DC.SUM ---
Providers Date of Admission: 07/11/25 Date of Discharge: 07/13/25 Primary Care Physician: Shy Del Valle MD Consultations 07/11/25 18:27 Consult: Cardiology Routine Consulting Provider: Kali Moy Reason for Consult: Chest Pain EMERGENT Consult: No MD Notified: Yes Date Notified: 07/11/25 Time Notified: 18:22 Method of Notification: ED Physician Initiated Reason For Visit: CHEST PAIN Diagnosis Discharge Diagnosis (1) Chest tightness: Status: Acute Code(s): R07.89 - Other chest pain Plan 1. Acute congestive heart failure with preserved ejection fraction-patient was placed on oral Lasix she will be reevaluated tomorrow #2 right pleural effusion-etiology unclear but could be secondary to congestive heart failure, I will obtain a serum protein tomorrow, it appears that the fluid that was removed today is a transudate #3 nonocclusive coronary disease-complicates care, management, recovery, and prognosis #4 chronic depression-patient is on Zoloft #5 mild pulmonary hypertension Total clinical time spent by myself addressing the patient's medical issues, reviewing all of her data, and collaborating with patient's care team: 35-minute Medications at Discharge Home Medications cholecalciferol (vitamin D3) 25 mcg (1,000 unit) capsule (Vitamin D3) 25 mcg PO DAILY vitamin 01/28/23 lactobacillus combination no.4 3 billion cell capsule (Probiotic) 3,000 mmu cells PO DAILY supplement 01/28/23 ondansetron 4 mg disintegrating tablet 4 mg PO Q8H PRN PRN Nausea #10 tabs 11/20/23 acetaminophen 650 mg tablet,extended release 650 mg PO HS PRN fever or pain 12/08/23 sertraline 100 mg tablet 150 mg PO QHS mental health 12/08/23 cyanocobalamin (vitamin B-12) 1,000 mcg tablet 1,000 mcg PO QDAY vitamin 11/10/24 metoprolol tartrate 50 mg tablet 50 mg PO BID blood pressure #60 tabs 04/12/25 aspirin 81 mg tablet,delayed release 81 mg PO BREAKFAST #0 tabs 07/13/25 atorvastatin 40 mg tablet 40 mg PO QHS #30 tabs 07/13/25 furosemide 40 mg tablet 40 mg PO DAILY #30 tabs 07/13/25 lisinopril 5 mg tablet 5 mg PO DAILY #30 tabs 07/13/25 potassium chloride 20 mEq tablet,extended release(part/cryst) 20 meq PO DAILYCM #30 tabs 07/13/25 Hospital Course Operations None Procedures Cardiac catheterization and Transthoracic echo Summary of Care Provided Minutes Spent on Discharge: 32 Hospital Course: This 75-year-old white female was seen in the emergency room at [facility] with a chief complaint of worsening shortness of breath with exertion and chest tightness that started several days earlier. Patient stated her chest discomfort improved at rest but worsened with any exertion. Workup in the emergency room included a CBC which showed a normal white blood cell count and hemoglobin, chemistry panel was remarkable for a BUN of 20, patient's Prah beta natruretic peptide was elevated at 2463, troponin was elevated at 18. Chest x-ray was performed which showed a large right pleural effusion with underlying infiltration and/or atelectasis. EKG showed E. Cardiology was contacted and felt that the patient should undergo cardiac catheterization and the patient was admitted to the hospitalist service on PCU. The next day, patient underwent a thoracentesis with removal of 1250 cc of red-tinged fluid analysis of the fluid revealed it to be a transudate. Cytology is pending at the time of this dictation. Patient then underwent cardiac catheterization which showed moderate coronary artery disease with mild aortic regurgitation. Medical therapy was recommended, the patient was placed on diuretics due to her elevated beta natruretic peptide. On 07/13/2025, patient was seen and examined: On examination she appeared in good health and spirits, she does not appear to be in any distress. Vital signs as documented. Skin warm and dry and without overt rashes. Neck without JVD, thyroid appears normal, trachea is midline, neck is supple. Lungs clear, normal air movement was noted. Heart exam notable for regular rhythm, normal sounds and absence of murmurs, rubs or gallops. Abdomen unremarkable and without evidence of organomegaly, masses, or abdominal aortic enlargement, bowel sounds are present in all 4 quadrants, no abdominal tenderness was noted. Extremities nonedematous, no cyanosis was noted, no clubbing was noted. Neuro: Cranial nerves II through XII are grossly intact, no focal motor deficits were noted, sensation to light touch and pinprick is intact, motor exam 5/5 throughout. Psych: Patient is alert and oriented x3, she does not appear anxious or depressed, she does not appear agitated. Patient was discharged home in stable condition on 07/13/2025. Weight / BMI Weight Weight: 77.4 kg Body Mass Index (BMI) 29.2 ABG / Lab / Microbiology Data 07/12/25 04:45 07/13/25 05:10 Laboratory: Laboratory Results - last 24 hr 07/12/25 10:34: Fluid Source THORACENTESIS, Fluid Color RED, Fluid Appearance TURBID, Fluid WBC 0.865, Fluid RBC 0.044, Fluid Tot Cell Count 0.878 H, Fld Polynuclear WBCs # 0.029, Fld Polynuclear WBCs % 3.4, Fluid Mononuclear WBCs 0.836, Fld Mononuclear WBCs % 96.6, Fluid Neutrophils 7, Fluid Lymphocytes 74, Fluid Monocytes 19, Fl Pathologist Comment Reviewed, Fluid Comment 2 SEE COMMENT 07/13/25 05:10: Sodium 142, Potassium 4.5, Chloride 106, Carbon Dioxide 23.3, Anion Gap 13, BUN 19, Creatinine 0.99, Estim Creat Clear Calc 46.88 L, Est GFR (MDRD) Non-Af 59 L, BUN/Creatinine Ratio 19.3, Glucose 111 H, Calcium 9.5, Total Protein 6.8 Microbiology: Microbiology 07/12/25 10:34 Fluid - Thoracentesis Fluid Gram Stain - Final 07/12/25 10:34 Fluid - Thoracentesis Fluid Body Fluid Culture - Final Culture exhibits no growth. 07/12/25 10:34 Fluid - Thoracentesis Fluid Anaerobic Culture - Preliminary No growth in 48 hours. D/C Instructions Weight Bearing Status: Full weight bearing DC O2, CPAP, BIPAP Needs Home O2 Discharge instructions: No Meaningful Use Info Meaningful Use Meaningful Use Diagnoses (Choose all that apply): CHF CHF JOSELITO/ARB ordered at discharge?: Yes Documented LVEF (%): 70 Discharge Plan Admission Admit Date/Time: 07/11/25 17:46 Primary Reason for Your Visit: Congestive heart failure, right pleural effusion Attending Provider: Wicho Villar Primary Care Provider: Shy Del Valle Consulting Providers: Kali Moy; Corry Fan Discharge Orders/Prescriptions Prescriptions: New furosemide 40 mg Tablet 40 mg PO DAILY Qty: 30 0RF atorvastatin 40 mg Tablet 40 mg PO QHS Qty: 30 0RF potassium chloride 20 mEq Tablet,Er Particles/Crystals 20 meq PO DAILYCM Qty: 30 0RF aspirin 81 mg Tablet,Delayed Release (Dr/Ec) 81 mg PO BREAKFAST Qty: 0 0RF lisinopril 5 mg Tablet 5 mg PO DAILY Qty: 30 0RF Continued acetaminophen 650 mg tablet extended release 650 mg PO HS PRN (Reason: fever or pain) cyanocobalamin (vitamin B-12) 1,000 mcg tablet 1,000 mcg PO QDAY sertraline 100 mg tablet 150 mg PO QHS cholecalciferol (vitamin D3) [Vitamin D3] 25 mcg (1,000 unit) Capsule 25 mcg PO DAILY Probiotic 3 billion cell Capsule 3,000 mmu cells PO DAILY Rx Instructions: administer with a meal ondansetron 4 mg tablet,disintegrating 4 mg PO Q8H PRN PRN (Reason: Nausea) Qty: 10 0RF metoprolol tartrate 50 mg tablet 50 mg PO BID Qty: 60 11RF Discontinued spironolactone 25 mg tablet 25 mg PO DAILY Qty: 30 11RF Referrals / Follow Up: Shy Del Valle MD [Primary Care Provider] - Within 2 Weeks Maday Lobo NP, [employer] [Non-Staff -Ordering Privileges] - See Referral Note (In 3 weeks) Disposition Disposition (needs filled in before D/C Order can be placed): Home, Self Care Charges/Coding Visit Charges Inpatient E&M: 42658 Disch Hosp >30min
--- NOTE | 2025-07-13 14:18 | CASEMGMT ---
Patient has order for discharge. RN CM in to discuss needs at discharge. Patient denies needs or help at discharge. Patient had no further questions or concerns.
--- NOTE | 2025-07-13 15:51 | CHAPLAIN ---
Type of Pastoral Visit _x__ Initial Visit ___ Follow-up Visit ___ On-call Visit ___ General Patient Visit ___ Spiritual Assessment ___ Family Conference ___ Bereavement ___ Rapid Response ___ Code Blue ___ Other (describe below) Pastoral Care Referral From _x__ Patient ___ Family ___ Nurse ___ Physician ___ Material Handling Warehouse Supervisor ___ Track Man ___ Other (describe below) Sacrament/Intervention _x__ Active listening ___ Anointing ___ Lutheran ___ Bereavement ___ Communion _x__ Jennifer exploration ___ _x__ Life review _x__ Prayer ___ Reconciliation ___ Sacrament of Sick _x__ Supportive presence ___ Wedding ___ Other (describe below) Pastoral Comments 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
[2025-07-14 10:49] LABS: Neutrophil (Segs) 1 %
[2025-07-14 10:50] LABS: Other Cell Type/BF 3 %
== END 2025-07-13 15:12 | disposition home or self-care (01) | DRG 286 ==
LOC: ED 14:59 → PCU 17:50
PROVIDERS: Admitting Provider Internal Medicine; Emergency Provider Student in an Organized Health Care Education/Training Program; PCP Family Medicine; Visit Provider Internal Medicine
DX: I11.0 Hypertensive heart disease with heart failure (principal); I50.31 Acute diastolic (congestive) heart failure; J90 Pleural effusion, not elsewhere classified; I27.20 Pulmonary hypertension, unspecified; F32.A Depression, unspecified; I35.1 Nonrheumatic aortic (valve) insufficiency; I25.118 Atherosclerotic heart disease of native coronary artery with other forms of angina pectoris; F41.9 Anxiety disorder, unspecified; Z79.899 Other long term (current) drug therapy
CPT/HCPCS: 32555; 36415; 71046; 80048; 82945; 83615; 83880; 84155; 84157; 84443; 84484; 85025; 85347; 85610; 85730; 87070; 87075; 87205; 88108; 88305; 88313; 89050; 93005; 93306; 93454; 93571; 99152; 99153; 99285; C1769; Q9957; Q9967; A4216; C1725; C1887; C1894; C8929

== ENCOUNTER → 2025-08-04 | Outpatient (CLI) | payer MEDICARE, OTHER, SELFPAY ==
--- NOTE | 2025-08-04 09:45 | RAD_ITS ---
PROCEDURE: CHEST PA AND LATERAL 08/04/2025 REASON FOR EXAM: SOB, COUGH TECHNIQUE: Procedure Code: RADCXR Modality: DX Procedure: CHEST PA AND LATERAL COMPARISON: August 09, 2024 FINDINGS: Hardware: None Heart: Mildly enlarged. Aorta is atherosclerotic. Mediastinum: No mass. Lungs: Left lung is clear. No pneumothorax or pleural effusion is seen on the left. Small pleural effusion on the right side with atelectasis or airspace disease right lower lobe and possibly portions of the right middle lobe. Bones: Degenerative changes are identified within the thoracic spine. RAD/Chest PA and Lateral IMPRESSION: Small volume right pleural effusion with atelectasis. Decreased pleural fluid volume compared to recent prior. No pneumothorax. Reading Location: [id number]
[2025-08-04 10:57] LABS: Hematocrit 41.3 % (37-47); Hemoglobin 13.5 g/dL (12.0-15.0); Immature Granulocytes Count 0.010 X10^3/uL (0.0-0.0); Mean Corp Hgb Conc 32.7 g/dL (32-36); Mean Corpuscular Volume 89.2 fL (81-99); Mean Platelet Vol. 10.9 fl (6.2-12.0); NRBC Flagged by Analyzer 0 % (0-5); Platelet Count 212 K/mm3 (150-450); RBC Distribution Width CV 13.1 % (11.6-14.6); RBC Distribution Width SD 42.5 fl (35.1-43.9); Red Blood Count 4.63 M/mm3 (4.2-5.4); White Blood Count 5.3 K/mm3 (4.4-11.0)
[2025-08-04 11:53] LABS: AST(SGOT) 19 U/L (<=31); Alanine Aminotransfer ALT/SGPT 12 U/L (<=34); Albumin, Serum 3.7 g/dL (3.4-4.8); Alkaline Phosphatase 74 U/L (35-104); Anion Gap 12 (5-15); BUN 29 mg/dL (4-19); BUN/Creat Ratio 20.5 RATIO (10-20); Calcium,Total 9.6 mg/dL (7.6-11.0); Carbon Dioxide 27.7 mmol/L (21.0-32.0); Chloride 105 mmol/L (98-108); Globulin 3.7 g/dL (2.2-4.2); Glucose 96 mg/dL (70-99); Potassium 3.6 mmol/L (3.3-5.1)
[2025-08-04 11:54] LABS: Free T3 2.6 pg/mL (2.18-3.98); Pro- Brain NATRIURETIC PEPTIDE 1835 pg/mL (<=1800)
[2025-08-04 12:28] LABS: LDH 208 U/L (84-246)
== END | disposition home or self-care (01) ==
LOC: RAD 09:44
PROVIDERS: Internal Medicine Medical Oncology; PCP Family Medicine; Referring Provider Nurse Practitioner Gerontology; Visit Provider Nurse Practitioner Gerontology
DX: R91.1 Solitary pulmonary nodule (principal); I48.91 Unspecified atrial fibrillation; R22.1 Localized swelling, mass and lump, neck; Z85.3 Personal history of malignant neoplasm of breast; R06.02 Shortness of breath; R07.89 Other chest pain; R53.83 Other fatigue
CPT/HCPCS: 36415; 71046; 80053; 83615; 83880; 84439; 84443; 84481; 85025

== ENCOUNTER → 2025-08-10 | Outpatient (CLI) | payer MEDICARE, OTHER, SELFPAY ==
--- NOTE | 2025-08-10 08:10 | CT_ITS ---
PROCEDURE: CHEST WITH CONTRAST 08/10/2025 REASON FOR EXAM: LUNG NODULE/HX OF BREAST CA TECHNIQUE: Procedure Code: CTCHW Modality: CT Procedure: CHEST WITH CONTRAST Coronal and Sagittal reconstruction series were provided. CONTRAST: Isovue 370 VOLUME: 100 mL One or more dose reduction techniques were used (e.g., Automated exposure control, adjustment of the mA and/or kV according to patient size, use of iterative reconstruction technique). RADIATION DOSE SUMMARY: CTDlvol: 7.8 mGy DLP: 227 mGycm COMPARISON: CTA chest 08/09/2024 FINDINGS: Thyroid: Unremarkable thyroid. Lymph nodes: Scattered mediastinal lymph nodes. Heart and Vasculature: Coronary artery calcifications are noted. Atherosclerotic calcifications of the thoracic aorta. Pulmonary arteries are unremarkable. Lungs and Airways: There is 6.3 mm right upper lobe pulmonary nodule (2-46) previously measured 6 mm. Right lower lobe pulmonary nodule measuring 6 mm (2-100), previously measured 4 mm. There is 8 mm Left lower lobe pulmonary nodule abutting fissure (2-69), stable since prior study Pleura: Moderate to large right pleural effusion with adjacent atelectasis. Upper Abdomen: 1 cm small splenule is visualized. Bones: Persistent compression deformity with anterior wedging of T12 vertebral body. CT/Chest WITH Contrast IMPRESSION: Coronary artery calcification (CAC) is is present [id number] right pleural effusion new as compared to prior study. Stable 8 mm left lower lobe pulmonary nodule abutting fissure. Furthermore the re is interval increase in size of right lower lobe pulmonary nodule which measures 6 mm previously measured 4 mm. Given alexis ent history of breast cancer, follow-up PET-CT is recommended for better characterization. No CTA evidence of any filling defect within main pulmonary trunk as well as ri ght and left pulmonary trunk to suggest large pulmonary embolism. Evaluation of segmental and subsegmental pulmonary arterie s is limited due to breathing artifact. Reading Location: [id number]
--- NOTE | 2025-08-10 08:10 | CT_ITS ---
PROCEDURE: SOFT TISSUE NECK WITH CONTRAST 08/10/2025 REASON FOR EXAM: LUNG NODULE/HX OF BREAST CA/NECK SWELLING TECHNIQUE: Procedure Code: CTNEW Modality: CT Procedure: SOFT TISSUE NECK WITH CONTRAST CONTRAST: Isovue 370 VOLUME: 93 mL One or more dose reduction techniques were used (e.g., Automated exposure control, adjustment of the mA and/or kV according to patient size, use of iterative reconstruction technique). RADIATION DOSE SUMMARY: CTDlvol: 7.84 mGy DLP: 666.41 mGycm COMPARISON: None. FINDINGS: Airway: Unremarkable. Salivary glands: Unremarkable. Lymph nodes: No lymphadenopathy. Thyroid: Unremarkable. Vasculature: Unremarkable. Orbits: No acute orbital abnormalities. Paranasal sinuses and mastoids: 3 year. Lung apices: Large right pleural effusion. Upper mediastinum: Unremarkable. Bones: No acute abnormalities. Soft tissues: A 2.5 x 3.5 x 5.3 cm lipoma in the right neck anterior to the strap muscles and the right sternocleidomastoid. CT/Soft Tissue Neck WITH Contrast IMPRESSION: No suspicious or acute abnormalities. No lymphadenopathy. A 2.5 x 3.5 x 5.3 cm lipoma in the anterior right neck anterior abuts the strap muscles and the right sternocleidomastoid. Reading Location: [facility]
== END | disposition home or self-care (01) ==
PROVIDERS: PCP Family Medicine; Referring Provider Internal Medicine Medical Oncology; Visit Provider Internal Medicine Medical Oncology
DX: R91.1 Solitary pulmonary nodule (principal); R22.1 Localized swelling, mass and lump, neck; Z85.3 Personal history of malignant neoplasm of breast
CPT/HCPCS: 70491; 71260; Q9967

== ENCOUNTER 2025-08-17 10:38 | Observation (INO) | payer MEDICARE, OTHER, SELFPAY ==
[2025-08-17] VITALS (17 sets, daily range): BP systolic 132–174; BP diastolic 66–98; PULSE 58–73; RESP 16–26; TEMP 36.4–37.1; O2SAT 89–99; BMI 29.5; BMI 28.5
--- NOTE | 2025-08-17 11:44 | RAD_ITS ---
PROCEDURE: CHEST PA AND LATERAL 08/17/2025 REASON FOR EXAM: SHORTNESS OF BREATH TECHNIQUE: Procedure Code: RADCXR Modality: DX Procedure: CHEST PA AND LATERAL COMPARISON: 08/04/2025 FINDINGS: [id number] pleural effusion increased in size from prior study. Left lung remains clear. RAD/Chest PA and Lateral IMPRESSION: Increasing size of pleural effusion on the right Reading [facility]
--- NOTE | 2025-08-17 11:45 | EKG12_ITS ---
Test Reason : SOB Blood Pressure : */* mmHG Vent. Rate : 68 BPM Atrial Rate : 68 BPM P-R Int : 128 ms QRS Dur : 82 ms QT Int : 424 ms P-R-T Axes : 26 8 261 degrees QTcB Int : 450 ms Normal sinus rhythm with sinus arrhythmia ST & T wave abnormality, consider anterolateral ischemia Abnormal ECG Confirmed by Ahmet Deleon ([id number]), photographic editor FLORECITA ANTONIO ([id number]) on 08/19/2025 5:44:01 AM Referred By: CARRIE/ELLE Confirmed By: Ahmet Deleon
[2025-08-17 12:32] LABS: Anion Gap 14 (5-15); BUN 18 mg/dL (4-19); BUN/Creat Ratio 17.4 RATIO (10-20); Calcium,Total 9.3 mg/dL (7.6-11.0); Carbon Dioxide 22.7 mmol/L (21.0-32.0); Chloride 106 mmol/L (98-108); Estimated Creatinine Clearance 45.09 ml/min (50-250); Glucose 100 mg/dL (70-99); Potassium 3.7 mmol/L (3.3-5.1)
[2025-08-17 12:50] LABS: Pro- Brain NATRIURETIC PEPTIDE 2454 pg/mL (<=1800); Troponin T High Sensitivity 21 ng/L (<=14)
--- NOTE | 2025-08-17 12:56 | EDS_ITS ---
HPI History of Present Illness Chief Complaint: Shortness of Breath Narrative Narrative: Chief complaint and HPI: 75-year-old female with past medical history of HLD, HTN, CHF presents for evaluation of exertional dyspnea. Patient states that she recently was admitted for same complaint. States she had a thoracentesis performed and her shortness of breath improved. Patient states it has been progressively worsening over the past several weeks which is why she presents. No shortness of breath at rest. She follows with Dr. Moy for cardiology. She is on Lasix 40 mg daily. She believes she has gained weight. She denies any fever, chills, chest pain, abdominal pain, nausea, vomiting, URI symptoms. Review of systems: See HPI Medications: As listed on the chart Allergies: As listed on the chart PFSH: Per chart Vital signs: As listed on the chart. Reviewed. Physical exam: Gen: A&O x3, NAD Head: Normocephalic, atraumatic Eyes: No sclera icterus, conjunctiva clear ENT: Moist mucous membranes Neck: Trachea midline, No JVD CV: RRR, no murmurs, minimal nonpitting peripheral edema Resp: Lungs CTA BL but diminished on the right compared to the left especially at the bases GI: Abd soft, non-distended, non-tender, no r/r/g Musc: Full ROM, no deformity Skin: Warm, dry Neuro: Alert, oriented, grossly intact, sensation intact Psych: Cooperative, appropriate mood and affect [facility] Medical History (Reviewed 08/12/25 @ 14:08 by Maday Lobo WASTEWATER PROJECT MANAGER, WASTEWATER PROJECT MANAGER-C) Chest tightness Shortness of breath Atrial fibrillation Other obesity due to excess calories Periodic limb movement disorder Insomnia Abscess of upper back excluding scapular region Foot pain Pelvic pain in female Elevated blood-pressure reading, without diagnosis of hypertension Other fatigue Ganglion and cyst of synovium, tendon, and bursa Other enthesopathy of knee Dysphagia, unspecified Tinea corporis Pain in joint involving lower leg Pain in joint Seborrheic dermatitis, unspecified Subjective muscle weakness Rotator cuff (capsule) sprain Pain in left shoulder Tingling of right upper extremity Lateral epicondylitis Synovitis and tenosynovitis, unspecified Hypertrophic toenail Osteopenia Elbow pain, right Cervicalgia Acute bronchitis with bronchospasm Unspecified visual disturbance Lumps on the skin Cellulitis and abscess of unspecified site Bilateral arm pain Osteoporosis Sleep apnea in adult Headache, unspecified Unspecified injury of head, initial encounter Degenerative disc disease, lumbar Osteoarthritis Mass of thyroid region Breast cancer Wears glasses Cancer Depression Arthritis Bladder disease Anemia Non-smoker History of pain when walking History of edema History of stress test Localized osteoarthritis of right knee Back pain Knee pain Shoulder pain Hemorrhoids History of cancer Home Medications ?Medication ?Instructions ?Recorded ?Last Taken ?Type cholecalciferol (vitamin D3) 25 25 mcg PO DAILY vitami n 01/28/23 02/03/23 History mcg (1,000 unit) capsule (Vitamin D3) ondansetron 4 mg disintegrating 4 mg PO Q8H PRN PRN Na usea #10 tabs 11/20/23 Unknown Rx tablet acetaminophen 650 mg 650 mg PO HS PRN fever or pa in 12/08/23 Unknown History tablet,extended release sertraline 100 mg tablet 150 mg PO QHS mental health 12/08/23 Unknown History cyanocobalamin (vitamin B-12) 1,000 mcg PO QDAY vitami n 11/10/24 Unknown History 1,000 mcg tablet metoprolol tartrate 50 mg tablet 50 mg PO BID blood pr essure #60 04/12/25 Unknown Rx tabs aspirin 81 mg tablet,delayed 81 mg PO BREAKFAST #0 tab s 07/13/25 Unknown Rx release furosemide 40 mg tablet 40 mg PO DAILY #30 tabs 06/25 Unknown Rx potassium chloride 20 mEq 20 meq PO DAILYCM #30 tabs 0 07/13/25 Unknown Rx tablet,extended release(part/cryst) atorvastatin 40 mg tablet (Lipitor) 40 mg PO QHS 08/04 Unknown History trazodone 50 mg tablet 50 mg PO QHS 08/17/25 History Allergy/AdvReac Type Severity Reaction Status Date / Time adhesive tape Allergy Rash Verified 08/17/25 10:42 hydrocodone bitartrate (From Allergy HEAD IN A Verified 08/17/25 10:42 Vicodin) VICE venlafaxine HCl (From Allergy DIFFICULTY Verified 08/17/25 10:42 Effexor) BREATHING erythromycin base AdvReac Mild Other Verified 08/17/25 10:42 Sulfa (Sulfonamide AdvReac Mild Rash Verified 08/17/25 10:42 Antibiotics) lisinopril AdvReac cough Verified 08/17/25 10:42 Family History (Reviewed 08/12/25 @ 14:08 by Maday Lobo WASTEWATER PROJECT MANAGER, WASTEWATER PROJECT MANAGER-C) Sister Hypertension Father Heart disease Black lung Surgical History (Reviewed 08/12/25 @ 14:08 by Maday Lobo WASTEWATER PROJECT MANAGER, WASTEWATER PROJECT MANAGER-C) History of carpal tunnel surgery of right wrist History of partial hysterectomy History of mastectomy, total History of lateral meniscus repair of right knee History of root canal procedure Hx of colonoscopy Hx of appendectomy Hx of umbilical hernia repair Hx of breast reconstruction History of mastectomy History of lumpectomy Social History (Reviewed 08/12/25 @ 14:08 by Maday Lobo WASTEWATER PROJECT MANAGER, WASTEWATER PROJECT MANAGER-C) Smoking Status: Never smoker alcohol intake: never substance use type: does not use caffeine: Yes EXAM Physical Exam Const Vital Signs: 08/17/25 10:40 08/17/25 10:53 08/17/25 10:53 Temperature 98.1 F 98.1 F 98 F Temperature Source Oral Oral Oral Pulse Rate 73 73 72 Respiratory Rate 20 H 18 24 H Respiratory Effort Respiratory Depth Respiratory Pattern Blood Pressure 144/77 H 132/84 H 160/85 H Blood Pressure Mean 99 100 110 Pulse Ox 96 94 94 Oxygen Delivery Method Room Air Room Air Room Air 08/17/25 10:53 08/17/25 11:30 08/17/25 11:45 Temperature 98.1 F Temperature Source Oral Pulse Rate 73 66 Respiratory Rate 23 H 18 Respiratory Effort Normal Respiratory Depth Normal Respiratory Pattern Tachypnea Blood Pressure 153/81 H 147/73 H Blood Pressure Mean 98 97 Pulse Ox 93 98 Oxygen Delivery Method Room Air Room Air 08/17/25 11:45 08/17/25 12:00 08/17/25 12:00 Temperature 98.7 F Temperature Source Oral Pulse Rate 68 70 Respiratory Rate 25 H 18 Respiratory Effort Respiratory Depth Respiratory Pattern Blood Pressure 147/73 H 136/76 H 158/67 H Blood Pressure Mean 94 96 96 Pulse Ox 94 99 Oxygen Delivery Method Room Air 08/17/25 12:00 08/17/25 12:00 08/17/25 12:15 Temperature Temperature Source Pulse Rate 62 64 Respiratory Rate 22 H 24 H Respiratory Effort Respiratory Depth Respiratory Pattern Blood Pressure 158/67 H 158/67 H 151/82 H Blood Pressure Mean 96 96 102 Pulse Ox 89 Oxygen Delivery Method 08/17/25 12:30 08/17/25 12:45 08/17/25 13:00 Temperature 98.7 F Temperature Source Oral Pulse Rate 67 61 62 Respiratory Rate 24 H 25 H 18 Respiratory Effort Respiratory Depth Respiratory Pattern Blood Pressure 163/73 H 136/76 H 134/76 H Blood Pressure Mean 97 94 95 Pulse Ox 98 Oxygen Delivery Method Room Air 08/17/25 13:00 08/17/25 13:15 08/17/25 13:30 Temperature Temperature Source Pulse Rate 59 L Respiratory Rate 20 H Respiratory Effort Respiratory Depth Respiratory Pattern Blood Pressure 154/81 H 154/76 H 162/75 H Blood Pressure Mean 100 98 101 Pulse Ox 96 Oxygen Delivery Method 08/17/25 13:45 08/17/25 14:00 08/17/25 14:30 Temperature 98.7 F Temperature Source Pulse Rate 63 59 L 64 Respiratory Rate 24 H 26 H 18 Respiratory Effort Respiratory Depth Respiratory Pattern Blood Pressure 166/73 H 174/75 H 146/98 H Blood Pressure Mean 101 103 114 Pulse Ox 95 96 98 Oxygen Delivery Method MDM MDM MDM Narrative Medical decision making narrative: 75-year-old female with past medical history of HLD, HTN, CHF presents for evaluation of exertional dyspnea. Patient states that she recently was admitted for same complaint. States she had a thoracentesis performed and her shortness of breath improved. Patient states it has been progressively worsening over the past several weeks which is why she presents. On chart review, patient was discharged from the hospital on 07/13/2025. She was admitted for shortness of breath with exertion and chest tightness. She was diagnosed with acute congestive heart failure with preserved EF, EF was 70%. Right pleural effusion secondary to CHF with transudative fluid removed via thoracentesis. Patient underwent a cardiac catheterization which showed moderate coronary artery disease with mild aortic regurgitation. Medical therapy was recommended. Differential diagnosis includes but is not limited to pleural effusion, CHF exacerbation, suspect less likely ACS given patient is not having chest pain and just had cardiac catheterization performed. CBC without leukocytosis or anemia. BMP relatively unremarkable without RAVI. Troponin 21. It was 18 on her previous admission. Not endorsing any chest pain. BNP 2454. Was 1835 on 08/04. Prior to that was in the . Chest x-ray was personally reviewed and interpreted by me, ED physician. Patient has a moderate to large pleural effu bruna on the right. No pneumonia or pneumothorax. Patient would benefit from thoracentesis I do suspect this is the reason for her shortness of breath. Her vitals are stable and she is not requiring any oxygen. She is updated of all the results and the plan. She confirmed understanding. I spoke with Dr. Fan, will admit if thoracentesis is not able to be performed today. I spoke with ultrasound, not available to be performed today therefore patient will be admitted to the hospitalist. Impression: 1. Exertional dyspnea 2. Right pleural effusion Lab Data Labs: Laboratory Results - last 24 hr 08/17/25 08/17/25 08/17/25 11:00 11:00 12:47 WBC Cancelled 5.7 Corrected WBC Cancelled RBC Cancelled 4.31 Hgb Cancelled 12.7 Hct Cancelled 38.1 MCV Cancelled 88.4 MCH Cancelled 29.5 MCHC Cancelled 33.3 RDW Std Deviation Cancelled 43.7 RDW Coeff of Meri Cancelled 13.3 Plt Count Cancelled 189 MPV Cancelled 10.4 Immature Gran % (Auto) Cancelled 0.500 Neut % (Auto) Cancelled 66.0 Lymph % (Auto) Cancelled 20.9 Sargent % (Auto) Cancelled 9.9 Eos % (Auto) Cancelled 1.8 Baso % (Auto) Cancelled 0.9 Absolute Neuts (auto) Cancelled 3.7 Absolute Lymphs (auto) Cancelled 1.18 Total Counted Cancelled Neutrophils % (Manual) Cancelled Band Neutrophils % Cancelled Lymphocytes % (Manual) Cancelled Monocytes % (Manual) Cancelled Eosinophils % (Manual) Cancelled Basophils % (Manual) Cancelled Metamyelocytes % Cancelled Myelocytes % Cancelled Promyelocytes % Cancelled Blast Cells % Cancelled Plasma Cell % (Manual) Cancelled Other Cells % Cancelled Nucleated RBC % Cancelled 0 Nucleated RBCs/100 WBC Cancelled Differential Comment Cancelled Diff Path Review Cancelled Hypersegmented Neuts Cancelled Atypical Lymphocytes Cancelled Reactive Lymphocytes Cancelled Smudge Cells Cancelled Toxic Granulation Cancelled Toxic Vacuolation Cancelled Dohle Bodies Cancelled Baron Rods Cancelled Platelet Estimate Cancelled Plt Morphology Comment Cancelled RBC Morphology Cancelled Cancelled Polychromasia Cancelled Hypochromasia Cancelled Basophilic Stippling Cancelled Anisocytosis Cancelled Microcytosis Cancelled Macrocytosis Cancelled Spherocytes Cancelled Sickle Cells Cancelled Target Cells Cancelled Tear Drop Cells Cancelled Ovalocytes Cancelled Stomatocytes Cancelled Bates-Salunga Bodies Cancelled Kirk Cells Cancelled Bite Cells Cancelled Crenated Cell Cancelled Acanthocytes (Spur) Cancelled Rouleaux Cancelled Schistocytes Cancelled Sodium 142 Potassium 3.7 Chloride 106 Carbon Dioxide 22.7 Anion Gap 14 BUN 18 Creatinine 1.06 Estim Creat Clear Calc 45.09 L Est GFR (MDRD) Non-Af 54 L BUN/Creatinine Ratio 17.4 Glucose 100 H Calcium 9.3 Troponin T High Sens 21 H D Troponin T Hi Sens 2 Hr NT pro BNP II 2454 H 08/17/25 14:15 WBC Corrected WBC RBC Hgb Hct MCV MCH MCHC RDW Std Deviation RDW Coeff of Meri Plt Count MPV Immature Gran % (Auto) Neut % (Auto) Lymph % (Auto) Sargent % (Auto) Eos % (Auto) Baso % (Auto) Absolute Neuts (auto) Absolute Lymphs (auto) Total Counted Neutrophils % (Manual) Band Neutrophils % Lymphocytes % (Manual) Monocytes % (Manual) Eosinophils % (Manual) Basophils % (Manual) Metamyelocytes % Myelocytes % Promyelocytes % Blast Cells % Plasma Cell % (Manual) Other Cells % Nucleated RBC % Nucleated RBCs/100 WBC Differential Comment Diff Path Review Hypersegmented Neuts Atypical Lymphocytes Reactive Lymphocytes Smudge Cells Toxic Granulation Toxic Vacuolation Dohle Bodies Baron Rods Platelet Estimate Plt Morphology Comment RBC Morphology Polychromasia Hypochromasia Basophilic Stippling Anisocytosis Microcytosis Macrocytosis Spherocytes Sickle Cells Target Cells Tear Drop Cells Ovalocytes Stomatocytes Bates-Salung[place] Bodies Kirk Cells Bite Cells Crenated Cell Acanthocytes (Spur) Rouleaux Schistocytes Sodium Potassium Chloride Carbon Dioxide Anion Gap BUN Creatinine Estim Creat Clear Calc Est GFR (MDRD) Non-Af BUN/Creatinine Ratio Glucose Calcium Troponin T High Sens Troponin T Hi Sens 2 Hr 30 H NT pro BNP II Discharge Plan Disposition Disposition: Acute Care [facility] Discharge Date/Time: 08/17/25 14:57
[2025-08-17 13:01] LABS: Hematocrit 38.1 % (37-47); Hemoglobin 12.7 g/dL (12.0-15.0); Immature Granulocytes Count 0.030 X10^3/uL (0.0-0.0); Mean Corp Hgb Conc 33.3 g/dL (32-36); Mean Corpuscular Volume 88.4 fL (81-99); Mean Platelet Vol. 10.4 fl (6.2-12.0); NRBC Flagged by Analyzer 0 % (0-5); Platelet Count 189 K/mm3 (150-450); RBC Distribution Width CV 13.3 % (11.6-14.6); RBC Distribution Width SD 43.7 fl (35.1-43.9); Red Blood Count 4.31 M/mm3 (4.2-5.4); White Blood Count 5.7 K/mm3 (4.4-11.0)
[2025-08-17 15:06] LABS: Troponin T High Sens 2 HR 30 ng/L (<=14)
--- NOTE | 2025-08-17 15:26 | HP.PCM.HOS_ITS ---
HPI - General General Date of Admission: 08/17/25 Date of Service: 08/17/25 Chief Complaint: Increase shortness of breath on exertion HPI Narrative LUIS MANUEL MAYA, is a 75-year-old female history of depression, heart failure with preserved ejection fraction who presented to [facility] ED 08/17/2025 for exertional dyspnea. Endorses she was recently admitted for the same complaint and had thoracentesis performed and her shortness of breath improved. She has been progressively worsening over the past 2 weeks which is why she presented today. Denies shortness of breath at rest, is on 40 mg of Lasix daily and follows with Dr. Moy for cardiology. Thinks she may have gained some weight. In the ED patient afebrile, heart rate 73 and blood pressure 144/77, respiratory rate 20 pulse ox 96% on room air. BMP with a BUN of 18 creatinine 1.06, proBNP 2400, CBC no acute abnormalities, troponin 21, chest x-ray official read pending but does show a large right pleural effusion given patient's symptomatic and sizable. Right pleural effusion and lack of IR availability for thoracentesis in the ED hospitalist contacted for admission. Patient evaluated bedside. She reports that she felt good initially after her last thoracentesis but 2 weeks ago began having increasing shortness of breath on exertion which has been fairly significant, today was going to an appoint with Dr. Glover she had enlarged pulmonary nodules but was so short of breath she could not make it to his office so she came to the ED instead. Reports dry cough that so significant that sometimes she will throw up but no nausea or vomiting independent of coughing, denies any kind of chest pain, no fevers, no productive cough, no headache or bowel or bladder changes, does not necessarily note any increase swelling in lower extremities either. Has been taking more Lasix. No other new acute complaints [facility] Medical History (Reviewed 08/12/25 @ 14:08 by Maday Lobo LABOR ECONOMICS TEACHER, LABOR ECONOMICS TEACHER-C) Chest tightness Shortness of breath Atrial fibrillation Other obesity due to excess calories Periodic limb movement disorder Insomnia Abscess of upper back excluding scapular region Foot pain Pelvic pain in female Elevated blood-pressure reading, without diagnosis of hypertension Other fatigue Ganglion and cyst of synovium, tendon, and bursa Other enthesopathy of knee Dysphagia, unspecified Tinea corporis Pain in joint involving lower leg Pain in joint Seborrheic dermatitis, unspecified Subjective muscle weakness Rotator cuff (capsule) sprain Pain in left shoulder Tingling of right upper extremity Lateral epicondylitis Synovitis and tenosynovitis, unspecified Hypertrophic toenail Osteopenia Elbow pain, right Cervicalgia Acute bronchitis with bronchospasm Unspecified visual disturbance Lumps on the skin Cellulitis and abscess of unspecified site Bilateral arm pain Osteoporosis Sleep apnea in adult Headache, unspecified Unspecified injury of head, initial encounter Degenerative disc disease, lumbar Osteoarthritis Mass of thyroid region Breast cancer Wears glasses Cancer Depression Arthritis Bladder disease Anemia Non-smoker History of pain when walking History of edema History of stress test Localized osteoarthritis of right knee Back pain Knee pain Shoulder pain Hemorrhoids History of cancer Home Medications ?Medication ?Instructions ?Recorded ?Last Taken ?Type cholecalciferol (vitamin D3) 25 25 mcg PO DAILY vitami n 01/28/23 02/03/23 History mcg (1,000 unit) capsule (Vitamin D3) ondansetron 4 mg disintegrating 4 mg PO Q8H PRN PRN Na usea #10 tabs 11/20/23 Unknown Rx tablet acetaminophen 650 mg 650 mg PO HS PRN fever or pa in 12/08/23 Unknown History tablet,extended release sertraline 100 mg tablet 150 mg PO QHS mental health 12/08/23 Unknown History cyanocobalamin (vitamin B-12) 1,000 mcg PO QDAY vitami n 11/10/24 Unknown History 1,000 mcg tablet metoprolol tartrate 50 mg tablet 50 mg PO BID blood pr essure #60 04/12/25 Unknown Rx tabs aspirin 81 mg tablet,delayed 81 mg PO BREAKFAST #0 tab s 07/13/25 Unknown Rx release furosemide 40 mg tablet 40 mg PO DAILY #30 tabs 06/25 Unknown Rx potassium chloride 20 mEq 20 meq PO DAILYCM #30 tabs 0 07/13/25 Unknown Rx tablet,extended release(part/cryst) atorvastatin 40 mg tablet (Lipitor) 40 mg PO QHS 08/04 Unknown History trazodone 50 mg tablet 50 mg PO QHS 08/17/25 History Allergy/AdvReac Type Severity Reaction Status Date / Time adhesive tape Allergy Rash Verified 08/17/25 10:42 hydrocodone bitartrate (From Allergy HEAD IN A Verified 08/17/25 10:42 Vicodin) VICE venlafaxine HCl (From Allergy DIFFICULTY Verified 08/17/25 10:42 Effexor) BREATHING erythromycin base AdvReac Mild Other Verified 08/17/25 10:42 Sulfa (Sulfonamide AdvReac Mild Rash Verified 08/17/25 10:42 Antibiotics) lisinopril AdvReac cough Verified 08/17/25 10:42 Family History (Reviewed 08/12/25 @ 14:08 by Maday Lobo LABOR ECONOMICS TEACHER, LABOR ECONOMICS TEACHER-C) Sister Hypertension Father Heart disease Black lung Surgical History (Reviewed 08/12/25 @ 14:08 by Maday Lobo LABOR ECONOMICS TEACHER, LABOR ECONOMICS TEACHER-C) History of carpal tunnel surgery of right wrist History of partial hysterectomy History of mastectomy, total History of lateral meniscus repair of right knee History of root canal procedure Hx of colonoscopy Hx of appendectomy Hx of umbilical hernia repair Hx of breast reconstruction History of mastectomy History of lumpectomy Social History (Reviewed 08/12/25 @ 14:08 by Maday Lobo LABOR ECONOMICS TEACHER, LABOR ECONOMICS TEACHER-C) Smoking Status: Never smoker alcohol intake: never substance use type: does not use caffeine: Yes ROS ROS Narrative General: Denies fever/chills HENT: Denies headache, denies stuffy nose, denies sore throat EYES: Denies changes in vision Resp: Dry cough, significant shortness of breath on exertion but not at rest Cardiac: Denies chest pain GI: Denies abdominal pain, denies changes in bowel, denies nausea/vomiting : Denies changes in urination Extremity: Denies swelling MSK: Denies weakness Neuro: Denies any numbness/tingling Heme: Denies any bleeding or bruising Skin: Denies rashes Psychiatric: No complaints voiced Vital Signs Vital Signs Vital Signs: 08/17/25 10:40 08/17/25 10:53 08/17/25 10:53 Temperature 98.1 F 98.1 F 98 F Temperature Source Oral Oral Oral Pulse Rate 73 73 72 Respiratory Rate 20 H 18 24 H Respiratory Effort Respiratory Depth Respiratory Pattern Blood Pressure 144/77 H 132/84 H 160/85 H Blood Pressure Mean 99 100 110 Pulse Ox 96 94 94 Oxygen Delivery Method Room Air Room Air Room Air 08/17/25 10:53 08/17/25 11:30 08/17/25 11:45 Temperature 98.1 F Temperature Source Oral Pulse Rate 73 66 Respiratory Rate 23 H 18 Respiratory Effort Normal Respiratory Depth Normal Respiratory Pattern Tachypnea Blood Pressure 153/81 H 147/73 H Blood Pressure Mean 98 97 Pulse Ox 93 98 Oxygen Delivery Method Room Air Room Air 08/17/25 11:45 08/17/25 12:00 08/17/25 12:00 Temperature 98.7 F Temperature Source Oral Pulse Rate 68 70 Respiratory Rate 25 H 18 Respiratory Effort Respiratory Depth Respiratory Pattern Blood Pressure 147/73 H 136/76 H 158/67 H Blood Pressure Mean 94 96 96 Pulse Ox 94 99 Oxygen Delivery Method Room Air 08/17/25 12:00 08/17/25 12:00 08/17/25 12:15 Temperature Temperature Source Pulse Rate 62 64 Respiratory Rate 22 H 24 H Respiratory Effort Respiratory Depth Respiratory Pattern Blood Pressure 158/67 H 158/67 H 151/82 H Blood Pressure Mean 96 96 102 Pulse Ox 89 Oxygen Delivery Method 08/17/25 12:30 08/17/25 12:45 08/17/25 13:00 Temperature 98.7 F Temperature Source Oral Pulse Rate 67 61 62 Respiratory Rate 24 H 25 H 18 Respiratory Effort Respiratory Depth Respiratory Pattern Blood Pressure 163/73 H 136/76 H 134/76 H Blood Pressure Mean 97 94 95 Pulse Ox 98 Oxygen Delivery Method Room Air 08/17/25 13:00 08/17/25 13:15 08/17/25 13:30 Temperature Temperature Source Pulse Rate 59 L Respiratory Rate 20 H Respiratory Effort Respiratory Depth Respiratory Pattern Blood Pressure 154/81 H 154/76 H 162/75 H Blood Pressure Mean 100 98 101 Pulse Ox 96 Oxygen Delivery Method 08/17/25 13:45 08/17/25 14:00 08/17/25 14:30 Temperature 98.7 F Temperature Source Pulse Rate 63 59 L 64 Respiratory Rate 24 H 26 H 18 Respiratory Effort Respiratory Depth Respiratory Pattern Blood Pressure 166/73 H 174/75 H 146/98 H Blood Pressure Mean 101 103 114 Pulse Ox 95 96 98 Oxygen Delivery Method Weight Weight: 78.6 kg Body Mass Index (BMI) 29.5 Physical Exam Narrative General: Alert, oriented, no apparent distress HEENT: Atraumatic, normocephalic Eyes: Anicteric, normal conjunctiva, extraocular movements grossly intact Neck: Supple Respiratory: Diminished on right mid lung field to lower lung field, normal respiratory effort while at rest Cardiovascular: Regular rate and rhythm GI: Soft, nontender, nondistended Extremities: No significant pitting edema Musculoskeletal: Moving all extremities Neuro: No overt focal neurological deficits Skin: No rashes appreciated Psych: Cooperative Results Lab / Micro Data 08/17/25 12:47 08/17/25 11:00 Labs: Laboratory Results - last 24 hr 08/17/25 11:00: WBC Cancelled, Corrected WBC Cancelled, RBC Cancelled, Hgb Cancelled, Hct Cancelled, MCV Cancelled, MCH Cancelled, MCHC Cancelled, RDW Std Deviation Cancelled, RDW Coeff of Meri Cancelled, Plt Count Cancelled, MPV Cancelled, Immature Gran % (Auto) Cancelled, Neut % (Auto) Cancelled, Lymph % (Auto) Cancelled, [place] % (Auto) Cancelled, Eos % (Auto) Cancelled, Baso % (Auto) Cancelled, Absolute Neuts (auto) Cancelled, Absolute Lymphs (auto) Cancelled, Total Counted Cancelled, Neutrophils % (Manual) Cancelled, Band Neutrophils % Cancelled, Lymphocytes % (Manual) Cancelled, Monocytes % (Manual) Cancelled, Eosinophils % (Manual) Cancelled, Basophils % (Manual) Cancelled, Metamyelocytes % Cancelled, Myelocytes % Cancelled, Promyelocytes % Cancelled, Blast Cells % Cancelled, Plasma Cell % (Manual) Cancelled, Other Cells % Cancelled, Nucleated RBC % Cancelled, Nucleated RBCs/100 WBC Cancelled, Differential Comment Cancelled, Diff Path Review Cancelled, Hypersegmented Neuts Cancelled, Atypical Lymphocytes Cancelled, Reactive Lymphocytes Cancelled, Smudge Cells Cancelled, Toxic Granulation Cancelled, Toxic Vacuolation Cancelled, Dohle Bodies Cancelled, Baron Rods Cancelled, Platelet Estimate Cancelled, Plt Morphology Comment Cancelled, RBC Morphology Cancelled 08/17/25 11:00: RBC Morphology Cancelled, Polychromasia Cancelled, Hypochromasia Cancelled, Basophilic Stippling Cancelled, Anisocytosis Cancelled, Microcytosis Cancelled, Macrocytosis Cancelled, Spherocytes Cancelled, Sickle Cells Cancelled, Target Cells Cancelled, Tear Drop Cells Cancelled, Ovalocytes Cancelled, Stomatocytes Cancelled, Bates-Fulda Bodies Cancelled, [place] Cells Cancelled, Bite Cells Cancelled, Crenated Cell Cancelled, Acanthocytes (Spur) Cancelled, Rouleaux Cancelled, Schistocytes Cancelled, Sodium 142, Potassium 3.7, Chloride 106, Carbon Dioxide 22.7, Anion Gap 14, BUN 18, Creatinine 1.06, E stim Creat Clear Calc 45.09 L, Est GFR (MDRD) Non-Af 54 L, BUN/Creatinine Ratio 17.4, Glucose 100 H, Calcium 9.3, Troponin T High Sens 21 H D, NT pro BNP II 2454 H 08/17/25 12:47: WBC 5.7, RBC 4.31, Hgb 12.7, Hct 38.1, MCV 88.4, MCH 29.5, MCHC 33.3, RDW Std Deviation 43.7, RDW Coeff of Meri 13.3, Plt Count 189, MPV 10.4, Immature Gran % (Auto) 0.500, Neut % (Auto) 66.0, Lymph % (Auto) 20.9, [place] % (Auto) 9.9, Eos % (Auto) 1.8, Baso % (Auto) 0.9, Absolute Neuts (auto) 3.7, Absolute Lymphs (auto) 1.18, Nucleated RBC % 0 08/17/25 14:15: Troponin T Hi Sens 2 Hr 30 H Assessment & Plan Assessment/Plan (1) Recurrent right pleural effusion: PLAN: Plan # Recurrent right sided pleural effusion -Had thoracentesis last month, chest x-ray shows reaccumulation of fluid and patient is significantly symptomatic on ambulation -Will order repeat thoracentesis with studies-it appears patient had cytology from last time show a few atypical cells of undetermined significance, we will repeat cytology -May need to consider outpatient follow-up with CT surgery given relative short time in between thoracenteses or may need scheduled outpatient procedures -If patient comes back within a week of discharge with recurrent pleural effusion would likely benefit from transfer for more definitive therapy -May benefit from walking pulse ox prior to discharge depending on symptoms -Incentive spirometer -Will give IV Lasix the symptoms seem more related to her effusion then heart failure exacerbation # History of chronic heart failure with preserved ejection fraction -Echo from 07/12/2025 with severe concentric left ventricular hypertrophy and stage I diastolic dysfunction with normal EF -Patient's EKG read demonstrated T wave inversions and depressions in V3 through V5 which were prevalent previously, possibly slightly more prominent but denying any type of chest pain -Troponin in the ED 30 with repeat of 21 -Did have cardiac cath last month with no stenting and medical management advised -Continue home medications -Daily weights, I's and O's -Will be monitoring on telemetry -BNP is slightly up again at 2400 however has remained elevated fairly consistently and denies any increase swelling in lower extremities think most of her symptoms are due to her effusion -Will give IV Lasix however while admitted but can be changed back to p.o. on discharge # Enlarging lung nodules -Patient will need to reschedule appointment with Dr. Glover #Depression/anxiety -Continue home medications #DVT ppx: SCDs Corry Fan MD Charges/Coding Visit Charges Inpatient E&M: 33675 Init Hosp L2
[2025-08-17] MEDS: 0.9% Saline Lock 10 ML Syringe IV (17:07)
[2025-08-18] VITALS (13 sets, daily range): BP systolic 96–164; BP diastolic 53–98; PULSE 58–72; RESP 16–20; TEMP 36.7; O2SAT 92–98; BMI 28.2
[2025-08-18 06:26] LABS: Hematocrit 36.9 % (37-47); Hemoglobin 12.5 g/dL (12.0-15.0); Immature Granulocytes Count 0.010 X10^3/uL (0.0-0.0); Mean Corp Hgb Conc 33.9 g/dL (32-36); Mean Corpuscular Volume 86.4 fL (81-99); Mean Platelet Vol. 10.2 fl (6.2-12.0); NRBC Flagged by Analyzer 0 % (0-5); Platelet Count 194 K/mm3 (150-450); RBC Distribution Width CV 13.5 % (11.6-14.6); RBC Distribution Width SD 42.1 fl (35.1-43.9); Red Blood Count 4.27 M/mm3 (4.2-5.4); White Blood Count 4.7 K/mm3 (4.4-11.0)
[2025-08-18 06:36] LABS: Prothrombin Time (Protime)PT. 14.0 SECONDS (11.7-14.9)
[2025-08-18 06:37] LABS: Partial Thromboplast Time 27.9 Seconds (24.1-36.2)
[2025-08-18 06:54] LABS: LDH 227 U/L (84-246)
[2025-08-18 07:29] LABS: Anion Gap 11 (5-15); BUN 15 mg/dL (4-19); BUN/Creat Ratio 18.1 RATIO (10-20); Calcium,Total 9.0 mg/dL (7.6-11.0); Carbon Dioxide 25.2 mmol/L (21.0-32.0); Chloride 106 mmol/L (98-108); Estimated Creatinine Clearance 55.73 ml/min (50-250); Glucose 106 mg/dL (70-99); Potassium 3.5 mmol/L (3.3-5.1)
[2025-08-18] MEDS: Lidocaine 2% (20 ml mdv) 20 ML Vial INFILT (09:00)
--- NOTE | 2025-08-18 09:00 | FLU_PTH ---
PATIENT: LUIS MANUEL MAYA LOC: [facility] U#:[id number] AGE/SX: 75/F ROOM: [facility] RE08/17/[address]: Dr. Aurora Balderrama DO : 1950 BED: 1 DIS: 08/18/2025 SPEC #: [id number] RECD: 08/18/25 09:39 STATUS: IRVIN REQ #: [id number] KYLIE: 08/18/25 09:[address]: Aurora Balderrama DEPT: CYTOLOGY RECD BY: Dwight Ribera ENTERED: 08/18/25 15:11 SP TYPE: Fluid OTHR DR: MD Dr. Corry Torrez MD Tissues: A - Pleural fluid, NOS Procedures: Immunohistochemical Stains Special Stain Group II Surgery Specimen Level IV Cytospin Fluid IHC Stain ADDITIONAL HEADER OPERATION: Ultrasound thoracentesis PRE-OP DIAGNOSIS: Pleural effusion TISSUE SUBMITTED: A- Thoracentesis fluid for cytology DIAGNOSIS CYTOLOGY A. Pleural effusion, thoracentesis (cytospin, cellblock): * Few atypical cells present (cytospin) - see note. Note: IHCs were performed on the cellblock. There are CD45+ lymphocytes and CD68+ macrophages present. BerEp4, MOC31, GATA3, pankeratin, CK7, and ER are negative for epithelial cells. Calretinin and WT1 are negative for mesothelial cells. MelanA and SOX10 are negative for evidence of melanoma. The atypical cells noted in the cytospin are not represented in the cellblock. CYTOLOGY STUDY Slides are reviewed. Slides are reviewed. All matched controls reacted appropriately. These tests were developed and their performance characteristics determined by [facility]. They may not have been cleared or approved by the U.S. Food and Drug Administration. The FDA has determined that such clearance or approval is not necessary. The above immunohistochemical markers and/or special stains have been reviewed by the Pathologist. CYTOLOGY GROSS A. Received is 83 ml of red-cloudy fluid labeled with the patient's name and and designated per the requisition as Thoracentesis fluid. Submitted for cytology and cell block preparation. Mr 08/18/2025 CPT: [id number] ADDENDUM ADDENDUM ADDENDUM ADDENDUM ADDENDUM ADDENDUM ADDENDUM ADDENDUM ADDENDUM ADDENDUM ADDENDUM ADDENDUM ADDENDUM ADDENDUM ADDENDUM ADDENDUM 08/29/2025 10:33 ADDENDUM 08/29/2025 10:33 ADDENDUM 08/29/2025 10:33 ADDENDUM 08/29/2025 10:33 ADDENDUM 08/29/2025 10:33 This addendum is to report the IHC for CLDN4, performed at [facility]: IHC for CLDN4 is negative, supporting a benign diagnosis. All controls show appropriate reactivity. ? All immunohistochemistry, in situ hybridization, and histochemical tests were developed by and are performed at the [facility], [address] [place] [address]. All Immunofluorescent (IF)?tests were developed by and are performed at the [facility], [address] [place] [address], [place], [place] ?[address]. All tests reported here, except those addressing HER2 overexpression as a predictive marker, have not been cleared by or approved by the US Food and Drug Administration (FDA). The laboratory is regulated under CLIA as qualified to perform high-complexity testing. The tests are used for clinical purposes. They should not be regarded as investigational or for research.
--- NOTE | 2025-08-18 09:15 | RAD_ITS ---
PROCEDURE: CHEST INSP/EXP 2 VIEW 08/18/2025 REASON FOR EXAM: POST THORACENTESIS TECHNIQUE: Procedure Code: [id number] Modality: DX Procedure: CHEST INSP/EXP 2 VIEW side down decubitus view(s) of the chest COMPARISON: August 17, 2025 FINDINGS: There is mild cardiomegaly. Central vascularity appears within normal limits. There is no visible pneumothorax. There is improvement in the right pleural effusion. With a small effusion remaining. Surgical clips are noted in the left. Aortic calcifications are visible. There is no acute bony abnormality appear RAD/Chest Insp/Exp 2 View IMPRESSION: There is no visible pneumothorax. Reading Location: [facility]
--- NOTE | 2025-08-18 09:18 | OP.PCM_ITS ---
Procedures Radiology Radiology US Procedures: 19644 Thoracentesis Operative Report (Standard) Operative Information Date of Procedure: 08/18/25 Pre-Operative Diagnosis: Right pleural effusion Post-Operative Diagnosis: Right pleural effusion Surgery/Procedure Performed: Ultrasound-guided thoracentesis pharmacy district manager: No Type of Anesthesia: Local Procedure Start Time: 08:54 Procedure Stop Time: 09:14 Select all DRAINS/GRAFTS/IMPLANTS that apply: None Estimated Blood Loss: 0 Specimen collected: Yes Description of specimen(s) removed: 100 mL of clear whit fluid Description of surgery: PROCEDURE: Ultrasound Guided Thoracentesis, right ORDERING PROVIDER: Dr. Fan INDICATION: Female, 75 years old. Right pleural effusion. PROVIDER: ANA Agnel PROCEDURE: The risks, benefits, and alternatives to the procedure were explained to the patient. The specific risks of bleeding, infection, and pneumothorax requiring chest tube insertion were discussed and accepted. Written informed consent was obtained. Coagulation studies reviewed preprocedure. The patient was placed in the sitting, upright position. Ultrasonographic evaluation of the bilateral lower pleural spaces was carried out. An adequate pocket was identified in the right lower pleural space. The overlying skin was prepped with chlorhexidine and draped in sterile fashion. 2 % lidocaine was administered subcutaneously for local anesthesia. Under ultrasound guidance, a 5-Bulgarian thoracentesis needle/catheter system was advanced into the right posterior lower pleural fluid collection. 1730 ml of clear whit colored fluid was drained. A sample was sent to the lab for diagnostic purposes. The catheter was removed, and a sterile dressing was applied. The patient tolerated the procedure well without any immediate complications. A chest x-ray was ordered. There was no evidence of pneumothorax. She was then transported back to her inpatient bed. IMPRESSION: Successful ultrasound guided thoracentesis of right pleural effusion. Surgical Findings: None Complications Complications: No
[2025-08-18 09:35] LABS: Cytology, Body Fluid / CSF SEE PATHOLOGY REPORT
[2025-08-18] MEDS: Aspirin E.C. 81 MG Tablet PO (10:01)
[2025-08-18] MEDS: Potassium Chloride Oral Tablet 20 MEQ PO (10:01)
[2025-08-18 10:05] LABS: Body Fluid Mononuclear WBC # 1.010 10^3/uL; Body Fluid Mononuclear WBC % 97.7 %; Body Fluid Polynuclear WBC # 0.024 10^3/uL; Body Fluid Polynuclear WBC % 2.3 %; Red Cell Count/Body Fluid 0.065 10^6/ul; White Blood Count/Body Fluid 1.034 10^3/uL
[2025-08-18] MEDS: 0.9% Saline Lock 10 ML Syringe IV (10:07)
[2025-08-18] MEDS: Cholecalciferol (VIT D3) 25 MCG TABLET (1,000 UNITS) PO (10:07)
[2025-08-18] MEDS: FLU VACCINE HIGH DOSE 25-26(65YR UP) 180 MCG/0.5 ML SYRINGE IM (10:09)
[2025-08-18 10:33] LABS: Glucose, Body Fluid 104 mg/dL (Not Establ.)
[2025-08-18 10:37] LABS: Auto B Fluid Analyzer BKGD Ct COUNTS W/IN LIMITS (W/IN LIMITS)
[2025-08-18 10:38] LABS: Appearance/Body Fluid TURBID; Body Fluid QC Type(s) BF1; Color/Body Fluid RED; Neutrophil (Segs) 1 %; Other Cell Type/BF 1 %; Source- Body Fluid THORACENTESIS
--- NOTE | 2025-08-18 14:30 | PCM.DC.SUM ---
Providers Date of Admission: 08/17/25 Date of Discharge: 08/18/25 Primary Care Physician: Shy Del Valle MD Reason For Visit: SOB 2/ R PLEURAL EFFUSION Diagnosis Discharge Diagnosis (1) Recurrent right pleural effusion: Status: Acute Code(s): J90 - Pleural effusion, not elsewhere classified Medications at Discharge Home Medications cholecalciferol (vitamin D3) 25 mcg (1,000 unit) capsule (Vitamin D3) 25 mcg PO DAILY vitamin 01/28/23 ondansetron 4 mg disintegrating tablet 4 mg PO Q8H PRN PRN Nausea #10 tabs 11/20/23 acetaminophen 650 mg tablet,extended release 650 mg PO HS PRN fever or pain 12/08/23 sertraline 100 mg tablet 150 mg PO QHS mental health 12/08/23 cyanocobalamin (vitamin B-12) 1,000 mcg tablet 1,000 mcg PO QDAY vitamin 11/10/24 metoprolol tartrate 50 mg tablet 50 mg PO BID blood pressure #60 tabs 04/12/25 aspirin 81 mg tablet,delayed release 81 mg PO BREAKFAST #0 tabs 07/13/25 furosemide 40 mg tablet 40 mg PO DAILY #30 tabs 07/13/25 potassium chloride 20 mEq tablet,extended release(part/cryst) 20 meq PO DAILYCM #30 tabs 07/13/25 atorvastatin 40 mg tablet (Lipitor) 40 mg PO QHS 08/04/25 trazodone 50 mg tablet 50 mg PO QHS 08/17/25 Hospital Course Operations None Procedures Thoracentesis and - (Chest x-ray x 2) Summary of Care Provided Minutes Spent on Discharge: 30 Hospital Course: Mrs. Colon is a 75-year-old white female who presents emergency department [facility] on 08/18/2025 due to increasing shortness of breath with exertion. Patient was recently admitted here in mid June for similar complaint and had a thoracentesis done which improved her shortness of breath. Patient reported that she felt it was getting worse in the last 2 weeks which is why she presented. She had been on Lasix 40 mg daily and has been following with cardiology. Vital signs on presentation were unremarkable and she is 96% on room air. proBNP was 2400 but labs are otherwise unremarkable. Chest x-ray did show a large right pleural effusion. Unfortunately, IR was not available while patient was emergency department so we were contacted for admission and the patient was admitted to the medical floor under observation status. Thoracentesis was ordered and performed on 08/18/2025. 1730 cc of clear whit fluid were drained from her right lung and diagnostic samples were sent to the lab. I did review her previous thoracentesis pathology results which are now in the computer and finalized. This does show atypical cells of undetermined significance as well as a few atypical small cells on the cellblock. Given these findings and the recurrent nature of the effusion along with previous echocardiogram done on 08/11/2025 that showed normal EF at 70% severe concentric LVH with stage I diastolic dysfunction and had a cardiac catheterization done on 08/11/2025 that showed moderate coronary disease in the LAD and mild to moderate disease noted in the RCA and circumflex I am concerned this is potentially malignant effusion. Per Light's criteria the effusion is exudative. The patient states she is following up with [facility] oncology (Dr. Glover) and unfortunately had to cancel her appointment yesterday to come to the emergency department for her lung nodules. I have encouraged her strongly to reschedule this appointment as soon as the schedule allows and if concerned that she will likely develop recurrent effusion. If she ends up representing to the emergency department prior to being seen by oncology she will likely be transferred to be considered for talk pleurodesis versus VATS pleurodesis by CT surgery. I am hoping that she can get into see oncology prior to that and she may need some recurrent thoracenteses versus CT surgery as an outpatient depending on etiology and treatment plan. Ambulatory pulse ox was performed prior to discharge and patient does not require oxygen. Patient was discharged home in stable condition with no medication changes and instructions to follow-up with oncology as soon as possible and her primary care physician within 1 week on 08/18/2025. Discharge diagnoses: Recurrent right pleural effusion-exudative Abnormal cytology on previous thoracentesis with small cells Pulmonary nodules Nonobstructive CAD Chronic HFpEF Essential hypertension Hyperlipidemia Insomnia History of breast cancer History of atrial fibrillation Osteoporosis Depression Osteoarthritis Physical Exam Const alert, oriented x3, no apparent distress, no limitations and well nourished Constitutional Narrative: Overweight, elderly, white female, sitting up in bed, watching television, appears comfortable, nontoxic, currently on room air with comfortable breathing General Appearance: cooperative, comfortable, well kempt and well developed Exam Limitations: no limitations Nutritional Appearance: overweight HEENT normocephalic, head/scalp atraumatic, hearing grossly normal bilaterally and moist oral mucous membranes HEENT Narrative: Mallampati 2, no thrush Resp normal respiratory effort, no retractions, no use of accessory muscles and No clear to auscultation bilaterally Resp Narrative: Few crackles at right base with right lung reexpanding status post thoracentesis, otherwise clear, comfortable breathing on room air Auscultation: crackles; Negative for rhonchi or wheezes Cardio regular rate, regular rhythm, S1 normal heart sound, S2 normal heart sound, no murmurs, no rub, no gallops and no clicks GI normal to inspection, nondistended, normoactive bowel sounds, soft to palpation and non-tender Extremity no clubbing, cyanosis or edema Extremity Narrative: 2+ pedal pulses Neuro moves all extremities and no focal motor deficits Speech: speech normal Psych affect normal Psych Narrative: Extremely pleasant, interacts appropriately Weight / BMI Weight Weight: 75.07 kg Body Mass Index (BMI) 28.2 ABG / Lab / Microbiology Data 08/18/25 05:45 08/18/25 05:45 Laboratory: Laboratory Results - last 24 hr 08/17/25 14:15: Troponin T Hi Sens 2 Hr 30 H 08/17/25 15:36: Fluid Glucose 104, Fluid Total Protein 3.5, Fluid LDH 150 08/18/25 05:45: WBC 4.7, RBC 4.27, Hgb 12.5, Hct 36.9 L, MCV 86.4, MCH 29.3, MCHC 33.9, RDW Std Deviation 42.1, RDW Coeff of Meri 13.5, Plt Count 194, MPV 10.2, Immature Gran % (Auto) 0.200, Neut % (Auto) 56.0, Lymph % (Auto) 28.1, [place] % (Auto) 11.8 H, Eos % (Auto) 2.8, Baso % (Auto) 1.1 H, Absolute Neuts (auto) 2.6, Absolute Lymphs (auto) 1.31, Nucleated RBC % 0, PT 14.0, INR 1.1, APTT 27.9, Sodium 142, Potassium 3.5, Chloride 106, Carbon Dioxide 25.2, Anion Gap 11, BUN 15, Creatinine 0.84, Estim Creat Clear Calc 55.73, Est GFR (MDRD) Non-Af 72, BUN/Creatinine Ratio 18.1, Glucose 106 H, Calcium 9.0, Lactate Dehydrogenase 227, Total Protein 6.6 08/18/25 09:24: Fluid Source THORACENTESIS, Fluid Color RED, Fluid Appearance TURBID, Fluid WBC 1.034, Fluid RBC 0.065, Fluid Tot Cell Count 1.045 H, Fld Polynuclear WBCs # 0.024, Fld Polynuclear WBCs % 2.3, Fluid Mononuclear WBCs 1.010, Fld Mononuclear WBCs % 97.7, Fluid Neutrophils 1, Fluid Lymphocytes 96, Fluid Monocytes 2, Fluid Other Cells 1, Fl Pathologist Comment May follow, Fluid Comment 2 SEE COMMENT Radiography Diagnostic Testing: Radiology Impression Chest X-Ray 08/17/25 11:44 IMPRESSION: Increasing size of pleural effusion on the right Reading Location: [facility] Chest X-Ray 08/18/25 09:15 IMPRESSION: There is no visible pneumothorax. [facility] Instructions Discharge Activity: Return to Normal Activity DC O2, CPAP, BIPAP Needs Home O2 Discharge instructions: No DC home with Oxygen: No Meaningful Use Info Meaningful Use Meaningful Use Diagnoses (Choose all that apply): None applicable Discharge Plan Admission Admit Date/Time: 08/17/25 14:48 Primary Reason for Your Visit: Shortness of breath Attending Provider: Aurora Balderrama Primary Care Provider: Shy Del Valle Consulting Providers: Corry Fan Instructions Additional Instructions / Restrictions: 1. Please reschedule follow-up with Dr. Glover for ongoing assessment of your lung nodules and recurrent pleural effusions. I am concerned that the recurrent fluid buildup in your lungs is related to the nodules in your lung tissue. Discharge Orders/Prescriptions Prescriptions: Continued acetaminophen 650 mg tablet extended release 650 mg PO HS PRN (Reason: fever or pain) cyanocobalamin (vitamin B-12) 1,000 mcg tablet 1,000 mcg PO QDAY atorvastatin [Lipitor] 40 mg tablet 40 mg PO QHS sertraline 100 mg tablet 150 mg PO QHS cholecalciferol (vitamin D3) [Vitamin D3] 25 mcg (1,000 unit) Capsule 25 mcg PO DAILY ondansetron 4 mg tablet,disintegrating 4 mg PO Q8H PRN PRN (Reason: Nausea) Qty: 10 0RF furosemide 40 mg Tablet 40 mg PO DAILY Qty: 30 0RF potassium chloride 20 mEq Tablet,Er Particles/Crystals 20 meq PO DAILYCM Qty: 30 0RF aspirin 81 mg Tablet,Delayed Release (Dr/Ec) 81 mg PO BREAKFAST Qty: 0 0RF trazodone 50 mg tablet 50 mg PO QHS metoprolol tartrate 50 mg tablet 50 mg PO BID Qty: 60 11RF Referrals / Follow Up: Shy Del Valle MD [Primary Care Provider, Family Practice] - Within 1 Week Raj Glover MD [Med Staff - Active Staff, Oncology] - See Referral Note Referral Note: Call later today or tomorrow and get an appointment to be seen as soon as he has availability Disposition Disposition (needs filled in before D/C Order can be placed): Home, Self Care Charges/Coding Visit Charges Inpatient E&M: 10488 Disch Hosp
--- NOTE | 2025-08-18 14:52 | PHA.DC.MR.R ---
Pharmacy [place] Med Reconciliation Pharmacy Service has performed discharge medication reconciliation for this patient. The patient's discharge medication list was reviewed for discrepancies and discrepancies were resolved. Medications at Discharge Home Medications cholecalciferol (vitamin D3) 25 mcg (1,000 unit) capsule (Vitamin D3) 25 mcg PO DAILY vitamin 01/28/23 ondansetron 4 mg disintegrating tablet 4 mg PO Q8H PRN PRN Nausea #10 tabs 11/20/23 acetaminophen 650 mg tablet,extended release 650 mg PO HS PRN fever or pain 12/08/23 sertraline 100 mg tablet 150 mg PO QHS mental health 12/08/23 cyanocobalamin (vitamin B-12) 1,000 mcg tablet 1,000 mcg PO QDAY vitamin 11/10/24 metoprolol tartrate 50 mg tablet 50 mg PO BID blood pressure #60 tabs 04/12/25 aspirin 81 mg tablet,delayed release 81 mg PO BREAKFAST #0 tabs 07/13/25 furosemide 40 mg tablet 40 mg PO DAILY #30 tabs 07/13/25 potassium chloride 20 mEq tablet,extended release(part/cryst) 20 meq PO DAILYCM #30 tabs 07/13/25 atorvastatin 40 mg tablet (Lipitor) 40 mg PO QHS 08/04/25 trazodone 50 mg tablet 50 mg PO QHS 08/17/25
--- NOTE | 2025-08-18 15:19 | CASEMGMT ---
Patient has order for discharge. RN CM in to discuss needs at discharge. Patient denies needs or help at discharge. Patient denies needs or help at discharge.
--- NOTE | 2025-08-18 16:16 | CHAPLAIN ---
Type of Pastoral Visit _x__ Initial Visit ___ Follow-up Visit ___ On-call Visit ___ General Patient Visit ___ Spiritual Assessment ___ Family Conference ___ Bereavement ___ Rapid Response ___ Code Blue ___ Other (describe below) Pastoral Care Referral From _x__ Patient ___ Family ___ Nurse ___ Physician ___ [employer] ___ Bank Operations Officer ___ Other (describe below) Sacrament/Intervention _x__ Active listening ___ Anointing ___ Catholic ___ Bereavement ___ Communion ___ Jennifer exploration ___ ___ Life review _x__ Prayer ___ Reconciliation ___ Sacrament of Sick _x__ Supportive presence ___ Wedding ___ Other (describe below) Pastoral Comments patient had similar fluid buildup a few weeks ago; pt is optimistic but ready to get more answers about 'why this is happening'; pt is talkative and is hopeful to be able to continue her activities; pt welcomes prayer and then states her lupe in a new great granddaughter and the concerns for a granddaughter that has cancer and is undergoing chemo treatments at the [facility]
[2025-08-18 16:37] LABS: Pathologist Comment/Body Fluid Reviewed
== END 2025-08-18 15:46 | disposition home or self-care (01) ==
LOC: ED 14:02 → PCU 15:27
PROVIDERS: Admitting Provider Internal Medicine; Emergency Provider Surgery; PCP Family Medicine; Visit Provider Internal Medicine
DX: I11.0 Hypertensive heart disease with heart failure (principal); I50.32 Chronic diastolic (congestive) heart failure; I48.91 Unspecified atrial fibrillation; R91.8 Other nonspecific abnormal finding of lung field; I25.10 Atherosclerotic heart disease of native coronary artery without angina pectoris; Z79.899 Other long term (current) drug therapy; G47.00 Insomnia, unspecified; M19.90 Unspecified osteoarthritis, unspecified site; M81.0 Age-related osteoporosis without current pathological fracture; F32.A Depression, unspecified; E78.5 Hyperlipidemia, unspecified; Z79.82 Long term (current) use of aspirin; J91.8 Pleural effusion in other conditions classified elsewhere; R94.31 Abnormal electrocardiogram [ECG] [EKG]; F41.9 Anxiety disorder, unspecified
CPT/HCPCS: 32555; 36415; 71046; 80048; 82945; 83615; 83880; 84155; 84157; 84484; 85025; 85610; 85730; 88108; 88305; 88313; 88341; 88342; 89050; 93005; 94668; 96374; 99221; 99284; A4216; G0378; J1938

== ENCOUNTER → 2025-09-01 | Outpatient (CLI) | payer MEDICARE, OTHER, SELFPAY ==
--- NOTE | 2025-09-01 13:45 | RAD_ITS ---
PROCEDURE: CHEST PA AND LATERAL 09/01/2025 REASON FOR EXAM: SHORTNESS OF BREATH, WHEEZING TECHNIQUE: Procedure Code: RADCXR Modality: DX Procedure: CHEST PA AND LATERAL COMPARISON: Chest x-ray 08/18/2025 FINDINGS: Hardware: Redemonstration of multiple surgical clips overlying left chest and lung, unchanged since prior study. Heart: Heart size is mildly enlarged. Mediastinum: The mediastinal contour is stable. Lungs: Interval development of moderate-sized right pleural effusion. Persistent bibasilar atelectasis. Bones: Degenerative changes of visualized spine and bilateral shoulder joints. RAD/Chest PA and Lateral IMPRESSION: Interval development of moderate size right pleural effusion. Stable postsurgical changes within left mediastinum. Bibasilar atelectasis. Reading Location: [id number]
[2025-09-01 14:51] LABS: Anion Gap 11 (5-15); BUN 14 mg/dL (4-19); BUN/Creat Ratio 14.5 RATIO (10-20); Calcium,Total 9.4 mg/dL (7.6-11.0); Carbon Dioxide 26.1 mmol/L (21.0-32.0); Chloride 107 mmol/L (98-108); Glucose 125 mg/dL (70-99); Potassium 4.0 mmol/L (3.3-5.1)
== END | disposition home or self-care (01) ==
PROVIDERS: PCP Family Medicine; Referring Provider Nurse Practitioner Gerontology; Visit Provider Nurse Practitioner Gerontology
DX: R06.09 Other forms of dyspnea (principal); I48.91 Unspecified atrial fibrillation; R07.89 Other chest pain; I47.10 Supraventricular tachycardia, unspecified
CPT/HCPCS: 36415; 71046; 80048

== ENCOUNTER → 2025-10-05 | Outpatient (CLI) | payer MEDICARE, OTHER, SELFPAY ==
--- NOTE | 2025-10-05 08:22 | EKG12_ITS ---
Test Reason : CARDIOTOXIC DRUG Blood Pressure : */* mmHG Vent. Rate : 59 BPM Atrial Rate : 59 BPM P-R Int : 142 ms QRS Dur : 82 ms QT Int : 440 ms P-R-T Axes : 18 2 3 degrees QTcB Int : 435 ms Sinus bradycardia with marked sinus arrhythmia Nonspecific ST and T wave abnormality Abnormal ECG Confirmed by Ahmet Deleon ([id number]), offline editor GALO POTTER ([id number]) on 10/05/2025 10:42:22 AM Referred By: Raj Glover Confirmed By: Ahmet Deleon
== END | disposition home or self-care (01) ==
LOC: PSN 08:21
PROVIDERS: PCP Family Medicine; Referring Provider Internal Medicine Medical Oncology; Visit Provider Internal Medicine Medical Oncology
DX: C34.90 Malignant neoplasm of unspecified part of unspecified bronchus or lung (principal); C78.7 Secondary malignant neoplasm of liver and intrahepatic bile duct; C78.2 Secondary malignant neoplasm of pleura; C50.911 Malignant neoplasm of unspecified site of right female breast
CPT/HCPCS: 93005